=== PATIENT | male | born 1935 | race Caucasian/White ===

== ENCOUNTER 2017-07-22 20:31 | Inpatient (IN) | payer MEDICARE ==
[2017-07-22 21:13] LABS: ADD MAN DIFF? NO
[2017-07-22 21:24] LABS: ANION GAP 7 (6-14); BLOOD UREA NITROGEN 38 mg/dL (8-26); BUN/CREATININE RATIO 24 (6-20); CALCIUM 9.2 mg/dL (8.5-10.1); CARBON DIOXIDE 30 mmol/L (21-32); CHLORIDE 94 mmol/L (98-107); CREATININE 1.6 mg/dL (0.7-1.3); GFR 41.6; GLUCOSE 131 mg/dL (70-99); POTASSIUM 4.4 mmol/L (3.5-5.1); SODIUM 131 mmol/L (136-145)
[2017-07-22] MEDS: MORPHINE SULFATE 4 MG/ML DISP.SYRIN. IV (21:27)
[2017-07-22] MEDS: IV NORMAL SALINE 500ML BAG 500 ML IV ×2 (21:27→23:24)
[2017-07-22 21:28] LABS: BASO % 0 % (0-3); EOS # 0.2 x10^3/uL (0.0-0.7); EOS % 3 % (0-3); HEMATOCRIT 30.6 % (39.0-53.0); HEMOGLOBIN 10.6 g/dL (13.0-17.5); LYMPH # 0.8 x10^3/uL (1.0-4.8); LYMPH % 10 % (24-48); MEAN CORPUSCULAR HEMOGLOBIN 31 pg (25-35); MEAN CORPUSCULAR HGB CONC 35 g/dL (31-37); MEAN CORPUSCULAR VOLUME 90 fL (79-100); MONO # 0.7 x10^3/uL (0.0-1.1); MONO % 9 % (0-9); NEUT # 6.3 x10^3uL (1.8-7.7); NEUT % 78 % (31-73); PLATELET COUNT 128 x10^3/uL (140-400); RED BLOOD COUNT 3.38 x10^6/uL (4.30-5.70); RED CELL DISTRIBUTION WIDTH 14.7 % (11.5-14.5); WHITE BLOOD COUNT 8.1 x10^3/uL (4.0-11.0)
[2017-07-22 21:30] LABS: ALBUMIN 3.7 g/dL (3.4-5.0); ALBUMIN/GLOBULIN RATIO 1.2 (1.0-1.7); ALK PHOS 76 U/L (46-116); ALT (SGPT) 18 U/L (16-63); AST (SGOT) 19 U/L (15-37); LIPASE 666 U/L (73-393); TOTAL BILIRUBIN 0.4 mg/dL (0.2-1.0); TOTAL PROTEIN 6.8 g/dL (6.4-8.2)
[2017-07-22] MEDS: ONDANSETRON PF 4 MG/2 ML VIAL. IV (21:31)
[2017-07-22] MEDS ORDERED: CONTRAST GIVEN MC (21:45)
[2017-07-22] MEDS: IOHEXOL 300 MG/ML 100ML VIAL. IV (22:00)
[2017-07-22 22:19] LABS: BILIRUBIN,URINE NEGATIVE (NEG); CLARITY,URINE CLEAR; COLOR,URINE YELLOW; GLUCOSE,URINE NEGATIVE (NEG); NITRITE,URINE NEGATIVE (NEG); PROTEIN,URINE NEGATIVE (NEG-TRACE); UROBILINOGEN,URINE 0.2 mg/dL (0.2 mg/dL)
[2017-07-22 22:26] LABS: BACTERIA,URINE 0 /HPF (0-FEW); HYALINE CASTS, URINE FEW /HPF; RBC,URINE OCC /HPF (0-2); SQUAMOUS EPITHELIAL CELL,UR OCC /LPF; WBC,URINE 0 /HPF (0-4)
[2017-07-22 23:22] LABS: LACTIC ACID 0.7 mmol/L (0.4-2.0)
[2017-07-22] MEDS ORDERED: IV NORMAL SALINE 1000ML BAG 1,000 ML IV (23:22)
[2017-07-22] MEDS: fentaNYL PF VIAL 100 MCG/2 ML VIAL IV (23:23)
[2017-07-22] MEDS ORDERED: ONDANSETRON PF 4 MG/2 ML VIAL. IV (23:30)
[2017-07-22] MEDS ORDERED: cefOXitin SODIUM 2 GM in IV DEXTROSE 5% 100 ML IV (23:30)
[2017-07-22] MEDS ORDERED: fentaNYL PF VIAL 100 MCG/2 ML VIAL IV (23:30)
[2017-07-22] MEDS ORDERED: PHENYLEPHRINE in 0.9% NACL PF 1 MG/10 ML SYRINGE. IV (23:42)
[2017-07-22] MEDS ORDERED: ePHEDrine PF IN SALINE 50 MG/5 ML DISP.SYRIN IV (23:42)
[2017-07-22] MEDS ORDERED: ONDANSETRON PF 4 MG/2 ML VIAL. (23:43)
[2017-07-22] MEDS ORDERED: SUCCINYLCHOLINE 200 MG/10 ML VIAL. (23:43)
[2017-07-22] MEDS ORDERED: LIDOCAINE 2% PF Vial for OR 5 ML VIAL. (23:43)
[2017-07-22] MEDS ORDERED: PROPOFOL 20 ML IV (23:43)
[2017-07-22] MEDS ORDERED: DEXAMETHASONE SOD PHOS 20 MG/5 ML VIAL. (23:43)
[2017-07-22] MEDS ORDERED: ROCURONIUM 50 MG/5 ML VIAL. (23:44)
[2017-07-22] MEDS ORDERED: fentaNYL PF VIAL 100 MCG/2 ML VIAL (23:45)
[2017-07-22] MEDS ORDERED: IV RINGERS,LACTATED 1000ML 1,000 ML IV (23:59)
[2017-07-23] MEDS ORDERED: MORPHINE SULFATE 2 MG/ML DISP.SYRIN. IV
[2017-07-23] MEDS ORDERED: fentaNYL PF VIAL 100 MCG/2 ML VIAL IV ×2
[2017-07-23] MEDS ORDERED: HYDROmorphone 2 MG/ML VIAL IV
[2017-07-23] MEDS ORDERED: LIDOCAINE 1% PF 2 ML VIAL. ID
[2017-07-23] MEDS ORDERED: PROCHLORPERAZINE 10 MG/2 ML VIAL. IV
[2017-07-23] MEDS ORDERED: NEOSTIGMINE METHYLSULFATE 5 MG/5 ML SYRINGE. (00:57)
[2017-07-23] MEDS ORDERED: GLYCOPYRROLATE 1 MG/5 ML VIAL. (00:57)
[2017-07-23] MEDS: BUPIVACAINE-EPI 0.25%-1:200000 50 ML VIAL. (00:57)
[2017-07-23] MEDS: IV NORMAL SALINE 1000ML BAG 1,000 ML IV (02:07)
[2017-07-23] MEDS ORDERED: ONDANSETRON PF 4 MG/2 ML VIAL. IV ×2 (02:15)
[2017-07-23] MEDS ORDERED: NALOXONE 0.4 MG/ML VIAL. IV (02:15)
[2017-07-23] MEDS ORDERED: 0.9 % SODIUM CHLORIDE 10 ML DISP.SYRIN. IV (02:15)
[2017-07-23] MEDS: IV RINGERS,LACTATED 1000ML 1,000 ML IV ×3 (02:24→23:50)
[2017-07-23 05:27] LABS: ADD MAN DIFF? NO
[2017-07-23 05:42] LABS: ANION GAP 7 (6-14); BLOOD UREA NITROGEN 32 mg/dL (8-26); CALCIUM 8.2 mg/dL (8.5-10.1); CARBON DIOXIDE 27 mmol/L (21-32); CHLORIDE 99 mmol/L (98-107); CREATININE 1.6 mg/dL (0.7-1.3); GFR 41.6; GLUCOSE 127 mg/dL (70-99); POTASSIUM 4.5 mmol/L (3.5-5.1); SODIUM 133 mmol/L (136-145)
[2017-07-23 05:52] LABS: LACTIC ACID 1.2 mmol/L (0.4-2.0)
[2017-07-23 06:19] LABS: BASO % 1 % (0-3); EOS # 0.1 x10^3/uL (0.0-0.7); EOS % 2 % (0-3); HEMATOCRIT 32.5 % (39.0-53.0); HEMOGLOBIN 10.9 g/dL (13.0-17.5); LYMPH % 14 % (24-48); MEAN CORPUSCULAR HEMOGLOBIN 31 pg (25-35); MEAN CORPUSCULAR HGB CONC 33 g/dL (31-37); MEAN CORPUSCULAR VOLUME 92 fL (79-100); MONO # 0.4 x10^3/uL (0.0-1.1); MONO % 6 % (0-9); NEUT # 5.4 x10^3uL (1.8-7.7); NEUT % 78 % (31-73); PLATELET COUNT 117 x10^3/uL (140-400); RED BLOOD COUNT 3.55 x10^6/uL (4.30-5.70); RED CELL DISTRIBUTION WIDTH 14.7 % (11.5-14.5); WHITE BLOOD COUNT 6.9 x10^3/uL (4.0-11.0)
[2017-07-23] MEDS ORDERED: INFLUENZA VAX SCREEN BY RX. MC (11:45)
[2017-07-23] MEDS ORDERED: PNEUMOCOCCAL VAX SCREEN BY RX. MC (11:45)
[2017-07-23] MEDS: ENOXAPARIN 40 MG/0.4 ML SYRINGE. SQ (14:54)
[2017-07-23] MEDS: PNEUMOC CONJ VACC 23-VALENT 0.5 ML VIAL. VAX IM (14:57)
[2017-07-23] MEDS: FLU VACC QS2017-18 (36MOS+)/PF 0.5 ML SYRINGE. VAX IM (14:58)
[2017-07-23] MEDS ORDERED: IV NORMAL SALINE 1000ML BAG 1,000 ML IV (17:30)
[2017-07-23] MEDS: IV RINGERS,LACTATED 500ML 500 ML IV (18:45)
[2017-07-23] MEDS ORDERED: IV RINGERS,LACTATED 500ML 500 ML IV (19:00)
[2017-07-23 21:13] LABS: MRSA BY PCR Negative (Negative)
[2017-07-24 06:45] LABS: ADD MAN DIFF? NO; BASO % 0 % (0-3); EOS % 0 % (0-3); HEMATOCRIT 21.8 % (39.0-53.0); LYMPH # 0.6 x10^3/uL (1.0-4.8); LYMPH % 8 % (24-48); MEAN CORPUSCULAR HEMOGLOBIN 32 pg (25-35); MEAN CORPUSCULAR HGB CONC 35 g/dL (31-37); MEAN CORPUSCULAR VOLUME 91 fL (79-100); MONO # 0.6 x10^3/uL (0.0-1.1); MONO % 8 % (0-9); NEUT # 6.7 x10^3uL (1.8-7.7); NEUT % 84 % (31-73); PLATELET COUNT 95 x10^3/uL (140-400); RED BLOOD COUNT 2.38 x10^6/uL (4.30-5.70); RED CELL DISTRIBUTION WIDTH 14.8 % (11.5-14.5); WHITE BLOOD COUNT 7.9 x10^3/uL (4.0-11.0)
[2017-07-24 07:02] LABS: ALBUMIN 2.5 g/dL (3.4-5.0); ALBUMIN/GLOBULIN RATIO 0.9 (1.0-1.7); ALK PHOS 54 U/L (46-116); ALT (SGPT) 11 U/L (16-63); ANION GAP 7 (6-14); AST (SGOT) 14 U/L (15-37); BLOOD UREA NITROGEN 31 mg/dL (8-26); BUN/CREATININE RATIO 22 (6-20); CALCIUM 8.4 mg/dL (8.5-10.1); CARBON DIOXIDE 27 mmol/L (21-32); CHLORIDE 103 mmol/L (98-107); CREATININE 1.4 mg/dL (0.7-1.3); GFR 48.5; GLUCOSE 119 mg/dL (70-99); POTASSIUM 4.5 mmol/L (3.5-5.1); SODIUM 137 mmol/L (136-145); TOTAL BILIRUBIN 0.4 mg/dL (0.2-1.0); TOTAL PROTEIN 5.2 g/dL (6.4-8.2)
[2017-07-24 07:07] LABS: HEMOGLOBIN 7.6 g/dL (13.0-17.5)
[2017-07-24] MEDS: IV RINGERS,LACTATED 1000ML 1,000 ML IV (08:21)
[2017-07-24] MEDS ORDERED: MAGNESIUM SULFATE 2GM 50 ML IV (09:15)
[2017-07-24 09:39] LABS: LIPASE 110 U/L (73-393)
[2017-07-24] MEDS: ENOXAPARIN 40 MG/0.4 ML SYRINGE. SQ (12:28)
[2017-07-25 04:53] LABS: ADD MAN DIFF? NO
[2017-07-25 05:18] LABS: BASO % 0 % (0-3); EOS % 0 % (0-3); LYMPH # 0.5 x10^3/uL (1.0-4.8); LYMPH % 8 % (24-48); MEAN CORPUSCULAR HEMOGLOBIN 31 pg (25-35); MEAN CORPUSCULAR HGB CONC 35 g/dL (31-37); MEAN CORPUSCULAR VOLUME 91 fL (79-100); MONO # 0.5 x10^3/uL (0.0-1.1); MONO % 7 % (0-9); NEUT # 5.6 x10^3uL (1.8-7.7); NEUT % 85 % (31-73); PLATELET COUNT 93 x10^3/uL (140-400); RED BLOOD COUNT 1.86 x10^6/uL (4.30-5.70); RED CELL DISTRIBUTION WIDTH 15.1 % (11.5-14.5); WHITE BLOOD COUNT 6.6 x10^3/uL (4.0-11.0)
[2017-07-25 05:25] LABS: ALBUMIN 2.3 g/dL (3.4-5.0); ALBUMIN/GLOBULIN RATIO 0.8 (1.0-1.7); ALK PHOS 49 U/L (46-116); ALT (SGPT) 12 U/L (16-63); ANION GAP 5 (6-14); AST (SGOT) 21 U/L (15-37); BLOOD UREA NITROGEN 32 mg/dL (8-26); BUN/CREATININE RATIO 23 (6-20); CALCIUM 8.5 mg/dL (8.5-10.1); CARBON DIOXIDE 30 mmol/L (21-32); CHLORIDE 106 mmol/L (98-107); CREATININE 1.4 mg/dL (0.7-1.3); GFR 48.5; GLUCOSE 132 mg/dL (70-99); POTASSIUM 3.9 mmol/L (3.5-5.1); SODIUM 141 mmol/L (136-145); TOTAL BILIRUBIN 0.4 mg/dL (0.2-1.0); TOTAL PROTEIN 5.2 g/dL (6.4-8.2)
[2017-07-25 05:28] LABS: HEMATOCRIT 16.9 % (39.0-53.0); HEMOGLOBIN 5.8 g/dL (13.0-17.5)
[2017-07-25 05:43] LABS: PHOSPHORUS 2.1 mg/dL (2.6-4.7)
[2017-07-25] MEDS: ENOXAPARIN 40 MG/0.4 ML SYRINGE. SQ (09:29)
[2017-07-25] MEDS: POTASSIUM CHLORIDE 10 MEQ TABLET.ER. PO (14:00)
[2017-07-25] MEDS: LOSARTAN POTASSIUM 50 MG TABLET. PO (14:00)
[2017-07-25] MEDS: AMINO AC 3%/ELECTROLYTE/GLYCER 1,000 ML IV (14:00)
[2017-07-25] MEDS: MELOXICAM 7.5 MG TABLET PO (14:00)
[2017-07-25] MEDS: DIGOXIN 125 MCG TABLET. PO (14:00)
[2017-07-25] MEDS: FUROSEMIDE 40 MG TABLET. PO (14:00)
[2017-07-25] MEDS: CARVEDILOL 6.25 MG TABLET. PO (14:26)
[2017-07-25 15:43] LABS: RETIC COUNT 0.5 % (0.5-2.5)
[2017-07-25 15:53] LABS: % SAT IRON 4 % (15-34); IRON,SERUM 7 ug/dL (65-175)
[2017-07-25] MEDS: TPN PER PHARMACY MC (16:19)
[2017-07-25 17:20] LABS: FERRITIN 150 ng/mL (26-388)
[2017-07-25] MEDS: POTASSIUM PHOSPHATE DIBASIC 13.6 MMOL in IV NORMAL SALINE 100ML 100 ML IV (18:36)
[2017-07-25] MEDS: IV RINGERS,LACTATED 1000ML 1,000 ML IV (18:39)
[2017-07-25] MEDS ORDERED: FAMOTIDINE 20 MG TABLET. PO (21:00)
[2017-07-25] MEDS: SIMVASTATIN 20 MG TABLET PO (21:00)
[2017-07-25] MEDS: TRIAMCINOLONE ACETONIDE 0.1% TOPICAL OINTMENT 15GM TUBE. TP (21:00)
[2017-07-25] MEDS ORDERED: FAMOTIDINE 20 MG/2 ML VIAL IVP (21:00)
[2017-07-25] MEDS: FAMOTIDINE 20 MG/2 ML VIAL IVP (21:03)
[2017-07-26] MEDS: TOTAL PARENTERAL NUTRITION 1,424.9987 ML, AMINO ACIDS 10 % 60 GM, DEXTROSE 70 % IN WATE... IV ×2 (03:19→22:14)
[2017-07-26 05:20] LABS: ADD MAN DIFF? NO
[2017-07-26 05:34] LABS: BASO % 0 % (0-3); EOS # 0.1 x10^3/uL (0.0-0.7); EOS % 3 % (0-3); LYMPH # 0.4 x10^3/uL (1.0-4.8); LYMPH % 9 % (24-48); MEAN CORPUSCULAR HEMOGLOBIN 31 pg (25-35); MEAN CORPUSCULAR HGB CONC 34 g/dL (31-37); MEAN CORPUSCULAR VOLUME 90 fL (79-100); MONO # 0.3 x10^3/uL (0.0-1.1); MONO % 6 % (0-9); NEUT # 4.2 x10^3uL (1.8-7.7); NEUT % 83 % (31-73); PLATELET COUNT 82 x10^3/uL (140-400); RED BLOOD COUNT 2.23 x10^6/uL (4.30-5.70); RED CELL DISTRIBUTION WIDTH 15.6 % (11.5-14.5); WHITE BLOOD COUNT 5.1 x10^3/uL (4.0-11.0)
[2017-07-26 05:48] LABS: HEMATOCRIT 20.1 % (39.0-53.0); HEMOGLOBIN 6.9 g/dL (13.0-17.5)
[2017-07-26 06:22] LABS: MAGNESIUM 2.2 mg/dL (1.8-2.4)
[2017-07-26 06:23] LABS: ALBUMIN 2.2 g/dL (3.4-5.0); ANION GAP 6 (6-14); BLOOD UREA NITROGEN 32 mg/dL (8-26); CALCIUM 8.4 mg/dL (8.5-10.1); CARBON DIOXIDE 30 mmol/L (21-32); CHLORIDE 109 mmol/L (98-107); CREATININE 1.2 mg/dL (0.7-1.3); GLUCOSE 138 mg/dL (70-99); PHOSPHORUS 2.7 mg/dL (2.6-4.7); POTASSIUM 3.8 mmol/L (3.5-5.1); SODIUM 145 mmol/L (136-145)
[2017-07-26 06:27] LABS: TRIGLYCERIDES 52 mg/dL (0-150)
[2017-07-26 06:41] LABS: IMMEDIATE SPIN CROSSMATCH 1 3
[2017-07-26] MEDS: CARVEDILOL 6.25 MG TABLET. PO ×4 (08:00→17:05)
[2017-07-26] MEDS: ENOXAPARIN 40 MG/0.4 ML SYRINGE. SQ (08:02)
[2017-07-26] MEDS: LOSARTAN POTASSIUM 50 MG TABLET. PO ×2 (08:03→08:48)
[2017-07-26] MEDS: POTASSIUM CHLORIDE 10 MEQ TABLET.ER. PO ×2 (08:03→08:47)
[2017-07-26] MEDS: DIGOXIN 125 MCG TABLET. PO ×2 (08:04→08:47)
[2017-07-26] MEDS: MELOXICAM 7.5 MG TABLET PO (08:05)
[2017-07-26] MEDS: FUROSEMIDE 40 MG TABLET. PO ×2 (08:05→08:47)
[2017-07-26] MEDS: TRIAMCINOLONE ACETONIDE 0.1% TOPICAL OINTMENT 15GM TUBE. TP ×2 (08:58→22:15)
[2017-07-26] MEDS: IRON SUCROSE COMPLEX 500 MG in IV NORMAL SALINE 250ML 250 ML IV (11:32)
[2017-07-26] MEDS: TPN PER PHARMACY MC (12:43)
[2017-07-26] MEDS: HALOPERIDOL LACTATE 5 MG/ML VIAL. IVP (14:04)
[2017-07-26 15:20] LABS: HEMATOCRIT 24.5 % (39.0-53.0); HEMOGLOBIN 8.2 g/dL (13.0-17.5); MEAN CORPUSCULAR HEMOGLOBIN 30 pg (25-35); MEAN CORPUSCULAR HGB CONC 34 g/dL (31-37); MEAN CORPUSCULAR VOLUME 89 fL (79-100); PLATELET COUNT 90 x10^3/uL (140-400); RED BLOOD COUNT 2.74 x10^6/uL (4.30-5.70); RED CELL DISTRIBUTION WIDTH 16.1 % (11.5-14.5); WHITE BLOOD COUNT 6.6 x10^3/uL (4.0-11.0)
[2017-07-26] MEDS: LABETALOL 20 MG/4 ML DISP.SYRIN. IVP ×2 (17:46→21:52)
[2017-07-26] MEDS ORDERED: ADENOSINE 6 MG/2 ML VIAL. IV ×2 (20:00→20:03)
[2017-07-26] MEDS: SIMVASTATIN 20 MG TABLET PO (21:00)
[2017-07-26] MEDS: FAMOTIDINE 20 MG/2 ML VIAL IVP (21:19)
[2017-07-26] MEDS: DIGOXIN IV 500 MCG/2 ML AMPUL. IV (22:25)
[2017-07-26] MEDS: ACETAMINOPHEN 650 MG SUPP.RECT. RC (22:32)
[2017-07-26] MEDS: METOPROLOL TARTRATE 5 MG/5 ML VIAL. IVP (23:55)
[2017-07-27] MEDS: IV RINGERS,LACTATED 1000ML 1,000 ML IV (03:30)
[2017-07-27] MEDS: LABETALOL 20 MG/4 ML DISP.SYRIN. IVP ×4 (03:32→21:09)
[2017-07-27] MEDS: METOPROLOL TARTRATE 5 MG/5 ML VIAL. IVP ×3 (05:54→17:28)
[2017-07-27 06:27] LABS: MAGNESIUM 2.3 mg/dL (1.8-2.4)
[2017-07-27 07:36] LABS: ALBUMIN 2.5 g/dL (3.4-5.0); ANION GAP 9 (6-14); BLOOD UREA NITROGEN 30 mg/dL (8-26); CALCIUM 8.4 mg/dL (8.5-10.1); CARBON DIOXIDE 29 mmol/L (21-32); CHLORIDE 109 mmol/L (98-107); CREATININE 1.5 mg/dL (0.7-1.3); GFR 44.8; GLUCOSE 175 mg/dL (70-99); PHOSPHORUS 2.9 mg/dL (2.6-4.7); POTASSIUM 3.7 mmol/L (3.5-5.1); SODIUM 147 mmol/L (136-145)
[2017-07-27] MEDS: MELOXICAM 7.5 MG TABLET PO (07:54)
[2017-07-27] MEDS: ACETAMINOPHEN 650 MG SUPP.RECT. RC (08:08)
[2017-07-27] MEDS: HALOPERIDOL LACTATE 5 MG/ML VIAL. IVP ×3 (08:16→19:25)
[2017-07-27] MEDS: DIGOXIN IV 500 MCG/2 ML AMPUL. IV ×2 (08:17→15:44)
[2017-07-27] MEDS: TRIAMCINOLONE ACETONIDE 0.1% TOPICAL OINTMENT 15GM TUBE. TP ×2 (08:18→21:08)
[2017-07-27] MEDS: POTASSIUM CHLORIDE 10 MEQ TABLET.ER. PO (09:00)
[2017-07-27] MEDS: FUROSEMIDE 40 MG TABLET. PO (09:00)
[2017-07-27 10:20] LABS: BASO % 0 % (0-3); EOS # 0.1 x10^3/uL (0.0-0.7); EOS % 1 % (0-3); HEMATOCRIT 24.8 % (39.0-53.0); HEMOGLOBIN 8.4 g/dL (13.0-17.5); LYMPH # 0.4 x10^3/uL (1.0-4.8); LYMPH % 6 % (24-48); MEAN CORPUSCULAR HEMOGLOBIN 32 pg (25-35); MEAN CORPUSCULAR HGB CONC 34 g/dL (31-37); MEAN CORPUSCULAR VOLUME 93 fL (79-100); MONO # 0.4 x10^3/uL (0.0-1.1); MONO % 6 % (0-9); NEUT # 6.6 x10^3uL (1.8-7.7); NEUT % 87 % (31-73); PLATELET COUNT 94 x10^3/uL (140-400); RED BLOOD COUNT 2.65 x10^6/uL (4.30-5.70); RED CELL DISTRIBUTION WIDTH 16.6 % (11.5-14.5); WHITE BLOOD COUNT 7.5 x10^3/uL (4.0-11.0)
[2017-07-27 10:25] LABS: ADD MAN DIFF? YES
[2017-07-27] MEDS: IV DEXTROSE 5% 1,000 ML IV (11:01)
[2017-07-27] MEDS: TPN PER PHARMACY MC (11:03)
[2017-07-27 11:29] LABS: % BANDS 5 % (0-9); % LYMPHS 4 % (24-48); % MONOS 3 % (0-10); % SEGS 88 % (35-66)
[2017-07-27 11:30] LABS: PLT ESTIMATE DECREASED (ADEQUATE)
[2017-07-27] MEDS: SIMVASTATIN 20 MG TABLET PO (21:00)
[2017-07-27] MEDS: FAMOTIDINE 20 MG/2 ML VIAL IVP (21:08)
[2017-07-27] MEDS: HYDROmorphone 2 MG/ML VIAL IV (21:20)
[2017-07-27] MEDS: [UNRECOGNIZED DRUG - OTHER] IV (22:02)
[2017-07-27] MEDS: AMINO ACIDS IV (22:02)
[2017-07-27] MEDS: TOTAL PARENTERAL NUTRITION IV (22:02)
[2017-07-27] MEDS: DEXTROSE 70% IV (22:02)
[2017-07-28] MEDS: METOPROLOL TARTRATE 5 MG/5 ML VIAL. IVP ×3 (00:17→12:00)
[2017-07-28] MEDS: HYDROmorphone 2 MG/ML VIAL IV ×2 (01:22→05:01)
[2017-07-28] MEDS: LABETALOL 20 MG/4 ML DISP.SYRIN. IVP ×2 (01:24→03:08)
[2017-07-28] MEDS: HALOPERIDOL LACTATE 5 MG/ML VIAL. IVP (03:19)
[2017-07-28] MEDS: ACETAMINOPHEN 650 MG SUPP.RECT. RC (03:39)
[2017-07-28 03:42] LABS: ADD MAN DIFF? NO
[2017-07-28 03:44] LABS: BASO % 1 % (0-3); EOS % 1 % (0-3); HEMATOCRIT 23.6 % (39.0-53.0); LYMPH # 0.5 x10^3/uL (1.0-4.8); LYMPH % 6 % (24-48); MEAN CORPUSCULAR HEMOGLOBIN 31 pg (25-35); MEAN CORPUSCULAR HGB CONC 34 g/dL (31-37); MEAN CORPUSCULAR VOLUME 90 fL (79-100); MONO # 0.5 x10^3/uL (0.0-1.1); MONO % 7 % (0-9); NEUT # 6.4 x10^3uL (1.8-7.7); NEUT % 86 % (31-73); PLATELET COUNT 87 x10^3/uL (140-400); RED BLOOD COUNT 2.61 x10^6/uL (4.30-5.70); RED CELL DISTRIBUTION WIDTH 15.8 % (11.5-14.5); WHITE BLOOD COUNT 7.5 x10^3/uL (4.0-11.0)
[2017-07-28] MEDS: IV DEXTROSE 5% 1,000 ML IV (03:55)
[2017-07-28 04:03] LABS: ALBUMIN 2.3 g/dL (3.4-5.0); ANION GAP 8 (6-14); BLOOD UREA NITROGEN 26 mg/dL (8-26); CALCIUM 8.4 mg/dL (8.5-10.1); CARBON DIOXIDE 27 mmol/L (21-32); CHLORIDE 110 mmol/L (98-107); CREATININE 1.3 mg/dL (0.7-1.3); GFR 52.9; GLUCOSE 198 mg/dL (70-99); PHOSPHORUS 3.7 mg/dL (2.6-4.7); POTASSIUM 3.6 mmol/L (3.5-5.1); SODIUM 145 mmol/L (136-145)
[2017-07-28] MEDS: TRIAMCINOLONE ACETONIDE 0.1% TOPICAL OINTMENT 15GM TUBE. TP ×2 (09:00→20:11)
[2017-07-28] MEDS: DIGOXIN IV 500 MCG/2 ML AMPUL. IV (09:55)
[2017-07-28] MEDS: FUROSEMIDE 40 MG TABLET. PO (09:56)
[2017-07-28] MEDS: POTASSIUM CHLORIDE 10 MEQ TABLET.ER. PO (09:56)
[2017-07-28] MEDS: IOHEXOL 300 MG/ML 100ML VIAL. IV (10:00)
[2017-07-28] MEDS: IOHEXOL 240 MG/ML 50ML VIAL. PO (10:00)
[2017-07-28] MEDS ORDERED: CONTRAST GIVEN MC (10:15)
[2017-07-28 11:15] LABS: BILIRUBIN,URINE NEGATIVE (NEG); CLARITY,URINE CLEAR; COLOR,URINE YELLOW; GLUCOSE,URINE NEGATIVE (NEG); NITRITE,URINE NEGATIVE (NEG); PROTEIN,URINE 100 mg/dL (NEG-TRACE)
[2017-07-28 11:27] LABS: AMORPHOUS SEDIMENT,UR PRESENT /HPF; BACTERIA,URINE 0 /HPF (0-FEW); HYALINE CASTS, URINE FEW /HPF; RBC,URINE 0 /HPF (0-2); WBC,URINE OCC /HPF (0-4)
[2017-07-28] MEDS ORDERED: DEXTROSE 50% 25 GM / 50ML DISP.SYRIN. IV (14:00)
[2017-07-28] MEDS ORDERED: PIP/TAZO PER PHARMACY MC (16:00)
[2017-07-28] MEDS: TPN PER PHARMACY MC (16:32)
[2017-07-28] MEDS: IV DEXTROSE 10% 1,000 ML IV (16:53)
[2017-07-28] MEDS: PIPERACILLIN/TAZOBACTAM 3.375 GM in IV NORMAL SALINE 50ML 50 ML IV (16:53)
[2017-07-28] MEDS: INSULIN ASPART 300 UNITS/3 ML INSULN.PEN SQ (18:00)
[2017-07-28] MEDS: SIMVASTATIN 20 MG TABLET PO (20:11)
[2017-07-28] MEDS: FAMOTIDINE 20 MG/2 ML VIAL IVP (20:11)
[2017-07-28] MEDS: AMINO ACIDS IV (22:00)
[2017-07-28] MEDS: TOTAL PARENTERAL NUTRITION IV (22:00)
[2017-07-28] MEDS: DEXTROSE 70% IV (22:00)
[2017-07-28] MEDS: [UNRECOGNIZED DRUG - OTHER] IV (22:00)
[2017-07-29] MEDS ORDERED: AMIODARONE 150 MG/3 ML VIAL ×2 (00:16→01:00)
[2017-07-29] MEDS: PIPERACILLIN/TAZOBACTAM 3.375 GM in IV NORMAL SALINE 50ML 50 ML IV ×4 (00:37→18:00)
[2017-07-29 00:44] LABS: POC GLUCOSE 141 mg/dL (70-99)
[2017-07-29 04:40] LABS: ADD MAN DIFF? NO
[2017-07-29 04:49] LABS: BASO % 0 % (0-3); EOS # 0.4 x10^3/uL (0.0-0.7); EOS % 6 % (0-3); HEMATOCRIT 23.6 % (39.0-53.0); LYMPH # 0.4 x10^3/uL (1.0-4.8); LYMPH % 7 % (24-48); MEAN CORPUSCULAR HEMOGLOBIN 31 pg (25-35); MEAN CORPUSCULAR HGB CONC 34 g/dL (31-37); MEAN CORPUSCULAR VOLUME 90 fL (79-100); MONO # 0.5 x10^3/uL (0.0-1.1); MONO % 8 % (0-9); NEUT % 79 % (31-73); PLATELET COUNT 90 x10^3/uL (140-400); RED BLOOD COUNT 2.61 x10^6/uL (4.30-5.70); RED CELL DISTRIBUTION WIDTH 15.5 % (11.5-14.5); WHITE BLOOD COUNT 6.4 x10^3/uL (4.0-11.0)
[2017-07-29 04:58] LABS: POC GLUCOSE 106 mg/dL (70-99)
[2017-07-29 05:09] LABS: ALBUMIN 2.2 g/dL (3.4-5.0); ALBUMIN/GLOBULIN RATIO 0.7 (1.0-1.7); ALK PHOS 62 U/L (46-116); ALT (SGPT) 34 U/L (16-63); ANION GAP 10 (6-14); AST (SGOT) 35 U/L (15-37); BLOOD UREA NITROGEN 22 mg/dL (8-26); BUN/CREATININE RATIO 17 (6-20); CALCIUM 8.7 mg/dL (8.5-10.1); CARBON DIOXIDE 27 mmol/L (21-32); CHLORIDE 106 mmol/L (98-107); CREATININE 1.3 mg/dL (0.7-1.3); GFR 52.9; GLUCOSE 156 mg/dL (70-99); MAGNESIUM 1.9 mg/dL (1.8-2.4); PHOSPHORUS 3.3 mg/dL (2.6-4.7); POTASSIUM 3.4 mmol/L (3.5-5.1); SODIUM 143 mmol/L (136-145); TOTAL BILIRUBIN 0.8 mg/dL (0.2-1.0); TOTAL PROTEIN 5.5 g/dL (6.4-8.2)
[2017-07-29] MEDS: AMIODARONE 150 MG in IV DEXTROSE 5% 100 ML IV (05:52)
[2017-07-29] MEDS: AMIODARONE 900 MG in IV DEXTROSE 5% 500 ML IV (05:54)
[2017-07-29] MEDS: INSULIN ASPART 300 UNITS/3 ML INSULN.PEN SQ ×5 (05:56→23:37)
[2017-07-29 06:03] LABS: POC GLUCOSE 137 mg/dL (70-99)
[2017-07-29] MEDS: POTASSIUM CHLORIDE 10 MEQ TABLET.ER. PO (09:00)
[2017-07-29] MEDS: FUROSEMIDE 40 MG TABLET. PO (09:00)
[2017-07-29] MEDS ORDERED: LIDOCAINE WITH 8.4% SOD BICARB 3 ML DISP.SYRIN. (09:22)
[2017-07-29] MEDS: IV DEXTROSE 10% 1,000 ML IV ×2 (09:29→17:15)
[2017-07-29] MEDS: LIDOCAINE WITH 8.4% SOD BICARB 3 ML DISP.SYRIN. IJ (10:02)
[2017-07-29] MEDS: TPN PER PHARMACY MC (10:16)
[2017-07-29] MEDS: TRIAMCINOLONE ACETONIDE 0.1% TOPICAL OINTMENT 15GM TUBE. TP ×2 (11:16→21:00)
[2017-07-29 11:33] LABS: POC GLUCOSE 149 mg/dL (70-99)
[2017-07-29] MEDS: BARIUM SULFATE 40% (APPLE) 148 GM PWD. PO (14:19)
[2017-07-29 17:53] LABS: POC GLUCOSE 139 mg/dL (70-99)
[2017-07-29] MEDS: SIMVASTATIN 20 MG TABLET PO (21:54)
[2017-07-29] MEDS: FAMOTIDINE 20 MG/2 ML VIAL IVP (21:54)
[2017-07-29] MEDS: DEXTROSE 70% IV (21:55)
[2017-07-29] MEDS: AMINO ACIDS IV (21:55)
[2017-07-29] MEDS: TOTAL PARENTERAL NUTRITION IV (21:55)
[2017-07-29] MEDS: [UNRECOGNIZED DRUG - OTHER] IV (21:55)
[2017-07-29 23:41] LABS: POC GLUCOSE 140 mg/dL (70-99)
[2017-07-30] MEDS: PIPERACILLIN/TAZOBACTAM 3.375 GM in IV NORMAL SALINE 50ML 50 ML IV ×4 (00:15→18:21)
[2017-07-30 05:29] LABS: POC GLUCOSE 153 mg/dL (70-99)
[2017-07-30] MEDS: INSULIN ASPART 300 UNITS/3 ML INSULN.PEN SQ ×3 (05:46→16:31)
[2017-07-30 06:24] LABS: ALBUMIN 2.1 g/dL (3.4-5.0); ANION GAP 7 (6-14); BLOOD UREA NITROGEN 23 mg/dL (8-26); CALCIUM 7.9 mg/dL (8.5-10.1); CARBON DIOXIDE 29 mmol/L (21-32); CHLORIDE 105 mmol/L (98-107); CREATININE 1.3 mg/dL (0.7-1.3); GFR 52.9; GLUCOSE 141 mg/dL (70-99); PHOSPHORUS 2.7 mg/dL (2.6-4.7); POTASSIUM 3.4 mmol/L (3.5-5.1); SODIUM 141 mmol/L (136-145)
[2017-07-30] MEDS: TRIAMCINOLONE ACETONIDE 0.1% TOPICAL OINTMENT 15GM TUBE. TP ×2 (09:00→21:00)
[2017-07-30] MEDS: FUROSEMIDE 40 MG TABLET. PO (11:43)
[2017-07-30] MEDS: POTASSIUM CHLORIDE 10 MEQ TABLET.ER. PO (11:43)
[2017-07-30] MEDS: POTASSIUM CHLORIDE 20 MEQ TABLET.ER. PO (11:44)
[2017-07-30] MEDS: AMIODARONE HCL 200 MG TABLET. PO (11:50)
[2017-07-30] MEDS: POTASSIUM CHLORIDE 20MEQ 50 ML IV (11:52)
[2017-07-30] MEDS: TPN PER PHARMACY MC (13:46)
[2017-07-30] MEDS ORDERED: HALOPERIDOL LACTATE 5 MG/ML VIAL. IVP (15:15)
[2017-07-30] MEDS: FAMOTIDINE 20 MG TABLET. PO (22:02)
[2017-07-30] MEDS: SIMVASTATIN 20 MG TABLET PO (22:02)
[2017-07-30] MEDS: LACTOBACILLUS RHAMNOSUS GG 1 CAPSULE. PO (22:02)
[2017-07-30] MEDS: AMINO ACIDS IV (22:05)
[2017-07-30] MEDS: TOTAL PARENTERAL NUTRITION IV (22:05)
[2017-07-30] MEDS: DEXTROSE 70% IV (22:05)
[2017-07-30] MEDS: [UNRECOGNIZED DRUG - OTHER] IV (22:05)
[2017-07-31] MEDS: PIPERACILLIN/TAZOBACTAM 3.375 GM in IV NORMAL SALINE 50ML 50 ML IV ×4 (00:34→17:14)
[2017-07-31 06:00] LABS: ALBUMIN 2.1 g/dL (3.4-5.0); ANION GAP 9 (6-14); BLOOD UREA NITROGEN 20 mg/dL (8-26); CALCIUM 8.1 mg/dL (8.5-10.1); CARBON DIOXIDE 27 mmol/L (21-32); CHLORIDE 108 mmol/L (98-107); CREATININE 1.4 mg/dL (0.7-1.3); GFR 48.5; GLUCOSE 154 mg/dL (70-99); PHOSPHORUS 3.1 mg/dL (2.6-4.7); POTASSIUM 3.8 mmol/L (3.5-5.1); SODIUM 144 mmol/L (136-145)
[2017-07-31] MEDS: LACTOBACILLUS RHAMNOSUS GG 1 CAPSULE. PO ×2 (08:44→20:30)
[2017-07-31] MEDS: AMIODARONE HCL 200 MG TABLET. PO (08:44)
[2017-07-31] MEDS: FUROSEMIDE 40 MG TABLET. PO (08:44)
[2017-07-31] MEDS: POTASSIUM CHLORIDE 10 MEQ TABLET.ER. PO (08:45)
[2017-07-31] MEDS: TRIAMCINOLONE ACETONIDE 0.1% TOPICAL OINTMENT 15GM TUBE. TP ×2 (09:00→20:36)
[2017-07-31] MEDS ORDERED: DEXTROSE 50% 25 GM / 50ML DISP.SYRIN. IV (10:15)
[2017-07-31] MEDS: TPN PER PHARMACY MC (10:35)
[2017-07-31] MEDS: INSULIN ASPART 300 UNITS/3 ML INSULN.PEN SQ ×2 (12:00→17:00)
[2017-07-31 12:57] LABS: POC GLUCOSE 120 mg/dL (70-99)
[2017-07-31 18:08] LABS: POC GLUCOSE 104 mg/dL (70-99)
[2017-07-31] MEDS: SIMVASTATIN 20 MG TABLET PO (20:30)
[2017-07-31] MEDS: FAMOTIDINE 20 MG TABLET. PO (20:30)
[2017-07-31] MEDS: ACETAMINOPHEN 325 MG TABLET. PO (20:31)
[2017-07-31] MEDS ORDERED: TOTAL PARENTERAL NUTRITION IV (22:00)
[2017-07-31] MEDS ORDERED: [UNRECOGNIZED DRUG - OTHER] IV (22:00)
[2017-07-31] MEDS ORDERED: AMINO ACIDS IV (22:00)
[2017-07-31] MEDS ORDERED: DEXTROSE 70% IV (22:00)
[2017-08-01] MEDS: PIPERACILLIN/TAZOBACTAM 3.375 GM in IV NORMAL SALINE 50ML 50 ML IV ×3 (00:11→12:22)
[2017-08-01] MEDS: INSULIN ASPART 300 UNITS/3 ML INSULN.PEN SQ ×2 (08:00→12:00)
[2017-08-01 08:25] LABS: POC GLUCOSE 99 mg/dL (70-99)
[2017-08-01] MEDS: TRIAMCINOLONE ACETONIDE 0.1% TOPICAL OINTMENT 15GM TUBE. TP (09:00)
[2017-08-01] MEDS: LACTOBACILLUS RHAMNOSUS GG 1 CAPSULE. PO (09:54)
[2017-08-01] MEDS: POTASSIUM CHLORIDE 10 MEQ TABLET.ER. PO (09:54)
[2017-08-01] MEDS: AMIODARONE HCL 200 MG TABLET. PO (09:54)
[2017-08-01] MEDS: FUROSEMIDE 40 MG TABLET. PO (09:55)
[2017-08-01 11:37] LABS: POC GLUCOSE 147 mg/dL (70-99)
[2017-08-01] MEDS: ACETAMINOPHEN 325 MG TABLET. PO (15:34)
== END 2017-08-01 17:20 | DRG 853 ==
LOC: 1 WEST ICU 07-23 00:10 → 2 NORTH 07-29 14:32 → 4 NORTH 07-24 16:24 → ER 20:31 → 1 WEST ICU 22:48
PROC: 0DTE0ZZ Resection of Large Intestine, Open Approach (ICD-10-PCS; principal; 2017-07-22 00:28)
PROC: 30233N1 Transfusion of Nonautologous Red Blood Cells into Peripheral Vein, Percutaneous Approach (ICD-10-PCS; 2017-07-22 00:28)
PROC: 02H633Z Insertion of Infusion Device into Right Atrium, Percutaneous Approach (ICD-10-PCS; 2017-07-22 00:28)
PROC: B2141ZZ Fluoroscopy of Right Heart using Low Osmolar Contrast (ICD-10-PCS; 2017-07-22 00:28)
DX: A41.9 Sepsis, unspecified organism (principal); K56.2 Volvulus; J69.0 Pneumonitis due to inhalation of food and vomit; N17.0 Acute kidney failure with tubular necrosis; E43 Unspecified severe protein-calorie malnutrition; G92 Toxic encephalopathy; I13.2 Hypertensive heart and chronic kidney disease with heart failure and with stage 5 chronic kidney disease, or end stage renal disease; E87.0 Hyperosmolality and hypernatremia; D62 Acute posthemorrhagic anemia; I27.29 Other secondary pulmonary hypertension; K56.7 Ileus, unspecified; I48.92 Unspecified atrial flutter; N18.5 Chronic kidney disease, stage 5; I48.0 Paroxysmal atrial fibrillation; D69.6 Thrombocytopenia, unspecified; E78.00 Pure hypercholesterolemia, unspecified; E78.5 Hyperlipidemia, unspecified; E87.6 Hypokalemia; F03.90 Unspecified dementia, unspecified severity, without behavioral disturbance, psychotic disturbance, mood disturbance, and anxiety; I25.10 Atherosclerotic heart disease of native coronary artery without angina pectoris; I35.1 Nonrheumatic aortic (valve) insufficiency; I45.4 Nonspecific intraventricular block; I50.9 Heart failure, unspecified; K21.9 Gastro-esophageal reflux disease without esophagitis; K63.89 Other specified diseases of intestine; M10.9 Gout, unspecified; K66.8 Other specified disorders of peritoneum; M25.78 Osteophyte, vertebrae; N40.0 Benign prostatic hyperplasia without lower urinary tract symptoms; Z96.659 Presence of unspecified artificial knee joint; R13.10 Dysphagia, unspecified; Z82.49 Family history of ischemic heart disease and other diseases of the circulatory system; Z87.891 Personal history of nicotine dependence; Z90.49 Acquired absence of other specified parts of digestive tract; Z68.21 Body mass index [BMI] 21.0-21.9, adult
CPT/HCPCS: 36415; 36569; 36584; 71045; 74177; 74230; 77001; 80048; 80053; 80069; 81001; 82728; 82962; 83540; 83550; 83605; 83690; 83735; 84100; 84478; 85007; 85025; 85027; 85045; 86850; 86900; 86901; 86920; 87641; 88307; 90686; 90732; 92526-GN; 92610-GN; 92611-GN; 93005; 93306; 96361; 96374; 96375; 97116-GP; 97162-GP; 97166-GO; 97530-GO; 97530-GP; 97535-GO; 99291; 99291-25; C1751; J0153; J0282; J0330; J0610; J1100; J1160; J1170; J1630; J1650; J1756; J1815; J2060; J2270; J2370; J2405; J2543; J2704; J2710; J3010; J3475; J3480; J3490; J7030; J7040; J7050; J7120; P9016; Q9966; Q9967; S0028

== ENCOUNTER 2017-08-01 22:41 | Emergency (ER) | payer MEDICARE ==
[2017-08-02] LABS: ADD MAN DIFF? NO
[2017-08-02 00:12] LABS: BASO % 1 % (0-3); EOS # 0.3 x10^3/uL (0.0-0.7); EOS % 4 % (0-3); HEMATOCRIT 27.2 % (39.0-53.0); HEMOGLOBIN 9.2 g/dL (13.0-17.5); LYMPH # 1.1 x10^3/uL (1.0-4.8); LYMPH % 12 % (24-48); MEAN CORPUSCULAR HEMOGLOBIN 31 pg (25-35); MEAN CORPUSCULAR HGB CONC 34 g/dL (31-37); MEAN CORPUSCULAR VOLUME 91 fL (79-100); MONO # 0.8 x10^3/uL (0.0-1.1); MONO % 9 % (0-9); NEUT # 6.6 x10^3uL (1.8-7.7); NEUT % 74 % (31-73); PLATELET COUNT 183 x10^3/uL (140-400); RED BLOOD COUNT 2.99 x10^6/uL (4.30-5.70); RED CELL DISTRIBUTION WIDTH 15.8 % (11.5-14.5); WHITE BLOOD COUNT 8.9 x10^3/uL (4.0-11.0)
[2017-08-02 00:25] LABS: ANION GAP 6 (6-14); BLOOD UREA NITROGEN 19 mg/dL (8-26); BUN/CREATININE RATIO 13 (6-20); CALCIUM 8.1 mg/dL (8.5-10.1); CARBON DIOXIDE 29 mmol/L (21-32); CHLORIDE 106 mmol/L (98-107); CREATININE 1.5 mg/dL (0.7-1.3); GFR 44.8; GLUCOSE 91 mg/dL (70-99); POTASSIUM 3.9 mmol/L (3.5-5.1); SODIUM 141 mmol/L (136-145)
[2017-08-02 00:32] LABS: ALBUMIN 2.5 g/dL (3.4-5.0); ALBUMIN/GLOBULIN RATIO 0.7 (1.0-1.7); ALK PHOS 72 U/L (46-116); ALT (SGPT) 47 U/L (16-63); AST (SGOT) 26 U/L (15-37); LIPASE 387 U/L (73-393); TOTAL BILIRUBIN 0.3 mg/dL (0.2-1.0); TOTAL PROTEIN 6.3 g/dL (6.4-8.2)
== END 2017-08-02 10:37 | disposition home or self-care (01) ==
LOC: ER 08-02 22:36
DX: R45.1 Restlessness and agitation (principal); E78.00 Pure hypercholesterolemia, unspecified; I11.0 Hypertensive heart disease with heart failure; I50.9 Heart failure, unspecified; K21.9 Gastro-esophageal reflux disease without esophagitis; I25.10 Atherosclerotic heart disease of native coronary artery without angina pectoris; F03.90 Unspecified dementia, unspecified severity, without behavioral disturbance, psychotic disturbance, mood disturbance, and anxiety; I48.91 Unspecified atrial fibrillation
CPT/HCPCS: 36415; 80053; 83690; 85025; 93005; 99285-25

== ENCOUNTER 2018-06-28 02:52 | Inpatient (IN) | payer MEDICARE ==
[~2018-06-28] VITALS: Ht 185.4 cm; Wt 82.6 kg
[~2018-06-28 02:52] MED LIST: ACET650S11 RC; AMIO200T4 PO; CARV6.2511 PO; CEFP200T PO; CEPH500C PO; DIGO125T PO; DIGO250T14 PO; FAMO20TA5 PO; FURO-68 PO; HYDR-3164 PO; LORA0.5T96 PO; LORA2ORA7 SL; LOSA-73 PO; LOSA100T14 PO; MELO15TA23 PO; NABU750T PO; POTA10TA12 PO; SIMV20TA3 PO; TRIA15OI TP
--- NOTE | 2018-06-28 03:07 | PHYS DOC ---
Past Medical History Past Medical History: A-Fib, CAD, CHF, Dementia, GERD, High Cholesterol, Hypertension, Other Additional Past Medical Histor: GOUT,BPH, poor historian Past Surgical History: Knee Replacement, Other Additional Past Surgical Histo: POOR HISTORIAN-- BX KNEES, R SHOULDER Alcohol Use: None Drug Use: None Adult General Chief Complaint Chief Complaint: MECHANICAL FALL HPI HPI Patient is an 83-year-old male who presents via EMS after falling and injuring his left hip at home. Patient has not been able to bear any weight on hip since fall approximately 5 minutes ago. He denies any other injuries. Patient had no loss of consciousness. He rates pain as very mild currently as long as he is remaining still but states that pain is quite severe when his left hip is moved. Review of Systems Review of Systems Constitutional: Denies fever or chills [] Respiratory: Denies cough or shortness of breath [] Cardiovascular: No additional information not addressed in HPI [] GI: Denies abdominal pain, nausea, vomiting or diarrhea [] Musculoskeletal: Positive left hip pain [] All other systems were reviewed and found to be within normal limits, except as documented in this note. Current Medications Current Medications Current Medications Medications (Trade) Dose Ordered Sig/Desmond Start Time Stop Time Status Last Admin Dose Admin Fentanyl Citrate (Fentanyl 2ml Vial) 25 mcg PRN Q15MIN PRN 06/28/18 03:15 06/29/18 03:14 06/28/18 03:34 25 MCG Ondansetron HCl (Zofran) 4 mg 1X ONCE 06/28/18 03:15 06/28/18 03:26 DC 06/28/18 03:35 4 MG Sodium Chloride 1,000 ml @ 100 mls/hr Q10H 06/28/18 03:15 06/28/18 13:14 06/28/18 03:36 100 MLS/HR Allergies Allergies Allergies Coded Allergies Type Severity Reaction Last Updated Verified No Known Drug Allergies 07/22/15 No Physical Exam Physical Exam Constitutional: Well developed, well nourished, no acute distress, non-toxic appearance. [] HENT: Normocephalic, atraumatic, bilateral external ears normal, oropharynx moist, no oral exudates, nose normal. [] Eyes: PERRLA, EOMI, conjunctiva normal, no discharge. [] Neck: Normal range of motion, no tenderness, supple, no stridor. [] Cardiovascular: Regular rate and rhythm [] Lungs & Thorax: Bilateral breath sounds clear to auscultation [] Abdomen: Bowel sounds normal, soft, no tenderness. [] Skin: Warm, dry, no erythema, no rash. [] Extremities: There are shortening and external rotation noted to the left lower extremity. Unable to assess range of motion of left hip due to pain.. [] Neurologic: Awake and alert, no focal deficits noted. [] Current Patient Data Vital Signs Vital Signs Date Time Temp Pulse Resp B/P (MAP) Pulse Ox O2 Delivery O2 Flow Rate FiO2 06/28/18 03:34 16 95 Room Air 06/28/18 02:55 98.0 70 91/63 (72) 98.0 Lab Values Laboratory Tests Test 06/28/18 03:12 White Blood Count 6.9 x10^3/uL (4.0-11.0) Red Blood Count 4.10 x10^6/uL (4.30-5.70) L Hemoglobin 11.8 g/dL (13.0-17.5) L Hematocrit 34.4 % (39.0-53.0) L Mean Corpuscular Volume 84 fL (79-100) Mean Corpuscular Hemoglobin 29 pg (25-35) Mean Corpuscular Hemoglobin Concent 34 g/dL (31-37) Red Cell Distribution Width 15.6 % (11.5-14.5) H Platelet Count 123 x10^3/uL (140-400) L Neutrophils (%) (Auto) 68 % (31-73) Lymphocytes (%) (Auto) 13 % (24-48) L Monocytes (%) (Auto) 13 % (0-9) H Eosinophils (%) (Auto) 5 % (0-3) H Basophils (%) (Auto) 1 % (0-3) Neutrophils # (Auto) 4.7 x10^3uL (1.8-7.7) Lymphocytes # (Auto) 0.9 x10^3/uL (1.0-4.8) L Monocytes # (Auto) 0.9 x10^3/uL (0.0-1.1) Eosinophils # (Auto) 0.4 x10^3/uL (0.0-0.7) Basophils # (Auto) 0.1 x10^3/uL (0.0-0.2) Sodium Level 132 mmol/L (136-145) L Potassium Level 4.0 mmol/L (3.5-5.1) Chloride Level 98 mmol/L (98-107) Carbon Dioxide Level 27 mmol/L (21-32) Anion Gap 7 (6-14) Blood Urea Nitrogen 47 mg/dL (8-26) H Creatinine 1.5 mg/dL (0.7-1.3) H Estimated GFR (Cockcroft-Gault) 44.7 BUN/Creatinine Ratio 31 (6-20) H Glucose Level 113 mg/dL (70-99) H Calcium Level 8.6 mg/dL (8.5-10.1) Total Bilirubin 0.4 mg/dL (0.2-1.0) Aspartate Amino Transferase (AST) 23 U/L (15-37) Alanine Aminotransferase (ALT) 23 U/L (16-63) Alkaline Phosphatase 96 U/L (46-116) Total Protein 7.2 g/dL (6.4-8.2) Albumin 3.4 g/dL (3.4-5.0) Albumin/Globulin Ratio 0.9 (1.0-1.7) L Laboratory Tests 06/28/18 03:12 Laboratory Tests 06/28/18 03:12 EKG EKG [] Interpretation Time: EKG demonstrates sinus rhythm with rate of 71. There is a left bundle branch block present and there are premature ventricular complexes. Radiology/Procedures Radiology/Procedures [] Impressions: X-ray of left hip demonstrates intertrochanteric fracture Course & Med Decision Making Course & Med Decision Making Pertinent Labs and Imaging studies reviewed. (See chart for details) [] Dragon Disclaimer Dragon Disclaimer This electronic medical record was generated, in whole or in part, using a voice recognition dictation system. Departure Departure Impression: Primary Impression: Closed left hip fracture Disposition: 09 ADMITTED INPATIENT Admitting Physician: Other Condition: GOOD Referrals: LEON INFANTE (PCP) Problem Qualifiers Primary Impression: Closed left hip fracture Encounter type: initial encounter Qualified Codes: S72.002A - Fracture of unspecified part of neck of left femur, initial encounter for closed fracture JAVIER ROSS Jr. DO Jun 28, 2018 03:07
[2018-06-28] MEDS ORDERED: IV NORMAL SALINE 1000ML BAG 1,000 ML IV SCH (03:15)
[2018-06-28] MEDS ORDERED: ONDANSETRON PF 4 MG/2 ML VIAL. IV ONE (03:15)
[2018-06-28 03:26] LABS: BASO # 0.1 x10^3/uL (0.0-0.2); BASO % 1 % (0-3); EOS # 0.4 x10^3/uL (0.0-0.7); EOS % 5 % (0-3); HEMATOCRIT 34.4 % (39.0-53.0); HEMOGLOBIN 11.8 g/dL (13.0-17.5); LYMPH # 0.9 x10^3/uL (1.0-4.8); LYMPH % 13 % (24-48); MEAN CORPUSCULAR HEMOGLOBIN 29 pg (25-35); MEAN CORPUSCULAR HGB CONC 34 g/dL (31-37); MEAN CORPUSCULAR VOLUME 84 fL (79-100); MONO # 0.9 x10^3/uL (0.0-1.1); MONO % 13 % (0-9); NEUT # 4.7 x10^3uL (1.8-7.7); NEUT % 68 % (31-73); PLATELET COUNT 123 x10^3/uL (140-400); RED CELL DISTRIBUTION WIDTH 15.6 % (11.5-14.5); WHITE BLOOD COUNT 6.9 x10^3/uL (4.0-11.0)
[2018-06-28 03:32] LABS: CALCIUM 8.6 mg/dL (8.5-10.1); CREATININE 1.5 mg/dL (0.7-1.3); GFR 44.7
[2018-06-28] MEDS: fentaNYL PF VIAL 100 MCG/2 ML VIAL IV PRN ×6 (03:34→18:03)
[2018-06-28 03:37] LABS: ALBUMIN 3.4 g/dL (3.4-5.0); ALBUMIN/GLOBULIN RATIO 0.9 (1.0-1.7); TOTAL BILIRUBIN 0.4 mg/dL (0.2-1.0); TOTAL PROTEIN 7.2 g/dL (6.4-8.2)
[2018-06-28 04:20] LABS: PROTHROMBIN TIME PATIENT 14.5 SEC (11.7-14.0)
[2018-06-28] MEDS ORDERED: ONDANSETRON PF 4 MG/2 ML VIAL. IV PRN ×2 (04:30→08:15)
[2018-06-28 05:20] VITALS: BP 128/79
--- NOTE | 2018-06-28 05:30 | NUR ---
The patient, MARK CUBA, 83 y/o, M admitted by JIMI VILLARREAL MD, was given written information regarding hospital policies, unit procedures and contact persons. Pt admission assessment complete, admit packet reviewed, and VSS. Valuables were checked and left in room with pt, pt orientated to room, call light within reach and will continue to monitor.
[2018-06-28] MEDS: IV NORMAL SALINE 1000ML BAG 1,000 ML IV SCH ×3 (06:44→18:03)
[2018-06-28 07:00] VITALS: BP 103/53
--- NOTE | 2018-06-28 07:29 | EKG ---
[facility] [address] [place] [address] Test Date: 2018-06-28 Test Time: 03:10:44 Pat Name: MARK CUBA Department: Room: 438 1 Gender: M Battery Technician: : 1935 Requested By: JAVIER ROSS Order Number: [id number] Reading MD: Chong Robb Measurements Intervals Plummer Rate: 71 P: 100 RI: 196 QRS: -42 QRSD: 120 T: 121 QT: 458 QTc: 503 Interpretive Statements SINUS RHYTHM VENTRICULAR PREMATURE COMPLEX(ES) ATRIAL PREMATURE COMPLEX(ES) LEFT BUNDLE BRANCH BLOCK ABNORMAL ECG Electronically Signed On 06-30-2018 9:46:31 BUSINESS IMPROVEMENT MANAGER by Chong Robb
[2018-06-28] MEDS ORDERED: CARV6.253 PO (07:44)
[2018-06-28] MEDS ORDERED: PROP150T2 PO (07:44)
[2018-06-28] MEDS ORDERED: DONE10TA7 PO (07:44)
[2018-06-28] MEDS ORDERED: TRAZ-85 PO (07:44)
[2018-06-28] MEDS ORDERED: SERT100T8 PO (07:44)
[2018-06-28] MEDS ORDERED: MELO7.5T29 PO (07:44)
[2018-06-28] MEDS ORDERED: MEMA10TA20 PO (07:44)
--- NOTE | 2018-06-28 07:58 | RAD ---
HIP LEFT 2V WITH PELVIS Clinical Indication: FALL Comparison: None. Findings: Degenerative arthropathy of the hips. Right hip joint is intact. No acute pelvic fracture. Degenerative spondylosis of L5/S1. Sacroiliac joints are symmetric. Arterial calcifications are noted. There is acute traumatic comminuted intertrochanteric left femur fracture. Portion of the greater trochanter fracture fragment is medially displaced. Lesser trochanter fracture fragment is medially displaced. There is no dislocation of the left hip. IMPRESSION: Acute traumatic comminuted intertrochanteric left femur fracture. Electronically signed by: Justin Montemayor MD (06/28/2018 7:54 AM) [facility]
--- NOTE | 2018-06-28 08:01 | RAD ---
PORTABLE CHEST 1V Clinical Indication: FALL Comparison: AP chest July 28, 2017. Findings: Atherosclerotic thoracic aorta. The cardiomediastinal silhouette is normal. Lungs are clear. There is no pneumothorax. No pleural effusion is appreciated. Advanced degenerative arthropathy of the bilateral shoulders. Evidence of prior surgeries. IMPRESSION: No acute cardiopulmonary process. Electronically signed by: Justin Montemayor MD (06/28/2018 7:56 AM) [facility]
[2018-06-28] MEDS ORDERED: fentaNYL PF VIAL 100 MCG/2 ML VIAL IV PRN ×3 (08:15→09:30)
[2018-06-28] MEDS ORDERED: MORPHINE SULFATE 4 MG/ML VIAL. IV PRN (08:15)
[2018-06-28] MEDS ORDERED: [UNRECOGNIZED DRUG - REMARK] MC PRN (08:15)
[2018-06-28] MEDS ORDERED: MAGNESIUM HYDROXIDE 2,400 MG/30 ML ORAL.SUSP. PO PRN (08:15)
[2018-06-28] MEDS ORDERED: 0.9 % SODIUM CHLORIDE 10 ML DISP.SYRIN. IV PRN (08:15)
[2018-06-28] MEDS ORDERED: MORPHINE SULFATE 2 MG/ML VIAL. IV PRN (08:15)
[2018-06-28] MEDS ORDERED: BISACODYL 10 MG SUPP.RECT. PR PRN (08:15)
[2018-06-28] MEDS ORDERED: DEXTROSE 50% 25 GM / 50ML DISP.SYRIN. IV PRN (08:15)
--- NOTE | 2018-06-28 08:15 | PDOC ---
Provider Note Provider Note consult received, chart, lab and x-rays reviewed. Patient is hyponatremic, and likely dehydrated with elevated BUN and creatinine. Will plan rehydration and IVF for hyponatremia today and surgery possibly tomorrow. RIN GUIDRY MD Jun 28, 2018 08:15
[2018-06-28] MEDS ORDERED: INFLUENZA VAX SCREEN BY RX. MC ONE (08:30)
[2018-06-28 08:57] LABS: CALCIUM 8.5 mg/dL (8.5-10.1); CREATININE 1.4 mg/dL (0.7-1.3); GFR 48.4; POTASSIUM 4.9 mmol/L (3.5-5.1)
[2018-06-28] MEDS: ACETAMINOPHEN 500 MG TABLET PO SCH ×3 (09:00→21:24)
[2018-06-28] MEDS: DOCUSATE SODIUM 100 MG CAPSULE. PO SCH ×2 (09:26→21:25)
[2018-06-28] MEDS: traMADol 50 MG TABLET PO PRN (09:27)
[2018-06-28] MEDS ORDERED: ACETAMINOPHEN 650 MG SUPP.RECT. RC PRN (09:30)
[2018-06-28] MEDS: FUROSEMIDE 40 MG TABLET. PO SCH (10:00)
[2018-06-28] MEDS: CARVEDILOL 6.25 MG TABLET. PO SCH (10:00)
[2018-06-28 11:00] VITALS: BP 108/55
--- NOTE | 2018-06-28 11:12 | PDOC2 ---
CONSULT Date of Consult Date of Consult DATE: 06/28/18 TIME: 11:08 Reason for Consult Reason for Consult: Left hip fracture Identification/Chief Complaint Chief Complaint Left hip pain after a fall Source Source: Caregiver, Chart review, Patient History of Present Illness Reason for Visit: This 83-year-old man was admitted with a hip fracture. He tells me that he fell yesterday, "where I live", and his sons live with him. He said he "messed up" his hip. I was also able to speak today 06/29, to his son, Sterling, the DPOA. Past Medical History Cardiovascular: AFIB, CAD, CHF, HTN, Valve insufficiency, Pulmonary hypertension CENTRAL NERVOUS SYSTEM: Dementia GI: GERD Renal/: Chronic renal insuff Past Surgical History Past Surgical History: Total knee replacement, Other Family History Family History: High Cholestrol, Hypertension Social History Lives: Alone Current Problem List Problem List Problems Medical Problems: (1) Closed left hip fracture Status: Acute Current Medications Current Medications Current Medications Fentanyl Citrate (Fentanyl 2ml Vial) 25 mcg PRN Q15MIN PRN IV PAIN GREATER THAN 3/10 Last administered on 06/28/18at 05:03; Start 06/28/18 at 03:15; Stop at 03:14 Sodium Chloride 1,000 ml @ 100 mls/hr Q10H IV Last administered on 06/28/18at 03:36; Start 06/28/18 at 03:15; Stop 06/28/18 at 13:14 Ondansetron HCl (Zofran) 4 mg 1X ONCE IV Last administered on 06/28/18at 03:35 ; Start 06/28/18 at 03:15; Stop 06/28/18 at 03:26; Status DC Ondansetron HCl (Zofran) 4 mg PRN Q8HRS PRN IV NAUSEA/VOMITING; Start 06/28/18 at 04:30; Stop 06/29/18 at 04:29 Fentanyl Citrate (Fentanyl 2ml Vial) 50 mcg PRN Q1HR PRN IV PAIN Last administered on 06/28/18at 06:43; Start 06/28/18 at 04:30; Stop 06/29/18 at 04:29 Sodium Chloride 1,000 ml @ 75 mls/hr [id number] IV Last administered on at 06:44; Start 06/28/18 at 04:30; Stop 06/29/18 at 04:29 Morphine Sulfate (Morphine Sulfate) 2 mg PRN Q1HR PRN IV PAIN MILD 2ND CHOICE; Start 06/28/18 at 08:15 Morphine Sulfate (Morphine Sulfate) 2 mg PRN Q1HR PRN IV PAIN; Start 06/28/18 at 08:15; Status UNV Fentanyl Citrate (Fentanyl 2ml Vial) 50 mcg PRN Q1HR PRN IV PAIN MOD TO SEV 1ST CHOICE; Start 06/28/18 at 08:15 Ondansetron HCl (Zofran) 4 mg PRN Q6HRS PRN IV NAUSEA/VOMITING; Start 06/28/18 at 08:15 Lorazepam (Ativan) 0.5 mg PRN Q4HRS PRN IV ANXIETY / AGITATION; Start 06/28/18 at 08:15 Info (Ortho Message -- Hold Meds) 1 ea CONT PRN PRN MC SEE COMMENTS; Start at 08:15; Stop 06/30/18 at 08:14 Tramadol HCl (Ultram) 50 mg PRN QID PRN PO PAIN MILD Last administered on at 09:27; Start 06/28/18 at 08:15 Oxycodone HCl (Roxicodone) 5 mg PRN Q4HRS PRN PO PAIN MOD TO SEV; Start at 08:15 Fentanyl Citrate (Fentanyl 2ml Vial) 25 mcg PRN Q1HR PRN IV PAIN MILD 1ST CHOICE; Start 06/28/18 at 08:15 Acetaminophen (Tylenol) 1,000 mg TID PO ; Start 06/28/18 at 09:00 Docusate Sodium (Colace) 100 mg BID PO Last administered on 06/28/18at 09:26; Start 06/28/18 at 09:00 Magnesium Hydroxide (Milk Of Magnesia) 2,400 mg PRN DAILY PRN PO CONSTIPATION; Start 06/28/18 at 08:15 Bisacodyl (Dulcolax Supp) 10 mg PRN DAILY PRN OR CONSTIPATION; Start 06/28/18 at 08:15 Zolpidem Tartrate (Ambien) 5 mg PRN QHS PRN PO INSOMNIA; Start 06/28/18 at 08: 15 Sodium Chloride (Normal Saline Flush) 3 ml QSHIFT PRN IV AFTER MEDS AND BLOOD DRAWS; Start 06/28/18 at 08:15 Dextrose (Dextrose 50%-Water Syringe) 12.5 gm PRN Q15MIN PRN IV SEE COMMENTS; Start 06/28/18 at 08:15 Info (FLU VACCINE SCREEN per RX) 1 each 1X ONCE MC ; Start 06/28/18 at 08:30; Stop 06/28/18 at 08:31; Status UNV Influenza Virus Vaccine (Afluria Trivalent 7540-0018 Syringe) 0.5 ml ONCE ONCE VAX IM ; Start 06/28/18 at 16:00; Stop 06/28/18 at 16:01 Fentanyl Citrate (Fentanyl 2ml Vial) 50 mcg PRN Q2HR PRN IV PAIN; Start at 09:30; Stop 06/28/18 at 09:36; Status DC Acetaminophen (Tylenol Supp) 650 mg PRN Q6HRS PRN RC FEVER > 102; Start at 09:30 Amiodarone HCl (Cordarone) 200 mg DAILY PO ; Start 06/28/18 at 10:00 Carvedilol (Coreg) 6.25 mg DAILY08 PO ; Start 06/28/18 at 10:00 Famotidine (Pepcid) 20 mg QHS PO ; Start 06/28/18 at 21:00 Furosemide (Lasix) 40 mg DAILY PO ; Start 06/28/18 at 10:00 Potassium Chloride (Klor-Con) 10 meq DAILY PO ; Start 06/28/18 at 10:00 Trazodone HCl (Desyrel) 50 mg HS PO ; Start 06/28/18 at 21:00 Triamcinolone Acetonide (Kenalog) 1 harika PRN BID PRN TP ITCHING; Start 06/28/18 at 21:00 Donepezil HCl (Aricept) 10 mg DAILY PO ; Start 06/28/18 at 10:00 Memantine (Namenda) 10 mg DAILY PO ; Start 06/28/18 at 10:00 Meloxicam (Mobic) 15 mg DAILY PO ; Start 06/28/18 at 10:00 Propafenone HCl (Rythmol) 150 mg DAILY PO ; Start 06/28/18 at 10:00 Sertraline HCl (Zoloft) 100 mg DAILY PO ; Start 06/28/18 at 10:00 Simvastatin (Zocor) 20 mg HS PO ; Start 06/28/18 at 21:00 Active Scripts Active Amiodarone Hcl 200 Mg Tablet 200 Mg PO DAILY 30 Days Reported Meloxicam 7.5 Mg Tablet 1 Tab PO DAILY Propafenone Hcl 150 Mg Tablet 1 Tab PO DAILY Memantine HCl 10 Mg Tablet 1 Tab PO DAILY Trazodone Hcl 50 Mg Tablet 1 Tab PO HS Sertraline Hcl 100 Mg Tablet 1 Tab PO DAILY Donepezil Hcl 10 Mg Tablet 1 Tab PO DAILY Carvedilol 6.25 Mg Tablet 1 Tab PO DAILY Potassium Chloride 10 Meq Capsule.er 10 Meq PO DAILY Lasix (Furosemide) 40 Mg Tablet 40 Mg PO DAILY Acetaminophen Supp (Acetaminophen) 650 Mg Supp.rect 650 Mg RC Q6HRS PRN Triamcinolone Acetonide 0.1% Oint (Triamcinolone Acetonide) 15 Gm Oint...g. 1 Harika TP BID MIX WITH EUCERIN DIRECTED BY PHYSICIAN Simvastatin 20 Mg Tablet 1 Tab PO QHS Nabumetone 750 Mg Tablet 1 Tab PO BID Famotidine 20 Mg Tablet 1 Tab PO BID Allergies Allergies: Coded Allergies: No Known Drug Allergies (Unverified , 07/22/15) ROS Review of System poor historian, unable to obtain. Will discuss with POA General: No: Chills, Night Sweats PSYCHOLOGICAL ROS: No: Anxiety Eyes: No Decreased vision HEENT: No: Heacaches Respiratory: No: Cough, Shortness of breath, SOB with excertion Cardiovascular: No Chest Pain Gastrointestinal: No Nausea, No Vomiting, No Diarrhea, No Constipation Musculoskeletal: Yes Joint Pain Neurological: Yes Behavorial Changes, Yes Memory Loss Physical Exam General: Alert, mild distress HEENT: Atraumatic Lungs: Normal air movement Heart: Regular rate Abdomen: Soft Extremities: Other (left lower extremity has shortening. There was pain with inadvertent motion. Sensation is intact at the foot. He can dorsiflex and plantarflex the toes. The pulses palpable in the capillary refill is normal.) Skin: No breakdown, No significant lesion, Other (skin intact over the fracture ) Neuro: Normal speech, Normal tone Psych/Mental Status: Mood NL, Other (he seems to be a poor historian. He has a left total knee scar but denied having total knee replacement.) MUSCULOSKELETAL: Abnormal exam of left (hip as above with shortening, rotation , and pain with motion.) Vitals VITALS Vital Signs Date Time Temp Pulse Resp B/P (MAP) Pulse Ox O2 Delivery O2 Flow Rate FiO2 06/28/18 09:27 98 Room Air 06/28/18 07:15 16 06/28/18 07:00 98.0 63 103/53 (70) 98.0 Labs Labs Laboratory Tests Test 06/28/18 03:12 06/28/18 08:25 White Blood Count 6.9 x10^3/uL (4.0-11.0) Red Blood Count 4.10 x10^6/uL (4.30-5.70) Hemoglobin 11.8 g/dL (13.0-17.5) Hematocrit 34.4 % (39.0-53.0) Mean Corpuscular Volume 84 fL (79-100) Mean Corpuscular Hemoglobin 29 pg (25-35) Mean Corpuscular Hemoglobin Concent 34 g/dL (31-37) Red Cell Distribution Width 15.6 % (11.5-14.5) Platelet Count 123 x10^3/uL (140-400) Neutrophils (%) (Auto) 68 % (31-73) Lymphocytes (%) (Auto) 13 % (24-48) Monocytes (%) (Auto) 13 % (0-9) Eosinophils (%) (Auto) 5 % (0-3) Basophils (%) (Auto) 1 % (0-3) Neutrophils # (Auto) 4.7 x10^3uL (1.8-7.7) Lymphocytes # (Auto) 0.9 x10^3/uL (1.0-4.8) Monocytes # (Auto) 0.9 x10^3/uL (0.0-1.1) Eosinophils # (Auto) 0.4 x10^3/uL (0.0-0.7) Basophils # (Auto) 0.1 x10^3/uL (0.0-0.2) Prothrombin Time 14.5 SEC (11.7-14.0) Prothromb Time International Ratio 1.2 (0.8-1.1) Activated Partial Thromboplast Time 28 SEC (24-38) Sodium Level 132 mmol/L (136-145) 135 mmol/L (136-145) Potassium Level 4.0 mmol/L (3.5-5.1) 4.9 mmol/L (3.5-5.1) Chloride Level 98 mmol/L (98-107) 100 mmol/L (98-107) Carbon Dioxide Level 27 mmol/L (21-32) 27 mmol/L (21-32) Anion Gap 7 (6-14) 8 (6-14) Blood Urea Nitrogen 47 mg/dL (8-26) 41 mg/dL (8-26) Creatinine 1.5 mg/dL (0.7-1.3) 1.4 mg/dL (0.7-1.3) Estimated GFR (Cockcroft-Gault) 44.7 48.4 BUN/Creatinine Ratio 31 (6-20) Glucose Level 113 mg/dL (70-99) 129 mg/dL (70-99) Calcium Level 8.6 mg/dL (8.5-10.1) 8.5 mg/dL (8.5-10.1) Total Bilirubin 0.4 mg/dL (0.2-1.0) Aspartate Amino Transf (AST/SGOT) 23 U/L (15-37) Alanine Aminotransferase (ALT/SGPT) 23 U/L (16-63) Alkaline Phosphatase 96 U/L (46-116) Total Protein 7.2 g/dL (6.4-8.2) Albumin 3.4 g/dL (3.4-5.0) Albumin/Globulin Ratio 0.9 (1.0-1.7) Thyroid Stimulating Hormone (TSH) 1.614 uIU/mL (0.358-3.74) Laboratory Tests Test 06/28/18 03:12 06/28/18 08:25 White Blood Count 6.9 x10^3/uL (4.0-11.0) Red Blood Count 4.10 x10^6/uL (4.30-5.70) Hemoglobin 11.8 g/dL (13.0-17.5) Hematocrit 34.4 % (39.0-53.0) Mean Corpuscular Volume 84 fL (79-100) Mean Corpuscular Hemoglobin 29 pg (25-35) Mean Corpuscular Hemoglobin Concent 34 g/dL (31-37) Red Cell Distribution Width 15.6 % (11.5-14.5) Platelet Count 123 x10^3/uL (140-400) Neutrophils (%) (Auto) 68 % (31-73) Lymphocytes (%) (Auto) 13 % (24-48) Monocytes (%) (Auto) 13 % (0-9) Eosinophils (%) (Auto) 5 % (0-3) Basophils (%) (Auto) 1 % (0-3) Neutrophils # (Auto) 4.7 x10^3uL (1.8-7.7) Lymphocytes # (Auto) 0.9 x10^3/uL (1.0-4.8) Monocytes # (Auto) 0.9 x10^3/uL (0.0-1.1) Eosinophils # (Auto) 0.4 x10^3/uL (0.0-0.7) Basophils # (Auto) 0.1 x10^3/uL (0.0-0.2) Prothrombin Time 14.5 SEC (11.7-14.0) Prothromb Time International Ratio 1.2 (0.8-1.1) Activated Partial Thromboplast Time 28 SEC (24-38) Sodium Level 132 mmol/L (136-145) 135 mmol/L (136-145) Potassium Level 4.0 mmol/L (3.5-5.1) 4.9 mmol/L (3.5-5.1) Chloride Level 98 mmol/L (98-107) 100 mmol/L (98-107) Carbon Dioxide Level 27 mmol/L (21-32) 27 mmol/L (21-32) Anion Gap 7 (6-14) 8 (6-14) Blood Urea Nitrogen 47 mg/dL (8-26) 41 mg/dL (8-26) Creatinine 1.5 mg/dL (0.7-1.3) 1.4 mg/dL (0.7-1.3) Estimated GFR (Cockcroft-Gault) 44.7 48.4 BUN/Creatinine Ratio 31 (6-20) Glucose Level 113 mg/dL (70-99) 129 mg/dL (70-99) Calcium Level 8.6 mg/dL (8.5-10.1) 8.5 mg/dL (8.5-10.1) Total Bilirubin 0.4 mg/dL (0.2-1.0) Aspartate Amino Transf (AST/SGOT) 23 U/L (15-37) Alanine Aminotransferase (ALT/SGPT) 23 U/L (16-63) Alkaline Phosphatase 96 U/L (46-116) Total Protein 7.2 g/dL (6.4-8.2) Albumin 3.4 g/dL (3.4-5.0) Albumin/Globulin Ratio 0.9 (1.0-1.7) Thyroid Stimulating Hormone (TSH) 1.614 uIU/mL (0.358-3.74) Images Images Reports reviewed, images independently reviewed. Comminuted left hip intertrochanteric fracture, unstable fracture pattern but without reverse obliquity. Lesser trochanter is fractured. Poor bone quality. Chest x-ray showed no acute process. [facility] [address] [place] [address] IMAGING REPORT Signed PATIENT: MARK ENGLISH ACCOUNT: [id number] : 1935 LOCATION: [address] [place] [address] AGE: 83 SEX: M EXAM STATUS: ADM IN ORD. PHYSICIAN: JAVIER ROSS Jr., DO REASON: fall PROCEDURE: HIP LEFT 2V WITH PELVIS HIP LEFT 2V WITH PELVIS Clinical Indication: FALL Comparison: None. Findings: Degenerative arthropathy of the hips. Right hip joint is intact. No acute pelvic fracture. Degenerative spondylosis of L5/S1. Sacroiliac joints are symmetric. Arterial calcifications are noted. There is acute traumatic comminuted intertrochanteric left femur fracture. Portion of the greater trochanter fracture fragment is medially displaced. Lesser trochanter fracture fragment is medially displaced. There is no dislocation of the left hip. IMPRESSION: Acute traumatic comminuted intertrochanteric left femur fracture. Electronically signed by: Justin Montemayor MD (06/28/2018 7:54 AM) [facility] [address] [place] [address] IMAGING REPORT Signed PATIENT: MARK ENGLISH ACCOUNT: [id number] : 1935 LOCATION: [address] [place] [address] AGE: 83 SEX: M EXAM STATUS: ADM IN ORD. PHYSICIAN: JAVIER ROSS Jr., DO REASON: fall PROCEDURE: PORTABLE CHEST 1V PORTABLE CHEST 1V Clinical Indication: FALL Comparison: AP chest July 28, 2017. Findings: Atherosclerotic thoracic aorta. The cardiomediastinal silhouette is normal. Lungs are clear. There is no pneumothorax. No pleural effusion is appreciated. Advanced degenerative arthropathy of the bilateral shoulders. Evidence of prior surgeries. IMPRESSION: No acute cardiopulmonary process. Electronically signed by: Justin Montemayor MD (06/28/2018 7:56 AM) [facility] Assessment/Plan Assessment/Plan Displaced intertrochanteric fracture of left femur, initial encounter for closed fracture S72.142A History of CHF. Appears dehydrated currently, try gentle hydration today, and overnight. Recheck labs in a.m. The POA didn't answer the phone. I spoke to Douglas English, (son but not POA) by phone and discussed plan of IM nail surgery tomorrow. I will obtain x-ray of the left knee, the patient tells me he did not have a total knee replacement but the son tells me he did. This may affect the fixation as I had planned a long intramedullary nail which extends to the left knee. I was able to speak to the DPOA Sterling, and person, prior to surgery. We discussed the potential risks of hardware failure, infection, blood clots, need for additional surgery, or other potential surgical or anesthetic competitions. The consent was signed by the DPOA. The surgical site was marked by me. The knee x-rays were reviewed and show total knee arthroplasty, unremarkable with no fracture or loosening, and the knee implant does not appear that it will interfere with long intramedullary nail fixation. This consult was begun on , and completed on 06/29/18 when I was able to speak to the son, the DP awake, and was able to review the x-rays RIN GUIDRY MD Jun 28, 2018 11:12
[2018-06-28 11:29] LABS: BILIRUBIN,URINE NEGATIVE (NEG); CLARITY,URINE CLEAR; COLOR,URINE YELLOW; NITRITE,URINE NEGATIVE (NEG); PH,URINE 5.5; PROTEIN,URINE NEGATIVE (NEG-TRACE); UROBILINOGEN,URINE 0.2 mg/dL (0.2 mg/dL)
[2018-06-28 11:41] LABS: HYALINE CASTS, URINE OCCASIONAL /HPF; SQUAMOUS EPITHELIAL CELL,UR OCC /LPF
[2018-06-28 11:42] LABS: BACTERIA,URINE 0 /HPF (0-FEW); RBC,URINE 0 /HPF (0-2)
--- NOTE | 2018-06-28 11:49 | PDOC1 ---
History and Physical Date of Admission Date of Admission DATE: 06/28/18 TIME: 11:43 Identification/Chief Complaint Chief Complaint Fall at home Source Source: Caregiver, Chart review, Patient History of Present Illness History of Present Illness Patient is an 83-year-old male with a traumatic fall at home and now has a left hip fracture. He has significant cardiac history including A. fib CHF on CHF meds at home. Creatinine 1.4 with low sodium in the background of diuretic therapy. Spoke with orthopedics-they've recommend cards consult before proceeding with OR tomorrow Friday late afternoon around 5 PM Patient is okay as long as not moving, tenderness on left hip on palpation VIt D pending, labs otherwise ok Past Medical History Cardiovascular: AFIB, CAD, CHF, HTN, Valve insufficiency, Pulmonary hypertension CENTRAL NERVOUS SYSTEM: Dementia GI: GERD Renal/: Chronic renal insuff Past Surgical History Past Surgical History: Total knee replacement, Other Family History Family History: High Cholestrol, Hypertension Social History Smoke: No ALCOHOL: none Drugs: None Current Problem List Problem List Problems Medical Problems: (1) Closed left hip fracture Status: Acute Current Medications Current Medications Current Medications Fentanyl Citrate (Fentanyl 2ml Vial) 25 mcg PRN Q15MIN PRN IV PAIN GREATER THAN 3/10 Last administered on 06/28/18at 05:03; Start 06/28/18 at 03:15; Stop at 03:14 Sodium Chloride 1,000 ml @ 100 mls/hr Q10H IV Last administered on 06/28/18at 03:36; Start 06/28/18 at 03:15; Stop 06/28/18 at 13:14 Ondansetron HCl (Zofran) 4 mg 1X ONCE IV Last administered on 06/28/18at 03:35 ; Start 06/28/18 at 03:15; Stop 06/28/18 at 03:26; Status DC Ondansetron HCl (Zofran) 4 mg PRN Q8HRS PRN IV NAUSEA/VOMITING; Start 06/28/18 at 04:30; Stop 06/29/18 at 04:29 Fentanyl Citrate (Fentanyl 2ml Vial) 50 mcg PRN Q1HR PRN IV PAIN Last administered on 06/28/18at 11:39; Start 06/28/18 at 04:30; Stop 06/29/18 at 04:29 Sodium Chloride 1,000 ml @ 75 mls/hr [id number] IV Last administered on at 06:44; Start 06/28/18 at 04:30; Stop 06/29/18 at 04:29 Morphine Sulfate (Morphine Sulfate) 2 mg PRN Q1HR PRN IV PAIN MILD 2ND CHOICE; Start 06/28/18 at 08:15 Morphine Sulfate (Morphine Sulfate) 2 mg PRN Q1HR PRN IV PAIN; Start 06/28/18 at 08:15; Status UNV Fentanyl Citrate (Fentanyl 2ml Vial) 50 mcg PRN Q1HR PRN IV PAIN MOD TO SEV 1ST CHOICE; Start 06/28/18 at 08:15 Ondansetron HCl (Zofran) 4 mg PRN Q6HRS PRN IV NAUSEA/VOMITING; Start 06/28/18 at 08:15 Lorazepam (Ativan) 0.5 mg PRN Q4HRS PRN IV ANXIETY / AGITATION; Start 06/28/18 at 08:15 Info (Ortho Message -- Hold Meds) 1 ea CONT PRN PRN MC SEE COMMENTS; Start at 08:15; Stop 06/30/18 at 08:14 Tramadol HCl (Ultram) 50 mg PRN QID PRN PO PAIN MILD Last administered on at 09:27; Start 06/28/18 at 08:15 Oxycodone HCl (Roxicodone) 5 mg PRN Q4HRS PRN PO PAIN MOD TO SEV; Start at 08:15 Fentanyl Citrate (Fentanyl 2ml Vial) 25 mcg PRN Q1HR PRN IV PAIN MILD 1ST CHOICE; Start 06/28/18 at 08:15 Acetaminophen (Tylenol) 1,000 mg TID PO ; Start 06/28/18 at 09:00 Docusate Sodium (Colace) 100 mg BID PO Last administered on 06/28/18at 09:26; Start 06/28/18 at 09:00 Magnesium Hydroxide (Milk Of Magnesia) 2,400 mg PRN DAILY PRN PO CONSTIPATION; Start 06/28/18 at 08:15 Bisacodyl (Dulcolax Supp) 10 mg PRN DAILY PRN [place] CONSTIPATION; Start 06/28/18 at 08:15 Zolpidem Tartrate (Ambien) 5 mg PRN QHS PRN PO INSOMNIA; Start 06/28/18 at 08: 15 Sodium Chloride (Normal Saline Flush) 3 ml QSHIFT PRN IV AFTER MEDS AND BLOOD DRAWS; Start 06/28/18 at 08:15 Dextrose (Dextrose 50%-Water Syringe) 12.5 gm PRN Q15MIN PRN IV SEE COMMENTS; Start 06/28/18 at 08:15 Info (FLU VACCINE SCREEN per RX) 1 each 1X ONCE MC ; Start 06/28/18 at 08:30; Stop 06/28/18 at 08:31; Status UNV Influenza Virus Vaccine (Afluria Trivalent [id number] Syringe) 0.5 ml ONCE ONCE VAX IM ; Start 06/28/18 at 16:00; Stop 06/28/18 at 16:01 Fentanyl Citrate (Fentanyl 2ml Vial) 50 mcg PRN Q2HR PRN IV PAIN; Start at 09:30; Stop 06/28/18 at 09:36; Status DC Acetaminophen (Tylenol Supp) 650 mg PRN Q6HRS PRN RC FEVER > 102; Start at 09:30 Amiodarone HCl (Cordarone) 200 mg DAILY PO ; Start 06/28/18 at 10:00 Carvedilol (Coreg) 6.25 mg DAILY08 PO ; Start 06/28/18 at 10:00 Famotidine (Pepcid) 20 mg QHS PO ; Start 06/28/18 at 21:00 Furosemide (Lasix) 40 mg DAILY PO ; Start 06/28/18 at 10:00 Potassium Chloride (Klor-Con) 10 meq DAILY PO ; Start 06/28/18 at 10:00 Trazodone HCl (Desyrel) 50 mg HS PO ; Start 06/28/18 at 21:00 Triamcinolone Acetonide (Kenalog) 1 harika PRN BID PRN TP ITCHING; Start 06/28/18 at 21:00 Donepezil HCl (Aricept) 10 mg DAILY PO ; Start 06/28/18 at 10:00 Memantine (Namenda) 10 mg DAILY PO ; Start 06/28/18 at 10:00 Meloxicam (Mobic) 15 mg DAILY PO ; Start 06/28/18 at 10:00 Propafenone HCl (Rythmol) 150 mg DAILY PO ; Start 06/28/18 at 10:00 Sertraline HCl (Zoloft) 100 mg DAILY PO ; Start 06/28/18 at 10:00 Simvastatin (Zocor) 20 mg HS PO ; Start 06/28/18 at 21:00 Ropivacaine 53.3 ml/Epinephrine HCl 0.6 mg/ Morphine Sulfate 5 mg/Sodium Chloride 100 ml @ 100 mls/hr 1X ONCE INT ART ; Start 06/29/18 at 06:00; Stop 06/29/18 at 06:59; Status UNV Cefazolin Sodium/ Dextrose 50 ml @ 100 mls/hr 1X PREOP PRN IV SEE COMMENTS; Start 06/29/18 at 16:00; Status UNV Active Scripts Active Amiodarone Hcl 200 Mg Tablet 200 Mg PO DAILY 30 Days Reported Meloxicam 7.5 Mg Tablet 1 Tab PO DAILY Propafenone Hcl 150 Mg Tablet 1 Tab PO DAILY Memantine HCl 10 Mg Tablet 1 Tab PO DAILY Trazodone Hcl 50 Mg Tablet 1 Tab PO HS Sertraline Hcl 100 Mg Tablet 1 Tab PO DAILY Donepezil Hcl 10 Mg Tablet 1 Tab PO DAILY Carvedilol 6.25 Mg Tablet 1 Tab PO DAILY Potassium Chloride 10 Meq Capsule.er 10 Meq PO DAILY Lasix (Furosemide) 40 Mg Tablet 40 Mg PO DAILY Acetaminophen Supp (Acetaminophen) 650 Mg Supp.rect 650 Mg RC Q6HRS PRN Triamcinolone Acetonide 0.1% Oint (Triamcinolone Acetonide) 15 Gm Oint...g. 1 Harika TP BID MIX WITH EUCERIN DIRECTED BY PHYSICIAN Simvastatin 20 Mg Tablet 1 Tab PO QHS Nabumetone 750 Mg Tablet 1 Tab PO BID Famotidine 20 Mg Tablet 1 Tab PO BID Allergies Allergies: Coded Allergies: No Known Drug Allergies (Unverified , 07/22/15) ROS Review of System Left hip pain otherwise the rest of ROS 14 point negative Physical Exam General: Alert, Oriented X3, Cooperative, No acute distress HEENT: Atraumatic, PERRLA Lungs: Normal air movement, Other (no crackles or wheezing, diminished on bases ) Heart: S1S2, no thrills, no rubs, no gallops, no murmurs Cardiovascular: S1, S2 Male Genitals Exam: normal genitalia Rectal Exam: not examined PELVIC: Nml ext genitalia Extremities: No clubbing Skin: No rashes Neuro: Normal gait Psych/Mental Status: Mental status NL, Mood NL Vitals Vitals Vital Signs Date Time Temp Pulse Resp B/P (MAP) Pulse Ox O2 Delivery O2 Flow Rate FiO2 06/28/18 11:39 Room Air 06/28/18 09:27 98 06/28/18 07:15 16 06/28/18 07:00 98.0 63 103/53 (70) 98.0 Labs Labs Laboratory Tests Test 06/28/18 03:12 06/28/18 08:25 06/28/18 11:00 White Blood Count 6.9 x10^3/uL (4.0-11.0) Red Blood Count 4.10 x10^6/uL (4.30-5.70) Hemoglobin 11.8 g/dL (13.0-17.5) Hematocrit 34.4 % (39.0-53.0) Mean Corpuscular Volume 84 fL (79-100) Mean Corpuscular Hemoglobin 29 pg (25-35) Mean Corpuscular Hemoglobin Concent 34 g/dL (31-37) Red Cell Distribution Width 15.6 % (11.5-14.5) Platelet Count 123 x10^3/uL (140-400) Neutrophils (%) (Auto) 68 % (31-73) Lymphocytes (%) (Auto) 13 % (24-48) Monocytes (%) (Auto) 13 % (0-9) Eosinophils (%) (Auto) 5 % (0-3) Basophils (%) (Auto) 1 % (0-3) Neutrophils # (Auto) 4.7 x10^3uL (1.8-7.7) Lymphocytes # (Auto) 0.9 x10^3/uL (1.0-4.8) Monocytes # (Auto) 0.9 x10^3/uL (0.0-1.1) Eosinophils # (Auto) 0.4 x10^3/uL (0.0-0.7) Basophils # (Auto) 0.1 x10^3/uL (0.0-0.2) Prothrombin Time 14.5 SEC (11.7-14.0) Prothromb Time International Ratio 1.2 (0.8-1.1) Activated Partial Thromboplast Time 28 SEC (24-38) Sodium Level 132 mmol/L (136-145) 135 mmol/L (136-145) Potassium Level 4.0 mmol/L (3.5-5.1) 4.9 mmol/L (3.5-5.1) Chloride Level 98 mmol/L (98-107) 100 mmol/L (98-107) Carbon Dioxide Level 27 mmol/L (21-32) 27 mmol/L (21-32) Anion Gap 7 (6-14) 8 (6-14) Blood Urea Nitrogen 47 mg/dL (8-26) 41 mg/dL (8-26) Creatinine 1.5 mg/dL (0.7-1.3) 1.4 mg/dL (0.7-1.3) Estimated GFR (Cockcroft-Gault) 44.7 48.4 BUN/Creatinine Ratio 31 (6-20) Glucose Level 113 mg/dL (70-99) 129 mg/dL (70-99) Calcium Level 8.6 mg/dL (8.5-10.1) 8.5 mg/dL (8.5-10.1) Total Bilirubin 0.4 mg/dL (0.2-1.0) Aspartate Amino Transf (AST/SGOT) 23 U/L (15-37) Alanine Aminotransferase (ALT/SGPT) 23 U/L (16-63) Alkaline Phosphatase 96 U/L (46-116) Total Protein 7.2 g/dL (6.4-8.2) Albumin 3.4 g/dL (3.4-5.0) Albumin/Globulin Ratio 0.9 (1.0-1.7) Thyroid Stimulating Hormone (TSH) 1.614 uIU/mL (0.358-3.74) Urine Collection Type Unknown Urine Color Yellow Urine Clarity Clear Urine pH 5.5 Urine Specific [place] 1.020 Urine Protein Negative mg/dL (NEG-TRACE) Urine Glucose (UA) 250 mg/dL (NEG) Urine Ketones (Stick) Negative mg/dL (NEG) Urine Blood Negative (NEG) Urine Nitrite Negative (NEG) Urine Bilirubin Negative (NEG) Urine Urobilinogen Dipstick 0.2 mg/dL (0.2 mg/dL) Urine Leukocyte Esterase Negative (NEG) Urine RBC 0 /HPF (0-2) Urine WBC 1-4 /HPF (0-4) Urine Squamous Epithelial Cells Occ /LPF Urine Bacteria 0 /HPF (0-FEW) Urine Hyaline Casts Occasional /HPF Laboratory Tests Test 06/28/18 03:12 06/28/18 08:25 06/28/18 11:00 White Blood Count 6.9 x10^3/uL (4.0-11.0) Red Blood Count 4.10 x10^6/uL (4.30-5.70) Hemoglobin 11.8 g/dL (13.0-17.5) Hematocrit 34.4 % (39.0-53.0) Mean Corpuscular Volume 84 fL (79-100) Mean Corpuscular Hemoglobin 29 pg (25-35) Mean Corpuscular Hemoglobin Concent 34 g/dL (31-37) Red Cell Distribution Width 15.6 % (11.5-14.5) Platelet Count 123 x10^3/uL (140-400) Neutrophils (%) (Auto) 68 % (31-73) Lymphocytes (%) (Auto) 13 % (24-48) Monocytes (%) (Auto) 13 % (0-9) Eosinophils (%) (Auto) 5 % (0-3) Basophils (%) (Auto) 1 % (0-3) Neutrophils # (Auto) 4.7 x10^3uL (1.8-7.7) Lymphocytes # (Auto) 0.9 x10^3/uL (1.0-4.8) Monocytes # (Auto) 0.9 x10^3/uL (0.0-1.1) Eosinophils # (Auto) 0.4 x10^3/uL (0.0-0.7) Basophils # (Auto) 0.1 x10^3/uL (0.0-0.2) Prothrombin Time 14.5 SEC (11.7-14.0) Prothromb Time International Ratio 1.2 (0.8-1.1) Activated Partial Thromboplast Time 28 SEC (24-38) Sodium Level 132 mmol/L (136-145) 135 mmol/L (136-145) Potassium Level 4.0 mmol/L (3.5-5.1) 4.9 mmol/L (3.5-5.1) Chloride Level 98 mmol/L (98-107) 100 mmol/L (98-107) Carbon Dioxide Level 27 mmol/L (21-32) 27 mmol/L (21-32) Anion Gap 7 (6-14) 8 (6-14) Blood Urea Nitrogen 47 mg/dL (8-26) 41 mg/dL (8-26) Creatinine 1.5 mg/dL (0.7-1.3) 1.4 mg/dL (0.7-1.3) Estimated GFR (Cockcroft-Gault) 44.7 48.4 BUN/Creatinine Ratio 31 (6-20) Glucose Level 113 mg/dL (70-99) 129 mg/dL (70-99) Calcium Level 8.6 mg/dL (8.5-10.1) 8.5 mg/dL (8.5-10.1) Total Bilirubin 0.4 mg/dL (0.2-1.0) Aspartate Amino Transf (AST/SGOT) 23 U/L (15-37) Alanine Aminotransferase (ALT/SGPT) 23 U/L (16-63) Alkaline Phosphatase 96 U/L (46-116) Total Protein 7.2 g/dL (6.4-8.2) Albumin 3.4 g/dL (3.4-5.0) Albumin/Globulin Ratio 0.9 (1.0-1.7) Thyroid Stimulating Hormone (TSH) 1.614 uIU/mL (0.358-3.74) Urine Collection Type Unknown Urine Color Yellow Urine Clarity Clear Urine pH 5.5 Urine Specific [place] 1.020 Urine Protein Negative mg/dL (NEG-TRACE) Urine Glucose (UA) 250 mg/dL (NEG) Urine Ketones (Stick) Negative mg/dL (NEG) Urine Blood Negative (NEG) Urine Nitrite Negative (NEG) Urine Bilirubin Negative (NEG) Urine Urobilinogen Dipstick 0.2 mg/dL (0.2 mg/dL) Urine Leukocyte Esterase Negative (NEG) Urine RBC 0 /HPF (0-2) Urine WBC 1-4 /HPF (0-4) Urine Squamous Epithelial Cells Occ /LPF Urine Bacteria 0 /HPF (0-FEW) Urine Hyaline Casts Occasional /HPF VTE Prophylaxis Ordered VTE Prophylaxis Devices: Yes VTE Pharmacological Prophylaxi: Yes Assessment/Plan Assessment/Plan Left hip fracture, traumatic, closed Fall from home AK I on possibly CK D in the background of diuretic use Hyponatremia in the background of diuretic at home CHF, A. fib, CAD, hypertension-all history, seems to be chronic stable PLAN: 2 mN admit CArds consult per ortho recs HOld PT till OR NPO post MN, plans OR 5 PM friday Check BNP, CXR if not yet done VIt D pending Pain control Dw Dr Sanders and RN TIGRE ROMERO MD Jun 28, 2018 11:49
[2018-06-28] MEDS: DONEPEZIL HCL 10 MG TABLET. PO SCH (12:15)
[2018-06-28] MEDS: AMIODARONE HCL 200 MG TABLET. PO SCH (12:16)
[2018-06-28] MEDS: POTASSIUM CHLORIDE 10 MEQ TABLET.ER. PO SCH (12:16)
[2018-06-28] MEDS: MEMANTINE 10 MG TABLET. PO SCH (12:18)
[2018-06-28] MEDS: MELOXICAM 7.5 MG TABLET PO SCH (12:18)
[2018-06-28] MEDS: SERTRALINE 50 MG TABLET. PO SCH (12:19)
[2018-06-28] MEDS: PROPAFENONE 150 MG TABLET. PO SCH (12:19)
--- NOTE | 2018-06-28 12:52 | RAD ---
KNEE LEFT 2V Clinical Indication: LEFT TOTAL KNEE EVAL Comparison: None. Findings: AP and lateral views. There is knee arthroplasty. Alignment is anatomic. No acute fracture. Resurfacing of the patella. No obvious joint effusion. Arterial calcifications. IMPRESSION: Knee arthroplasty. Anatomic alignment. Electronically signed by: Justin Montemayor MD (06/28/2018 12:47 PM) [facility]
--- NOTE | 2018-06-28 14:48 | NUR ---
Pt coughed quiet a bit when he was eating lunch today.
[2018-06-28 15:00] VITALS: BP 111/52
[2018-06-28 19:00] VITALS: BP 123/57
[2018-06-28] MEDS: FAMOTIDINE 20 MG TABLET. PO SCH (21:25)
[2018-06-28] MEDS: traZODone 50 MG TABLET. PO SCH (21:25)
[2018-06-28] MEDS: ZOLPIDEM 5 MG TABLET. PO PRN (21:25)
[2018-06-28] MEDS: SIMVASTATIN 20 MG TABLET PO SCH (21:26)
[2018-06-28 23:00] VITALS: BP 100/52
[2018-06-29] VITALS (13 sets, daily range): BP systolic 94–157; BP diastolic 40–81
[2018-06-29] MEDS: oxyCODONE IR 5 MG TABLET PO PRN (03:54)
[2018-06-29 04:41] LABS: CALCIUM 8.1 mg/dL (8.5-10.1); CREATININE 1.6 mg/dL (0.7-1.3); GFR 41.5; POTASSIUM 4.1 mmol/L (3.5-5.1)
[2018-06-29] MEDS ORDERED: ROPIVacaine 0.75% PF 53.3 ML, EPINEPHrine 0.6 MG, MORPHINE PF 5 MG in IV NORMAL SALINE ... INT ART ONE (06:00)
[2018-06-29] MEDS: ACETAMINOPHEN 500 MG TABLET PO SCH ×3 (08:40→21:26)
[2018-06-29] MEDS: AMIODARONE HCL 200 MG TABLET. PO SCH (08:43)
[2018-06-29] MEDS: PROPAFENONE 150 MG TABLET. PO SCH (08:48)
[2018-06-29] MEDS: MEMANTINE 10 MG TABLET. PO SCH (08:48)
[2018-06-29] MEDS: SERTRALINE 50 MG TABLET. PO SCH (08:49)
[2018-06-29] MEDS: MELOXICAM 7.5 MG TABLET PO SCH (08:49)
[2018-06-29] MEDS: DONEPEZIL HCL 10 MG TABLET. PO SCH (08:49)
[2018-06-29] MEDS: DOCUSATE SODIUM 100 MG CAPSULE. PO SCH ×2 (08:49→21:26)
[2018-06-29] MEDS: FUROSEMIDE 40 MG TABLET. PO SCH (08:49)
[2018-06-29] MEDS: POTASSIUM CHLORIDE 10 MEQ TABLET.ER. PO SCH (08:49)
[2018-06-29] MEDS: CARVEDILOL 6.25 MG TABLET. PO SCH (08:50)
--- NOTE | 2018-06-29 11:19 | PDOC2 ---
NOE AJ [employer] [facility] 06/29/18 1119: CARDIAC CONSULT DATE OF CONSULT Date of Consult DATE: 06/29/18 TIME: 11:12 REASON FOR CONSULT Reason for Consult: CHF AFIB HTN CAD REFERRING PHYSICIAN Referring Physician: Dr. Sanders SOURCE Source: Chart review, Patient HISTORY OF PRESENT ILLNESS HISTORY OF PRESENT ILLNESS This is an 83 yo male, with a history of AFIB, CAD, HTN, and CHF, who presented secondary to fall at home. HPI limited due to dementia. Patient reports that he tripped and fell at home. Imaging notable for acute left femur fracture. Surgical repair is planned. Given medical history, cardiology consult was obtained. PAST MEDICAL HISTORY Cardiovascular: AFIB, CAD, CHF, HTN, Hyperlipidemia Pulmonary: No pertinent hx CENTRAL NERVOUS SYSTEM: Dementia GI: GERD Heme/Onc: No pertinent hx Hepatobiliary: No pertinent hx Psych: Depression Musculoskeletal: Osteoarthritis Rheumatologic: Gout Infectious disease: No pertinent hx ENT: No pertinent hx Renal/: Benign prostatic enlarg. Endocrine: No pertinent hx Dermatology: No pertinent hx PAST SURGICAL HISTORY Past Surgical History: Total knee replacement (bilateral ) FAMILY HISTORY Family History: Family History Unknown SOCIAL HISTORY Smoke: Quit ALCOHOL: none Drugs: None Lives: with Family CURRENT MEDICATIONS CURRENT MEDICATIONS Current Medications Medications (Trade) Dose Ordered Sig/Desmond Route PRN Reason Start Time Stop Time Status Last Admin Dose Admin Famotidine (Pepcid) 20 mg QHS PO 06/28/18 21:00 06/28/18 21:25 Trazodone HCl (Desyrel) 50 mg HS PO 06/28/18 21:00 06/28/18 21:25 Simvastatin (Zocor) 20 mg HS PO 06/28/18 21:00 06/28/18 21:26 Fentanyl Citrate (Fentanyl 2ml Vial) 50 mcg PRN Q2HR PRN IV PAIN, 1ST CHOICE 06/28/18 12:00 06/28/18 18:03 ALLERGIES ALLERGIES: Coded Allergies: No Known Drug Allergies (Unverified , 07/22/15) ROS Review of System 14 point ROS conducted with pertinent positives noted above in HPI, although limited due to dementia. PHYSICAL EXAM General: Alert, Oriented X3 (person and place), No acute distress HEENT: Atraumatic, Mucous membr. moist/pink Lungs: Clear to auscultation Heart: Regular rate, Other (tele SR, 2/6 systolic murmur ) Abdomen: Soft, No tenderness Extremities: Other (left hip pain) Skin: No significant lesion Neuro: Normal speech, Sensation intact Psych/Mental Status: Mood NL MUSCULOSKELETAL: Osteoarthritic changes both hands VITALS VITALS Vital Signs Date Time Temp Pulse Resp B/P (MAP) Pulse Ox O2 Delivery O2 Flow Rate FiO2 06/29/18 08:50 70 118/60 06/29/18 08:00 Room Air 06/29/18 07:00 97.8 18 97 97.8 LABS Lab: Laboratory Tests Test 06/29/18 03:55 Sodium Level 137 mmol/L (136-145) Potassium Level 4.1 mmol/L (3.5-5.1) Chloride Level 103 mmol/L (98-107) Carbon Dioxide Level 27 mmol/L (21-32) Anion Gap 7 (6-14) Blood Urea Nitrogen 38 mg/dL (8-26) Creatinine 1.6 mg/dL (0.7-1.3) Estimated GFR (Cockcroft-Gault) 41.5 Glucose Level 117 mg/dL (70-99) Calcium Level 8.1 mg/dL (8.5-10.1) ECHOCARDIOGRAM ECHOCARDIOGRAM <Conclusion> The left ventricular systolic function is normal and the ejection fraction is within normal range. The Ejection Fraction is 55%. Transmitral Doppler flow pattern is Grade I-abnormal relaxation pattern. The left atrium is mildly dilated. The right atrium size is normal. The aortic valve is not well visualized Doppler and Color Flow revealed mild aortic regurgitation. The mitral valve is calcified but opens well. Doppler and Color Flow revealed physiological tricuspid regurgitation. There is mild pulmonary hypertension. The PA pressure was estimated at 31 mmHg. The pulmonic valve is not well visualized. There is no evidence of significant pericardial effusion. DATE: 07/23/171853 ASSESSMENT/PLAN ASSESSMENT/PLAN 1. Left femur fracture; surgical repair planned later today. As per ortho 2. CAD; details unknown 3. H/o systolic HF with CMP; LVEF 15% per echo in 2017. Most recent echo with LV recovery at 55% as noted above 4. PAFIB; presently maintaining SR 5. Hypertension; controlled 6. Hyperlipidemia; statin 7. WAYLON on CKD; Cr trending upward 8. Dementia Recommendations Hold lasix Amiodarone for rhythm maintenance Add ASA when okay with ortho Check echo to assess LV function Given age and comorbidities, would be at moderate risk for non-cardiac surgery. Supportive care GREG MILTON MD 06/30/18 0746: CARDIAC CONSULT ASSESSMENT/PLAN ASSESSMENT/PLAN Patient seen and examined 06/29/18. Agree with COMMERCIAL [employer]ES ACCOUNT ASSISTANT's assessment and plan. PAF maintaining sinus rhythm with amiodarone. CAD status clinically stable. Recent 2-D echo showed normal LV systolic function. Agree the patient is moderate risk for noncardiac surgery. Thank you for your consultation. NOE AJ APRN Jun 29, 2018 11:19 GREG MILTON MD Jun 30, 2018 07:46
[2018-06-29] MEDS ORDERED: IV RINGERS,LACTATED 1000ML 1,000 ML IV SCH (12:55)
[2018-06-29] MEDS ORDERED: fentaNYL PF VIAL 100 MCG/2 ML VIAL IV PRN ×2 (13:00)
[2018-06-29] MEDS ORDERED: PROCHLORPERAZINE 10 MG/2 ML VIAL. IV PRN (13:00)
[2018-06-29] MEDS ORDERED: MORPHINE SULFATE 4 MG/ML VIAL. IV PRN (13:00)
[2018-06-29] MEDS ORDERED: LIDOCAINE 1% PF 2 ML VIAL. ID PRN (13:00)
[2018-06-29] MEDS ORDERED: HYDROmorphone 2 MG/ML VIAL IV PRN (13:00)
--- NOTE | 2018-06-29 14:00 | PDOC ---
PROGRESS NOTES Chief Complaint Chief Complaint acute Left hip fracture, traumatic, closed, initial encounter Fall from home CK D 3 in the background of diuretic use Hyponatremia w/ diuretic use - improved CHF, A. fib, CAD, hypertension chronic stable Hx of severe systolic CHF that has improvd with medcines and time cognitive decline or early dementia, poorly oriented, Dr. Sanders has discussed with DPANSON History of Present Illness History of Present Illness NPO for surgery, today at 5 VIt D pending Pain control, better Dw RN Vitals Vitals Vital Signs Date Time Temp Pulse Resp B/P (MAP) Pulse Ox O2 Delivery O2 Flow Rate FiO2 06/29/18 11:00 97.7 67 18 94/48 (63) 95 Room Air 97.7 Physical Exam General: Alert, Cooperative, No acute distress Heart: Regular rate Lungs: Clear, Crackles Abdomen: Soft Extremities: No clubbing Skin: No rashes Labs LABS Laboratory Tests Test 06/29/18 03:55 Sodium Level 137 mmol/L (136-145) Potassium Level 4.1 mmol/L (3.5-5.1) Chloride Level 103 mmol/L (98-107) Carbon Dioxide Level 27 mmol/L (21-32) Anion Gap 7 (6-14) Blood Urea Nitrogen 38 mg/dL (8-26) Creatinine 1.6 mg/dL (0.7-1.3) Estimated GFR (Cockcroft-Gault) 41.5 Glucose Level 117 mg/dL (70-99) Calcium Level 8.1 mg/dL (8.5-10.1) Review of Systems Review of Systems no n.v.d Assessment and Plan Assessmemt and Plan Problems Medical Problems: (1) Closed left hip fracture Status: Acute Comment Review of Relevant I have reviewed the following items idalmis (where applicable) has been applied. Labs Laboratory Tests Test 06/28/18 03:12 06/28/18 08:25 06/28/18 11:00 06/29/18 03:55 White Blood Count 6.9 x10^3/uL (4.0-11.0) Red Blood Count 4.10 x10^6/uL (4.30-5.70) Hemoglobin 11.8 g/dL (13.0-17.5) Hematocrit 34.4 % (39.0-53.0) Mean Corpuscular Volume 84 fL (79-100) Mean Corpuscular Hemoglobin 29 pg (25-35) Mean Corpuscular Hemoglobin Concent 34 g/dL (31-37) Red Cell Distribution Width 15.6 % (11.5-14.5) Platelet Count 123 x10^3/uL (140-400) Neutrophils (%) (Auto) 68 % (31-73) Lymphocytes (%) (Auto) 13 % (24-48) Monocytes (%) (Auto) 13 % (0-9) Eosinophils (%) (Auto) 5 % (0-3) Basophils (%) (Auto) 1 % (0-3) Neutrophils # (Auto) 4.7 x10^3uL (1.8-7.7) Lymphocytes # (Auto) 0.9 x10^3/uL (1.0-4.8) Monocytes # (Auto) 0.9 x10^3/uL (0.0-1.1) Eosinophils # (Auto) 0.4 x10^3/uL (0.0-0.7) Basophils # (Auto) 0.1 x10^3/uL (0.0-0.2) Prothrombin Time 14.5 SEC (11.7-14.0) Prothromb Time International Ratio 1.2 (0.8-1.1) Activated Partial Thromboplast Time 28 SEC (24-38) Sodium Level 132 mmol/L (136-145) 135 mmol/L (136-145) 137 mmol/L (136-145) Potassium Level 4.0 mmol/L (3.5-5.1) 4.9 mmol/L (3.5-5.1) 4.1 mmol/L (3.5-5.1) Chloride Level 98 mmol/L (98-107) 100 mmol/L (98-107) 103 mmol/L (98-107) Carbon Dioxide Level 27 mmol/L (21-32) 27 mmol/L (21-32) 27 mmol/L (21-32) Anion Gap 7 (6-14) 8 (6-14) 7 (6-14) Blood Urea Nitrogen 47 mg/dL (8-26) 41 mg/dL (8-26) 38 mg/dL (8-26) Creatinine 1.5 mg/dL (0.7-1.3) 1.4 mg/dL (0.7-1.3) 1.6 mg/dL (0.7-1.3) Estimated GFR (Cockcroft-Gault) 44.7 48.4 41.5 BUN/Creatinine Ratio 31 (6-20) Glucose Level 113 mg/dL (70-99) 129 mg/dL (70-99) 117 mg/dL (70-99) Calcium Level 8.6 mg/dL (8.5-10.1) 8.5 mg/dL (8.5-10.1) 8.1 mg/dL (8.5-10.1) Total Bilirubin 0.4 mg/dL (0.2-1.0) Aspartate Amino Transf (AST/SGOT) 23 U/L (15-37) Alanine Aminotransferase (ALT/SGPT) 23 U/L (16-63) Alkaline Phosphatase 96 U/L (46-116) Total Protein 7.2 g/dL (6.4-8.2) Albumin 3.4 g/dL (3.4-5.0) Albumin/Globulin Ratio 0.9 (1.0-1.7) 25-Hydroxy Vitamin D Total 30.1 ng/mL (30-100) Thyroid Stimulating Hormone (TSH) 1.614 uIU/mL (0.358-3.74) Urine Collection Type Unknown Urine Color Yellow Urine Clarity Clear Urine pH 5.5 Urine Specific [place] 1.020 Urine Protein Negative mg/dL (NEG-TRACE) Urine Glucose (UA) 250 mg/dL (NEG) Urine Ketones (Stick) Negative mg/dL (NEG) Urine Blood Negative (NEG) Urine Nitrite Negative (NEG) Urine Bilirubin Negative (NEG) Urine Urobilinogen Dipstick 0.2 mg/dL (0.2 mg/dL) Urine Leukocyte Esterase Negative (NEG) Urine RBC 0 /HPF (0-2) Urine WBC 1-4 /HPF (0-4) Urine Squamous Epithelial Cells Occ /LPF Urine Bacteria 0 /HPF (0-FEW) Urine Hyaline Casts Occasional /HPF Laboratory Tests Test 06/29/18 03:55 Sodium Level 137 mmol/L (136-145) Potassium Level 4.1 mmol/L (3.5-5.1) Chloride Level 103 mmol/L (98-107) Carbon Dioxide Level 27 mmol/L (21-32) Anion Gap 7 (6-14) Blood Urea Nitrogen 38 mg/dL (8-26) Creatinine 1.6 mg/dL (0.7-1.3) Estimated GFR (Cockcroft-Gault) 41.5 Glucose Level 117 mg/dL (70-99) Calcium Level 8.1 mg/dL (8.5-10.1) Medications Current Medications Fentanyl Citrate (Fentanyl 2ml Vial) 25 mcg PRN Q15MIN PRN IV PAIN GREATER THAN 3/10 Last administered on 06/28/18at 05:03; Start 06/28/18 at 03:15; Stop at 03:14; Status DC Sodium Chloride 1,000 ml @ 100 mls/hr Q10H IV Last administered on 06/28/18at 03:36; Start 06/28/18 at 03:15; Stop 06/28/18 at 13:14; Status DC Ondansetron HCl (Zofran) 4 mg 1X ONCE IV Last administered on 06/28/18at 03:35 ; Start 06/28/18 at 03:15; Stop 06/28/18 at 03:26; Status DC Ondansetron HCl (Zofran) 4 mg PRN Q8HRS PRN IV NAUSEA/VOMITING; Start 06/28/18 at 04:30; Stop 06/29/18 at 04:29; Status DC Fentanyl Citrate (Fentanyl 2ml Vial) 50 mcg PRN Q1HR PRN IV PAIN Last administered on 06/28/18at 11:39; Start 06/28/18 at 04:30; Stop 06/28/18 at 11:50 ; Status DC Sodium Chloride 1,000 ml @ 75 mls/hr [id number] IV Last administered on at 18:03; Start 06/28/18 at 04:30; Stop 06/29/18 at 04:29; Status DC Morphine Sulfate (Morphine Sulfate) 2 mg PRN Q1HR PRN IV PAIN MILD 2ND CHOICE; Start 06/28/18 at 08:15 Morphine Sulfate (Morphine Sulfate) 2 mg PRN Q1HR PRN IV PAIN; Start 06/28/18 at 08:15; Status UNV Fentanyl Citrate (Fentanyl 2ml Vial) 50 mcg PRN Q1HR PRN IV PAIN MOD TO SEV 1ST CHOICE; Start 06/28/18 at 08:15; Stop 06/28/18 at 11:55; Status DC Ondansetron HCl (Zofran) 4 mg PRN Q6HRS PRN IV NAUSEA/VOMITING; Start 06/28/18 at 08:15 Lorazepam (Ativan) 0.5 mg PRN Q4HRS PRN IV ANXIETY / AGITATION; Start 06/28/18 at 08:15 Info (Ortho Message -- Hold Meds) 1 ea CONT PRN PRN MC SEE COMMENTS; Start at 08:15; Stop 06/30/18 at 08:14 Tramadol HCl (Ultram) 50 mg PRN QID PRN PO PAIN MILD Last administered on at 09:27; Start 06/28/18 at 08:15 Oxycodone HCl (Roxicodone) 5 mg PRN Q4HRS PRN PO PAIN MOD TO SEV Last administered on 06/29/18at 03:54; Start 06/28/18 at 08:15 Fentanyl Citrate (Fentanyl 2ml Vial) 25 mcg PRN Q1HR PRN IV PAIN MILD 1ST CHOICE; Start 06/28/18 at 08:15; Stop 06/28/18 at 11:55; Status DC Acetaminophen (Tylenol) 1,000 mg TID PO Last administered on 06/29/18at 08:40; Start 06/28/18 at 09:00 Docusate Sodium (Colace) 100 mg BID PO Last administered on 06/29/18at 08:49; Start 06/28/18 at 09:00 Magnesium Hydroxide (Milk Of Magnesia) 2,400 mg PRN DAILY PRN PO CONSTIPATION; Start 06/28/18 at 08:15 Bisacodyl (Dulcolax Supp) 10 mg PRN DAILY PRN TX CONSTIPATION; Start 06/28/18 at 08:15 Zolpidem Tartrate (Ambien) 5 mg PRN QHS PRN PO INSOMNIA Last administered on at 21:25; Start 06/28/18 at 08:15 Sodium Chloride (Normal Saline Flush) 3 ml QSHIFT PRN IV AFTER MEDS AND BLOOD DRAWS; Start 06/28/18 at 08:15 Dextrose (Dextrose 50%-Water Syringe) 12.5 gm PRN Q15MIN PRN IV SEE COMMENTS; Start 06/28/18 at 08:15 Info (FLU VACCINE SCREEN per RX) 1 each 1X ONCE MC ; Start 06/28/18 at 08:30; Stop 06/28/18 at 08:31; Status UNV Influenza Virus Vaccine (Afluria Trivalent [id number] Syringe) 0.5 ml ONCE ONCE VAX IM ; Start 06/28/18 at 16:00; Stop 06/28/18 at 16:01; Status DC Fentanyl Citrate (Fentanyl 2ml Vial) 50 mcg PRN Q2HR PRN IV PAIN; Start at 09:30; Stop 06/28/18 at 09:36; Status DC Acetaminophen (Tylenol Supp) 650 mg PRN Q6HRS PRN RC FEVER > 102; Start at 09:30 Amiodarone HCl (Cordarone) 200 mg DAILY PO Last administered on 06/29/18at 08:43 ; Start 06/28/18 at 10:00 Carvedilol (Coreg) 6.25 mg DAILY08 PO Last administered on 06/29/18 08:50; Start 06/28/18 at 10:00 Famotidine (Pepcid) 20 mg QHS PO Last administered on 06/28/18 21:25; Start at 21:00 Furosemide (Lasix) 40 mg DAILY PO Last administered on 06/29/18 08:49; Start 06/28/18 at 10:00 Potassium Chloride (Klor-Con) 10 meq DAILY PO Last administered on 06/29/18 08 :49; Start 06/28/18 at 10:00 Trazodone HCl (Desyrel) 50 mg HS PO Last administered on 06/28/18 21:25; Start 06/28/18 at 21:00 Triamcinolone Acetonide (Kenalog) 1 harika PRN BID PRN TP ITCHING; Start 06/28/18 at 21:00 Donepezil HCl (Aricept) 10 mg DAILY PO Last administered on 06/29/18 08:49; Start 06/28/18 at 10:00 Memantine (Namenda) 10 mg DAILY PO Last administered on 06/29/18 08:48; Start 06/28/18 at 10:00 Meloxicam (Mobic) 15 mg DAILY PO Last administered on 06/29/18 08:49; Start at 10:00 Propafenone HCl (Rythmol) 150 mg DAILY PO Last administered on 06/29/18at 08:48 ; Start 06/28/18 at 10:00 Sertraline HCl (Zoloft) 100 mg DAILY PO Last administered on 06/29/18at 08:49; Start 06/28/18 at 10:00 Simvastatin (Zocor) 20 mg HS PO Last administered on 06/28/18at 21:26; Start at 21:00 Ropivacaine 53.3 ml/Epinephrine HCl 0.6 mg/ Morphine Sulfate 5 mg/Sodium Chloride 100 ml @ 100 mls/hr 1X ONCE INT ART ; Start 06/29/18 at 06:00; Stop 06/29/18 at 06:59; Status DC Cefazolin Sodium/ Dextrose 50 ml @ 100 mls/hr 1X PREOP PRN IV SEE COMMENTS; Start 06/29/18 at 16:00 Fentanyl Citrate (Fentanyl 2ml Vial) 50 mcg PRN Q2HR PRN IV PAIN, 1ST CHOICE Last administered on 06/28/18at 18:03; Start 06/28/18 at 12:00 Fentanyl Citrate (Fentanyl 2ml Vial) 25 mcg PRN Q5MIN PRN IV MILD PAIN; Start 06/29/18 at 13:00; Stop 06/30/18 at 12:59 Fentanyl Citrate (Fentanyl 2ml Vial) 50 mcg PRN Q5MIN PRN IV MODERATE TO SEVERE PAIN; Start 06/29/18 at 13:00; Stop 06/30/18 at 12:59 Morphine Sulfate (Morphine Sulfate) 1 mg PRN Q10MIN PRN IV SEVERE PAIN; Start 06/29/18 at 13:00; Stop 06/30/18 at 12:59 Ringer's Solution 1,000 ml @ 30 mls/hr Q24H IV ; Start 06/29/18 at 12:55; Stop 06/30/18 at 00:54 Lidocaine HCl (Xylocaine-Mpf 1% 2ml Vial) 2 ml PRN 1X PRN ID PRIOR TO IV START ; Start 06/29/18 at 13:00; Stop 06/30/18 at 12:59 Hydromorphone HCl (Dilaudid) 0.5 mg PRN Q10MIN PRN IV SEV PAIN, Second choice; Start 06/29/18 at 13:00; Stop 06/30/18 at 12:59 Prochlorperazine Edisylate (Compazine) 5 mg PACU PRN PRN IV NAUSEA, MRX1; Start 06/29/18 at 13:00; Stop 06/30/18 at 12:59 Active Scripts Active Amiodarone Hcl 200 Mg Tablet 200 Mg PO DAILY 30 Days Reported Meloxicam 7.5 Mg Tablet 1 Tab PO DAILY Propafenone Hcl 150 Mg Tablet 1 Tab PO DAILY Memantine HCl 10 Mg Tablet 1 Tab PO DAILY Trazodone Hcl 50 Mg Tablet 1 Tab PO HS Sertraline Hcl 100 Mg Tablet 1 Tab PO DAILY Donepezil Hcl 10 Mg Tablet 1 Tab PO DAILY Carvedilol 6.25 Mg Tablet 1 Tab PO DAILY Potassium Chloride 10 Meq Capsule.er 10 Meq PO DAILY Lasix (Furosemide) 40 Mg Tablet 40 Mg PO DAILY Acetaminophen Supp (Acetaminophen) 650 Mg Supp.rect 650 Mg RC Q6HRS PRN Triamcinolone Acetonide 0.1% Oint (Triamcinolone Acetonide) 15 Gm Oint...g. 1 Harika TP BID MIX WITH EUCERIN DIRECTED BY PHYSICIAN Simvastatin 20 Mg Tablet 1 Tab PO QHS Nabumetone 750 Mg Tablet 1 Tab PO BID Famotidine 20 Mg Tablet 1 Tab PO BID Vitals/I & O Vital Sign - Last 24 Hours 06/28/18 06/28/18 06/28/18 06/28/18 15:00 15:37 18:03 18:33 Temp 98.5 98.5 Pulse 70 Resp 16 B/P (MAP) 111/52 (71) Pulse Ox 95 O2 Delivery Room Air Room Air Room Air Room Air 06/28/18 06/28/18 06/28/18 06/29/18 19:00 19:30 23:00 03:00 Temp 98.2 97.9 98.2 98.2 97.9 98.2 Pulse 83 55 80 Resp 16 16 16 B/P (MAP) 123/57 (79) 100/52 (68) 157/81 (106) Pulse Ox 94 91 97 O2 Delivery Room Air Room Air Room Air Room Air 06/29/18 06/29/18 06/29/18 06/29/18 03:54 05:00 07:00 08:00 Temp 97.8 97.8 Pulse 70 Resp 16 18 18 B/P (MAP) 118/60 (79) Pulse Ox 97 O2 Delivery Room Air Room Air Room Air Room Air 06/29/18 06/29/18 06/29/18 06/29/18 08:43 08:48 08:50 11:00 Temp 97.7 97.7 Pulse 70 70 70 67 Resp 18 B/P (MAP) 118/60 118/60 118/60 94/48 (63) Pulse Ox 95 O2 Delivery Room Air Intake and Output 06/28/18 06/28/18 06/29/18 15:01 23:01 07:01 Intake Total 360 ml 240 ml Output Total 150 ml 650 ml 200 ml Balance 210 ml -410 ml -200 ml MYKE BRUSH MD Jun 29, 2018 13:59
[2018-06-29] MEDS ORDERED: ePHEDrine PF IN SALINE 50 MG/5 ML DISP.SYRIN IV ONE (14:41)
[2018-06-29] MEDS ORDERED: LIDOCAINE 2% PF Vial for OR 5 ML VIAL. ONE (14:41)
[2018-06-29] MEDS ORDERED: PROPOFOL 20 ML IV ONE (14:41)
[2018-06-29] MEDS ORDERED: PHENYLEPHRINE in 0.9% NACL PF 1 MG/10 ML SYRINGE. IV ONE (14:41)
--- NOTE | 2018-06-29 15:10 | NUR ---
SW following for discharge planning. Chart reviewed, discussed with RN. RN advised pt is having surgery today at 1700. Pt lives at home with his son. SW will continue to follow for SNU eval and any other discharge planning needs.
--- NOTE | 2018-06-29 18:44 | PDOC4 ---
Operative Note Operative Note Date of Procedure: June 29, 2018 Pre-Op Diagnosis: Displaced intertrochanteric fracture of left femur, initial encounter for closed fracture, S72.142A Post-Op Diagnosis: same Procedure: left hip treatment of intertrochanteric femoral fracture with intramedullary implant, with interlocking screws, CPT 97372 Surgeon: Rin Sanders MD Anesthesia Type: General EBL: 500 mL Specimens Obtained: none Complications: None Implant Company: [employer] Implants: Gamma 3 system long nail kit 13 mm x 400 mm x 125; Gamma 3 system lag screw titanium, 10.5 mm x 100 mm; locking screw fully threaded 5 mm x 47.5 mm INDICATION FOR PROCEDURE: The patient is an 83 year-old, who fell, sustaining a left hip fracture. X-rays show an unstable intertrochanteric hip fracture. The patient and I, and the patient's DPOA discussed the risks, benefits and alternatives of treatment. The alternative for treatment is bedrest, which I generally do not recommend. I recommended intramedullary nailing, and I talked to them about the potential risks of this, including bleeding, infection, blood clots, malunion, nonunion or other potential surgical or anesthetic complications. All of their questions were answered about surgery and they desired to proceed. A written consent was obtained. PROCEDURE IN DETAIL: The patient was identified in the preoperative holding area. The correct left hip was marked by me. The patient was taken to the operating room, where general anesthetic was used. Preoperative antibiotics were given intravenously. The HANA table was used and the well leg was placed in a padded lithotomy leg sparrow while the foot of the left leg was placed in a traction foot boot. A time-out procedure was performed. The image intensifier was used, and a preliminary reduction performed. The hip area was prepped sterilely with ChloraPrep solution and a sterile barrier I[place]an hip drape was used. An incision was made over the superior aspect of the greater trochanter. A guide pin was placed through the cannulated awl at the tip of the greater trochanter, and an entry reamer was used. A long guide pin was placed down the intramedullary canal and the length was measured. The canal was sequentially reamed for a long nail until intramedullary chatter occurred. The nail diameter was chosen based on the intramedullary chatter. The nail was placed down the canal, and the guide wire was removed. A second incision was now used over the lower part of the greater trochanter, to place a guide pin through the guide, in the center-center position of the femoral head, and measured. The tunnel for the lag screw was reamed. The lag screw was placed through the nail using the guide. The compression wheel was used, and traction was released from the table to compress the major portions of the fracture. The lesser trochanter remains without fixation. A proximal locking screw was now placed to lock the lag screw. Finally, a cross lock screw was placed distally near the total knee, using a freehand technique and the image intensifier. Satisfactory reduction and fixation was obtained using image intensifier views in multiple planes. Copious irrigation was used and the fascia was closed with #2 Vicryl. Bovie electrocautery was used for hemostasis. I completed the closure with 2-0 Vicryl and anand. I used an injection for hemostasis and pain relief which includes ropivacaine, epinephrine, and morphine. A bulky sterile dressing was applied. The patient was gently transferred from the fracture table back to a hospital bed. There were no apparent complications. RIN SANDERS MD Jun 29, 2018 18:44
[2018-06-29] MEDS: SIMVASTATIN 20 MG TABLET PO SCH (21:26)
[2018-06-29] MEDS: traZODone 50 MG TABLET. PO SCH (21:26)
[2018-06-29] MEDS: FAMOTIDINE 20 MG TABLET. PO SCH (21:26)
[2018-06-29] MEDS: ZOLPIDEM 5 MG TABLET. PO PRN (21:26)
[2018-06-29] MEDS: traMADol 50 MG TABLET PO PRN (21:27)
[2018-06-30] VITALS (7 sets, daily range): BP systolic 85–103; BP diastolic 40–55
--- NOTE | 2018-06-30 01:59 | NUR ---
notified re: changes in blood pressure from readmit to the floor from 109/52 to most recent check of 86/40. No new orders rcvd, pt A&O in bed, watching TV, call light within reach and will continue to monitor.
--- NOTE | 2018-06-30 07:57 | NUR ---
geoffrey chang at this time and he confirmed it was okay for pt to have aspirin.
[2018-06-30] MEDS: DONEPEZIL HCL 10 MG TABLET. PO SCH (10:36)
[2018-06-30] MEDS: DOCUSATE SODIUM 100 MG CAPSULE. PO SCH ×2 (10:36→20:54)
[2018-06-30] MEDS: MEMANTINE 10 MG TABLET. PO SCH (10:36)
[2018-06-30] MEDS: ACETAMINOPHEN 500 MG TABLET PO SCH ×3 (10:37→20:53)
[2018-06-30] MEDS: POTASSIUM CHLORIDE 10 MEQ TABLET.ER. PO SCH (10:37)
[2018-06-30] MEDS: PROPAFENONE 150 MG TABLET. PO SCH (10:37)
[2018-06-30] MEDS: ASPIRIN ENTERIC COATED 81 MG TABLET.DR. PO SCH (10:37)
[2018-06-30] MEDS: CARVEDILOL 6.25 MG TABLET. PO SCH (10:38)
[2018-06-30] MEDS: SERTRALINE 50 MG TABLET. PO SCH (10:38)
[2018-06-30] MEDS: MELOXICAM 7.5 MG TABLET PO SCH (10:38)
[2018-06-30] MEDS: AMIODARONE HCL 200 MG TABLET. PO SCH (10:38)
--- NOTE | 2018-06-30 10:59 | PDOC ---
PROGRESS NOTES Chief Complaint Chief Complaint acute Left hip fracture, traumatic, closed, Acute traumatic comminuted intertrochanteric left femur fracture. Fall AT home CK D 3 in the background of diuretic use Hyponatremia w/ diuretic use - improved CHF, A. fib, CAD, hypertension chronic stable Hx of severe systolic CHF Hx of cardiomyopathy: with EF as low as 15% in 2017 now at 55% PAFIB; presently maintaining SR with LBBB cognitive decline or early dementia, poorly oriented, History of Present Illness History of Present Illness NPO for surgery, today at 5 VIt D pending Pain control, better Dw RN Vitals Vitals Vital Signs Date Time Temp Pulse Resp B/P (MAP) Pulse Ox O2 Delivery O2 Flow Rate FiO2 06/30/18 10:38 79 103/41 06/30/18 07:00 97.1 16 98 Room Air 97.1 06/29/18 18:42 10 Physical Exam General: Alert, Oriented X3 (person and place), No acute distress Heart: Regular rate, Other (tele SR, 2/6 systolic murmur ) Lungs: Clear, Crackles Abdomen: Normal bowel sounds, Soft, No tenderness Extremities: No cyanosis, Other (left hip pain) Skin: No significant lesion Labs LABS REASON: fall PROCEDURE: HIP LEFT 2V WITH PELVIS HIP LEFT 2V WITH PELVIS Clinical Indication: FALL Comparison: None. Findings: Degenerative arthropathy of the hips. Right hip joint is intact. No acute pelvic fracture. Degenerative spondylosis of L5/S1. Sacroiliac joints are symmetric. Arterial calcifications are noted. There is acute traumatic comminuted intertrochanteric left femur fracture. Portion of the greater trochanter fracture fragment is medially displaced. Lesser trochanter fracture fragment is medially displaced. There is no dislocation of the left hip. IMPRESSION: Acute traumatic comminuted intertrochanteric left femur fracture. Electronically signed by: Justin Lemus MD (06/28/2018 7:54 AM) [facility] DICTATED and SIGNED BY: JUSTIN LEMUS MD DATE: 06/28/18 0751 Assessment and Plan Assessmemt and Plan Problems Medical Problems: (1) Closed left hip fracture Status: Acute Comment Review of Relevant I have reviewed the following items idalmis (where applicable) has been applied. Labs Laboratory Tests Test 06/28/18 11:00 06/29/18 03:55 Urine Collection Type Unknown Urine Color Yellow Urine Clarity Clear Urine pH 5.5 Urine Specific [place] 1.020 Urine Protein Negative mg/dL (NEG-TRACE) Urine Glucose (UA) 250 mg/dL (NEG) Urine Ketones (Stick) Negative mg/dL (NEG) Urine Blood Negative (NEG) Urine Nitrite Negative (NEG) Urine Bilirubin Negative (NEG) Urine Urobilinogen Dipstick 0.2 mg/dL (0.2 mg/dL) Urine Leukocyte Esterase Negative (NEG) Urine RBC 0 /HPF (0-2) Urine WBC 1-4 /HPF (0-4) Urine Squamous Epithelial Cells Occ /LPF Urine Bacteria 0 /HPF (0-FEW) Urine Hyaline Casts Occasional /HPF Sodium Level 137 mmol/L (136-145) Potassium Level 4.1 mmol/L (3.5-5.1) Chloride Level 103 mmol/L (98-107) Carbon Dioxide Level 27 mmol/L (21-32) Anion Gap 7 (6-14) Blood Urea Nitrogen 38 mg/dL (8-26) Creatinine 1.6 mg/dL (0.7-1.3) Estimated GFR (Cockcroft-Gault) 41.5 Glucose Level 117 mg/dL (70-99) Calcium Level 8.1 mg/dL (8.5-10.1) Medications Current Medications Fentanyl Citrate (Fentanyl 2ml Vial) 25 mcg PRN Q15MIN PRN IV PAIN GREATER THAN 3/10 Last administered on 06/28/18at 05:03; Start 06/28/18 at 03:15; Stop at 03:14; Status DC Sodium Chloride 1,000 ml @ 100 mls/hr Q10H IV Last administered on 06/28/18at 03:36; Start 06/28/18 at 03:15; Stop 06/28/18 at 13:14; Status DC Ondansetron HCl (Zofran) 4 mg 1X ONCE IV Last administered on 06/28/18at 03:35 ; Start 06/28/18 at 03:15; Stop 06/28/18 at 03:26; Status DC Ondansetron HCl (Zofran) 4 mg PRN Q8HRS PRN IV NAUSEA/VOMITING; Start 06/28/18 at 04:30; Stop 06/29/18 at 04:29; Status DC Fentanyl Citrate (Fentanyl 2ml Vial) 50 mcg PRN Q1HR PRN IV PAIN Last administered on 06/28/18at 11:39; Start 06/28/18 at 04:30; Stop 06/28/18 at 11:50 ; Status DC Sodium Chloride 1,000 ml @ 75 mls/hr [id number] IV Last administered on at 18:03; Start 06/28/18 at 04:30; Stop 06/29/18 at 04:29; Status DC Morphine Sulfate (Morphine Sulfate) 2 mg PRN Q1HR PRN IV PAIN MILD 2ND CHOICE; Start 06/28/18 at 08:15 Morphine Sulfate (Morphine Sulfate) 2 mg PRN Q1HR PRN IV PAIN; Start 06/28/18 at 08:15; Status UNV Fentanyl Citrate (Fentanyl 2ml Vial) 50 mcg PRN Q1HR PRN IV PAIN MOD TO SEV 1ST CHOICE; Start 06/28/18 at 08:15; Stop 06/28/18 at 11:55; Status DC Ondansetron HCl (Zofran) 4 mg PRN Q6HRS PRN IV NAUSEA/VOMITING; Start 06/28/18 at 08:15 Lorazepam (Ativan) 0.5 mg PRN Q4HRS PRN IV ANXIETY / AGITATION; Start 06/28/18 at 08:15 Info (Ortho Message -- Consult[employer]place) 1 ea CONT PRN PRN MC SEE COMMENTS; Start at 08:15; Stop 06/30/18 at 08:14; Status DC Tramadol HCl (Ultram) 50 mg PRN QID PRN PO PAIN MILD Last administered on at 21:27; Start 06/28/18 at 08:15 Oxycodone HCl (Roxicodone) 5 mg PRN Q4HRS PRN PO PAIN MOD TO SEV Last administered on 06/29/18at 03:54; Start 06/28/18 at 08:15 Fentanyl Citrate (Fentanyl 2ml Vial) 25 mcg PRN Q1HR PRN IV PAIN MILD 1ST CHOICE; Start 06/28/18 at 08:15; Stop 06/28/18 at 11:55; Status DC Acetaminophen (Tylenol) 1,000 mg TID PO Last administered on 06/30/18at 10:37; Start 06/28/18 at 09:00 Docusate Sodium (Colace) 100 mg BID PO Last administered on 06/30/18at 10:36; Start 06/28/18 at 09:00 Magnesium Hydroxide (Milk Of Magnesia) 2,400 mg PRN DAILY PRN PO CONSTIPATION; Start 06/28/18 at 08:15 Bisacodyl (Dulcolax Supp) 10 mg PRN DAILY PRN [place] CONSTIPATION; Start 06/28/18 at 08:15 Zolpidem Tartrate (Ambien) 5 mg PRN QHS PRN PO INSOMNIA Last administered on at 21:26; Start 06/28/18 at 08:15 Sodium Chloride (Normal Saline Flush) 3 ml QSHIFT PRN IV AFTER MEDS AND BLOOD DRAWS; Start 06/28/18 at 08:15 Dextrose (Dextrose 50%-Water Syringe) 12.5 gm PRN Q15MIN PRN IV SEE COMMENTS; Start 06/28/18 at 08:15 Info (FLU VACCINE SCREEN per RX) 1 each 1X ONCE MC ; Start 06/28/18 at 08:30; Stop 06/28/18 at 08:31; Status UNV Influenza Virus Vaccine (Afluria Trivalent [id number] Syringe) 0.5 ml ONCE ONCE VAX IM ; Start 06/28/18 at 16:00; Stop 06/28/18 at 16:01; Status DC Fentanyl Citrate (Fentanyl 2ml Vial) 50 mcg PRN Q2HR PRN IV PAIN; Start at 09:30; Stop 06/28/18 at 09:36; Status DC Acetaminophen (Tylenol Supp) 650 mg PRN Q6HRS PRN RC FEVER > 102; Start at 09:30 Amiodarone HCl (Cordarone) 200 mg DAILY PO Last administered on 06/30/18at 10:38 ; Start 06/28/18 at 10:00 Carvedilol (Coreg) 6.25 mg DAILY08 PO Last administered on 06/30/18at 10:38; Start 06/28/18 at 10:00 Famotidine (Pepcid) 20 mg QHS PO Last administered on 06/29/18at 21:26; Start at 21:00 Furosemide (Lasix) 40 mg DAILY PO Last administered on 06/29/18at 08:49; Start 06/28/18 at 10:00; Stop 06/29/18 at 16:34; Status DC Potassium Chloride (Klor-Con) 10 meq DAILY PO Last administered on 06/30/18 10 :37; Start 06/28/18 at 10:00 Trazodone HCl (Desyrel) 50 mg HS PO Last administered on 06/29/18 21:26; Start 06/28/18 at 21:00 Triamcinolone Acetonide (Kenalog) 1 harika PRN BID PRN TP ITCHING; Start 06/28/18 at 21:00 Donepezil HCl (Aricept) 10 mg DAILY PO Last administered on 06/30/18 10:36; Start 06/28/18 at 10:00 Memantine (Namenda) 10 mg DAILY PO Last administered on 06/30/18 10:36; Start 06/28/18 at 10:00 Meloxicam (Mobic) 15 mg DAILY PO Last administered on 06/30/18 10:38; Start at 10:00 Propafenone HCl (Rythmol) 150 mg DAILY PO Last administered on 06/30/18 10:37 ; Start 06/28/18 at 10:00 Sertraline HCl (Zoloft) 100 mg DAILY PO Last administered on 06/30/18 10:38; Start 06/28/18 at 10:00 Simvastatin (Zocor) 20 mg HS PO Last administered on 06/29/18 21:26; Start at 21:00 Ropivacaine 53.3 ml/Epinephrine HCl 0.6 mg/ Morphine Sulfate 5 mg/Sodium Chloride 100 ml @ 100 mls/hr 1X ONCE INT ART Last administered on 06/29/18 17:41; Start 06/29/18 at 06:00; Stop 06/29/18 at 06:59; Status DC Cefazolin Sodium/ Dextrose 50 ml @ 100 mls/hr 1X PREOP PRN IV SEE COMMENTS Last administered on 06/29/18 16:55; Start 06/29/18 at 16:00 Fentanyl Citrate (Fentanyl 2ml Vial) 50 mcg PRN Q2HR PRN IV PAIN, 1ST CHOICE Last administered on 06/28/18 18:03; Start 06/28/18 at 12:00 Fentanyl Citrate (Fentanyl 2ml Vial) 25 mcg PRN Q5MIN PRN IV MILD PAIN; Start 06/29/18 at 13:00; Stop 06/30/18 at 12:59 Fentanyl Citrate (Fentanyl 2ml Vial) 50 mcg PRN Q5MIN PRN IV MODERATE TO SEVERE PAIN; Start 06/29/18 at 13:00; Stop 06/30/18 at 12:59 Morphine Sulfate (Morphine Sulfate) 1 mg PRN Q10MIN PRN IV SEVERE PAIN; Start 06/29/18 at 13:00; Stop 06/30/18 at 12:59 Ringer's Solution 1,000 ml @ 30 mls/hr Q24H IV ; Start 06/29/18 at 12:55; Stop 06/30/18 at 00:54; Status DC Lidocaine HCl (Xylocaine-Mpf 1% 2ml Vial) 2 ml PRN 1X PRN ID PRIOR TO IV START ; Start 06/29/18 at 13:00; Stop 06/30/18 at 12:59 Hydromorphone HCl (Dilaudid) 0.5 mg PRN Q10MIN PRN IV SEV PAIN, Second choice; Start 06/29/18 at 13:00; Stop 06/30/18 at 12:59 Prochlorperazine Edisylate (Compazine) 5 mg PACU PRN PRN IV NAUSEA, MRX1; Start 06/29/18 at 13:00; Stop 06/30/18 at 12:59 Phenylephrine HCl (PHENYLEPHRINE in 0.9% NACL PF) 1 mg STK-MED ONCE IV ; Start 06/29/18 at 14:41; Stop 06/29/18 at 14:43; Status DC Ephedrine Sulfate (ePHEDrine PF IN SALINE SYRINGE) 50 mg STK-MED ONCE IV ; Start 06/29/18 at 14:41; Stop 06/29/18 at 14:43; Status DC Lidocaine HCl (Lidocaine Pf 2% Vial) 5 ml STK-MED ONCE .ROUTE ; Start 06/29/18 at 14:41; Stop 06/29/18 at 14:43; Status DC Propofol 20 ml @ As Directed STK-MED ONCE IV ; Start 06/29/18 at 14:41; Stop at 14:43; Status DC Aspirin (Ecotrin) 81 mg DAILYWBKFT PO Last administered on 06/30/18at 10:37; Start 06/30/18 at 08:00 Active Scripts Active Amiodarone Hcl 200 Mg Tablet 200 Mg PO DAILY 30 Days Reported Meloxicam 7.5 Mg Tablet 1 Tab PO DAILY Propafenone Hcl 150 Mg Tablet 1 Tab PO DAILY Memantine HCl 10 Mg Tablet 1 Tab PO DAILY Trazodone Hcl 50 Mg Tablet 1 Tab PO HS Sertraline Hcl 100 Mg Tablet 1 Tab PO DAILY Donepezil Hcl 10 Mg Tablet 1 Tab PO DAILY Carvedilol 6.25 Mg Tablet 1 Tab PO DAILY Potassium Chloride 10 Meq Capsule.er 10 Meq PO DAILY Lasix (Furosemide) 40 Mg Tablet 40 Mg PO DAILY Acetaminophen Supp (Acetaminophen) 650 Mg Supp.rect 650 Mg RC Q6HRS PRN Triamcinolone Acetonide 0.1% Oint (Triamcinolone Acetonide) 15 Gm Oint...g. 1 Harika TP BID MIX WITH EUCERIN DIRECTED BY PHYSICIAN Simvastatin 20 Mg Tablet 1 Tab PO QHS Nabumetone 750 Mg Tablet 1 Tab PO BID Famotidine 20 Mg Tablet 1 Tab PO BID Vitals/I & O Vital Sign - Last 24 Hours 06/29/18 06/29/18 06/29/18 06/29/18 11:00 15:00 16:07 18:42 Temp 97.7 97.8 99.3 98.5 97.7 97.8 99.3 98.5 Pulse 67 68 72 70 Resp 18 18 17 16 B/P (MAP) 94/48 (63) 119/54 (75) 131/56 97/59 Pulse Ox 95 95 98 100 O2 Delivery Room Air Room Air Room Air Simple Mask O2 Flow Rate 10 06/29/18 06/29/18 06/29/18 06/29/18 18:42 18:57 19:00 19:05 Temp 98.5 98.3 98.5 98.3 Pulse 69 83 Resp 16 17 B/P (MAP) 114/50 114/46 (68) Pulse Ox 96 94 O2 Delivery Mask Room Air Room Air Room Air O2 Flow Rate 10 06/29/18 06/29/18 06/29/18 06/29/18 19:15 19:30 19:45 20:00 Pulse 84 67 74 68 Resp 18 B/P (MAP) 119/53 (75) 109/52 (71) 115/45 (68) 110/80 (90) Pulse Ox 94 O2 Delivery Room Air 1/14/19 1/14/19 1/14/19 1/14/19 20:00 20:30 21:00 21:27 Pulse 67 65 Resp 16 18 18 B/P (MAP) 115/45 (68) 110/80 (90) Pulse Ox 95 96 O2 Delivery Room Air Room Air Room Air Room Air 06/29/18 06/29/18 06/29/18 06/30/18 22:00 22:45 23:00 01:00 Temp 97.7 97.7 Pulse 69 69 71 Resp 16 18 18 18 B/P (MAP) 109/45 (66) 100/40 (60) 86/40 (55) Pulse Ox 95 96 97 O2 Delivery Room Air Room Air Room Air Room Air 06/30/18 06/30/18 06/30/18 06/30/18 03:00 07:00 10:37 10:38 Temp 98.5 97.1 98.5 97.1 Pulse 64 79 79 79 Resp 18 16 B/P (MAP) 103/55 (71) 103/41 (61) 103/41 103/41 Pulse Ox 98 98 O2 Delivery Room Air Room Air 06/30/18 10:38 Pulse 79 B/P (MAP) 103/41 Intake and Output 06/29/18 06/29/18 06/30/18 15:01 23:01 07:01 Intake Total 325 ml 650 ml 1040 ml Output Total 950 ml Balance 325 ml -300 ml 1040 ml KARLENE YEPEZ MD Jun 30, 2018 10:59
--- NOTE | 2018-06-30 11:54 | CARD ---
MR#: [id number] Date of Study: 06/30/2018 Ordering Physician: NOE AJ, Referring Physician: JIMI VILLARREAL, Tech: Donna Lynch APPROVED REPORT EXAM: Two-dimensional and M-mode echocardiogram with Doppler and color Doppler. Other Information Quality : FairHR: 78bpm INDICATION Congestive Heart Failure 2D DIMENSIONS Left Atrium(2D)4.2 (1.6-4.0cm)IVSd0.9 (0.7-1.1cm) Aortic Root(2D)2.5 (2.0-3.7cm)LVDd5.1 (3.9-5.9cm) LVOT Diameter2.1 (1.8-2.4cm)PWd0.9 (0.7-1.1cm) LVDs2.8 (2.5-4.0cm)FS (%) 45.1 % SV96.0 mlLVEF(%)76.1 (>50%) Aortic Valve AoV Peak Sukhdev.297.5cm/sAoV VTI71.5cm AO Peak GR.35.4mmHgLVOT VTI 16.15cm AO Mean GR.26mmHg Mitral Valve MV E Nqrasxsj73.6cm/sMV DECEL ORSN175fk MV A Faywwtqn49.8cm/sE/A Ratio0.9 TDI Lateral E' P. V9.07cm/sMedial E' P. V7.40cm/s E/Lateral E'8.1E/Medial E'9.9 Tricuspid Valve TR P. Egomeszc070rv/sRAP TAUHBLYO2egTz TR Peak Gr.05meVnHTWH91owNb Pulmonary Vein S1 Lkhatcig66.9cm/sS2 Jllknoko28.70cm/s D2 Tlwitdms71.7cm/sPVa jqzwoqxb847wwzv LEFT VENTRICLE The left ventricle is normal size. There is borderline concentric left ventricular hypertrophy. The l eft ventricular systolic function is normal and the ejection fraction is within normal range. EF 55% Septal motion suggestive of conduction defect. Otherwise, grossly normal wall motion. Technically rodríguez ited images. Transmitral Doppler flow pattern is Grade I-abnormal relaxation pattern. RIGHT VENTRICLE The right ventricle is borderline dilated. There is normal right ventricular wall thickness. The righ t ventricular systolic function is normal. ATRIA The left atrium is mildly dilated. The right atrium is borderline dilated. The interatrial septum is intact with no evidence for an atrial septal defect or patent foramen ovale as noted on 2-D or Dopple r imaging. AORTIC VALVE The aortic valve is heavily calcified. Doppler and Color Flow revealed trace aortic regurgitation. Th ere is moderate valvular aortic stenosis. Calculated aortic valve area is .81-.92 cm2 with maximum pr essure gradient of 35 mmHg and mean pressure gradient of 26 mmHg. MITRAL VALVE The mitral valve is thickened but opens well. There is no evidence of mitral valve prolapse. There is no mitral valve stenosis. Doppler and Color-flow revealed trace mitral regurgitation. TRICUSPID VALVE The tricuspid valve is normal in structure and function. Doppler and Color Flow revealed trace tricus pid regurgitation. There is no tricuspid valve stenosis. PULMONIC VALVE The pulmonic valve is not well visualized. Doppler and Color Flow revealed trace pulmonic valvular re gurgitation. GREAT VESSELS The aortic root is normal in size. The IVC was not visualized. PERICARDIAL EFFUSION There is a trace pericardial effusion. Critical Notification Critical Value: No <Conclusion> Septal motion suggestive of conduction defect. Otherwise, grossly normal wall motion. Technically rodríguez ited images. The left ventricular systolic function is normal and the ejection fraction is within normal range. EF 55% There is moderate valvular aortic stenosis. Maximum pressure gradient of 35 mmHg and mean pressure gr adient of 26 mmHg. Consider CHELLE for further evaluation of . Signed by : Johnathon Bob, Electronically Approved : 06/30/2018 11:53:04
--- NOTE | 2018-06-30 14:07 | PDOC ---
MIGUEL BINGHAM PER DIEM CLERK 06/30/18 1407: CARDIO Progress Notes Date and Time Date of Service 06/30/2018 Time of Evaluation 1350 Subjective Subjective: No Chest Pain, No shortness of breath Vitals Vitals Vital Signs Date Time Temp Pulse Resp B/P (MAP) Pulse Ox O2 Delivery O2 Flow Rate FiO2 06/30/18 11:00 98.4 75 16 103/40 (61) 90 Room Air 98.4 06/29/18 18:42 10 Weight Weight [ ] Input and Output Intake and Output Intake and Output 06/30/18 07:01 Intake Total 2015 ml Output Total 950 ml Balance 1065 ml Intake Oral 1615 ml IV Total 400 ml Output Urine Total 450 ml Estimated Blood Loss 500 ml # Voids 8 Physical Exam HEENT: Neck Supple W Full Motion Chest: Symmetric LUNGS: Clear to Auscultation Heart: S1S2, RRR (SR), murmurs (systolic murmur to AZUCENA 3/6 ) Abdomen: Soft N/T Extremities: No Calf Tenderness, Other (left hip dressing D/I) Neurology: alert, oriented, follow commands Assessment Assessment 1. Left femur fracture; S/P ORIF to left hip., tolerated procedure well. POD#1 2. CAD; clinically stable. EF and WM nml 3. Hx of cardiomyopathy: with EF as low as 15% in 2017 now at 55% 4. PAFIB; presently maintaining SR with LBBB 5. Hypertension; controlled 6. Hyperlipidemia; statin 7. WAYLON on CKD; per PCP 8. Dementia 9. Moderate Recommendations Hold lasix for now, maintain hydration adequacy Amiodarone for rhythm maintenance, ASA for stroke prevention. Continue coreg. DC propafenone Possibly not a good candidate for anticoagulation with age and dementia and high risk for falls. GREG MILTON MD 07/01/18 0928: CARDIO Progress Notes Assessment Assessment Patient seen and examined 06/30/18. Agree with MOLECULAR BIOLOGY SCIENTIST's assessment and plan. Tolerated ORIF for femur fracture very well. Continue postop care per orthopedics team Maintaining sinus rhythm CAD status clinically stable Continue current medical regimen MIGUEL BINGHAM PER DIEM CLERK Jun 30, 2018 14:07 GREG MILTON MD Jul 01, 2018 09:28
--- NOTE | 2018-06-30 14:20 | NUR ---
Wound Care: Consult to eval and treat multiple skin tears (see detailed assessment). ST previously documented to L lateral calf is scabbed over. Both LUE skin tears cleansed and covered with xeroform and foam dressings. No other open areas noted on head to toe assessment, with the exception of 2 surgical incisions to L lateral hip/thigh, POD1 from arthroplasty. Pt on P500 mattress, assisted with turn to R side, with wedge in place for positioning. Pt is alert to self only, but nursing staff aware to turn Q2H. Plan to follow up 07/08/18
--- NOTE | 2018-06-30 14:32 | EKG ---
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
--- NOTE | 2018-06-30 14:49 | NUR ---
SW following for discharge planning. Pt had surgery today, await PT/OT recommendations for skilled needs upon discharge. SW will continue to follow.
[2018-06-30 15:01] LABS: CHOLESTEROL/HDL RATIO 3.4
--- NOTE | 2018-06-30 15:23 | NUR ---
SW following for discharge planning. Chart reviewed, discussed with RN. JANINA met with pt to discuss discharge planning, pt could not recall if he had been to a half-way facility recently and gave SW permission to contact his sons. JANINA contacted Douglas English ([phone]), Douglas reported pt had been to a facility in [place]. JANINA contacted pt's DPOA Sterling Lucas ([phone]) and left a voicemail requesting a call back. JANINA will continue to follow.
[2018-06-30] MEDS: TRIAMCINOLONE ACETONIDE 0.1% TOPICAL OINTMENT 15GM TUBE. TP PRN (15:50)
[2018-06-30] MEDS: FAMOTIDINE 20 MG TABLET. PO SCH (20:51)
[2018-06-30] MEDS: SIMVASTATIN 20 MG TABLET PO SCH (20:52)
[2018-06-30] MEDS: traZODone 50 MG TABLET. PO SCH (20:52)
[2018-07-01] VITALS (15 sets, daily range): BP systolic 83–138; BP diastolic 30–54
--- NOTE | 2018-07-01 07:15 | NUR ---
Pt. has been taking tele monitor off all night. He's been running SR with BBB. Day shift nurse was informed of this.
[2018-07-01 07:59] LABS: BASO % 0 % (0-3); EOS # 0.2 x10^3/uL (0.0-0.7); EOS % 5 % (0-3); LYMPH # 0.7 x10^3/uL (1.0-4.8); LYMPH % 17 % (24-48); MEAN CORPUSCULAR HEMOGLOBIN 30 pg (25-35); MEAN CORPUSCULAR HGB CONC 35 g/dL (31-37); MEAN CORPUSCULAR VOLUME 85 fL (79-100); MONO # 0.5 x10^3/uL (0.0-1.1); MONO % 12 % (0-9); NEUT # 2.7 x10^3uL (1.8-7.7); NEUT % 66 % (31-73); PLATELET COUNT 88 x10^3/uL (140-400); RED BLOOD COUNT 1.96 x10^6/uL (4.30-5.70); RED CELL DISTRIBUTION WIDTH 15.9 % (11.5-14.5); WHITE BLOOD COUNT 4.1 x10^3/uL (4.0-11.0)
[2018-07-01] MEDS: CARVEDILOL 6.25 MG TABLET. PO SCH (08:00)
[2018-07-01 08:02] LABS: HEMATOCRIT 16.7 % (39.0-53.0); HEMOGLOBIN 5.8 g/dL (13.0-17.5)
--- NOTE | 2018-07-01 08:04 | NUR ---
This nurse assisted with getting orders for 2 units of PRBC, after paging for a critical lab. This nurse report to FIONA Albright.
[2018-07-01 08:36] LABS: ALBUMIN 2.2 g/dL (3.4-5.0); ALBUMIN/GLOBULIN RATIO 0.7 (1.0-1.7); CALCIUM 7.8 mg/dL (8.5-10.1); CREATININE 1.7 mg/dL (0.7-1.3); GFR 38.7; POTASSIUM 4.2 mmol/L (3.5-5.1); TOTAL BILIRUBIN 0.2 mg/dL (0.2-1.0); TOTAL PROTEIN 5.2 g/dL (6.4-8.2)
--- NOTE | 2018-07-01 08:56 | NUR ---
IP: Pt is mrsa screen + requiring contact precautions.
[2018-07-01] MEDS: AMIODARONE HCL 200 MG TABLET. PO SCH (09:00)
--- NOTE | 2018-07-01 09:40 | NUR ---
JANINA following for discharge planning. Discussed with RN, pt is receiving blood today so is unlikely pt can discharge. JANINA spoke with pt's son/DPOA Sterling Lucas about discharge planning. Sterling would like for pt to go to a SNF nearby to [place] as that is where he lives. JANINA phoned and faxed referral to [place] [facility] ([phone], fax: [phone]). JANINA will continue to follow.
[2018-07-01] MEDS: ASPIRIN ENTERIC COATED 81 MG TABLET.DR. PO SCH (10:20)
[2018-07-01] MEDS: ACETAMINOPHEN 500 MG TABLET PO SCH ×3 (10:20→21:24)
[2018-07-01] MEDS: MEMANTINE 10 MG TABLET. PO SCH (10:20)
[2018-07-01] MEDS: DOCUSATE SODIUM 100 MG CAPSULE. PO SCH ×2 (10:20→21:24)
[2018-07-01] MEDS: POTASSIUM CHLORIDE 10 MEQ TABLET.ER. PO SCH (10:20)
[2018-07-01] MEDS: MELOXICAM 7.5 MG TABLET PO SCH (10:20)
[2018-07-01] MEDS: SERTRALINE 50 MG TABLET. PO SCH (10:20)
[2018-07-01] MEDS: DONEPEZIL HCL 10 MG TABLET. PO SCH (10:20)
--- NOTE | 2018-07-01 10:33 | PDOC ---
PROGRESS NOTES Chief Complaint Chief Complaint acute Left hip fracture, traumatic, closed, POD # 2 Acute traumatic comminuted intertrochanteric left femur fracture. Fall AT home CK D 3 in the background of diuretic use Hyponatremia w/ diuretic use - improved CHF, A. fib, CAD, hypertension chronic stable Hx of severe systolic CHF Hx of cardiomyopathy: with EF as low as 15% in 2017 now at 55% PAFIB; presently maintaining SR with LBBB cognitive decline or early dementia, poorly oriented, MODERATE AORTIC STENOSIS History of Present Illness History of Present Illness VIt D pending Pain control, better Dw RN Vitals Vitals Vital Signs Date Time Temp Pulse Resp B/P (MAP) Pulse Ox O2 Delivery O2 Flow Rate FiO2 07/01/18 07:00 98.6 60 18 92/30 (50) 96 Room Air 98.6 Physical Exam General: Alert, Cooperative, No acute distress Heart: Regular rate, No murmurs, Other (tele SR, 2/6 systolic murmur ) Lungs: Clear, Crackles Abdomen: Normal bowel sounds, Soft, No tenderness Extremities: No cyanosis, Other (left hip pain) Skin: No significant lesion Labs LABS Laboratory Tests Test 07/01/18 07:16 White Blood Count 4.1 x10^3/uL (4.0-11.0) Red Blood Count 1.96 x10^6/uL (4.30-5.70) Hemoglobin 5.8 g/dL (13.0-17.5) Hematocrit 16.7 % (39.0-53.0) Mean Corpuscular Volume 85 fL (79-100) Mean Corpuscular Hemoglobin 30 pg (25-35) Mean Corpuscular Hemoglobin Concent 35 g/dL (31-37) Red Cell Distribution Width 15.9 % (11.5-14.5) Platelet Count 88 x10^3/uL (140-400) Neutrophils (%) (Auto) 66 % (31-73) Lymphocytes (%) (Auto) 17 % (24-48) Monocytes (%) (Auto) 12 % (0-9) Eosinophils (%) (Auto) 5 % (0-3) Basophils (%) (Auto) 0 % (0-3) Neutrophils # (Auto) 2.7 x10^3uL (1.8-7.7) Lymphocytes # (Auto) 0.7 x10^3/uL (1.0-4.8) Monocytes # (Auto) 0.5 x10^3/uL (0.0-1.1) Eosinophils # (Auto) 0.2 x10^3/uL (0.0-0.7) Basophils # (Auto) 0.0 x10^3/uL (0.0-0.2) Sodium Level 137 mmol/L (136-145) Potassium Level 4.2 mmol/L (3.5-5.1) Chloride Level 104 mmol/L (98-107) Carbon Dioxide Level 25 mmol/L (21-32) Anion Gap 8 (6-14) Blood Urea Nitrogen 35 mg/dL (8-26) Creatinine 1.7 mg/dL (0.7-1.3) Estimated GFR (Cockcroft-Gault) 38.7 BUN/Creatinine Ratio 21 (6-20) Glucose Level 117 mg/dL (70-99) Calcium Level 7.8 mg/dL (8.5-10.1) Total Bilirubin 0.2 mg/dL (0.2-1.0) Aspartate Amino Transf (AST/SGOT) 27 U/L (15-37) Alanine Aminotransferase (ALT/SGPT) 18 U/L (16-63) Alkaline Phosphatase 58 U/L (46-116) Total Protein 5.2 g/dL (6.4-8.2) Albumin 2.2 g/dL (3.4-5.0) Albumin/Globulin Ratio 0.7 (1.0-1.7) Assessment and Plan Assessmemt and Plan Problems Medical Problems: (1) Closed left hip fracture Status: Acute Comment Review of Relevant I have reviewed the following items idalmis (where applicable) has been applied. Labs Laboratory Tests Test 07/01/18 07:16 White Blood Count 4.1 x10^3/uL (4.0-11.0) Red Blood Count 1.96 x10^6/uL (4.30-5.70) Hemoglobin 5.8 g/dL (13.0-17.5) Hematocrit 16.7 % (39.0-53.0) Mean Corpuscular Volume 85 fL (79-100) Mean Corpuscular Hemoglobin 30 pg (25-35) Mean Corpuscular Hemoglobin Concent 35 g/dL (31-37) Red Cell Distribution Width 15.9 % (11.5-14.5) Platelet Count 88 x10^3/uL (140-400) Neutrophils (%) (Auto) 66 % (31-73) Lymphocytes (%) (Auto) 17 % (24-48) Monocytes (%) (Auto) 12 % (0-9) Eosinophils (%) (Auto) 5 % (0-3) Basophils (%) (Auto) 0 % (0-3) Neutrophils # (Auto) 2.7 x10^3uL (1.8-7.7) Lymphocytes # (Auto) 0.7 x10^3/uL (1.0-4.8) Monocytes # (Auto) 0.5 x10^3/uL (0.0-1.1) Eosinophils # (Auto) 0.2 x10^3/uL (0.0-0.7) Basophils # (Auto) 0.0 x10^3/uL (0.0-0.2) Sodium Level 137 mmol/L (136-145) Potassium Level 4.2 mmol/L (3.5-5.1) Chloride Level 104 mmol/L (98-107) Carbon Dioxide Level 25 mmol/L (21-32) Anion Gap 8 (6-14) Blood Urea Nitrogen 35 mg/dL (8-26) Creatinine 1.7 mg/dL (0.7-1.3) Estimated GFR (Cockcroft-Gault) 38.7 BUN/Creatinine Ratio 21 (6-20) Glucose Level 117 mg/dL (70-99) Calcium Level 7.8 mg/dL (8.5-10.1) Total Bilirubin 0.2 mg/dL (0.2-1.0) Aspartate Amino Transf (AST/SGOT) 27 U/L (15-37) Alanine Aminotransferase (ALT/SGPT) 18 U/L (16-63) Alkaline Phosphatase 58 U/L (46-116) Total Protein 5.2 g/dL (6.4-8.2) Albumin 2.2 g/dL (3.4-5.0) Albumin/Globulin Ratio 0.7 (1.0-1.7) Laboratory Tests Test 07/01/18 07:16 White Blood Count 4.1 x10^3/uL (4.0-11.0) Red Blood Count 1.96 x10^6/uL (4.30-5.70) Hemoglobin 5.8 g/dL (13.0-17.5) Hematocrit 16.7 % (39.0-53.0) Mean Corpuscular Volume 85 fL (79-100) Mean Corpuscular Hemoglobin 30 pg (25-35) Mean Corpuscular Hemoglobin Concent 35 g/dL (31-37) Red Cell Distribution Width 15.9 % (11.5-14.5) Platelet Count 88 x10^3/uL (140-400) Neutrophils (%) (Auto) 66 % (31-73) Lymphocytes (%) (Auto) 17 % (24-48) Monocytes (%) (Auto) 12 % (0-9) Eosinophils (%) (Auto) 5 % (0-3) Basophils (%) (Auto) 0 % (0-3) Neutrophils # (Auto) 2.7 x10^3uL (1.8-7.7) Lymphocytes # (Auto) 0.7 x10^3/uL (1.0-4.8) Monocytes # (Auto) 0.5 x10^3/uL (0.0-1.1) Eosinophils # (Auto) 0.2 x10^3/uL (0.0-0.7) Basophils # (Auto) 0.0 x10^3/uL (0.0-0.2) Sodium Level 137 mmol/L (136-145) Potassium Level 4.2 mmol/L (3.5-5.1) Chloride Level 104 mmol/L (98-107) Carbon Dioxide Level 25 mmol/L (21-32) Anion Gap 8 (6-14) Blood Urea Nitrogen 35 mg/dL (8-26) Creatinine 1.7 mg/dL (0.7-1.3) Estimated GFR (Cockcroft-Gault) 38.7 BUN/Creatinine Ratio 21 (6-20) Glucose Level 117 mg/dL (70-99) Calcium Level 7.8 mg/dL (8.5-10.1) Total Bilirubin 0.2 mg/dL (0.2-1.0) Aspartate Amino Transf (AST/SGOT) 27 U/L (15-37) Alanine Aminotransferase (ALT/SGPT) 18 U/L (16-63) Alkaline Phosphatase 58 U/L (46-116) Total Protein 5.2 g/dL (6.4-8.2) Albumin 2.2 g/dL (3.4-5.0) Albumin/Globulin Ratio 0.7 (1.0-1.7) Medications Current Medications Fentanyl Citrate (Fentanyl 2ml Vial) 25 mcg PRN Q15MIN PRN IV PAIN GREATER THAN 3/10 Last administered on 06/28/18at 05:03; Start 06/28/18 at 03:15; Stop at 03:14; Status DC Sodium Chloride 1,000 ml @ 100 mls/hr Q10H IV Last administered on 06/28/18at 03:36; Start 06/28/18 at 03:15; Stop 06/28/18 at 13:14; Status DC Ondansetron HCl (Zofran) 4 mg 1X ONCE IV Last administered on 06/28/18at 03:35 ; Start 06/28/18 at 03:15; Stop 06/28/18 at 03:26; Status DC Ondansetron HCl (Zofran) 4 mg PRN Q8HRS PRN IV NAUSEA/VOMITING; Start 06/28/18 at 04:30; Stop 06/29/18 at 04:29; Status DC Fentanyl Citrate (Fentanyl 2ml Vial) 50 mcg PRN Q1HR PRN IV PAIN Last administered on 06/28/18at 11:39; Start 06/28/18 at 04:30; Stop 06/28/18 at 11:50 ; Status DC Sodium Chloride 1,000 ml @ 75 mls/hr [id number] IV Last administered on at 18:03; Start 06/28/18 at 04:30; Stop 06/29/18 at 04:29; Status DC Morphine Sulfate (Morphine Sulfate) 2 mg PRN Q1HR PRN IV PAIN MILD 2ND CHOICE; Start 06/28/18 at 08:15 Morphine Sulfate (Morphine Sulfate) 2 mg PRN Q1HR PRN IV PAIN; Start 06/28/18 at 08:15; Status UNV Fentanyl Citrate (Fentanyl 2ml Vial) 50 mcg PRN Q1HR PRN IV PAIN MOD TO SEV 1ST CHOICE; Start 06/28/18 at 08:15; Stop 06/28/18 at 11:55; Status DC Ondansetron HCl (Zofran) 4 mg PRN Q6HRS PRN IV NAUSEA/VOMITING; Start 06/28/18 at 08:15 Lorazepam (Ativan) 0.5 mg PRN Q4HRS PRN IV ANXIETY / AGITATION; Start 06/28/18 at 08:15 Info (Ortho Message -- Hold Meds) 1 ea CONT PRN PRN MC SEE COMMENTS; Start at 08:15; Stop 06/30/18 at 08:14; Status DC Tramadol HCl (Ultram) 50 mg PRN QID PRN PO PAIN MILD Last administered on at 21:27; Start 06/28/18 at 08:15 Oxycodone HCl (Roxicodone) 5 mg PRN Q4HRS PRN PO PAIN MOD TO SEV Last administered on 06/29/18at 03:54; Start 06/28/18 at 08:15 Fentanyl Citrate (Fentanyl 2ml Vial) 25 mcg PRN Q1HR PRN IV PAIN MILD 1ST CHOICE; Start 06/28/18 at 08:15; Stop 06/28/18 at 11:55; Status DC Acetaminophen (Tylenol) 1,000 mg TID PO Last administered on 07/01/18at 10:20; Start 06/28/18 at 09:00 Docusate Sodium (Colace) 100 mg BID PO Last administered on 07/01/18at 10:20; Start 06/28/18 at 09:00 Magnesium Hydroxide (Milk Of Magnesia) 2,400 mg PRN DAILY PRN PO CONSTIPATION; Start 06/28/18 at 08:15 Bisacodyl (Dulcolax Supp) 10 mg PRN DAILY PRN IA CONSTIPATION; Start 06/28/18 at 08:15 Zolpidem Tartrate (Ambien) 5 mg PRN QHS PRN PO INSOMNIA Last administered on at 21:26; Start 06/28/18 at 08:15 Sodium Chloride (Normal Saline Flush) 3 ml QSHIFT PRN IV AFTER MEDS AND BLOOD DRAWS; Start 06/28/18 at 08:15 Dextrose (Dextrose 50%-Water Syringe) 12.5 gm PRN Q15MIN PRN IV SEE COMMENTS; Start 06/28/18 at 08:15 Info (FLU VACCINE SCREEN per RX) 1 each 1X ONCE MC ; Start 06/28/18 at 08:30; Stop 06/28/18 at 08:31; Status UNV Influenza Virus Vaccine (Afluria Trivalent [id number] Syringe) 0.5 ml ONCE ONCE VAX IM ; Start 06/28/18 at 16:00; Stop 06/28/18 at 16:01; Status DC Fentanyl Citrate (Fentanyl 2ml Vial) 50 mcg PRN Q2HR PRN IV PAIN; Start at 09:30; Stop 06/28/18 at 09:36; Status DC Acetaminophen (Tylenol Supp) 650 mg PRN Q6HRS PRN RC FEVER > 102; Start at 09:30 Amiodarone HCl (Cordarone) 200 mg DAILY PO Last administered on 06/30/18 10:38 ; Start 06/28/18 at 10:00 Carvedilol (Coreg) 6.25 mg DAILY08 PO Last administered on 06/30/18at 10:38; Start 06/28/18 at 10:00 Famotidine (Pepcid) 20 mg QHS PO Last administered on 06/30/18at 20:51; Start at 21:00 Furosemide (Lasix) 40 mg DAILY PO Last administered on 06/29/18 08:49; Start 06/28/18 at 10:00; Stop 06/29/18 at 16:34; Status DC Potassium Chloride (Klor-Con) 10 meq DAILY PO Last administered on 07/01/18 10 :20; Start 06/28/18 at 10:00 Trazodone HCl (Desyrel) 50 mg HS PO Last administered on 06/30/18at 20:52; Start 06/28/18 at 21:00 Triamcinolone Acetonide (Kenalog) 1 harika PRN BID PRN TP ITCHING Last administered on 06/30/18 15:50; Start 06/28/18 at 21:00 Donepezil HCl (Aricept) 10 mg DAILY PO Last administered on 07/01/18 10:20; Start 06/28/18 at 10:00 Memantine (Namenda) 10 mg DAILY PO Last administered on 07/01/18at 10:20; Start 06/28/18 at 10:00 Meloxicam (Mobic) 15 mg DAILY PO Last administered on 1/16/19at 10:20; Start at 10:00 Propafenone HCl (Rythmol) 150 mg DAILY PO Last administered on 06/30/18at 10:37 ; Start 06/28/18 at 10:00; Stop 06/30/18 at 14:04; Status DC Sertraline HCl (Zoloft) 100 mg DAILY PO Last administered on 07/01/18at 10:20; Start 06/28/18 at 10:00 Simvastatin (Zocor) 20 mg HS PO Last administered on 06/30/18at 20:52; Start at 21:00 Ropivacaine 53.3 ml/Epinephrine HCl 0.6 mg/ Morphine Sulfate 5 mg/Sodium Chloride 100 ml @ 100 mls/hr 1X ONCE INT ART Last administered on 06/29/18at 17:41; Start 06/29/18 at 06:00; Stop 06/29/18 at 06:59; Status DC Cefazolin Sodium/ Dextrose 50 ml @ 100 mls/hr 1X PREOP PRN IV SEE COMMENTS Last administered on 06/29/18at 16:55; Start 06/29/18 at 16:00; Stop 06/30/18 at 15:29; Status DC Fentanyl Citrate (Fentanyl 2ml Vial) 50 mcg PRN Q2HR PRN IV PAIN, 1ST CHOICE Last administered on 06/28/18at 18:03; Start 06/28/18 at 12:00 Fentanyl Citrate (Fentanyl 2ml Vial) 25 mcg PRN Q5MIN PRN IV MILD PAIN; Start 06/29/18 at 13:00; Stop 06/30/18 at 12:59; Status DC Fentanyl Citrate (Fentanyl 2ml Vial) 50 mcg PRN Q5MIN PRN IV MODERATE TO SEVERE PAIN; Start 06/29/18 at 13:00; Stop 06/30/18 at 12:59; Status DC Morphine Sulfate (Morphine Sulfate) 1 mg PRN Q10MIN PRN IV SEVERE PAIN; Start 06/29/18 at 13:00; Stop 06/30/18 at 12:59; Status DC Ringer's Solution 1,000 ml @ 30 mls/hr Q24H IV ; Start 06/29/18 at 12:55; Stop 06/30/18 at 00:54; Status DC Lidocaine HCl (Xylocaine-Mpf 1% 2ml Vial) 2 ml PRN 1X PRN ID PRIOR TO IV START ; Start 06/29/18 at 13:00; Stop 06/30/18 at 12:59; Status DC Hydromorphone HCl (Dilaudid) 0.5 mg PRN Q10MIN PRN IV SEV PAIN, Second choice; Start 06/29/18 at 13:00; Stop 06/30/18 at 12:59; Status DC Prochlorperazine Edisylate (Compazine) 5 mg PACU PRN PRN IV NAUSEA, MRX1; Start 06/29/18 at 13:00; Stop 06/30/18 at 12:59; Status DC Phenylephrine HCl (PHENYLEPHRINE in 0.9% NACL PF) 1 mg STK-MED ONCE IV ; Start 06/29/18 at 14:41; Stop 06/29/18 at 14:43; Status DC Ephedrine Sulfate (ePHEDrine PF IN SALINE SYRINGE) 50 mg STK-MED ONCE IV ; Start 06/29/18 at 14:41; Stop 06/29/18 at 14:43; Status DC Lidocaine HCl (Lidocaine Pf 2% Vial) 5 ml STK-MED ONCE .ROUTE ; Start 06/29/18 at 14:41; Stop 06/29/18 at 14:43; Status DC Propofol 20 ml @ As Directed STK-MED ONCE IV ; Start 06/29/18 at 14:41; Stop at 14:43; Status DC Aspirin (Ecotrin) 81 mg [id number] PO Last administered on 07/01/18at 10:20; Start 06/30/18 at 08:00 Active Scripts Active Amiodarone Hcl 200 Mg Tablet 200 Mg PO DAILY 30 Days Reported Meloxicam 7.5 Mg Tablet 1 Tab PO DAILY Propafenone Hcl 150 Mg Tablet 1 Tab PO DAILY Memantine HCl 10 Mg Tablet 1 Tab PO DAILY Trazodone Hcl 50 Mg Tablet 1 Tab PO HS Sertraline Hcl 100 Mg Tablet 1 Tab PO DAILY Donepezil Hcl 10 Mg Tablet 1 Tab PO DAILY Carvedilol 6.25 Mg Tablet 1 Tab PO DAILY Potassium Chloride 10 Meq Capsule.er 10 Meq PO DAILY Lasix (Furosemide) 40 Mg Tablet 40 Mg PO DAILY Acetaminophen Supp (Acetaminophen) 650 Mg Supp.rect 650 Mg RC Q6HRS PRN Triamcinolone Acetonide 0.1% Oint (Triamcinolone Acetonide) 15 Gm Oint...g. 1 Harika TP BID MIX WITH EUCERIN DIRECTED BY PHYSICIAN Simvastatin 20 Mg Tablet 1 Tab PO QHS Nabumetone 750 Mg Tablet 1 Tab PO BID Famotidine 20 Mg Tablet 1 Tab PO BID Vitals/I & O Vital Sign - Last 24 Hours 06/30/18 06/30/18 06/30/18 06/30/18 10:37 10:38 10:38 11:00 Temp 98.4 98.4 Pulse 79 79 79 75 Resp 16 B/P (MAP) 103/41 103/41 103/41 103/40 (61) Pulse Ox 90 O2 Delivery Room Air 06/30/18 06/30/18 06/30/18 06/30/18 15:00 19:00 20:30 23:00 Temp 98.5 98.4 98.4 98.5 98.4 98.4 Pulse 90 60 90 Resp 16 18 18 B/P (MAP) 85/41 (56) 96/48 (64) 96/43 (60) Pulse Ox 95 98 95 O2 Delivery Room Air Room Air Room Air Room Air 07/01/18 07/01/18 03:00 07:00 Temp 98.4 98.6 98.4 98.6 Pulse 79 60 Resp 18 18 B/P (MAP) 90/36 (54) 92/30 (50) Pulse Ox 91 96 O2 Delivery Room Air Room Air Intake and Output 06/30/18 06/30/18 07/01/18 15:01 23:01 07:01 Intake Total 400 ml 180 ml Output Total 300 ml 600 ml Balance 100 ml -420 ml KARLENE YEPEZ MD Jul 01, 2018 10:33
[2018-07-01] MEDS: TRIAMCINOLONE ACETONIDE 0.1% TOPICAL OINTMENT 15GM TUBE. TP PRN (11:20)
--- NOTE | 2018-07-01 16:18 | NUR ---
SW following. Pharmacy contacted [facility] in to request a friend of pt go to pt's home to collect a medication "Imbruvica" and bring to the hospital as this medication is very expensive. JANINA spoke with pt's friend Bird ([phone]) who reported he can probably get the medication although he needs to collect the keys from pt here at [facility]. Bird requested pt to call him at the above number. RN notified. JANINA will continue to follow. Addendum: 07/02/18 at 0811 by GIRISH ROA Disregard above note - chart opened on wrong patient.
[2018-07-01] MEDS ORDERED: IV NORMAL SALINE 1000ML BAG 1,000 ML IV ONE (16:30)
--- NOTE | 2018-07-01 16:31 | PDOC ---
CARDIO Progress Notes Date and Time Date of Service 07/01/2018 Time of Evaluation 1610 Subjective Subjective: No Chest Pain, No shortness of breath, No Palpitations Vitals Vitals Vital Signs Date Time Temp Pulse Resp B/P (MAP) Pulse Ox O2 Delivery O2 Flow Rate FiO2 07/01/18 14:35 98.2 71 18 104/54 98.2 07/01/18 10:57 97 Room Air Weight Weight [ ] Input and Output Intake and Output Intake and Output 07/01/18 07:01 Intake Total 580 ml Output Total 900 ml Balance -320 ml Intake Oral 580 ml Output Urine Total 900 ml # Voids 4 Laboratory Labs Laboratory Tests Test 07/01/18 07:16 White Blood Count 4.1 x10^3/uL (4.0-11.0) Red Blood Count 1.96 x10^6/uL (4.30-5.70) Hemoglobin 5.8 g/dL (13.0-17.5) Hematocrit 16.7 % (39.0-53.0) Mean Corpuscular Volume 85 fL (79-100) Mean Corpuscular Hemoglobin 30 pg (25-35) Mean Corpuscular Hemoglobin Concent 35 g/dL (31-37) Red Cell Distribution Width 15.9 % (11.5-14.5) Platelet Count 88 x10^3/uL (140-400) Neutrophils (%) (Auto) 66 % (31-73) Lymphocytes (%) (Auto) 17 % (24-48) Monocytes (%) (Auto) 12 % (0-9) Eosinophils (%) (Auto) 5 % (0-3) Basophils (%) (Auto) 0 % (0-3) Neutrophils # (Auto) 2.7 x10^3uL (1.8-7.7) Lymphocytes # (Auto) 0.7 x10^3/uL (1.0-4.8) Monocytes # (Auto) 0.5 x10^3/uL (0.0-1.1) Eosinophils # (Auto) 0.2 x10^3/uL (0.0-0.7) Basophils # (Auto) 0.0 x10^3/uL (0.0-0.2) Sodium Level 137 mmol/L (136-145) Potassium Level 4.2 mmol/L (3.5-5.1) Chloride Level 104 mmol/L (98-107) Carbon Dioxide Level 25 mmol/L (21-32) Anion Gap 8 (6-14) Blood Urea Nitrogen 35 mg/dL (8-26) Creatinine 1.7 mg/dL (0.7-1.3) Estimated GFR (Cockcroft-Gault) 38.7 BUN/Creatinine Ratio 21 (6-20) Glucose Level 117 mg/dL (70-99) Calcium Level 7.8 mg/dL (8.5-10.1) Total Bilirubin 0.2 mg/dL (0.2-1.0) Aspartate Amino Transf (AST/SGOT) 27 U/L (15-37) Alanine Aminotransferase (ALT/SGPT) 18 U/L (16-63) Alkaline Phosphatase 58 U/L (46-116) Total Protein 5.2 g/dL (6.4-8.2) Albumin 2.2 g/dL (3.4-5.0) Albumin/Globulin Ratio 0.7 (1.0-1.7) Physical Exam HEENT: Neck Supple W Full Motion Chest: Symmetric LUNGS: Clear to Auscultation, Other (diminished) Heart: S1S2, RRR (SR), murmurs (systolic murmur to AZUCENA 3/6 ) Abdomen: Soft N/T Extremities: No Calf Tenderness, Other (left hip dressing D/I no obvious large hematoma) Neurology: alert, follow commands Assessment Assessment Staff notified me due to low BP. This is associated to severe anemia. BP marginally low but pt is stable. Pain is controlled and is not in any distress. Presently finishing up on his 2nd unit of PRBC. 1. Left femur fracture; S/P ORIF to left hip., tolerated procedure well. POD#2 2. CAD; clinically stable. EF and WM nml 3. Hx of cardiomyopathy: with EF as low as 15% in 2017 now at 55% 4. PAFIB; presently maintaining SR with LBBB 5. Hypertension; marginally low 6. Hyperlipidemia; statin 7. WAYLON on CKD; per PCP 8. Dementia 9. Moderate 10. Postoperative anemia: Hgb from 11.8 to 5.8 Recommendations Hold lasix.May hold amiodarone and resume tomorrow. also may hold BB and will change to toprol. Low maintenance IVF NS tonight Amiodarone for rhythm maintenance, ASA for stroke prevention. Possibly not a good candidate for anticoagulation with age and dementia and high risk for falls. Follow up with outpt foam tank laminator in 4 weeks. MIGUEL BINGHAM APRN Jul 01, 2018 16:31
[2018-07-01 19:08] LABS: HEMOGLOBIN 7.4 g/dL (13.0-17.5)
--- NOTE | 2018-07-01 19:33 | NUR ---
Critical lab results were called in to Dr. Randle who was adon for Dr. Moreland. gave order not to call back about critical results and ordered 1 unit RBC transfusion if pt. has low hemoglobin in the morning. Addendum: 07/01/18 at 1940 by HENRIQUE ISNGH RN Hgb 7.4 (not critical) hct 21.0 (critical)
[2018-07-01] MEDS: ZOLPIDEM 5 MG TABLET. PO PRN (21:24)
[2018-07-01] MEDS: FAMOTIDINE 20 MG TABLET. PO SCH (21:24)
[2018-07-01] MEDS: SIMVASTATIN 20 MG TABLET PO SCH (21:24)
[2018-07-01] MEDS: traZODone 50 MG TABLET. PO SCH (21:25)
[2018-07-02] VITALS (11 sets, daily range): BP systolic 80–153; BP diastolic 49–77
--- NOTE | 2018-07-02 01:10 | EKG ---
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
[2018-07-02] MEDS: IV NORMAL SALINE 1000ML BAG 1,000 ML IV SCH ×2 (02:00→14:11)
--- NOTE | 2018-07-02 02:19 | NUR ---
Called to a rapid response for HR 170's. Pt is alert and asymptomatic now. VS are otherwise stable. Temp 98.6 orally, B/P 105/64, RR 22, Sat 94% on RA. Patient denies pain or discomfort of any kind. Had a hip repair on 04/30 and received 2uPRBC's on day shift of 07/01. Dr. Carson was called and patient is being transferred to [facility]. IVF's are to be started at 100cc/hr and no other orders were given at this time. Addendum: 07/02/18 at 0225 by EVELIO MANTILLA RN Amended: Links added.
--- NOTE | 2018-07-02 03:29 | NUR ---
2200: Pt. pulled out IV site. New IV placed on L inside forearm with NS running at 50 ml/hr. Pt. kept pulling off heart monitor. 0100: Rapid response called for abnormal rhythm and heart rate at 180's. EKG done once team arrived on unit. Pt.'s heart rate went down on its own after [address] Carson called and orders were given to increase IVF to 100 ml/hr and transfer to . Report was given to FIONA Wolfe. Pt. was transferred to [facility] at 0220.
[2018-07-02] MEDS: traMADol 50 MG TABLET PO PRN ×2 (03:34→20:47)
[2018-07-02 06:15] LABS: BASO % 0 % (0-3); EOS # 0.2 x10^3/uL (0.0-0.7); EOS % 4 % (0-3); LYMPH # 0.5 x10^3/uL (1.0-4.8); LYMPH % 10 % (24-48); MEAN CORPUSCULAR HEMOGLOBIN 29 pg (25-35); MEAN CORPUSCULAR HGB CONC 34 g/dL (31-37); MEAN CORPUSCULAR VOLUME 85 fL (79-100); MONO # 0.5 x10^3/uL (0.0-1.1); MONO % 10 % (0-9); NEUT % 75 % (31-73); PLATELET COUNT 91 x10^3/uL (140-400); RED BLOOD COUNT 2.37 x10^6/uL (4.30-5.70); RED CELL DISTRIBUTION WIDTH 15.9 % (11.5-14.5); WHITE BLOOD COUNT 5.3 x10^3/uL (4.0-11.0)
[2018-07-02 06:26] LABS: HEMATOCRIT 20.2 % (39.0-53.0); HEMOGLOBIN 6.9 g/dL (13.0-17.5)
[2018-07-02 06:30] LABS: CREATININE 1.4 mg/dL (0.7-1.3); GFR 48.4; POTASSIUM 4.6 mmol/L (3.5-5.1)
--- NOTE | 2018-07-02 07:32 | NUR ---
Called Sterling (son) and Douglas (son) this morning to let him know about transfer. Gave him 2 north phone # and room #.
--- NOTE | 2018-07-02 08:13 | NUR ---
Late note- referral sent to [facility] also as pt's sons would like for pt to go back there. JANINA contacted [facility] at [facility], they do not currently have a bed. JANINA will continue to follow.
[2018-07-02] MEDS: SERTRALINE 50 MG TABLET. PO SCH (08:58)
[2018-07-02] MEDS: MELOXICAM 7.5 MG TABLET PO SCH (08:58)
[2018-07-02] MEDS: DONEPEZIL HCL 10 MG TABLET. PO SCH (08:59)
[2018-07-02] MEDS: POTASSIUM CHLORIDE 10 MEQ TABLET.ER. PO SCH (08:59)
[2018-07-02] MEDS: MEMANTINE 10 MG TABLET. PO SCH (08:59)
[2018-07-02] MEDS: METOPROLOL SUCC 24HR ER 25 MG TAB.ER.24H. PO SCH (08:59)
[2018-07-02] MEDS: AMIODARONE HCL 200 MG TABLET. PO SCH (09:03)
[2018-07-02] MEDS: ACETAMINOPHEN 500 MG TABLET PO SCH ×3 (09:04→20:45)
[2018-07-02] MEDS: ASPIRIN ENTERIC COATED 81 MG TABLET.DR. PO SCH (09:04)
[2018-07-02] MEDS: DOCUSATE SODIUM 100 MG CAPSULE. PO SCH ×2 (09:05→20:44)
--- NOTE | 2018-07-02 09:07 | PDOC ---
CARDIO Progress Notes Date and Time Date of Service 07/02/2018 Time of Evaluation 0850 Subjective Subjective: No Chest Pain, No shortness of breath, No Palpitations Vitals Vitals Vital Signs Date Time Temp Pulse Resp B/P (MAP) Pulse Ox O2 Delivery O2 Flow Rate FiO2 07/02/18 07:40 98.5 91 23 135/64 (87) 95 Room Air 98.5 Weight Weight [ ] Input and Output Intake and Output Intake and Output 07/02/18 07:01 Intake Total 1175 ml Output Total 1725 ml Balance -550 ml Intake Oral 100 ml Blood Product 675 ml Blood Product IV Normal Saline Flush 400 ml Output Urine Total 1725 ml # Voids 3 Laboratory Labs Laboratory Tests Test 07/01/18 19:00 07/02/18 01:22 07/02/18 05:55 Hemoglobin 7.4 g/dL (13.0-17.5) 6.9 g/dL (13.0-17.5) Hematocrit 21.0 % (39.0-53.0) 20.2 % (39.0-53.0) Mean Corpuscular Hemoglobin Concent 35 g/dL (31-37) 34 g/dL (31-37) Troponin I Quantitative 0.033 ng/mL (0.000-0.055) 0.189 ng/mL (0.000-0.055) White Blood Count 5.3 x10^3/uL (4.0-11.0) Red Blood Count 2.37 x10^6/uL (4.30-5.70) Mean Corpuscular Volume 85 fL (79-100) Mean Corpuscular Hemoglobin 29 pg (25-35) Red Cell Distribution Width 15.9 % (11.5-14.5) Platelet Count 91 x10^3/uL (140-400) Neutrophils (%) (Auto) 75 % (31-73) Lymphocytes (%) (Auto) 10 % (24-48) Monocytes (%) (Auto) 10 % (0-9) Eosinophils (%) (Auto) 4 % (0-3) Basophils (%) (Auto) 0 % (0-3) Neutrophils # (Auto) 4.0 x10^3uL (1.8-7.7) Lymphocytes # (Auto) 0.5 x10^3/uL (1.0-4.8) Monocytes # (Auto) 0.5 x10^3/uL (0.0-1.1) Eosinophils # (Auto) 0.2 x10^3/uL (0.0-0.7) Basophils # (Auto) 0.0 x10^3/uL (0.0-0.2) Sodium Level 139 mmol/L (136-145) Potassium Level 4.6 mmol/L (3.5-5.1) Chloride Level 107 mmol/L (98-107) Carbon Dioxide Level 25 mmol/L (21-32) Anion Gap 7 (6-14) Blood Urea Nitrogen 31 mg/dL (8-26) Creatinine 1.4 mg/dL (0.7-1.3) Estimated GFR (Cockcroft-Gault) 48.4 Glucose Level 122 mg/dL (70-99) Calcium Level 8.0 mg/dL (8.5-10.1) Physical Exam HEENT: Neck Supple W Full Motion Chest: Symmetric LUNGS: Other (basilar crackles) Heart: S1S2, RRR (SR), murmurs (systolic murmur to AZUCENA 3/6 ) Abdomen: Soft N/T Extremities: No Edema, No Calf Tenderness, Other (left hip dressing D/I no obvious large hematoma) Neurology: alert, follow commands, confused Assessment Assessment Transferred to CVC due to tachycardia in the 170s which was reported as sinus tach. 1. Left femur fracture; S/P ORIF to left hip., tolerated procedure well. POD#2 2. CAD; clinically stable. EF and WM nml 3. Hx of cardiomyopathy: with EF as low as 15% in 2017 now at 55% 4. PAFIB; presently maintaining SR with LBBB 5. Hypertension; controlled 6. Hyperlipidemia; statin 7. WAYLON on CKD; per PCP 8. Dementia 9. Moderate 10. Postoperative anemia: Hgb from 11.8 to 5.8. Post 2U transfusion 7.4 and trending down to 6.9. defer to ortho 11. Arrhythmia: Reactive sinus tachycardia as described by staff. today noted with bursts of aberrant afib RVR mainly: due to severe anemia and blood loss. Recommendations Continue to Hold lasix. 1U PRBC infusing now. BP much more adequate post IVF infusion. OK to restart amiodarone and toprol. ASA for stroke prevention. Possibly not a good candidate for anticoagulation with age and dementia and high risk for falls. PCXR today and if developing infiltrates are noted then will provide low dose lasix. Follow up with outpt sales agent [employer] in 4 weeks. MIGUEL BINGHAM APRN Jul 02, 2018 09:07
--- NOTE | 2018-07-02 09:20 | NUR ---
call placed to Dr. Sanders's office regarding Hbg of 6.9. 1 unit RBC already ordered.
--- NOTE | 2018-07-02 10:55 | RAD ---
EXAM: CHEST 1 VIEW History: Congestive heart failure COMPARISON: 06/28/2018 TECHNIQUE: Single portable radiograph of the chest FINDINGS: Low lung volumes and technique accentuate heart size and pulmonary vasculature. Mild cardiomegaly. There is minimal prominent appearing bilateral interstitial lung markings. Severe degenerative changes bilateral shoulder joints. Impression: 1. Mild prominent bilateral interstitial lung markings likely chronic interstitial changes or mild congestive changes. Electronically signed by: Black Zee MD (07/02/2018 10:51 AM) [id number]
[2018-07-02] MEDS ORDERED: FUROSEMIDE 20 MG/2 ML VIAL. IVP ONE (11:30)
--- NOTE | 2018-07-02 11:33 | NUR ---
SS following up with discharge planning. SS contacted [facility] for update on acceptance decision. [facility] reported that they have no beds available at this time and could not take pt. SS contacted [facility] for update on acceptance decision. [facility] reported that they have received referral and would notify SS with acceptance decision and insurance determination.
--- NOTE | 2018-07-02 12:48 | PDOC ---
PROGRESS NOTES Chief Complaint Chief Complaint acute Acute traumatic comminuted intertrochanteric left femur fracture, traumatic, closed, s/p sx 06/29 Fall AT home v tach, 2/2 anemia likely CK D 3 in the background of diuretic use Hyponatremia w/ diuretic use - improved A. fib, CAD, hypertension chronic stable Hx of severe systolic CHF Hx of cardiomyopathy: with EF as low as 15% in 2017 now at 55% dementia, poorly oriented, MODERATE AORTIC STENOSIS anemia post sx plan: fu with card, on amiodarone, metoprolol got 3 uPRBC transfusion labs tmr PTOT DVT PPX sw for rehab on NS 100cc/h as per card. watch chf History of Present Illness History of Present Illness 07/02: transferred from 4th floor with [facility] last night. now back to sinus, HR 80s. got 3u PRBC totally, today hb 6.9. lasix 20mg x1. demented. Vitals Vitals Vital Signs Date Time Temp Pulse Resp B/P (MAP) Pulse Ox O2 Delivery O2 Flow Rate FiO2 07/02/18 11:54 98.8 75 21 121/60 98.8 07/02/18 08:00 Room Air 10.0 07/02/18 07:40 95 Physical Exam Physical Exam to person and place, aaox2 General: Alert, Cooperative, No acute distress Heart: Regular rate, Normal S1, Normal S2, No murmurs, Other (tele SR, 2/6 systolic murmur ) Lungs: Clear, Crackles Abdomen: Normal bowel sounds, Soft, No tenderness Extremities: No cyanosis, Other (left hip pain, left thigh swollen ) Skin: No significant lesion Labs LABS Laboratory Tests Test 07/01/18 19:00 07/02/18 01:22 07/02/18 05:55 07/02/18 12:15 Hemoglobin 7.4 g/dL (13.0-17.5) 6.9 g/dL (13.0-17.5) Hematocrit 21.0 % (39.0-53.0) 20.2 % (39.0-53.0) Mean Corpuscular Hemoglobin Concent 35 g/dL (31-37) 34 g/dL (31-37) Troponin I Quantitative 0.033 ng/mL (0.000-0.055) 0.189 ng/mL (0.000-0.055) 0.296 ng/mL (0.000-0.055) White Blood Count 5.3 x10^3/uL (4.0-11.0) Red Blood Count 2.37 x10^6/uL (4.30-5.70) Mean Corpuscular Volume 85 fL (79-100) Mean Corpuscular Hemoglobin 29 pg (25-35) Red Cell Distribution Width 15.9 % (11.5-14.5) Platelet Count 91 x10^3/uL (140-400) Neutrophils (%) (Auto) 75 % (31-73) Lymphocytes (%) (Auto) 10 % (24-48) Monocytes (%) (Auto) 10 % (0-9) Eosinophils (%) (Auto) 4 % (0-3) Basophils (%) (Auto) 0 % (0-3) Neutrophils # (Auto) 4.0 x10^3uL (1.8-7.7) Lymphocytes # (Auto) 0.5 x10^3/uL (1.0-4.8) Monocytes # (Auto) 0.5 x10^3/uL (0.0-1.1) Eosinophils # (Auto) 0.2 x10^3/uL (0.0-0.7) Basophils # (Auto) 0.0 x10^3/uL (0.0-0.2) Sodium Level 139 mmol/L (136-145) Potassium Level 4.6 mmol/L (3.5-5.1) Chloride Level 107 mmol/L (98-107) Carbon Dioxide Level 25 mmol/L (21-32) Anion Gap 7 (6-14) Blood Urea Nitrogen 31 mg/dL (8-26) Creatinine 1.4 mg/dL (0.7-1.3) Estimated GFR (Cockcroft-Gault) 48.4 Glucose Level 122 mg/dL (70-99) Calcium Level 8.0 mg/dL (8.5-10.1) Assessment and Plan Assessmemt and Plan Problems Medical Problems: (1) Closed left hip fracture Status: Acute Comment Review of Relevant I have reviewed the following items idalmis (where applicable) has been applied. Labs Laboratory Tests Test 07/01/18 07:16 07/01/18 19:00 07/02/18 01:22 07/02/18 05:55 White Blood Count 4.1 x10^3/uL (4.0-11.0) 5.3 x10^3/uL (4.0-11.0) Red Blood Count 1.96 x10^6/uL (4.30-5.70) 2.37 x10^6/uL (4.30-5.70) Hemoglobin 5.8 g/dL (13.0-17.5) 7.4 g/dL (13.0-17.5) 6.9 g/dL (13.0-17.5) Hematocrit 16.7 % (39.0-53.0) 21.0 % (39.0-53.0) 20.2 % (39.0-53.0) Mean Corpuscular Volume 85 fL (79-100) 85 fL (79-100) Mean Corpuscular Hemoglobin 30 pg (25-35) 29 pg (25-35) Mean Corpuscular Hemoglobin Concent 35 g/dL (31-37) 35 g/dL (31-37) 34 g/dL (31-37) Red Cell Distribution Width 15.9 % (11.5-14.5) 15.9 % (11.5-14.5) Platelet Count 88 x10^3/uL (140-400) 91 x10^3/uL (140-400) Neutrophils (%) (Auto) 66 % (31-73) 75 % (31-73) Lymphocytes (%) (Auto) 17 % (24-48) 10 % (24-48) Monocytes (%) (Auto) 12 % (0-9) 10 % (0-9) Eosinophils (%) (Auto) 5 % (0-3) 4 % (0-3) Basophils (%) (Auto) 0 % (0-3) 0 % (0-3) Neutrophils # (Auto) 2.7 x10^3uL (1.8-7.7) 4.0 x10^3uL (1.8-7.7) Lymphocytes # (Auto) 0.7 x10^3/uL (1.0-4.8) 0.5 x10^3/uL (1.0-4.8) Monocytes # (Auto) 0.5 x10^3/uL (0.0-1.1) 0.5 x10^3/uL (0.0-1.1) Eosinophils # (Auto) 0.2 x10^3/uL (0.0-0.7) 0.2 x10^3/uL (0.0-0.7) Basophils # (Auto) 0.0 x10^3/uL (0.0-0.2) 0.0 x10^3/uL (0.0-0.2) Sodium Level 137 mmol/L (136-145) 139 mmol/L (136-145) Potassium Level 4.2 mmol/L (3.5-5.1) 4.6 mmol/L (3.5-5.1) Chloride Level 104 mmol/L (98-107) 107 mmol/L (98-107) Carbon Dioxide Level 25 mmol/L (21-32) 25 mmol/L (21-32) Anion Gap 8 (6-14) 7 (6-14) Blood Urea Nitrogen 35 mg/dL (8-26) 31 mg/dL (8-26) Creatinine 1.7 mg/dL (0.7-1.3) 1.4 mg/dL (0.7-1.3) Estimated GFR (Cockcroft-Gault) 38.7 48.4 BUN/Creatinine Ratio 21 (6-20) Glucose Level 117 mg/dL (70-99) 122 mg/dL (70-99) Calcium Level 7.8 mg/dL (8.5-10.1) 8.0 mg/dL (8.5-10.1) Total Bilirubin 0.2 mg/dL (0.2-1.0) Aspartate Amino Transf (AST/SGOT) 27 U/L (15-37) Alanine Aminotransferase (ALT/SGPT) 18 U/L (16-63) Alkaline Phosphatase 58 U/L (46-116) Total Protein 5.2 g/dL (6.4-8.2) Albumin 2.2 g/dL (3.4-5.0) Albumin/Globulin Ratio 0.7 (1.0-1.7) Troponin I Quantitative 0.033 ng/mL (0.000-0.055) 0.189 ng/mL (0.000-0.055) Test 07/02/18 12:15 Troponin I Quantitative 0.296 ng/mL (0.000-0.055) Laboratory Tests Test 07/01/18 19:00 07/02/18 01:22 07/02/18 05:55 07/02/18 12:15 Hemoglobin 7.4 g/dL (13.0-17.5) 6.9 g/dL (13.0-17.5) Hematocrit 21.0 % (39.0-53.0) 20.2 % (39.0-53.0) Mean Corpuscular Hemoglobin Concent 35 g/dL (31-37) 34 g/dL (31-37) Troponin I Quantitative 0.033 ng/mL (0.000-0.055) 0.189 ng/mL (0.000-0.055) 0.296 ng/mL (0.000-0.055) White Blood Count 5.3 x10^3/uL (4.0-11.0) Red Blood Count 2.37 x10^6/uL (4.30-5.70) Mean Corpuscular Volume 85 fL (79-100) Mean Corpuscular Hemoglobin 29 pg (25-35) Red Cell Distribution Width 15.9 % (11.5-14.5) Platelet Count 91 x10^3/uL (140-400) Neutrophils (%) (Auto) 75 % (31-73) Lymphocytes (%) (Auto) 10 % (24-48) Monocytes (%) (Auto) 10 % (0-9) Eosinophils (%) (Auto) 4 % (0-3) Basophils (%) (Auto) 0 % (0-3) Neutrophils # (Auto) 4.0 x10^3uL (1.8-7.7) Lymphocytes # (Auto) 0.5 x10^3/uL (1.0-4.8) Monocytes # (Auto) 0.5 x10^3/uL (0.0-1.1) Eosinophils # (Auto) 0.2 x10^3/uL (0.0-0.7) Basophils # (Auto) 0.0 x10^3/uL (0.0-0.2) Sodium Level 139 mmol/L (136-145) Potassium Level 4.6 mmol/L (3.5-5.1) Chloride Level 107 mmol/L (98-107) Carbon Dioxide Level 25 mmol/L (21-32) Anion Gap 7 (6-14) Blood Urea Nitrogen 31 mg/dL (8-26) Creatinine 1.4 mg/dL (0.7-1.3) Estimated GFR (Cockcroft-Gault) 48.4 Glucose Level 122 mg/dL (70-99) Calcium Level 8.0 mg/dL (8.5-10.1) Medications Current Medications Fentanyl Citrate (Fentanyl 2ml Vial) 25 mcg PRN Q15MIN PRN IV PAIN GREATER THAN 3/10 Last administered on 06/28/18at 05:03; Start 06/28/18 at 03:15; Stop at 03:14; Status DC Sodium Chloride 1,000 ml @ 100 mls/hr Q10H IV Last administered on 06/28/18at 03:36; Start 06/28/18 at 03:15; Stop 06/28/18 at 13:14; Status DC Ondansetron HCl (Zofran) 4 mg 1X ONCE IV Last administered on 06/28/18at 03:35 ; Start 06/28/18 at 03:15; Stop 06/28/18 at 03:26; Status DC Ondansetron HCl (Zofran) 4 mg PRN Q8HRS PRN IV NAUSEA/VOMITING; Start 06/28/18 at 04:30; Stop 06/29/18 at 04:29; Status DC Fentanyl Citrate (Fentanyl 2ml Vial) 50 mcg PRN Q1HR PRN IV PAIN Last administered on 06/28/18at 11:39; Start 06/28/18 at 04:30; Stop 06/28/18 at 11:50 ; Status DC Sodium Chloride 1,000 ml @ 75 mls/hr [id number] IV Last administered on at 18:03; Start 06/28/18 at 04:30; Stop 06/29/18 at 04:29; Status DC Morphine Sulfate (Morphine Sulfate) 2 mg PRN Q1HR PRN IV PAIN MILD 2ND CHOICE; Start 06/28/18 at 08:15 Morphine Sulfate (Morphine Sulfate) 2 mg PRN Q1HR PRN IV PAIN; Start 06/28/18 at 08:15; Status UNV Fentanyl Citrate (Fentanyl 2ml Vial) 50 mcg PRN Q1HR PRN IV PAIN MOD TO SEV 1ST CHOICE; Start 06/28/18 at 08:15; Stop 06/28/18 at 11:55; Status DC Ondansetron HCl (Zofran) 4 mg PRN Q6HRS PRN IV NAUSEA/VOMITING; Start 06/28/18 at 08:15 Lorazepam (Ativan) 0.5 mg PRN Q4HRS PRN IV ANXIETY / AGITATION Last administered on 07/02/18at 03:34; Start 06/28/18 at 08:15 Info (Ortho Message -- Hold Meds) 1 ea CONT PRN PRN MC SEE COMMENTS; Start at 08:15; Stop 06/30/18 at 08:14; Status DC Tramadol HCl (Ultram) 50 mg PRN QID PRN PO PAIN MILD Last administered on at 03:34; Start 06/28/18 at 08:15 Oxycodone HCl (Roxicodone) 5 mg PRN Q4HRS PRN PO PAIN MOD TO SEV Last administered on 06/29/18at 03:54; Start 06/28/18 at 08:15 Fentanyl Citrate (Fentanyl 2ml Vial) 25 mcg PRN Q1HR PRN IV PAIN MILD 1ST CHOICE; Start 06/28/18 at 08:15; Stop 06/28/18 at 11:55; Status DC Acetaminophen (Tylenol) 1,000 mg TID PO Last administered on 07/02/18at 09:04; Start 06/28/18 at 09:00 Docusate Sodium (Colace) 100 mg BID PO Last administered on 07/02/18at 09:05; Start 06/28/18 at 09:00 Magnesium Hydroxide (Milk Of Magnesia) 2,400 mg PRN DAILY PRN PO CONSTIPATION; Start 06/28/18 at 08:15 Bisacodyl (Dulcolax Supp) 10 mg PRN DAILY PRN [place] CONSTIPATION; Start 06/28/18 at 08:15 Zolpidem Tartrate (Ambien) 5 mg PRN QHS PRN PO INSOMNIA Last administered on at 21:24; Start 06/28/18 at 08:15 Sodium Chloride (Normal Saline Flush) 3 ml QSHIFT PRN IV AFTER MEDS AND BLOOD DRAWS; Start 06/28/18 at 08:15 Dextrose (Dextrose 50%-Water Syringe) 12.5 gm PRN Q15MIN PRN IV SEE COMMENTS; Start 06/28/18 at 08:15 Info (FLU VACCINE SCREEN per RX) 1 each 1X ONCE MC ; Start 06/28/18 at 08:30; Stop 06/28/18 at 08:31; Status UNV Influenza Virus Vaccine (Afluria Trivalent [id number] Syringe) 0.5 ml ONCE ONCE VAX IM ; Start 06/28/18 at 16:00; Stop 06/28/18 at 16:01; Status DC Fentanyl Citrate (Fentanyl 2ml Vial) 50 mcg PRN Q2HR PRN IV PAIN; Start at 09:30; Stop 06/28/18 at 09:36; Status DC Acetaminophen (Tylenol Supp) 650 mg PRN Q6HRS PRN RC FEVER > 102; Start at 09:30 Amiodarone HCl (Cordarone) 200 mg DAILY PO Last administered on 07/02/18at 09:03 ; Start 06/28/18 at 10:00 Carvedilol (Coreg) 6.25 mg DAILY08 PO Last administered on 06/30/18at 10:38; Start 06/28/18 at 10:00; Stop 07/01/18 at 16:30; Status DC Famotidine (Pepcid) 20 mg QHS PO Last administered on 07/01/18at 21:24; Start at 21:00 Furosemide (Lasix) 40 mg DAILY PO Last administered on 06/29/18at 08:49; Start 06/28/18 at 10:00; Stop 06/29/18 at 16:34; Status DC Potassium Chloride (Klor-Con) 10 meq DAILY PO Last administered on 07/02/18at 08 :59; Start 06/28/18 at 10:00 Trazodone HCl (Desyrel) 50 mg HS PO Last administered on 07/01/18at 21:25; Start 06/28/18 at 21:00 Triamcinolone Acetonide (Kenalog) 1 harika PRN BID PRN TP ITCHING Last administered on 07/01/18at 11:20; Start 06/28/18 at 21:00 Donepezil HCl (Aricept) 10 mg DAILY PO Last administered on 07/02/18at 08:59; Start 06/28/18 at 10:00 Memantine (Namenda) 10 mg DAILY PO Last administered on 07/02/18at 08:59; Start 06/28/18 at 10:00 Meloxicam (Mobic) 15 mg DAILY PO Last administered on 07/02/18at 08:58; Start at 10:00 Propafenone HCl (Rythmol) 150 mg DAILY PO Last administered on 06/30/18at 10:37 ; Start 06/28/18 at 10:00; Stop 06/30/18 at 14:04; Status DC Sertraline HCl (Zoloft) 100 mg DAILY PO Last administered on 07/02/18at 08:58; Start 06/28/18 at 10:00 Simvastatin (Zocor) 20 mg HS PO Last administered on 07/01/18at 21:24; Start at 21:00 Ropivacaine 53.3 ml/Epinephrine HCl 0.6 mg/ Morphine Sulfate 5 mg/Sodium Chloride 100 ml @ 100 mls/hr 1X ONCE INT ART Last administered on 06/29/18at 17:41; Start 06/29/18 at 06:00; Stop 06/29/18 at 06:59; Status DC Cefazolin Sodium/ Dextrose 50 ml @ 100 mls/hr 1X PREOP PRN IV SEE COMMENTS Last administered on 06/29/18at 16:55; Start 06/29/18 at 16:00; Stop 06/30/18 at 15:29; Status DC Fentanyl Citrate (Fentanyl 2ml Vial) 50 mcg PRN Q2HR PRN IV PAIN, 1ST CHOICE Last administered on 06/28/18at 18:03; Start 06/28/18 at 12:00 Fentanyl Citrate (Fentanyl 2ml Vial) 25 mcg PRN Q5MIN PRN IV MILD PAIN; Start 06/29/18 at 13:00; Stop 06/30/18 at 12:59; Status DC Fentanyl Citrate (Fentanyl 2ml Vial) 50 mcg PRN Q5MIN PRN IV MODERATE TO SEVERE PAIN; Start 06/29/18 at 13:00; Stop 06/30/18 at 12:59; Status DC Morphine Sulfate (Morphine Sulfate) 1 mg PRN Q10MIN PRN IV SEVERE PAIN; Start 06/29/18 at 13:00; Stop 06/30/18 at 12:59; Status DC Ringer's Solution 1,000 ml @ 30 mls/hr Q24H IV ; Start 06/29/18 at 12:55; Stop 06/30/18 at 00:54; Status DC Lidocaine HCl (Xylocaine-Mpf 1% 2ml Vial) 2 ml PRN 1X PRN ID PRIOR TO IV START ; Start 06/29/18 at 13:00; Stop 06/30/18 at 12:59; Status DC Hydromorphone HCl (Dilaudid) 0.5 mg PRN Q10MIN PRN IV SEV PAIN, Second choice; Start 06/29/18 at 13:00; Stop 06/30/18 at 12:59; Status DC Prochlorperazine Edisylate (Compazine) 5 mg PACU PRN PRN IV NAUSEA, MRX1; Start 06/29/18 at 13:00; Stop 06/30/18 at 12:59; Status DC Phenylephrine HCl (PHENYLEPHRINE in 0.9% NACL PF) 1 mg STK-MED ONCE IV ; Start 06/29/18 at 14:41; Stop 06/29/18 at 14:43; Status DC Ephedrine Sulfate (ePHEDrine PF IN SALINE SYRINGE) 50 mg STK-MED ONCE IV ; Start 06/29/18 at 14:41; Stop 06/29/18 at 14:43; Status DC Lidocaine HCl (Lidocaine Pf 2% Vial) 5 ml STK-MED ONCE .ROUTE ; Start 06/29/18 at 14:41; Stop 06/29/18 at 14:43; Status DC Propofol 20 ml @ As Directed STK-MED ONCE IV ; Start 06/29/18 at 14:41; Stop at 14:43; Status DC Aspirin (Ecotrin) 81 mg [id number] PO Last administered on 07/02/18at 09:04; Start 06/30/18 at 08:00 Sodium Chloride 1,000 ml @ 50 mls/hr 1X ONCE IV Last administered on at 16:30; Start 07/01/18 at 16:30; Stop 07/02/18 at 12:29; Status DC Metoprolol Succinate (Toprol Xl) 25 mg DAILY PO Last administered on 07/02/18at 08:59; Start 07/02/18 at 09:00 Sodium Chloride 1,000 ml @ 100 mls/hr Q10H IV Last administered on 07/02/18at 02:00; Start 07/02/18 at 02:00 Furosemide (Lasix) 20 mg 1X ONCE IVP Last administered on 07/02/18at 12:18; Start 07/02/18 at 11:30; Stop 07/02/18 at 11:31; Status DC Active Scripts Active Amiodarone Hcl 200 Mg Tablet 200 Mg PO DAILY 30 Days Reported Meloxicam 7.5 Mg Tablet 1 Tab PO DAILY Propafenone Hcl 150 Mg Tablet 1 Tab PO DAILY Memantine HCl 10 Mg Tablet 1 Tab PO DAILY Trazodone Hcl 50 Mg Tablet 1 Tab PO HS Sertraline Hcl 100 Mg Tablet 1 Tab PO DAILY Donepezil Hcl 10 Mg Tablet 1 Tab PO DAILY Carvedilol 6.25 Mg Tablet 1 Tab PO DAILY Potassium Chloride 10 Meq Capsule.er 10 Meq PO DAILY Lasix (Furosemide) 40 Mg Tablet 40 Mg PO DAILY Acetaminophen Supp (Acetaminophen) 650 Mg Supp.rect 650 Mg RC Q6HRS PRN Triamcinolone Acetonide 0.1% Oint (Triamcinolone Acetonide) 15 Gm Oint...g. 1 Harika TP BID MIX WITH EUCERIN DIRECTED BY PHYSICIAN Simvastatin 20 Mg Tablet 1 Tab PO QHS Nabumetone 750 Mg Tablet 1 Tab PO BID Famotidine 20 Mg Tablet 1 Tab PO BID Vitals/I & O Vital Sign - Last 24 Hours 07/01/18 07/01/18 07/01/18 07/01/18 12:55 13:35 14:35 15:00 Temp 98.7 98.0 98.2 98.6 98.7 98.0 98.2 98.6 Pulse 73 74 71 77 Resp 18 20 18 18 B/P (MAP) 101/47 100/35 104/54 127/31 (63) Pulse Ox 97 O2 Delivery Room Air 07/01/18 07/01/18 07/01/18 07/01/18 15:35 16:20 17:20 19:00 Temp 97.8 97.9 97.9 98.7 97.8 97.9 97.9 98.7 Pulse 76 78 68 83 Resp 20 18 22 22 B/P (MAP) 120/39 103/42 138/40 (72) 102/54 (70) Pulse Ox 97 96 O2 Delivery Room Air Room Air 07/01/18 07/01/18 07/02/18 07/02/18 20:00 23:00 02:00 02:25 Temp 98.9 98.3 98.9 98.3 Pulse 98 94 Resp 18 20 B/P (MAP) 138/53 (81) 102/55 (71) Pulse Ox 96 95 O2 Delivery Room Air Room Air Room Air Room Air 07/02/18 07/02/18 07/02/18 07/02/18 03:34 04:34 07:40 08:00 Temp 98.5 98.5 Pulse 91 Resp 23 B/P (MAP) 135/64 (87) Pulse Ox 95 O2 Delivery Room Air Room Air Room Air Room Air O2 Flow Rate 10.0 07/02/18 07/02/18 07/02/18 07/02/18 08:59 09:03 10:39 10:54 Temp 98.4 99.0 98.4 99.0 Pulse 91 91 107 87 Resp 23 23 B/P (MAP) 135/64 135/64 131/73 137/72 07/02/18 11:54 Temp 98.8 98.8 Pulse 75 Resp 21 B/P (MAP) 121/60 Intake and Output 07/01/18 07/01/18 07/02/18 15:01 23:01 07:01 Intake Total 550 ml 525 ml 100 ml Output Total 550 ml 1025 ml 150 ml Balance 0 ml -500 ml -50 ml HAILEE LU MD Jul 02, 2018 12:48
--- NOTE | 2018-07-02 12:58 | NUR ---
SS following up with discharge planning. Darlene Pineda came and met with pt in pt's room for assessment. Darlene Pineda reported that they could accept pt pending insurance authorization but pt would need to be off mitts for 48 hours prior to admission. Pt's RN notified.
--- NOTE | 2018-07-02 13:08 | NUR ---
RBC transfusion complete. pt mitts removed. pt reminded to leave IV and tele pack along. Pt v/u. will monitor
--- NOTE | 2018-07-02 18:26 | NUR ---
entered pt room when bed alarm was going off. pt had removed gown, monitor, and IV. pt cleaned up, linens changed, IV restarted, mitts replaced.
[2018-07-02] MEDS: SIMVASTATIN 20 MG TABLET PO SCH (20:45)
[2018-07-02] MEDS: FAMOTIDINE 20 MG TABLET. PO SCH (20:45)
[2018-07-02] MEDS: traZODone 50 MG TABLET. PO SCH (21:00)
--- NOTE | 2018-07-02 21:00 | NUR ---
turned iv fluids off. called a rapid. already spoke with dr phillips. port chest x ray, ekg, abg,s . temp 99.8. coarse lungs. waiting for results before calling pulmonary. lcrn
--- NOTE | 2018-07-02 21:06 | NUR ---
wow.s not working. did not scan meds. lcrn
[2018-07-02] MEDS ORDERED: IPRATRPIUM/ALBUTEROL 0.5/2.5MG 3 ML NEBU. NEB ONE (21:30)
--- NOTE | 2018-07-02 21:33 | EKG ---
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
[2018-07-02 21:41] LABS: BASE EXCESS ABG -8 mmol/L (-3-3); HCO3 ABG 16 mmol/L (21-28); PCO2 ABG 28 mmHg (35-46); PO2 ABG 57 mmHg (65-108); SAT O2 ABG 88 % (92-99)
--- NOTE | 2018-07-02 21:42 | NUR ---
called dr morris, received order for 40mg of iv lasix. and turned off iv fluids. lcrn
--- NOTE | 2018-07-02 21:57 | NUR ---
completed, iv lasix, dcd iv fluids, ekg, abg,s, rt treatments. rr 35-40. calling pulomonology now. lcrn
[2018-07-02] MEDS ORDERED: FUROSEMIDE 40 MG/4 ML VIAL. IVP ONE (22:00)
--- NOTE | 2018-07-02 22:10 | RAD ---
CHEST AP ONLY History: rr 36 coarse lungs rapid on set. Comparison: July 02 at 10:24 AM Cardiomediastinal silhouette: Slightly larger than on the earlier study. Lungs: Diffuse infiltrates are identified throughout both lungs, mixed interstitial and airspace. Greater on the right. Pulmonary vascularity is congested. Pleura: No evidence of pleural effusion. Pneumothorax: None visualized Support Devices: None. Findings of left shoulder rotator cuff tear. Impression: Pulmonary vascular congestion. Extensive infiltrate and/or edema in both lungs. Electronically signed by: Arturo Chun MD (07/02/2018 10:05 PM) [facility]
[2018-07-03] VITALS (21 sets, daily range): BP systolic 78–119; BP diastolic 45–77
--- NOTE | 2018-07-03 | NUR ---
Called to a rapid response due to patients respiratory distress. Breathing is labored and RT is on second breathing treatment. CXR, ABG, and EKG had already been done. Floor nurse talked with Dr. Robb and has paged Dr. Parnell. Lasix 40mg was given IVP and a #16 fr man was inserted. IVFs were stopped. Patients VSS except HR which is in the 120-130s. 2NO RN called patients family to let them know that he was being transferred to the ICU. Addendum: 07/03/18 at 0216 by EVELIO MANTILLA RN Amended: Links added.
[2018-07-03] MEDS: IPRATRPIUM/ALBUTEROL 0.5/2.5MG 3 ML NEBU. NEB SCH ×7 (04:00→23:38)
[2018-07-03 05:21] LABS: BASO % 0 % (0-3); EOS % 0 % (0-3); HEMATOCRIT 24.7 % (39.0-53.0); HEMOGLOBIN 8.4 g/dL (13.0-17.5); LYMPH # 0.7 x10^3/uL (1.0-4.8); LYMPH % 7 % (24-48); MEAN CORPUSCULAR HEMOGLOBIN 29 pg (25-35); MEAN CORPUSCULAR HGB CONC 34 g/dL (31-37); MEAN CORPUSCULAR VOLUME 86 fL (79-100); MONO # 0.9 x10^3/uL (0.0-1.1); MONO % 9 % (0-9); NEUT # 8.1 x10^3uL (1.8-7.7); NEUT % 84 % (31-73); PLATELET COUNT 107 x10^3/uL (140-400); RED BLOOD COUNT 2.88 x10^6/uL (4.30-5.70); RED CELL DISTRIBUTION WIDTH 15.9 % (11.5-14.5); WHITE BLOOD COUNT 9.7 x10^3/uL (4.0-11.0)
[2018-07-03 05:28] LABS: CALCIUM 7.9 mg/dL (8.5-10.1); CREATININE 1.9 mg/dL (0.7-1.3); POTASSIUM 4.4 mmol/L (3.5-5.1)
--- NOTE | 2018-07-03 07:46 | RAD ---
Portable chest, 07/03/2018: HISTORY: Congestive heart failure Comparison is made to yesterday's study. The heart is mildly enlarged. There is persistent loss of vascular margination, although the bilateral perihilar infiltrates have improved. No pleural fluid is seen. No new abnormality is detected. IMPRESSION: Improving moderate bilateral pulmonary infiltrates most compatible with pulmonary edema due to congestive heart failure. Electronically signed by: Sterling Lopez MD (07/03/2018 7:41 AM) [facility]
--- NOTE | 2018-07-03 09:11 | PDOC ---
MIGUEL BINGHAM SURGICAL RESIDENT 07/03/18 0911: CARDIO Progress Notes Date and Time Date of Service 07/03/2018 Time of Evaluation 0900 Subjective Subjective: No Chest Pain, No shortness of breath, No Palpitations Vitals Vitals Vital Signs Date Time Temp Pulse Resp B/P (MAP) Pulse Ox O2 Delivery O2 Flow Rate FiO2 07/03/18 08:36 Nasal Cannula 3.0 07/03/18 06:00 98.2 95 18 103/63 (76) 99 98.2 Weight Weight [ ] Input and Output Intake and Output Intake and Output 07/03/18 07:01 Intake Total 1529 ml Output Total 1000 ml Balance 529 ml Intake Oral 1240 ml Blood Product IV Normal Saline Flush 289 ml Output Urine Total 1000 ml # Voids 1 # Bowel Movements 5 Laboratory Labs Laboratory Tests Test 07/02/18 12:15 07/02/18 21:13 07/03/18 04:40 Troponin I Quantitative 0.296 ng/mL (0.000-0.055) O2 Saturation 88 % (92-99) Arterial Blood pH 7.37 (7.35-7.45) Arterial Blood pCO2 at Patient Temp 28 mmHg (35-46) Arterial Blood pO2 at Patient Temp 57 mmHg (65-108) Arterial Blood HCO3 16 mmol/L (21-28) Arterial Blood Base Excess -8 mmol/L (-3-3) White Blood Count 9.7 x10^3/uL (4.0-11.0) Red Blood Count 2.88 x10^6/uL (4.30-5.70) Hemoglobin 8.4 g/dL (13.0-17.5) Hematocrit 24.7 % (39.0-53.0) Mean Corpuscular Volume 86 fL (79-100) Mean Corpuscular Hemoglobin 29 pg (25-35) Mean Corpuscular Hemoglobin Concent 34 g/dL (31-37) Red Cell Distribution Width 15.9 % (11.5-14.5) Platelet Count 107 x10^3/uL (140-400) Neutrophils (%) (Auto) 84 % (31-73) Lymphocytes (%) (Auto) 7 % (24-48) Monocytes (%) (Auto) 9 % (0-9) Eosinophils (%) (Auto) 0 % (0-3) Basophils (%) (Auto) 0 % (0-3) Neutrophils # (Auto) 8.1 x10^3uL (1.8-7.7) Lymphocytes # (Auto) 0.7 x10^3/uL (1.0-4.8) Monocytes # (Auto) 0.9 x10^3/uL (0.0-1.1) Eosinophils # (Auto) 0.0 x10^3/uL (0.0-0.7) Basophils # (Auto) 0.0 x10^3/uL (0.0-0.2) Sodium Level 139 mmol/L (136-145) Potassium Level 4.4 mmol/L (3.5-5.1) Chloride Level 107 mmol/L (98-107) Carbon Dioxide Level 26 mmol/L (21-32) Anion Gap 6 (6-14) Blood Urea Nitrogen 38 mg/dL (8-26) Creatinine 1.9 mg/dL (0.7-1.3) Estimated GFR (Cockcroft-Gault) 34.0 Glucose Level 180 mg/dL (70-99) Calcium Level 7.9 mg/dL (8.5-10.1) Physical Exam HEENT: Neck Supple W Full Motion Chest: Symmetric LUNGS: Other (diminished bases) Heart: S1S2, RRR (SR), murmurs (systolic murmur to AZUCENA 3/6 ) Abdomen: Soft N/T Extremities: No Edema, No Calf Tenderness, Other Neurology: alert, follow commands, confused Assessment Assessment 1. Left femur fracture; S/P ORIF to left hip., tolerated procedure well. POD#4 2. CAD; clinically stable. EF and WM nml 3. Hx of cardiomyopathy: with EF as low as 15% in 2017 now at 55% 4. PAFIB; presently on AFIB at 110 5. Hypertension; controlled 6. Hyperlipidemia; statin 7. WAYLON on CKD; per PCP 8. Dementia 9. Moderate 10. Postoperative anemia: Hgb better after total of 3U PRBC 11. Diastolic/systolic CHF: fluid overload in combination of IVF and multiple blood transfusion. improved after lasix. Recommendations Continue amiodarone and toprol. Continue with lasix. dig x1. ASA for stroke prevention. Possibly not a good candidate for anticoagulation with age and dementia and high risk for falls. Follow up with outpt nuclear operator in 4 weeks. GREG MILTON MD 07/03/18 1514: CARDIO Progress Notes Assessment Assessment Patient seen and examined. Agree with SOIL CONSERVATION TECHNICIAN's assessment and plan. Acute on chronic diastolic heart failure better compensated with Lasix Tele showed episodes of atrial fibrillation with RVR with aberrant conduction Continue amiodarone and add digoxin for better rate control MIGUEL BINGHAM APRN Jul 03, 2018 09:11 GREG MILTON MD Jul 03, 2018 15:14
[2018-07-03] MEDS ORDERED: FUROSEMIDE 20 MG/2 ML VIAL. IVP ONE (09:30)
[2018-07-03] MEDS: MELOXICAM 7.5 MG TABLET PO SCH (09:52)
[2018-07-03] MEDS: POTASSIUM CHLORIDE 10 MEQ TABLET.ER. PO SCH (09:52)
[2018-07-03] MEDS: SERTRALINE 50 MG TABLET. PO SCH (09:52)
[2018-07-03] MEDS: MEMANTINE 10 MG TABLET. PO SCH (09:52)
[2018-07-03] MEDS: ACETAMINOPHEN 500 MG TABLET PO SCH ×3 (09:57→21:09)
[2018-07-03] MEDS: ASPIRIN ENTERIC COATED 81 MG TABLET.DR. PO SCH (09:57)
[2018-07-03] MEDS: DOCUSATE SODIUM 100 MG CAPSULE. PO SCH ×2 (09:58→21:09)
[2018-07-03] MEDS: DONEPEZIL HCL 10 MG TABLET. PO SCH (09:58)
[2018-07-03] MEDS: METOPROLOL SUCC 24HR ER 25 MG TAB.ER.24H. PO SCH (09:58)
[2018-07-03] MEDS: AMIODARONE HCL 200 MG TABLET. PO SCH (09:58)
--- NOTE | 2018-07-03 11:26 | CONS ---
DATE OF CONSULTATION: 07/03/2018 ATTENDING PHYSICIAN: Dr. Pedraza. REASON FOR CONSULTATION: The patient seen in pulmonary consultation at the request of Dr. Marion for acute respiratory distress. HISTORY OF PRESENT ILLNESS: The patient is an 83-year-old with a history of AFib, CAD, hypertension, chronic heart failure, fell at home suffering a fractured femur. He underwent surgical intervention on the . He had a left hip intertrochanteric femoral fracture with intramedullary implant with interlocking screws. The patient yesterday became more short of breath. Chest x-ray was obtained revealing bilateral pulmonary infiltrates, which had worsened. He was transferred to the intensive care unit. I gave him Lasix p.r.n. BiPAP was ordered. He never did require the BiPAP. This morning, he is awake, alert, following commands. He is eating breakfast. He states that he smokes, but wears no oxygen at home. He quit tobacco many years ago. PAST MEDICAL HISTORY: Chronic heart failure, CAD, AFib, hypertension, hyperlipidemia, COPD, mild dementia, tobacco dependence in remission, gastroesophageal reflux, osteoarthritis, gout, benign prostatic hypertrophy. PAST SURGICAL HISTORY: As above. REVIEW OF SYSTEMS: As indicated above, otherwise other systems were reviewed and negative. CURRENT MEDICATIONS: List was reviewed. ALLERGIES: No known drug allergies. HOME MEDICATIONS: List was reviewed. PHYSICAL EXAMINATION: GENERAL: The patient was in the intensive care unit. VITAL SIGNS: He is currently on oxygen at 3 liters, his O2 saturation is greater than 92%. Yesterday, he had a T-max of 100.4. HEENT: Eyes, the sclerae were nonicteric. NECK: Jugular venous distention was not elevated. No lymphadenopathy. CHEST: Full expansion. LUNGS: Crackles throughout both lung lott. CARDIOVASCULAR: Regular rate and rhythm with S1, S2, no S3. ABDOMEN: Soft, nontender. EXTREMITIES: No clubbing, cyanosis. Minimal edema. NEUROLOGIC: The patient was awake, alert, following commands. A detailed neuro exam was not performed. LABORATORY DATA: Reviewed. Arterial blood gas revealed a pH of 7.37, PaCO2 of 28, pO2 of 57. White count was normal. Hemoglobin yesterday was 5.8. The patient was transfused, this morning is 8.4. BUN and creatinine are elevated. INR was 1.2. UA was noted. Chest x-ray revealed bilateral pulmonary infiltrates compatible with CHF. IMPRESSION: 1. Acute respiratory failure. 2. Acute bilateral pulmonary infiltrates compatible with riqii-ye-gvoxxap respiratory failure. 3. Expected drop in hemoglobin, status post transfusion. 4. Yiscm-gy-miusdfd kidney disease. 5. Tobacco dependence, in remission. 6. Chronic obstructive pulmonary disease. 7. Mild dementia. 8. Elevated troponin. PLAN: 1. BiPAP p.r.n. 2. Diurese. 3. Monitor labs. 4. Monitor hemoglobin and hematocrit. 5. Follow Cardiology input. I do appreciate the privilege in sharing in the patient's care. JANNETTE RAMIREZ MD DR: SHAREE/bar JOB#: [id number] / [id number]
--- NOTE | 2018-07-03 12:15 | PDOC ---
PROGRESS NOTES Chief Complaint Chief Complaint acute Acute traumatic comminuted intertrochanteric left femur fracture, traumatic, closed, s/p sx 06/29 Fall AT home rapid afib, 2/2 anemia likely acute sob with pulmonary edema post transfusion CK D 3 in the background of diuretic use Hyponatremia w/ diuretic use - improved A. fib, CAD, hypertension chronic stable Hx of severe systolic CHF Hx of cardiomyopathy: with EF as low as 15% in 2017 now at 55% dementia, poorly oriented, MODERATE AORTIC STENOSIS anemia post sx plan: fu with card, on amiodarone, metoprolol got 3 uPRBC transfusion lasix 20mg x1 labs tmr PTOT DVT PPX sw for rehab IVF DCED ok transfer out of ICU History of Present Illness History of Present Illness 07/02: transferred from 4th floor with vtach last night. now back to sinus, HR 80s. got 3u PRBC totally, today hb 6.9. lasix 20mg x1. demented. 07/03: transfered to ICU last night for sob with acute pulmanory edema, cxr better with lasix 40mg iv x1, but cr slightly higher. hb stable after transfusion. Vitals Vitals Vital Signs Date Time Temp Pulse Resp B/P (MAP) Pulse Ox O2 Delivery O2 Flow Rate FiO2 07/03/18 11:55 94 Nasal Cannula 3.0 07/03/18 11:00 111 18 91/60 (70) 07/03/18 08:00 98.7 98.7 Physical Exam Physical Exam to person and place, aaox2 General: Alert, Cooperative, No acute distress Heart: Regular rate, Normal S1, Normal S2, No murmurs, Other (tele SR, 2/6 systolic murmur ) Lungs: Crackles (bl mild crackles) Abdomen: Normal bowel sounds, Soft, No tenderness Extremities: No cyanosis, Other (left hip pain, left thigh swollen ) Skin: No significant lesion Labs LABS Laboratory Tests Test 07/02/18 12:15 07/02/18 21:13 07/03/18 04:40 Troponin I Quantitative 0.296 ng/mL (0.000-0.055) O2 Saturation 88 % (92-99) Arterial Blood pH 7.37 (7.35-7.45) Arterial Blood pCO2 at Patient Temp 28 mmHg (35-46) Arterial Blood pO2 at Patient Temp 57 mmHg (65-108) Arterial Blood HCO3 16 mmol/L (21-28) Arterial Blood Base Excess -8 mmol/L (-3-3) White Blood Count 9.7 x10^3/uL (4.0-11.0) Red Blood Count 2.88 x10^6/uL (4.30-5.70) Hemoglobin 8.4 g/dL (13.0-17.5) Hematocrit 24.7 % (39.0-53.0) Mean Corpuscular Volume 86 fL (79-100) Mean Corpuscular Hemoglobin 29 pg (25-35) Mean Corpuscular Hemoglobin Concent 34 g/dL (31-37) Red Cell Distribution Width 15.9 % (11.5-14.5) Platelet Count 107 x10^3/uL (140-400) Neutrophils (%) (Auto) 84 % (31-73) Lymphocytes (%) (Auto) 7 % (24-48) Monocytes (%) (Auto) 9 % (0-9) Eosinophils (%) (Auto) 0 % (0-3) Basophils (%) (Auto) 0 % (0-3) Neutrophils # (Auto) 8.1 x10^3uL (1.8-7.7) Lymphocytes # (Auto) 0.7 x10^3/uL (1.0-4.8) Monocytes # (Auto) 0.9 x10^3/uL (0.0-1.1) Eosinophils # (Auto) 0.0 x10^3/uL (0.0-0.7) Basophils # (Auto) 0.0 x10^3/uL (0.0-0.2) Sodium Level 139 mmol/L (136-145) Potassium Level 4.4 mmol/L (3.5-5.1) Chloride Level 107 mmol/L (98-107) Carbon Dioxide Level 26 mmol/L (21-32) Anion Gap 6 (6-14) Blood Urea Nitrogen 38 mg/dL (8-26) Creatinine 1.9 mg/dL (0.7-1.3) Estimated GFR (Cockcroft-Gault) 34.0 Glucose Level 180 mg/dL (70-99) Calcium Level 7.9 mg/dL (8.5-10.1) Assessment and Plan Assessmemt and Plan Problems Medical Problems: (1) Closed left hip fracture Status: Acute Comment Review of Relevant I have reviewed the following items idalmis (where applicable) has been applied. Labs Laboratory Tests Test 07/01/18 19:00 07/02/18 01:22 07/02/18 05:55 07/02/18 12:15 Hemoglobin 7.4 g/dL (13.0-17.5) 6.9 g/dL (13.0-17.5) Hematocrit 21.0 % (39.0-53.0) 20.2 % (39.0-53.0) Mean Corpuscular Hemoglobin Concent 35 g/dL (31-37) 34 g/dL (31-37) Troponin I Quantitative 0.033 ng/mL (0.000-0.055) 0.189 ng/mL (0.000-0.055) 0.296 ng/mL (0.000-0.055) White Blood Count 5.3 x10^3/uL (4.0-11.0) Red Blood Count 2.37 x10^6/uL (4.30-5.70) Mean Corpuscular Volume 85 fL (79-100) Mean Corpuscular Hemoglobin 29 pg (25-35) Red Cell Distribution Width 15.9 % (11.5-14.5) Platelet Count 91 x10^3/uL (140-400) Neutrophils (%) (Auto) 75 % (31-73) Lymphocytes (%) (Auto) 10 % (24-48) Monocytes (%) (Auto) 10 % (0-9) Eosinophils (%) (Auto) 4 % (0-3) Basophils (%) (Auto) 0 % (0-3) Neutrophils # (Auto) 4.0 x10^3uL (1.8-7.7) Lymphocytes # (Auto) 0.5 x10^3/uL (1.0-4.8) Monocytes # (Auto) 0.5 x10^3/uL (0.0-1.1) Eosinophils # (Auto) 0.2 x10^3/uL (0.0-0.7) Basophils # (Auto) 0.0 x10^3/uL (0.0-0.2) Sodium Level 139 mmol/L (136-145) Potassium Level 4.6 mmol/L (3.5-5.1) Chloride Level 107 mmol/L (98-107) Carbon Dioxide Level 25 mmol/L (21-32) Anion Gap 7 (6-14) Blood Urea Nitrogen 31 mg/dL (8-26) Creatinine 1.4 mg/dL (0.7-1.3) Estimated GFR (Cockcroft-Gault) 48.4 Glucose Level 122 mg/dL (70-99) Calcium Level 8.0 mg/dL (8.5-10.1) Test 07/02/18 21:13 07/03/18 04:40 O2 Saturation 88 % (92-99) Arterial Blood pH 7.37 (7.35-7.45) Arterial Blood pCO2 at Patient Temp 28 mmHg (35-46) Arterial Blood pO2 at Patient Temp 57 mmHg (65-108) Arterial Blood HCO3 16 mmol/L (21-28) Arterial Blood Base Excess -8 mmol/L (-3-3) White Blood Count 9.7 x10^3/uL (4.0-11.0) Red Blood Count 2.88 x10^6/uL (4.30-5.70) Hemoglobin 8.4 g/dL (13.0-17.5) Hematocrit 24.7 % (39.0-53.0) Mean Corpuscular Volume 86 fL (79-100) Mean Corpuscular Hemoglobin 29 pg (25-35) Mean Corpuscular Hemoglobin Concent 34 g/dL (31-37) Red Cell Distribution Width 15.9 % (11.5-14.5) Platelet Count 107 x10^3/uL (140-400) Neutrophils (%) (Auto) 84 % (31-73) Lymphocytes (%) (Auto) 7 % (24-48) Monocytes (%) (Auto) 9 % (0-9) Eosinophils (%) (Auto) 0 % (0-3) Basophils (%) (Auto) 0 % (0-3) Neutrophils # (Auto) 8.1 x10^3uL (1.8-7.7) Lymphocytes # (Auto) 0.7 x10^3/uL (1.0-4.8) Monocytes # (Auto) 0.9 x10^3/uL (0.0-1.1) Eosinophils # (Auto) 0.0 x10^3/uL (0.0-0.7) Basophils # (Auto) 0.0 x10^3/uL (0.0-0.2) Sodium Level 139 mmol/L (136-145) Potassium Level 4.4 mmol/L (3.5-5.1) Chloride Level 107 mmol/L (98-107) Carbon Dioxide Level 26 mmol/L (21-32) Anion Gap 6 (6-14) Blood Urea Nitrogen 38 mg/dL (8-26) Creatinine 1.9 mg/dL (0.7-1.3) Estimated GFR (Cockcroft-Gault) 34.0 Glucose Level 180 mg/dL (70-99) Calcium Level 7.9 mg/dL (8.5-10.1) Laboratory Tests Test 07/02/18 12:15 07/02/18 21:13 07/03/18 04:40 Troponin I Quantitative 0.296 ng/mL (0.000-0.055) O2 Saturation 88 % (92-99) Arterial Blood pH 7.37 (7.35-7.45) Arterial Blood pCO2 at Patient Temp 28 mmHg (35-46) Arterial Blood pO2 at Patient Temp 57 mmHg (65-108) Arterial Blood HCO3 16 mmol/L (21-28) Arterial Blood Base Excess -8 mmol/L (-3-3) White Blood Count 9.7 x10^3/uL (4.0-11.0) Red Blood Count 2.88 x10^6/uL (4.30-5.70) Hemoglobin 8.4 g/dL (13.0-17.5) Hematocrit 24.7 % (39.0-53.0) Mean Corpuscular Volume 86 fL (79-100) Mean Corpuscular Hemoglobin 29 pg (25-35) Mean Corpuscular Hemoglobin Concent 34 g/dL (31-37) Red Cell Distribution Width 15.9 % (11.5-14.5) Platelet Count 107 x10^3/uL (140-400) Neutrophils (%) (Auto) 84 % (31-73) Lymphocytes (%) (Auto) 7 % (24-48) Monocytes (%) (Auto) 9 % (0-9) Eosinophils (%) (Auto) 0 % (0-3) Basophils (%) (Auto) 0 % (0-3) Neutrophils # (Auto) 8.1 x10^3uL (1.8-7.7) Lymphocytes # (Auto) 0.7 x10^3/uL (1.0-4.8) Monocytes # (Auto) 0.9 x10^3/uL (0.0-1.1) Eosinophils # (Auto) 0.0 x10^3/uL (0.0-0.7) Basophils # (Auto) 0.0 x10^3/uL (0.0-0.2) Sodium Level 139 mmol/L (136-145) Potassium Level 4.4 mmol/L (3.5-5.1) Chloride Level 107 mmol/L (98-107) Carbon Dioxide Level 26 mmol/L (21-32) Anion Gap 6 (6-14) Blood Urea Nitrogen 38 mg/dL (8-26) Creatinine 1.9 mg/dL (0.7-1.3) Estimated GFR (Cockcroft-Gault) 34.0 Glucose Level 180 mg/dL (70-99) Calcium Level 7.9 mg/dL (8.5-10.1) Medications Current Medications Fentanyl Citrate (Fentanyl 2ml Vial) 25 mcg PRN Q15MIN PRN IV PAIN GREATER THAN 3/10 Last administered on 06/28/18at 05:03; Start 06/28/18 at 03:15; Stop at 03:14; Status DC Sodium Chloride 1,000 ml @ 100 mls/hr Q10H IV Last administered on 06/28/18at 03:36; Start 06/28/18 at 03:15; Stop 06/28/18 at 13:14; Status DC Ondansetron HCl (Zofran) 4 mg 1X ONCE IV Last administered on 06/28/18at 03:35 ; Start 06/28/18 at 03:15; Stop 06/28/18 at 03:26; Status DC Ondansetron HCl (Zofran) 4 mg PRN Q8HRS PRN IV NAUSEA/VOMITING; Start 06/28/18 at 04:30; Stop 06/29/18 at 04:29; Status DC Fentanyl Citrate (Fentanyl 2ml Vial) 50 mcg PRN Q1HR PRN IV PAIN Last administered on 06/28/18at 11:39; Start 06/28/18 at 04:30; Stop 06/28/18 at 11:50 ; Status DC Sodium Chloride 1,000 ml @ 75 mls/hr [id number] IV Last administered on at 18:03; Start 06/28/18 at 04:30; Stop 06/29/18 at 04:29; Status DC Morphine Sulfate (Morphine Sulfate) 2 mg PRN Q1HR PRN IV PAIN MILD 2ND CHOICE; Start 06/28/18 at 08:15 Morphine Sulfate (Morphine Sulfate) 2 mg PRN Q1HR PRN IV PAIN; Start 06/28/18 at 08:15; Status UNV Fentanyl Citrate (Fentanyl 2ml Vial) 50 mcg PRN Q1HR PRN IV PAIN MOD TO SEV 1ST CHOICE; Start 06/28/18 at 08:15; Stop 06/28/18 at 11:55; Status DC Ondansetron HCl (Zofran) 4 mg PRN Q6HRS PRN IV NAUSEA/VOMITING; Start 06/28/18 at 08:15 Lorazepam (Ativan) 0.5 mg PRN Q4HRS PRN IV ANXIETY / AGITATION Last administered on 07/02/18at 20:45; Start 06/28/18 at 08:15 Info (Ortho Message -- Hold Meds) 1 ea CONT PRN PRN MC SEE COMMENTS; Start at 08:15; Stop 06/30/18 at 08:14; Status DC Tramadol HCl (Ultram) 50 mg PRN QID PRN PO PAIN MILD Last administered on at 20:47; Start 06/28/18 at 08:15 Oxycodone HCl (Roxicodone) 5 mg PRN Q4HRS PRN PO PAIN MOD TO SEV Last administered on 06/29/18at 03:54; Start 06/28/18 at 08:15 Fentanyl Citrate (Fentanyl 2ml Vial) 25 mcg PRN Q1HR PRN IV PAIN MILD 1ST CHOICE; Start 06/28/18 at 08:15; Stop 06/28/18 at 11:55; Status DC Acetaminophen (Tylenol) 1,000 mg TID PO Last administered on 07/03/18at 09:57; Start 06/28/18 at 09:00 Docusate Sodium (Colace) 100 mg BID PO Last administered on 07/03/18at 09:58; Start 06/28/18 at 09:00 Magnesium Hydroxide (Milk Of Magnesia) 2,400 mg PRN DAILY PRN PO CONSTIPATION; Start 06/28/18 at 08:15 Bisacodyl (Dulcolax Supp) 10 mg PRN DAILY PRN MS CONSTIPATION; Start 06/28/18 at 08:15 Zolpidem Tartrate (Ambien) 5 mg PRN QHS PRN PO INSOMNIA Last administered on at 21:24; Start 06/28/18 at 08:15 Sodium Chloride (Normal Saline Flush) 3 ml QSHIFT PRN IV AFTER MEDS AND BLOOD DRAWS; Start 06/28/18 at 08:15 Dextrose (Dextrose 50%-Water Syringe) 12.5 gm PRN Q15MIN PRN IV SEE COMMENTS; Start 06/28/18 at 08:15 Info (FLU VACCINE SCREEN per RX) 1 each 1X ONCE MC ; Start 06/28/18 at 08:30; Stop 06/28/18 at 08:31; Status UNV Influenza Virus Vaccine (Afluria Trivalent [id number] Syringe) 0.5 ml ONCE ONCE VAX IM ; Start 06/28/18 at 16:00; Stop 06/28/18 at 16:01; Status DC Fentanyl Citrate (Fentanyl 2ml Vial) 50 mcg PRN Q2HR PRN IV PAIN; Start at 09:30; Stop 06/28/18 at 09:36; Status DC Acetaminophen (Tylenol Supp) 650 mg PRN Q6HRS PRN RC FEVER > 102; Start at 09:30 Amiodarone HCl (Cordarone) 200 mg DAILY PO Last administered on 07/03/18at 09:58 ; Start 06/28/18 at 10:00 Carvedilol (Coreg) 6.25 mg DAILY08 PO Last administered on 06/30/18at 10:38; Start 06/28/18 at 10:00; Stop 07/01/18 at 16:30; Status DC Famotidine (Pepcid) 20 mg QHS PO Last administered on 07/02/18at 20:45; Start at 21:00 Furosemide (Lasix) 40 mg DAILY PO Last administered on 06/29/18at 08:49; Start 06/28/18 at 10:00; Stop 06/29/18 at 16:34; Status DC Potassium Chloride (Klor-Con) 10 meq DAILY PO Last administered on 07/03/18 09 :52; Start 06/28/18 at 10:00 Trazodone HCl (Desyrel) 50 mg HS PO Last administered on 07/01/18at 21:25; Start 06/28/18 at 21:00 Triamcinolone Acetonide (Kenalog) 1 harika PRN BID PRN TP ITCHING Last administered on 07/01/18 11:20; Start 06/28/18 at 21:00 Donepezil HCl (Aricept) 10 mg DAILY PO Last administered on 07/03/18 09:58; Start 06/28/18 at 10:00 Memantine (Namenda) 10 mg DAILY PO Last administered on 07/03/18 09:52; Start 06/28/18 at 10:00 Meloxicam (Mobic) 15 mg DAILY PO Last administered on 07/03/18 09:52; Start at 10:00 Propafenone HCl (Rythmol) 150 mg DAILY PO Last administered on 06/30/18at 10:37 ; Start 06/28/18 at 10:00; Stop 06/30/18 at 14:04; Status DC Sertraline HCl (Zoloft) 100 mg DAILY PO Last administered on 07/03/18 09:52; Start 06/28/18 at 10:00 Simvastatin (Zocor) 20 mg HS PO Last administered on 07/02/18at 20:45; Start at 21:00 Ropivacaine 53.3 ml/Epinephrine HCl 0.6 mg/ Morphine Sulfate 5 mg/Sodium Chloride 100 ml @ 100 mls/hr 1X ONCE INT ART Last administered on 06/29/18 17:41; Start 06/29/18 at 06:00; Stop 06/29/18 at 06:59; Status DC Cefazolin Sodium/ Dextrose 50 ml @ 100 mls/hr 1X PREOP PRN IV SEE COMMENTS Last administered on 06/29/18 16:55; Start 06/29/18 at 16:00; Stop 06/30/18 at 15:29; Status DC Fentanyl Citrate (Fentanyl 2ml Vial) 50 mcg PRN Q2HR PRN IV PAIN, 1ST CHOICE Last administered on 06/28/18at 18:03; Start 06/28/18 at 12:00 Fentanyl Citrate (Fentanyl 2ml Vial) 25 mcg PRN Q5MIN PRN IV MILD PAIN; Start 06/29/18 at 13:00; Stop 06/30/18 at 12:59; Status DC Fentanyl Citrate (Fentanyl 2ml Vial) 50 mcg PRN Q5MIN PRN IV MODERATE TO SEVERE PAIN; Start 06/29/18 at 13:00; Stop 06/30/18 at 12:59; Status DC Morphine Sulfate (Morphine Sulfate) 1 mg PRN Q10MIN PRN IV SEVERE PAIN; Start 06/29/18 at 13:00; Stop 06/30/18 at 12:59; Status DC Ringer's Solution 1,000 ml @ 30 mls/hr Q24H IV ; Start 06/29/18 at 12:55; Stop 06/30/18 at 00:54; Status DC Lidocaine HCl (Xylocaine-Mpf 1% 2ml Vial) 2 ml PRN 1X PRN ID PRIOR TO IV START ; Start 06/29/18 at 13:00; Stop 06/30/18 at 12:59; Status DC Hydromorphone HCl (Dilaudid) 0.5 mg PRN Q10MIN PRN IV SEV PAIN, Second choice; Start 06/29/18 at 13:00; Stop 06/30/18 at 12:59; Status DC Prochlorperazine Edisylate (Compazine) 5 mg PACU PRN PRN IV NAUSEA, MRX1; Start 06/29/18 at 13:00; Stop 06/30/18 at 12:59; Status DC Phenylephrine HCl (PHENYLEPHRINE in 0.9% NACL PF) 1 mg STK-MED ONCE IV ; Start 06/29/18 at 14:41; Stop 06/29/18 at 14:43; Status DC Ephedrine Sulfate (ePHEDrine PF IN SALINE SYRINGE) 50 mg STK-MED ONCE IV ; Start 06/29/18 at 14:41; Stop 06/29/18 at 14:43; Status DC Lidocaine HCl (Lidocaine Pf 2% Vial) 5 ml STK-MED ONCE .ROUTE ; Start 06/29/18 at 14:41; Stop 06/29/18 at 14:43; Status DC Propofol 20 ml @ As Directed STK-MED ONCE IV ; Start 06/29/18 at 14:41; Stop at 14:43; Status DC Aspirin (Ecotrin) 81 mg [id number] PO Last administered on 07/03/18at 09:57; Start 06/30/18 at 08:00 Sodium Chloride 1,000 ml @ 50 mls/hr 1X ONCE IV Last administered on at 16:30; Start 07/01/18 at 16:30; Stop 07/02/18 at 12:29; Status DC Metoprolol Succinate (Toprol Xl) 25 mg DAILY PO Last administered on 07/03/18at 09:58; Start 07/02/18 at 09:00 Sodium Chloride 1,000 ml @ 100 mls/hr Q10H IV Last administered on 07/02/18at 14:11; Start 07/02/18 at 02:00; Stop 07/02/18 at 21:57; Status DC Furosemide (Lasix) 20 mg 1X ONCE IVP Last administered on 07/02/18at 12:18; Start 07/02/18 at 11:30; Stop 07/02/18 at 11:31; Status DC Albuterol/ Ipratropium (Duoneb) 3 ml 1X ONCE NEB Last administered on at 21:30; Start 07/02/18 at 21:30; Stop 07/02/18 at 21:31; Status DC Albuterol/ Ipratropium (Duoneb) 3 ml Q4HRS NEB Last administered on 07/03/18at 11:53; Start 07/03/18 at 00:00 Furosemide (Lasix) 40 mg 1X ONCE IVP Last administered on 07/02/18at 21:53; Start 07/02/18 at 22:00; Stop 07/02/18 at 22:01; Status DC Furosemide (Lasix) 20 mg 1X ONCE IVP Last administered on 07/03/18at 09:59; Start 07/03/18 at 09:30; Stop 07/03/18 at 09:31; Status DC Active Scripts Active Amiodarone Hcl 200 Mg Tablet 200 Mg PO DAILY 30 Days Reported Meloxicam 7.5 Mg Tablet 1 Tab PO DAILY Propafenone Hcl 150 Mg Tablet 1 Tab PO DAILY Memantine HCl 10 Mg Tablet 1 Tab PO DAILY Trazodone Hcl 50 Mg Tablet 1 Tab PO HS Sertraline Hcl 100 Mg Tablet 1 Tab PO DAILY Donepezil Hcl 10 Mg Tablet 1 Tab PO DAILY Carvedilol 6.25 Mg Tablet 1 Tab PO DAILY Potassium Chloride 10 Meq Capsule.er 10 Meq PO DAILY Lasix (Furosemide) 40 Mg Tablet 40 Mg PO DAILY Acetaminophen Supp (Acetaminophen) 650 Mg Supp.rect 650 Mg RC Q6HRS PRN Triamcinolone Acetonide 0.1% Oint (Triamcinolone Acetonide) 15 Gm Oint...g. 1 Harika TP BID MIX WITH EUCERIN DIRECTED BY PHYSICIAN Simvastatin 20 Mg Tablet 1 Tab PO QHS Nabumetone 750 Mg Tablet 1 Tab PO BID Famotidine 20 Mg Tablet 1 Tab PO BID Vitals/I & O Vital Sign - Last 24 Hours 07/02/18 07/02/18 07/02/18 07/02/18 12:50 15:45 19:47 20:00 Temp 98.8 98.7 98.2 98.8 98.7 98.2 Pulse 85 74 111 Resp 23 B/P (MAP) 131/65 105/58 (74) 153/77 (102) Pulse Ox 94 96 O2 Delivery Room Air Room Air Room Air O2 Flow Rate 3.0 07/02/18 07/02/18 07/02/18 07/02/18 20:01 21:35 23:22 23:45 Temp 100.4 100.4 Pulse 110 108 Resp 23 B/P (MAP) 153/77 (102) 80/49 (59) Pulse Ox 88 100 100 O2 Delivery Non-Rebreather Nasal Cannula NonRebreather Mask NonRebreather Mask O2 Flow Rate 5.0 07/03/18 07/03/18 07/03/18 07/03/18 00:00 00:15 01:00 02:00 Temp 98.8 98.8 Pulse 104 98 97 Resp 18 B/P (MAP) 99/65 (76) 101/67 (78) 97/67 (77) Pulse Ox 100 100 100 O2 Delivery Non-Rebreather Room Air NonRebreather Mask NonRebreather Mask 07/03/18 07/03/18 07/03/18 07/03/18 03:00 03:40 04:00 04:00 Pulse 92 84 Resp 18 18 B/P (MAP) 94/67 (76) 99/59 (72) Pulse Ox 100 100 100 O2 Delivery NonRebreather Mask NonRebreather Mask NonRebreather Mask Non- Rebreather O2 Flow Rate 15.0 07/03/18 07/03/18 07/03/18 07/03/18 05:00 06:00 07:00 08:00 Temp 98.2 98.2 Pulse 85 95 85 Resp 18 18 18 B/P (MAP) 118/73 (88) 103/63 (76) 110/70 (83) Pulse Ox 100 99 100 O2 Delivery Nasal Cannula Nasal Cannula Nasal Cannula Room Air O2 Flow Rate 3.0 3.0 2.0 07/03/18 07/03/18 07/03/18 07/03/18 08:00 08:36 09:00 09:58 Temp 98.7 98.7 Pulse 80 89 95 Resp 18 18 B/P (MAP) 119/64 (82) 99/77 (84) 117/63 Pulse Ox 100 97 O2 Delivery Nasal Cannula Nasal Cannula Room Air O2 Flow Rate 2.0 3.0 07/03/18 07/03/18 07/03/18 07/03/18 09:58 10:00 11:00 11:55 Pulse 95 106 111 Resp 18 18 B/P (MAP) 103/63 111/73 (86) 91/60 (70) Pulse Ox 97 97 94 O2 Delivery Room Air Room Air Nasal Cannula O2 Flow Rate 3.0 Intake and Output 07/02/18 07/02/18 07/03/18 15:01 23:01 07:01 Intake Total 779 ml 750 ml 0 ml Output Total 1000 ml Balance 779 ml 750 ml -1000 ml HAILEE LU MD Jul 03, 2018 12:15
--- NOTE | 2018-07-03 12:41 | PDOC ---
PROGRESS NOTES Subjective Subjective No complaints. Awake. RN is shaving him currently. Had rapid HR after blood transfusion but asymptomatic. Objective Vital Signs Vital Signs Date Time Temp Pulse Resp B/P (MAP) Pulse Ox O2 Delivery O2 Flow Rate FiO2 07/03/18 11:55 94 Nasal Cannula 3.0 07/03/18 11:00 111 18 91/60 (70) 07/03/18 08:00 98.7 98.7 Physical Exam Hip dressing dry. Calves soft NT. Labs Laboratory Tests Test 07/01/18 19:00 07/02/18 01:22 07/02/18 05:55 07/02/18 12:15 Hemoglobin 7.4 g/dL (13.0-17.5) 6.9 g/dL (13.0-17.5) Hematocrit 21.0 % (39.0-53.0) 20.2 % (39.0-53.0) Mean Corpuscular Hemoglobin Concent 35 g/dL (31-37) 34 g/dL (31-37) Troponin I Quantitative 0.033 ng/mL (0.000-0.055) 0.189 ng/mL (0.000-0.055) 0.296 ng/mL (0.000-0.055) White Blood Count 5.3 x10^3/uL (4.0-11.0) Red Blood Count 2.37 x10^6/uL (4.30-5.70) Mean Corpuscular Volume 85 fL (79-100) Mean Corpuscular Hemoglobin 29 pg (25-35) Red Cell Distribution Width 15.9 % (11.5-14.5) Platelet Count 91 x10^3/uL (140-400) Neutrophils (%) (Auto) 75 % (31-73) Lymphocytes (%) (Auto) 10 % (24-48) Monocytes (%) (Auto) 10 % (0-9) Eosinophils (%) (Auto) 4 % (0-3) Basophils (%) (Auto) 0 % (0-3) Neutrophils # (Auto) 4.0 x10^3uL (1.8-7.7) Lymphocytes # (Auto) 0.5 x10^3/uL (1.0-4.8) Monocytes # (Auto) 0.5 x10^3/uL (0.0-1.1) Eosinophils # (Auto) 0.2 x10^3/uL (0.0-0.7) Basophils # (Auto) 0.0 x10^3/uL (0.0-0.2) Sodium Level 139 mmol/L (136-145) Potassium Level 4.6 mmol/L (3.5-5.1) Chloride Level 107 mmol/L (98-107) Carbon Dioxide Level 25 mmol/L (21-32) Anion Gap 7 (6-14) Blood Urea Nitrogen 31 mg/dL (8-26) Creatinine 1.4 mg/dL (0.7-1.3) Estimated GFR (Cockcroft-Gault) 48.4 Glucose Level 122 mg/dL (70-99) Calcium Level 8.0 mg/dL (8.5-10.1) Test 07/02/18 21:13 07/03/18 04:40 O2 Saturation 88 % (92-99) Arterial Blood pH 7.37 (7.35-7.45) Arterial Blood pCO2 at Patient Temp 28 mmHg (35-46) Arterial Blood pO2 at Patient Temp 57 mmHg (65-108) Arterial Blood HCO3 16 mmol/L (21-28) Arterial Blood Base Excess -8 mmol/L (-3-3) White Blood Count 9.7 x10^3/uL (4.0-11.0) Red Blood Count 2.88 x10^6/uL (4.30-5.70) Hemoglobin 8.4 g/dL (13.0-17.5) Hematocrit 24.7 % (39.0-53.0) Mean Corpuscular Volume 86 fL (79-100) Mean Corpuscular Hemoglobin 29 pg (25-35) Mean Corpuscular Hemoglobin Concent 34 g/dL (31-37) Red Cell Distribution Width 15.9 % (11.5-14.5) Platelet Count 107 x10^3/uL (140-400) Neutrophils (%) (Auto) 84 % (31-73) Lymphocytes (%) (Auto) 7 % (24-48) Monocytes (%) (Auto) 9 % (0-9) Eosinophils (%) (Auto) 0 % (0-3) Basophils (%) (Auto) 0 % (0-3) Neutrophils # (Auto) 8.1 x10^3uL (1.8-7.7) Lymphocytes # (Auto) 0.7 x10^3/uL (1.0-4.8) Monocytes # (Auto) 0.9 x10^3/uL (0.0-1.1) Eosinophils # (Auto) 0.0 x10^3/uL (0.0-0.7) Basophils # (Auto) 0.0 x10^3/uL (0.0-0.2) Sodium Level 139 mmol/L (136-145) Potassium Level 4.4 mmol/L (3.5-5.1) Chloride Level 107 mmol/L (98-107) Carbon Dioxide Level 26 mmol/L (21-32) Anion Gap 6 (6-14) Blood Urea Nitrogen 38 mg/dL (8-26) Creatinine 1.9 mg/dL (0.7-1.3) Estimated GFR (Cockcroft-Gault) 34.0 Glucose Level 180 mg/dL (70-99) Calcium Level 7.9 mg/dL (8.5-10.1) Laboratory Tests Test 07/02/18 21:13 07/03/18 04:40 O2 Saturation 88 % (92-99) Arterial Blood pH 7.37 (7.35-7.45) Arterial Blood pCO2 at Patient Temp 28 mmHg (35-46) Arterial Blood pO2 at Patient Temp 57 mmHg (65-108) Arterial Blood HCO3 16 mmol/L (21-28) Arterial Blood Base Excess -8 mmol/L (-3-3) White Blood Count 9.7 x10^3/uL (4.0-11.0) Red Blood Count 2.88 x10^6/uL (4.30-5.70) Hemoglobin 8.4 g/dL (13.0-17.5) Hematocrit 24.7 % (39.0-53.0) Mean Corpuscular Volume 86 fL (79-100) Mean Corpuscular Hemoglobin 29 pg (25-35) Mean Corpuscular Hemoglobin Concent 34 g/dL (31-37) Red Cell Distribution Width 15.9 % (11.5-14.5) Platelet Count 107 x10^3/uL (140-400) Neutrophils (%) (Auto) 84 % (31-73) Lymphocytes (%) (Auto) 7 % (24-48) Monocytes (%) (Auto) 9 % (0-9) Eosinophils (%) (Auto) 0 % (0-3) Basophils (%) (Auto) 0 % (0-3) Neutrophils # (Auto) 8.1 x10^3uL (1.8-7.7) Lymphocytes # (Auto) 0.7 x10^3/uL (1.0-4.8) Monocytes # (Auto) 0.9 x10^3/uL (0.0-1.1) Eosinophils # (Auto) 0.0 x10^3/uL (0.0-0.7) Basophils # (Auto) 0.0 x10^3/uL (0.0-0.2) Sodium Level 139 mmol/L (136-145) Potassium Level 4.4 mmol/L (3.5-5.1) Chloride Level 107 mmol/L (98-107) Carbon Dioxide Level 26 mmol/L (21-32) Anion Gap 6 (6-14) Blood Urea Nitrogen 38 mg/dL (8-26) Creatinine 1.9 mg/dL (0.7-1.3) Estimated GFR (Cockcroft-Gault) 34.0 Glucose Level 180 mg/dL (70-99) Calcium Level 7.9 mg/dL (8.5-10.1) Assessment Assessment POD #4 after hip nail for intertrochanteric fracture. Acute blood loss anemia. Creatinine up to 1.9, acute on chronic kidney dysfunction. CKD. Plan Plan of Care I will DC NSAIDs (except low dose ASA) due to elevated creatinine. I stopped Meloxicam. Continue DVT prophylaxis for at least 4 weeks postoperative -- from my standpoint ASA po plus mechanical devices and mobilization are satisfactory. Dressing change when needed. PT/OT, october WBAT with boni. RIN GUIDRY MD Jul 03, 2018 12:40
[2018-07-03] MEDS ORDERED: DIGOXIN IV 500 MCG/2 ML AMPUL. IV ONE ×2 (12:45→18:00)
--- NOTE | 2018-07-03 15:35 | NUR ---
Nursing Note Cardiology aware patient goes in and out of afib rvr- patient did not receive his amiodarone PO for a few days d/t surgery/NPO status. Dig given, PO medication given. Patient is not symptomatic. VSS (even when HR rises) Jose WELSH RN Addendum: 07/03/18 at 1538 by JEY WELSH RN MDs ok with downgrade to CVC Addendum: 07/03/18 at 1816 by JEY WELSH RN Patient ICU status Page out to cardiology- patient now staying mostly in afib rvr; second dose of dig given. Patient is unaware of heart racing; wants to get OOB and walk the unit Paulino called back; will try 150mg amio bolus and then 5mg metoprolol IVP if amio doesn't work. Patient currently eating supper. Jose WELSH RN
[2018-07-03] MEDS ORDERED: AMIODARONE 150 MG in IV DEXTROSE 5% 100ML 100 ML IV ONE (18:30)
[2018-07-03] MEDS: traZODone 50 MG TABLET. PO SCH (21:09)
[2018-07-03] MEDS: FAMOTIDINE 20 MG TABLET. PO SCH (21:09)
[2018-07-03] MEDS: ZOLPIDEM 5 MG TABLET. PO PRN (21:09)
[2018-07-03] MEDS: SIMVASTATIN 20 MG TABLET PO SCH (21:09)
[2018-07-04] VITALS (16 sets, daily range): BP systolic 84–129; BP diastolic 47–70
[2018-07-04] MEDS: IPRATRPIUM/ALBUTEROL 0.5/2.5MG 3 ML NEBU. NEB SCH ×6 (03:01→23:14)
[2018-07-04 04:51] LABS: BASO % 0 % (0-3); EOS # 0.2 x10^3/uL (0.0-0.7); EOS % 4 % (0-3); HEMATOCRIT 22.6 % (39.0-53.0); LYMPH % 17 % (24-48); MEAN CORPUSCULAR HEMOGLOBIN 30 pg (25-35); MEAN CORPUSCULAR HGB CONC 35 g/dL (31-37); MEAN CORPUSCULAR VOLUME 86 fL (79-100); MONO # 0.7 x10^3/uL (0.0-1.1); MONO % 12 % (0-9); NEUT # 4.1 x10^3uL (1.8-7.7); NEUT % 68 % (31-73); PLATELET COUNT 109 x10^3/uL (140-400); RED BLOOD COUNT 2.62 x10^6/uL (4.30-5.70); RED CELL DISTRIBUTION WIDTH 16.2 % (11.5-14.5)
[2018-07-04 05:23] LABS: CALCIUM 8.3 mg/dL (8.5-10.1); CREATININE 1.7 mg/dL (0.7-1.3); GFR 38.7
--- NOTE | 2018-07-04 07:20 | PDOC ---
PULMONARY PROGRESS NOTES Subjective sob better, has occ cough, no sputum, no pain Vitals Vital Signs Date Time Temp Pulse Resp B/P (MAP) Pulse Ox O2 Delivery O2 Flow Rate FiO2 07/04/18 05:00 110 22 107/59 (75) 97 Room Air 07/04/18 04:00 97.9 97.9 07/03/18 20:12 3.0 ROS: No Nausea General: Alert HEENT: Other (nc at perrl nose throat clear) Lungs: Crackles (bl mild crackles) Cardiovascular: Other (irreg irreg) Abdomen: Soft, Non-tender Neuro Exam: Alert Extremities: No Edema Skin: Warm Labs Laboratory Tests Test 07/02/18 12:15 07/02/18 17:25 07/02/18 21:13 07/03/18 04:40 Troponin I Quantitative 0.296 ng/mL (0.000-0.055) Clostridium difficile Toxin B Gene Negative (Negative) O2 Saturation 88 % (92-99) Arterial Blood pH 7.37 (7.35-7.45) Arterial Blood pCO2 at Patient Temp 28 mmHg (35-46) Arterial Blood pO2 at Patient Temp 57 mmHg (65-108) Arterial Blood HCO3 16 mmol/L (21-28) Arterial Blood Base Excess -8 mmol/L (-3-3) White Blood Count 9.7 x10^3/uL (4.0-11.0) Red Blood Count 2.88 x10^6/uL (4.30-5.70) Hemoglobin 8.4 g/dL (13.0-17.5) Hematocrit 24.7 % (39.0-53.0) Mean Corpuscular Volume 86 fL (79-100) Mean Corpuscular Hemoglobin 29 pg (25-35) Mean Corpuscular Hemoglobin Concent 34 g/dL (31-37) Red Cell Distribution Width 15.9 % (11.5-14.5) Platelet Count 107 x10^3/uL (140-400) Neutrophils (%) (Auto) 84 % (31-73) Lymphocytes (%) (Auto) 7 % (24-48) Monocytes (%) (Auto) 9 % (0-9) Eosinophils (%) (Auto) 0 % (0-3) Basophils (%) (Auto) 0 % (0-3) Neutrophils # (Auto) 8.1 x10^3uL (1.8-7.7) Lymphocytes # (Auto) 0.7 x10^3/uL (1.0-4.8) Monocytes # (Auto) 0.9 x10^3/uL (0.0-1.1) Eosinophils # (Auto) 0.0 x10^3/uL (0.0-0.7) Basophils # (Auto) 0.0 x10^3/uL (0.0-0.2) Sodium Level 139 mmol/L (136-145) Potassium Level 4.4 mmol/L (3.5-5.1) Chloride Level 107 mmol/L (98-107) Carbon Dioxide Level 26 mmol/L (21-32) Anion Gap 6 (6-14) Blood Urea Nitrogen 38 mg/dL (8-26) Creatinine 1.9 mg/dL (0.7-1.3) Estimated GFR (Cockcroft-Gault) 34.0 Glucose Level 180 mg/dL (70-99) Calcium Level 7.9 mg/dL (8.5-10.1) Test 07/04/18 04:00 White Blood Count 6.0 x10^3/uL (4.0-11.0) Red Blood Count 2.62 x10^6/uL (4.30-5.70) Hemoglobin 8.0 g/dL (13.0-17.5) Hematocrit 22.6 % (39.0-53.0) Mean Corpuscular Volume 86 fL (79-100) Mean Corpuscular Hemoglobin 30 pg (25-35) Mean Corpuscular Hemoglobin Concent 35 g/dL (31-37) Red Cell Distribution Width 16.2 % (11.5-14.5) Platelet Count 109 x10^3/uL (140-400) Neutrophils (%) (Auto) 68 % (31-73) Lymphocytes (%) (Auto) 17 % (24-48) Monocytes (%) (Auto) 12 % (0-9) Eosinophils (%) (Auto) 4 % (0-3) Basophils (%) (Auto) 0 % (0-3) Neutrophils # (Auto) 4.1 x10^3uL (1.8-7.7) Lymphocytes # (Auto) 1.0 x10^3/uL (1.0-4.8) Monocytes # (Auto) 0.7 x10^3/uL (0.0-1.1) Eosinophils # (Auto) 0.2 x10^3/uL (0.0-0.7) Basophils # (Auto) 0.0 x10^3/uL (0.0-0.2) Sodium Level 141 mmol/L (136-145) Potassium Level 4.0 mmol/L (3.5-5.1) Chloride Level 106 mmol/L (98-107) Carbon Dioxide Level 27 mmol/L (21-32) Anion Gap 8 (6-14) Blood Urea Nitrogen 43 mg/dL (8-26) Creatinine 1.7 mg/dL (0.7-1.3) Estimated GFR (Cockcroft-Gault) 38.7 Glucose Level 121 mg/dL (70-99) Calcium Level 8.3 mg/dL (8.5-10.1) Laboratory Tests Test 07/04/18 04:00 White Blood Count 6.0 x10^3/uL (4.0-11.0) Red Blood Count 2.62 x10^6/uL (4.30-5.70) Hemoglobin 8.0 g/dL (13.0-17.5) Hematocrit 22.6 % (39.0-53.0) Mean Corpuscular Volume 86 fL (79-100) Mean Corpuscular Hemoglobin 30 pg (25-35) Mean Corpuscular Hemoglobin Concent 35 g/dL (31-37) Red Cell Distribution Width 16.2 % (11.5-14.5) Platelet Count 109 x10^3/uL (140-400) Neutrophils (%) (Auto) 68 % (31-73) Lymphocytes (%) (Auto) 17 % (24-48) Monocytes (%) (Auto) 12 % (0-9) Eosinophils (%) (Auto) 4 % (0-3) Basophils (%) (Auto) 0 % (0-3) Neutrophils # (Auto) 4.1 x10^3uL (1.8-7.7) Lymphocytes # (Auto) 1.0 x10^3/uL (1.0-4.8) Monocytes # (Auto) 0.7 x10^3/uL (0.0-1.1) Eosinophils # (Auto) 0.2 x10^3/uL (0.0-0.7) Basophils # (Auto) 0.0 x10^3/uL (0.0-0.2) Sodium Level 141 mmol/L (136-145) Potassium Level 4.0 mmol/L (3.5-5.1) Chloride Level 106 mmol/L (98-107) Carbon Dioxide Level 27 mmol/L (21-32) Anion Gap 8 (6-14) Blood Urea Nitrogen 43 mg/dL (8-26) Creatinine 1.7 mg/dL (0.7-1.3) Estimated GFR (Cockcroft-Gault) 38.7 Glucose Level 121 mg/dL (70-99) Calcium Level 8.3 mg/dL (8.5-10.1) Medications Active Scripts Medications Dose Route/Sig Max Daily Dose Days Date Category Dose Instructions Meloxicam 7.5 Mg Tablet 1 Tab PO DAILY 06/28/18 Reported Propafenone Hcl 150 Mg Tablet 1 Tab PO DAILY 06/28/18 Reported Memantine HCl 10 Mg Tablet 1 Tab PO DAILY 06/28/18 Reported Trazodone Hcl 50 Mg Tablet 1 Tab PO HS 06/28/18 Reported Sertraline Hcl 100 Mg Tablet 1 Tab PO DAILY 06/28/18 Reported Donepezil Hcl 10 Mg Tablet 1 Tab PO DAILY 06/28/18 Reported Carvedilol 6.25 Mg Tablet 1 Tab PO DAILY 06/28/18 Reported Amiodarone Hcl 200 Mg Tablet 200 Mg PO DAILY 30 08/01/17 Rx Potassium Chloride 10 Meq Capsule.er 10 Meq PO DAILY 07/22/16 Reported Lasix (Furosemide) 40 Mg Tablet 40 Mg PO DAILY 07/22/16 Reported Acetaminophen Supp (Acetaminophen) 650 Mg Supp.rect 650 Mg RC Q6HRS PRN 07/31/15 Reported Triamcinolone Acetonide 0.1% Oint (Triamcinolone Acetonide) 15 Gm Oint...g. 1 Harika TP BID 07/23/15 Reported MIX WITH EUCERIN DIRECTED BY PHYSICIAN Simvastatin 20 Mg Tablet 1 Tab PO QHS 07/23/15 Reported Nabumetone 750 Mg Tablet 1 Tab PO BID 07/23/15 Reported Famotidine 20 Mg Tablet 1 Tab PO BID 07/23/15 Reported Impression . IMPRESSION: 1. Acute respiratory failure. 2. Acute bilateral pulmonary infiltrates compatible with [id number] respiratory failure. 3. Expected drop in hemoglobin, status post transfusion. 4. Fncwq-[id number] kidney disease. 5. Tobacco dependence, in remission. 6. Chronic obstructive pulmonary disease. 7. Mild dementia. 8. Elevated troponin. 9. afib w rvr Plan . PLAN: 1. BiPAP p.r.n. 02 titration, BD 2. Diurese, keep I<O, monitor k, cr. 3. Monitor labs. 4. Monitor hemoglobin and hematocrit. 5. Follow Cardiology input. 6. baldev reed rn, pt JOHN JALLOH MD Jul 04, 2018 07:20
[2018-07-04] MEDS: DONEPEZIL HCL 10 MG TABLET. PO SCH (08:24)
[2018-07-04] MEDS: SERTRALINE 50 MG TABLET. PO SCH (08:25)
[2018-07-04] MEDS: METOPROLOL SUCC 24HR ER 25 MG TAB.ER.24H. PO SCH (08:25)
[2018-07-04] MEDS: ACETAMINOPHEN 500 MG TABLET PO SCH ×3 (08:25→21:51)
[2018-07-04] MEDS: MEMANTINE 10 MG TABLET. PO SCH (08:25)
[2018-07-04] MEDS: ASPIRIN ENTERIC COATED 81 MG TABLET.DR. PO SCH (08:26)
[2018-07-04] MEDS: AMIODARONE HCL 200 MG TABLET. PO SCH (08:26)
[2018-07-04] MEDS: FUROSEMIDE 40 MG TABLET. PO SCH (08:26)
[2018-07-04] MEDS: POTASSIUM CHLORIDE 10 MEQ TABLET.ER. PO SCH (08:26)
[2018-07-04] MEDS: DOCUSATE SODIUM 100 MG CAPSULE. PO SCH ×2 (08:26→21:50)
--- NOTE | 2018-07-04 10:09 | PDOC ---
CARDIOLOGY PROGRESS NOTE SUBJECTIVE: Continues to have labile HR's. No chest pain. Critically anemia improved. OBJECTIVE: Vital SIgns: Vital Signs Date Time Temp Pulse Resp B/P (MAP) Pulse Ox O2 Delivery O2 Flow Rate FiO2 07/04/18 08:26 106 114/67 07/04/18 08:14 98 Room Air 07/04/18 08:00 98.1 20 98.1 07/03/18 20:12 3.0 I & O Intake and Output 07/04/18 07:01 Intake Total 1580 ml Output Total 1725 ml Balance -145 ml Intake Oral 1480 ml IV Total 100 ml Output Urine Total 1725 ml # Bowel Movements 4 Objective: GEN.: No apparent distress. Alert and oriented to place and person but not tmie. HEENT: Head is normocephalic, atraumatic NECK: Supple. LUNGS: Clear to auscultation anteriorly HEART: Irr irr. ABDOMEN: Soft, nontender. Positive bowel sounds. EXTREMITIES: Without any cyanosis. NEUROLOGIC: Normal speech, normal tone PSYCHIATRIC: ?dementia. SKIN: No ulcerations CURRENT MEDICATIONS: Amiodarone Toprol XL DIAGNOSTIC TESTING: Labs reviewed. Notable for anemia ASSESSMENT: 1. AF with RVR PLAN: 1. Increase Toprol XL to 50mg daily 2. Continue amiodarone 3. Hold anticoagulation. Supportive care. DERRELL AJ MD Jul 04, 2018 10:09
[2018-07-04] MEDS ORDERED: METOPROLOL SUCC 24HR ER 25 MG TAB.ER.24H. PO ONE (10:15)
[2018-07-04] MEDS: oxyCODONE IR 5 MG TABLET PO PRN (10:51)
--- NOTE | 2018-07-04 12:33 | PDOC ---
PROGRESS NOTES Chief Complaint Chief Complaint acute Acute traumatic comminuted intertrochanteric left femur fracture, traumatic, closed, s/p sx 06/29 Fall AT home rapid afib, 2/2 anemia likely acute sob with pulmonary edema post transfusion CK D 3 in the background of diuretic use Hyponatremia w/ diuretic use - improved A. fib, CAD, hypertension chronic stable Hx of severe systolic CHF Hx of cardiomyopathy: with EF as low as 15% in 2017 now at 55% dementia, poorly oriented, MODERATE AORTIC STENOSIS anemia post sx, got 3u PRBC plan: fu with card, on amiodarone, metoprolol increased to 50mg daily as per card got 3 uPRBC transfusion lasix 40mg po daily on ASA 81mg , no AC. add dvt ppx with heparin labs tmr PTOT sw for rehab WBAT as per ortho, NSAIDS dced. ok transfer out of ICU History of Present Illness History of Present Illness 07/02: transferred from 4th floor with vtach last night. now back to sinus, HR 80s. got 3u PRBC totally, today hb 6.9. lasix 20mg x1. demented. 07/03: transfered to ICU last night for sob with acute pulmanory edema, cxr better with lasix 40mg iv x1, but cr slightly higher. hb stable after transfusion. 07/04: HR sinus and afib, liable. bp lower side. Cr 1.7. sob ok. on lasix po daily 40mg. hb 8 Vitals Vitals Vital Signs Date Time Temp Pulse Resp B/P (MAP) Pulse Ox O2 Delivery O2 Flow Rate FiO2 07/04/18 11:38 98 Room Air 07/04/18 11:00 95 24 95/54 (68) 07/04/18 08:00 98.1 98.1 07/03/18 20:12 3.0 Physical Exam Physical Exam to person and place, aaox2 General: Alert, Cooperative, No acute distress Heart: Regular rate, Normal S1, Normal S2, No murmurs, Other (tele SR, 2/6 systolic murmur ) Lungs: Crackles (bl mild crackles) Abdomen: Normal bowel sounds, Soft, No tenderness Extremities: No cyanosis, Other (left hip pain, left thigh swollen ) Skin: No significant lesion Labs LABS Laboratory Tests Test 07/04/18 04:00 White Blood Count 6.0 x10^3/uL (4.0-11.0) Red Blood Count 2.62 x10^6/uL (4.30-5.70) Hemoglobin 8.0 g/dL (13.0-17.5) Hematocrit 22.6 % (39.0-53.0) Mean Corpuscular Volume 86 fL (79-100) Mean Corpuscular Hemoglobin 30 pg (25-35) Mean Corpuscular Hemoglobin Concent 35 g/dL (31-37) Red Cell Distribution Width 16.2 % (11.5-14.5) Platelet Count 109 x10^3/uL (140-400) Neutrophils (%) (Auto) 68 % (31-73) Lymphocytes (%) (Auto) 17 % (24-48) Monocytes (%) (Auto) 12 % (0-9) Eosinophils (%) (Auto) 4 % (0-3) Basophils (%) (Auto) 0 % (0-3) Neutrophils # (Auto) 4.1 x10^3uL (1.8-7.7) Lymphocytes # (Auto) 1.0 x10^3/uL (1.0-4.8) Monocytes # (Auto) 0.7 x10^3/uL (0.0-1.1) Eosinophils # (Auto) 0.2 x10^3/uL (0.0-0.7) Basophils # (Auto) 0.0 x10^3/uL (0.0-0.2) Sodium Level 141 mmol/L (136-145) Potassium Level 4.0 mmol/L (3.5-5.1) Chloride Level 106 mmol/L (98-107) Carbon Dioxide Level 27 mmol/L (21-32) Anion Gap 8 (6-14) Blood Urea Nitrogen 43 mg/dL (8-26) Creatinine 1.7 mg/dL (0.7-1.3) Estimated GFR (Cockcroft-Gault) 38.7 Glucose Level 121 mg/dL (70-99) Calcium Level 8.3 mg/dL (8.5-10.1) Assessment and Plan Assessmemt and Plan Problems Medical Problems: (1) Closed left hip fracture Status: Acute Comment Review of Relevant I have reviewed the following items idalmis (where applicable) has been applied. Labs Laboratory Tests Test 07/02/18 17:25 07/02/18 21:13 07/03/18 04:40 07/04/18 04:00 Clostridium difficile Toxin B Gene Negative (Negative) O2 Saturation 88 % (92-99) Arterial Blood pH 7.37 (7.35-7.45) Arterial Blood pCO2 at Patient Temp 28 mmHg (35-46) Arterial Blood pO2 at Patient Temp 57 mmHg (65-108) Arterial Blood HCO3 16 mmol/L (21-28) Arterial Blood Base Excess -8 mmol/L (-3-3) White Blood Count 9.7 x10^3/uL (4.0-11.0) 6.0 x10^3/uL (4.0-11.0) Red Blood Count 2.88 x10^6/uL (4.30-5.70) 2.62 x10^6/uL (4.30-5.70) Hemoglobin 8.4 g/dL (13.0-17.5) 8.0 g/dL (13.0-17.5) Hematocrit 24.7 % (39.0-53.0) 22.6 % (39.0-53.0) Mean Corpuscular Volume 86 fL (79-100) 86 fL (79-100) Mean Corpuscular Hemoglobin 29 pg (25-35) 30 pg (25-35) Mean Corpuscular Hemoglobin Concent 34 g/dL (31-37) 35 g/dL (31-37) Red Cell Distribution Width 15.9 % (11.5-14.5) 16.2 % (11.5-14.5) Platelet Count 107 x10^3/uL (140-400) 109 x10^3/uL (140-400) Neutrophils (%) (Auto) 84 % (31-73) 68 % (31-73) Lymphocytes (%) (Auto) 7 % (24-48) 17 % (24-48) Monocytes (%) (Auto) 9 % (0-9) 12 % (0-9) Eosinophils (%) (Auto) 0 % (0-3) 4 % (0-3) Basophils (%) (Auto) 0 % (0-3) 0 % (0-3) Neutrophils # (Auto) 8.1 x10^3uL (1.8-7.7) 4.1 x10^3uL (1.8-7.7) Lymphocytes # (Auto) 0.7 x10^3/uL (1.0-4.8) 1.0 x10^3/uL (1.0-4.8) Monocytes # (Auto) 0.9 x10^3/uL (0.0-1.1) 0.7 x10^3/uL (0.0-1.1) Eosinophils # (Auto) 0.0 x10^3/uL (0.0-0.7) 0.2 x10^3/uL (0.0-0.7) Basophils # (Auto) 0.0 x10^3/uL (0.0-0.2) 0.0 x10^3/uL (0.0-0.2) Sodium Level 139 mmol/L (136-145) 141 mmol/L (136-145) Potassium Level 4.4 mmol/L (3.5-5.1) 4.0 mmol/L (3.5-5.1) Chloride Level 107 mmol/L (98-107) 106 mmol/L (98-107) Carbon Dioxide Level 26 mmol/L (21-32) 27 mmol/L (21-32) Anion Gap 6 (6-14) 8 (6-14) Blood Urea Nitrogen 38 mg/dL (8-26) 43 mg/dL (8-26) Creatinine 1.9 mg/dL (0.7-1.3) 1.7 mg/dL (0.7-1.3) Estimated GFR (Cockcroft-Gault) 34.0 38.7 Glucose Level 180 mg/dL (70-99) 121 mg/dL (70-99) Calcium Level 7.9 mg/dL (8.5-10.1) 8.3 mg/dL (8.5-10.1) Laboratory Tests Test 07/04/18 04:00 White Blood Count 6.0 x10^3/uL (4.0-11.0) Red Blood Count 2.62 x10^6/uL (4.30-5.70) Hemoglobin 8.0 g/dL (13.0-17.5) Hematocrit 22.6 % (39.0-53.0) Mean Corpuscular Volume 86 fL (79-100) Mean Corpuscular Hemoglobin 30 pg (25-35) Mean Corpuscular Hemoglobin Concent 35 g/dL (31-37) Red Cell Distribution Width 16.2 % (11.5-14.5) Platelet Count 109 x10^3/uL (140-400) Neutrophils (%) (Auto) 68 % (31-73) Lymphocytes (%) (Auto) 17 % (24-48) Monocytes (%) (Auto) 12 % (0-9) Eosinophils (%) (Auto) 4 % (0-3) Basophils (%) (Auto) 0 % (0-3) Neutrophils # (Auto) 4.1 x10^3uL (1.8-7.7) Lymphocytes # (Auto) 1.0 x10^3/uL (1.0-4.8) Monocytes # (Auto) 0.7 x10^3/uL (0.0-1.1) Eosinophils # (Auto) 0.2 x10^3/uL (0.0-0.7) Basophils # (Auto) 0.0 x10^3/uL (0.0-0.2) Sodium Level 141 mmol/L (136-145) Potassium Level 4.0 mmol/L (3.5-5.1) Chloride Level 106 mmol/L (98-107) Carbon Dioxide Level 27 mmol/L (21-32) Anion Gap 8 (6-14) Blood Urea Nitrogen 43 mg/dL (8-26) Creatinine 1.7 mg/dL (0.7-1.3) Estimated GFR (Cockcroft-Gault) 38.7 Glucose Level 121 mg/dL (70-99) Calcium Level 8.3 mg/dL (8.5-10.1) Medications Current Medications Fentanyl Citrate (Fentanyl 2ml Vial) 25 mcg PRN Q15MIN PRN IV PAIN GREATER THAN 3/10 Last administered on 06/28/18at 05:03; Start 06/28/18 at 03:15; Stop at 03:14; Status DC Sodium Chloride 1,000 ml @ 100 mls/hr Q10H IV Last administered on 06/28/18at 03:36; Start 06/28/18 at 03:15; Stop 06/28/18 at 13:14; Status DC Ondansetron HCl (Zofran) 4 mg 1X ONCE IV Last administered on 06/28/18at 03:35 ; Start 06/28/18 at 03:15; Stop 06/28/18 at 03:26; Status DC Ondansetron HCl (Zofran) 4 mg PRN Q8HRS PRN IV NAUSEA/VOMITING; Start 06/28/18 at 04:30; Stop 06/29/18 at 04:29; Status DC Fentanyl Citrate (Fentanyl 2ml Vial) 50 mcg PRN Q1HR PRN IV PAIN Last administered on 06/28/18at 11:39; Start 06/28/18 at 04:30; Stop 06/28/18 at 11:50 ; Status DC Sodium Chloride 1,000 ml @ 75 mls/hr [id number] IV Last administered on at 18:03; Start 06/28/18 at 04:30; Stop 06/29/18 at 04:29; Status DC Morphine Sulfate (Morphine Sulfate) 2 mg PRN Q1HR PRN IV PAIN MILD 2ND CHOICE; Start 06/28/18 at 08:15 Morphine Sulfate (Morphine Sulfate) 2 mg PRN Q1HR PRN IV PAIN; Start 06/28/18 at 08:15; Status UNV Fentanyl Citrate (Fentanyl 2ml Vial) 50 mcg PRN Q1HR PRN IV PAIN MOD TO SEV 1ST CHOICE; Start 06/28/18 at 08:15; Stop 06/28/18 at 11:55; Status DC Ondansetron HCl (Zofran) 4 mg PRN Q6HRS PRN IV NAUSEA/VOMITING; Start 06/28/18 at 08:15 Lorazepam (Ativan) 0.5 mg PRN Q4HRS PRN IV ANXIETY / AGITATION Last administered on 07/02/18at 20:45; Start 06/28/18 at 08:15 Info (Ortho Message -- Hold Meds) 1 ea CONT PRN PRN MC SEE COMMENTS; Start at 08:15; Stop 06/30/18 at 08:14; Status DC Tramadol HCl (Ultram) 50 mg PRN QID PRN PO PAIN MILD Last administered on at 20:47; Start 06/28/18 at 08:15 Oxycodone HCl (Roxicodone) 5 mg PRN Q4HRS PRN PO PAIN MOD TO SEV Last administered on 07/04/18at 10:51; Start 06/28/18 at 08:15 Fentanyl Citrate (Fentanyl 2ml Vial) 25 mcg PRN Q1HR PRN IV PAIN MILD 1ST CHOICE; Start 06/28/18 at 08:15; Stop 06/28/18 at 11:55; Status DC Acetaminophen (Tylenol) 1,000 mg TID PO Last administered on 07/04/18at 08:25; Start 06/28/18 at 09:00 Docusate Sodium (Colace) 100 mg BID PO Last administered on 07/04/18at 08:26; Start 06/28/18 at 09:00 Magnesium Hydroxide (Milk Of Magnesia) 2,400 mg PRN DAILY PRN PO CONSTIPATION; Start 06/28/18 at 08:15 Bisacodyl (Dulcolax Supp) 10 mg PRN DAILY PRN MO CONSTIPATION; Start 06/28/18 at 08:15 Zolpidem Tartrate (Ambien) 5 mg PRN QHS PRN PO INSOMNIA Last administered on at 21:09; Start 06/28/18 at 08:15 Sodium Chloride (Normal Saline Flush) 3 ml QSHIFT PRN IV AFTER MEDS AND BLOOD DRAWS; Start 06/28/18 at 08:15 Dextrose (Dextrose 50%-Water Syringe) 12.5 gm PRN Q15MIN PRN IV SEE COMMENTS; Start 06/28/18 at 08:15 Info (FLU VACCINE SCREEN per RX) 1 each 1X ONCE MC ; Start 06/28/18 at 08:30; Stop 06/28/18 at 08:31; Status UNV Influenza Virus Vaccine (Afluria Trivalent [id number] Syringe) 0.5 ml ONCE ONCE VAX IM ; Start 06/28/18 at 16:00; Stop 06/28/18 at 16:01; Status DC Fentanyl Citrate (Fentanyl 2ml Vial) 50 mcg PRN Q2HR PRN IV PAIN; Start at 09:30; Stop 06/28/18 at 09:36; Status DC Acetaminophen (Tylenol Supp) 650 mg PRN Q6HRS PRN RC FEVER > 102; Start at 09:30 Amiodarone HCl (Cordarone) 200 mg DAILY PO Last administered on 07/04/18 08:26 ; Start 06/28/18 at 10:00 Carvedilol (Coreg) 6.25 mg DAILY08 PO Last administered on 06/30/18 10:38; Start 06/28/18 at 10:00; Stop 07/01/18 at 16:30; Status DC Famotidine (Pepcid) 20 mg QHS PO Last administered on 07/03/18 21:09; Start at 21:00 Furosemide (Lasix) 40 mg DAILY PO Last administered on 06/29/18 08:49; Start 06/28/18 at 10:00; Stop 06/29/18 at 16:34; Status DC Potassium Chloride (Klor-Con) 10 meq DAILY PO Last administered on 07/04/18 08 :26; Start 06/28/18 at 10:00 Trazodone HCl (Desyrel) 50 mg HS PO Last administered on 07/03/18 21:09; Start 06/28/18 at 21:00 Triamcinolone Acetonide (Kenalog) 1 harika PRN BID PRN TP ITCHING Last administered on 07/01/18 11:20; Start 06/28/18 at 21:00 Donepezil HCl (Aricept) 10 mg DAILY PO Last administered on 07/04/18 08:24; Start 06/28/18 at 10:00 Memantine (Namenda) 10 mg DAILY PO Last administered on 07/04/18 08:25; Start 06/28/18 at 10:00 Meloxicam (Mobic) 15 mg DAILY PO Last administered on 07/03/18 09:52; Start at 10:00; Stop 07/03/18 at 12:43; Status DC Propafenone HCl (Rythmol) 150 mg DAILY PO Last administered on 06/30/18 10:37 ; Start 06/28/18 at 10:00; Stop 06/30/18 at 14:04; Status DC Sertraline HCl (Zoloft) 100 mg DAILY PO Last administered on 07/04/18 08:25; Start 06/28/18 at 10:00 Simvastatin (Zocor) 20 mg HS PO Last administered on 07/03/18 21:09; Start at 21:00 Ropivacaine 53.3 ml/Epinephrine HCl 0.6 mg/ Morphine Sulfate 5 mg/Sodium Chloride 100 ml @ 100 mls/hr 1X ONCE INT ART Last administered on 06/29/18at 17:41; Start 06/29/18 at 06:00; Stop 06/29/18 at 06:59; Status DC Cefazolin Sodium/ Dextrose 50 ml @ 100 mls/hr 1X PREOP PRN IV SEE COMMENTS Last administered on 06/29/18at 16:55; Start 06/29/18 at 16:00; Stop 06/30/18 at 15:29; Status DC Fentanyl Citrate (Fentanyl 2ml Vial) 50 mcg PRN Q2HR PRN IV PAIN, 1ST CHOICE Last administered on 06/28/18at 18:03; Start 06/28/18 at 12:00 Fentanyl Citrate (Fentanyl 2ml Vial) 25 mcg PRN Q5MIN PRN IV MILD PAIN; Start 06/29/18 at 13:00; Stop 06/30/18 at 12:59; Status DC Fentanyl Citrate (Fentanyl 2ml Vial) 50 mcg PRN Q5MIN PRN IV MODERATE TO SEVERE PAIN; Start 06/29/18 at 13:00; Stop 06/30/18 at 12:59; Status DC Morphine Sulfate (Morphine Sulfate) 1 mg PRN Q10MIN PRN IV SEVERE PAIN; Start 06/29/18 at 13:00; Stop 06/30/18 at 12:59; Status DC Ringer's Solution 1,000 ml @ 30 mls/hr Q24H IV ; Start 06/29/18 at 12:55; Stop 06/30/18 at 00:54; Status DC Lidocaine HCl (Xylocaine-Mpf 1% 2ml Vial) 2 ml PRN 1X PRN ID PRIOR TO IV START ; Start 06/29/18 at 13:00; Stop 06/30/18 at 12:59; Status DC Hydromorphone HCl (Dilaudid) 0.5 mg PRN Q10MIN PRN IV SEV PAIN, Second choice; Start 06/29/18 at 13:00; Stop 06/30/18 at 12:59; Status DC Prochlorperazine Edisylate (Compazine) 5 mg PACU PRN PRN IV NAUSEA, MRX1; Start 06/29/18 at 13:00; Stop 06/30/18 at 12:59; Status DC Phenylephrine HCl (PHENYLEPHRINE in 0.9% NACL PF) 1 mg STK-MED ONCE IV ; Start 06/29/18 at 14:41; Stop 06/29/18 at 14:43; Status DC Ephedrine Sulfate (ePHEDrine PF IN SALINE SYRINGE) 50 mg STK-MED ONCE IV ; Start 06/29/18 at 14:41; Stop 06/29/18 at 14:43; Status DC Lidocaine HCl (Lidocaine Pf 2% Vial) 5 ml STK-MED ONCE .ROUTE ; Start 06/29/18 at 14:41; Stop 06/29/18 at 14:43; Status DC Propofol 20 ml @ As Directed STK-MED ONCE IV ; Start 06/29/18 at 14:41; Stop at 14:43; Status DC Aspirin (Ecotrin) 81 mg [id number] PO Last administered on 07/04/18at 08:26; Start 06/30/18 at 08:00 Sodium Chloride 1,000 ml @ 50 mls/hr 1X ONCE IV Last administered on at 16:30; Start 07/01/18 at 16:30; Stop 07/02/18 at 12:29; Status DC Metoprolol Succinate (Toprol Xl) 25 mg DAILY PO Last administered on 07/04/18at 08:25; Start 07/02/18 at 09:00; Stop 07/04/18 at 10:08; Status DC Sodium Chloride 1,000 ml @ 100 mls/hr Q10H IV Last administered on 07/02/18at 14:11; Start 07/02/18 at 02:00; Stop 07/02/18 at 21:57; Status DC Furosemide (Lasix) 20 mg 1X ONCE IVP Last administered on 07/02/18at 12:18; Start 07/02/18 at 11:30; Stop 07/02/18 at 11:31; Status DC Albuterol/ Ipratropium (Duoneb) 3 ml 1X ONCE NEB Last administered on at 21:30; Start 07/02/18 at 21:30; Stop 07/02/18 at 21:31; Status DC Albuterol/ Ipratropium (Duoneb) 3 ml Q4HRS NEB Last administered on 07/04/18at 11:36; Start 07/03/18 at 00:00 Furosemide (Lasix) 40 mg 1X ONCE IVP Last administered on 07/02/18at 21:53; Start 07/02/18 at 22:00; Stop 07/02/18 at 22:01; Status DC Furosemide (Lasix) 20 mg 1X ONCE IVP Last administered on 07/03/18at 09:59; Start 07/03/18 at 09:30; Stop 07/03/18 at 09:31; Status DC Digoxin (Lanoxin) 250 mcg 1X ONCE IV Last administered on 07/03/18at 13:02; Start 07/03/18 at 12:45; Stop 07/03/18 at 12:46; Status DC Furosemide (Lasix) 40 mg DAILY PO Last administered on 07/04/18at 08:26; Start 07/04/18 at 09:00 Digoxin (Lanoxin) 250 mcg 1X ONCE IV Last administered on 07/03/18at 18:00; Start 07/03/18 at 18:00; Stop 07/03/18 at 18:01; Status DC Amiodarone HCl 150 mg/Dextrose 103 ml @ 618 mls/hr 1X ONCE IV Last administered on 07/03/18at 18:30; Start 07/03/18 at 18:30; Stop 07/03/18 at 18:39 ; Status DC Metoprolol Succinate (Toprol Xl) 50 mg DAILY PO ; Start 07/05/18 at 09:00 Metoprolol Succinate (Toprol Xl) 25 mg 1X ONCE PO ; Start 07/04/18 at 10:15; Stop 07/04/18 at 10:16; Status DC Active Scripts Active Amiodarone Hcl 200 Mg Tablet 200 Mg PO DAILY 30 Days Reported Meloxicam 7.5 Mg Tablet 1 Tab PO DAILY Propafenone Hcl 150 Mg Tablet 1 Tab PO DAILY Memantine HCl 10 Mg Tablet 1 Tab PO DAILY Trazodone Hcl 50 Mg Tablet 1 Tab PO HS Sertraline Hcl 100 Mg Tablet 1 Tab PO DAILY Donepezil Hcl 10 Mg Tablet 1 Tab PO DAILY Carvedilol 6.25 Mg Tablet 1 Tab PO DAILY Potassium Chloride 10 Meq Capsule.er 10 Meq PO DAILY Lasix (Furosemide) 40 Mg Tablet 40 Mg PO DAILY Acetaminophen Supp (Acetaminophen) 650 Mg Supp.rect 650 Mg RC Q6HRS PRN Triamcinolone Acetonide 0.1% Oint (Triamcinolone Acetonide) 15 Gm Oint...g. 1 Harika TP BID MIX WITH EUCERIN DIRECTED BY PHYSICIAN Simvastatin 20 Mg Tablet 1 Tab PO QHS Nabumetone 750 Mg Tablet 1 Tab PO BID Famotidine 20 Mg Tablet 1 Tab PO BID Vitals/I & O Vital Sign - Last 24 Hours 07/03/18 07/03/18 07/03/18 07/03/18 13:02 16:00 16:00 16:04 Temp 98.2 98.2 Pulse 125 120 Resp 18 B/P (MAP) 105/46 98/60 (73) Pulse Ox 97 94 O2 Delivery Room Air Room Air Room Air 07/03/18 07/03/18 07/03/18 07/03/18 17:00 18:00 18:00 18:30 Pulse 139 158 167 158 Resp 18 18 B/P (MAP) 87/54 (65) 87/54 78/50 (59) 87/54 Pulse Ox 97 97 O2 Delivery Room Air Room Air 07/03/18 07/03/18 07/03/18 07/03/18 18:46 20:00 20:12 21:00 Temp 98.7 98.7 Pulse 95 134 116 Resp 18 10 12 B/P (MAP) 90/45 (60) 92/57 (69) 98/59 (72) Pulse Ox 97 95 95 94 O2 Delivery Room Air Room Air Nasal Cannula Room Air O2 Flow Rate 3.0 07/03/18 07/03/18 07/03/18 07/04/18 22:00 23:00 23:39 00:00 Temp 98.6 98.6 Pulse 137 93 88 Resp 18 19 18 B/P (MAP) 98/53 (68) 84/48 (60) 95/47 (63) Pulse Ox 91 96 95 O2 Delivery Room Air Room Air Room Air Room Air 07/04/18 07/04/18 07/04/18 07/04/18 01:00 02:00 03:00 03:02 Pulse 93 118 94 Resp 17 20 16 B/P (MAP) 84/57 (66) 98/52 (67) 112/70 (84) Pulse Ox 97 96 100 96 O2 Delivery Room Air Room Air Room Air Room Air 1/07/04/18 07/04/18 07/04/18 04:00 05:00 07:00 08:00 Temp 97.9 98.1 97.9 98.1 Pulse 122 110 95 145 Resp 22 22 17 20 B/P (MAP) 97/56 (70) 107/59 (75) 106/56 (73) 114/67 (83) Pulse Ox 95 97 97 96 O2 Delivery Room Air Room Air Room Air Room Air 07/04/18 07/04/18 07/04/18 07/04/18 08:14 08:25 08:26 09:00 Pulse 112 106 99 Resp 21 B/P (MAP) 114/67 114/67 112/55 (74) Pulse Ox 98 97 O2 Delivery Room Air Room Air 07/04/18 07/04/18 07/04/18 07/04/18 10:00 10:51 11:00 11:38 Pulse 95 95 Resp 19 16 24 B/P (MAP) 106/59 (75) 95/54 (68) Pulse Ox 98 96 98 O2 Delivery Room Air Room Air Room Air Room Air Intake and Output 07/03/18 07/03/18 07/04/18 15:01 23:01 07:01 Intake Total 240 ml 840 ml 500 ml Output Total 900 ml 575 ml 250 ml Balance -660 ml 265 ml 250 ml Nutrition Consultation Dietary Evaluation: Recommendations by RD: Increase Calorie Intake, Protein supplementation Comments: REC Ensure pudding (all flavors) BID Expected Outcomes/Goals: PO intake to meet >75% est needs Malnutrition Findings: Body Fat Depletion (Non Severe: Mild Depletion Weight Status: Appropriate HAILEE LU MD Jul 04, 2018 12:33
[2018-07-04] MEDS: HEPARIN for SUB-Q USE 5,000 UNIT/ML VIAL. SQ SCH ×2 (13:30→21:55)
--- NOTE | 2018-07-04 17:00 | NUR ---
patient brought to room by harriet colby per wheelchair. patient two assist to bed. patient oriented to room and rn. bed alarm placed on patient. monitor applied to patient. will continue to monitor.
[2018-07-04] MEDS: traZODone 50 MG TABLET. PO SCH (21:50)
[2018-07-04] MEDS: SIMVASTATIN 20 MG TABLET PO SCH (21:50)
[2018-07-04] MEDS: FAMOTIDINE 20 MG TABLET. PO SCH (21:50)
[2018-07-05 02:55] VITALS: BP 126/68
[2018-07-05] MEDS: IPRATRPIUM/ALBUTEROL 0.5/2.5MG 3 ML NEBU. NEB SCH ×6 (04:09→23:47)
[2018-07-05 05:28] LABS: BASO % 0 % (0-3); EOS # 0.4 x10^3/uL (0.0-0.7); EOS % 8 % (0-3); HEMATOCRIT 21.8 % (39.0-53.0); HEMOGLOBIN 7.4 g/dL (13.0-17.5); LYMPH # 0.7 x10^3/uL (1.0-4.8); LYMPH % 13 % (24-48); MEAN CORPUSCULAR HEMOGLOBIN 30 pg (25-35); MEAN CORPUSCULAR HGB CONC 34 g/dL (31-37); MEAN CORPUSCULAR VOLUME 88 fL (79-100); MONO # 0.6 x10^3/uL (0.0-1.1); MONO % 11 % (0-9); NEUT # 3.3 x10^3uL (1.8-7.7); NEUT % 67 % (31-73); PLATELET COUNT 114 x10^3/uL (140-400); RED BLOOD COUNT 2.48 x10^6/uL (4.30-5.70); RED CELL DISTRIBUTION WIDTH 16.5 % (11.5-14.5); WHITE BLOOD COUNT 4.9 x10^3/uL (4.0-11.0)
[2018-07-05 05:55] LABS: CALCIUM 8.4 mg/dL (8.5-10.1); CREATININE 1.6 mg/dL (0.7-1.3); GFR 41.5
--- NOTE | 2018-07-05 05:57 | NUR ---
Upper L hip dressing saturated and pt complains of itching, although no longer evidence of his scratching at dressing, as was the case earlier in shift. Dressing changed with aseptic technique, chlorhexidine swabs, abd pad, 4x4 guaze, and medipore tape. One staple at group of four in middle thigh incision noted to be dislodged. Mostly serous, slightly sanguinous drainage noted on abd pad. Pt tolerated well.
[2018-07-05] MEDS: HEPARIN for SUB-Q USE 5,000 UNIT/ML VIAL. SQ SCH ×3 (06:25→22:22)
[2018-07-05] MEDS: traMADol 50 MG TABLET PO PRN ×2 (06:33→19:39)
--- NOTE | 2018-07-05 06:55 | PDOC ---
PULMONARY PROGRESS NOTES Subjective sob better, has occ cough, no sputum, no pain, in and out of afib, sr now Vitals Vital Signs Date Time Temp Pulse Resp B/P (MAP) Pulse Ox O2 Delivery O2 Flow Rate FiO2 07/05/18 06:33 20 93 Room Air 3.0 07/05/18 02:55 98.7 89 126/68 (87) 98.7 ROS: No Nausea General: Alert HEENT: Other (nc at perrl nose throat clear) Lungs: Crackles (bl mild crackles) Cardiovascular: S1, S2 Abdomen: Soft, Non-tender Neuro Exam: Alert Extremities: No Edema Skin: Warm Labs Laboratory Tests Test 07/04/18 04:00 07/05/18 04:45 White Blood Count 6.0 x10^3/uL (4.0-11.0) 4.9 x10^3/uL (4.0-11.0) Red Blood Count 2.62 x10^6/uL (4.30-5.70) 2.48 x10^6/uL (4.30-5.70) Hemoglobin 8.0 g/dL (13.0-17.5) 7.4 g/dL (13.0-17.5) Hematocrit 22.6 % (39.0-53.0) 21.8 % (39.0-53.0) Mean Corpuscular Volume 86 fL (79-100) 88 fL (79-100) Mean Corpuscular Hemoglobin 30 pg (25-35) 30 pg (25-35) Mean Corpuscular Hemoglobin Concent 35 g/dL (31-37) 34 g/dL (31-37) Red Cell Distribution Width 16.2 % (11.5-14.5) 16.5 % (11.5-14.5) Platelet Count 109 x10^3/uL (140-400) 114 x10^3/uL (140-400) Neutrophils (%) (Auto) 68 % (31-73) 67 % (31-73) Lymphocytes (%) (Auto) 17 % (24-48) 13 % (24-48) Monocytes (%) (Auto) 12 % (0-9) 11 % (0-9) Eosinophils (%) (Auto) 4 % (0-3) 8 % (0-3) Basophils (%) (Auto) 0 % (0-3) 0 % (0-3) Neutrophils # (Auto) 4.1 x10^3uL (1.8-7.7) 3.3 x10^3uL (1.8-7.7) Lymphocytes # (Auto) 1.0 x10^3/uL (1.0-4.8) 0.7 x10^3/uL (1.0-4.8) Monocytes # (Auto) 0.7 x10^3/uL (0.0-1.1) 0.6 x10^3/uL (0.0-1.1) Eosinophils # (Auto) 0.2 x10^3/uL (0.0-0.7) 0.4 x10^3/uL (0.0-0.7) Basophils # (Auto) 0.0 x10^3/uL (0.0-0.2) 0.0 x10^3/uL (0.0-0.2) Sodium Level 141 mmol/L (136-145) 138 mmol/L (136-145) Potassium Level 4.0 mmol/L (3.5-5.1) 4.0 mmol/L (3.5-5.1) Chloride Level 106 mmol/L (98-107) 103 mmol/L (98-107) Carbon Dioxide Level 27 mmol/L (21-32) 27 mmol/L (21-32) Anion Gap 8 (6-14) 8 (6-14) Blood Urea Nitrogen 43 mg/dL (8-26) 39 mg/dL (8-26) Creatinine 1.7 mg/dL (0.7-1.3) 1.6 mg/dL (0.7-1.3) Estimated GFR (Cockcroft-Gault) 38.7 41.5 Glucose Level 121 mg/dL (70-99) 111 mg/dL (70-99) Calcium Level 8.3 mg/dL (8.5-10.1) 8.4 mg/dL (8.5-10.1) Laboratory Tests Test 07/05/18 04:45 White Blood Count 4.9 x10^3/uL (4.0-11.0) Red Blood Count 2.48 x10^6/uL (4.30-5.70) Hemoglobin 7.4 g/dL (13.0-17.5) Hematocrit 21.8 % (39.0-53.0) Mean Corpuscular Volume 88 fL (79-100) Mean Corpuscular Hemoglobin 30 pg (25-35) Mean Corpuscular Hemoglobin Concent 34 g/dL (31-37) Red Cell Distribution Width 16.5 % (11.5-14.5) Platelet Count 114 x10^3/uL (140-400) Neutrophils (%) (Auto) 67 % (31-73) Lymphocytes (%) (Auto) 13 % (24-48) Monocytes (%) (Auto) 11 % (0-9) Eosinophils (%) (Auto) 8 % (0-3) Basophils (%) (Auto) 0 % (0-3) Neutrophils # (Auto) 3.3 x10^3uL (1.8-7.7) Lymphocytes # (Auto) 0.7 x10^3/uL (1.0-4.8) Monocytes # (Auto) 0.6 x10^3/uL (0.0-1.1) Eosinophils # (Auto) 0.4 x10^3/uL (0.0-0.7) Basophils # (Auto) 0.0 x10^3/uL (0.0-0.2) Sodium Level 138 mmol/L (136-145) Potassium Level 4.0 mmol/L (3.5-5.1) Chloride Level 103 mmol/L (98-107) Carbon Dioxide Level 27 mmol/L (21-32) Anion Gap 8 (6-14) Blood Urea Nitrogen 39 mg/dL (8-26) Creatinine 1.6 mg/dL (0.7-1.3) Estimated GFR (Cockcroft-Gault) 41.5 Glucose Level 111 mg/dL (70-99) Calcium Level 8.4 mg/dL (8.5-10.1) Medications Active Scripts Medications Dose Route/Sig Max Daily Dose Days Date Category Dose Instructions Meloxicam 7.5 Mg Tablet 1 Tab PO DAILY 06/28/18 Reported Propafenone Hcl 150 Mg Tablet 1 Tab PO DAILY 06/28/18 Reported Memantine HCl 10 Mg Tablet 1 Tab PO DAILY 06/28/18 Reported Trazodone Hcl 50 Mg Tablet 1 Tab PO HS 06/28/18 Reported Sertraline Hcl 100 Mg Tablet 1 Tab PO DAILY 06/28/18 Reported Donepezil Hcl 10 Mg Tablet 1 Tab PO DAILY 06/28/18 Reported Carvedilol 6.25 Mg Tablet 1 Tab PO DAILY 06/28/18 Reported Amiodarone Hcl 200 Mg Tablet 200 Mg PO DAILY 30 08/01/17 Rx Potassium Chloride 10 Meq Capsule.er 10 Meq PO DAILY 07/22/16 Reported Lasix (Furosemide) 40 Mg Tablet 40 Mg PO DAILY 07/22/16 Reported Acetaminophen Supp (Acetaminophen) 650 Mg Supp.rect 650 Mg RC Q6HRS PRN 07/31/15 Reported Triamcinolone Acetonide 0.1% Oint (Triamcinolone Acetonide) 15 Gm Oint...g. 1 Harika TP BID 07/23/15 Reported MIX WITH EUCERIN DIRECTED BY PHYSICIAN Simvastatin 20 Mg Tablet 1 Tab PO QHS 07/23/15 Reported Nabumetone 750 Mg Tablet 1 Tab PO BID 07/23/15 Reported Famotidine 20 Mg Tablet 1 Tab PO BID 07/23/15 Reported Impression . IMPRESSION: 1. Acute respiratory failure. 2. Acute bilateral pulmonary infiltrates compatible with [id number] chf 3. Expected drop in hemoglobin, status post transfusion. 4. Qnrvq-jy-ptmthim kidney disease. 5. Tobacco dependence, in remission. 6. Chronic obstructive pulmonary disease. 7. Mild dementia. 8. Elevated troponin. 9. paf 10. s/p hip fx, nail Plan . PLAN: 1. 02 titration, BD 2. lasix, keep I<O, monitor k, cr. 3. Monitor labs. 4. Monitor hemoglobin and hematocrit. 5. Follow Cardiology input. 6. pepcid 7. PT/OT discussed w rn, pt JOHN JALLOH MD Jul 05, 2018 06:55
[2018-07-05 07:00] VITALS: BP 145/74
[2018-07-05] MEDS: SERTRALINE 50 MG TABLET. PO SCH (08:58)
[2018-07-05] MEDS: AMIODARONE HCL 200 MG TABLET. PO SCH (08:59)
[2018-07-05] MEDS: ASPIRIN ENTERIC COATED 81 MG TABLET.DR. PO SCH (08:59)
[2018-07-05] MEDS: MEMANTINE 10 MG TABLET. PO SCH (08:59)
[2018-07-05] MEDS: DONEPEZIL HCL 10 MG TABLET. PO SCH (08:59)
[2018-07-05] MEDS: POTASSIUM CHLORIDE 10 MEQ TABLET.ER. PO SCH (08:59)
[2018-07-05] MEDS: FUROSEMIDE 40 MG TABLET. PO SCH (08:59)
[2018-07-05] MEDS: ACETAMINOPHEN 500 MG TABLET PO SCH ×3 (09:00→19:51)
[2018-07-05] MEDS ORDERED: METOPROLOL SUCC 24HR ER 50 MG TAB.ER.24H. PO SCH (09:00)
[2018-07-05] MEDS: DOCUSATE SODIUM 100 MG CAPSULE. PO SCH ×2 (09:00→19:38)
[2018-07-05 11:00] VITALS: BP 116/52
--- NOTE | 2018-07-05 12:18 | PDOC ---
PROGRESS NOTES Chief Complaint Chief Complaint acute Acute traumatic comminuted intertrochanteric left femur fracture, traumatic, closed, s/p sx 06/29 Fall AT home rapid afib, 2/2 anemia likely acute sob with pulmonary edema post transfusion CK D 3 in the background of diuretic use Hyponatremia w/ diuretic use - improved A. fib, CAD, hypertension chronic stable Hx of severe systolic CHF Hx of cardiomyopathy: with EF as low as 15% in 2017 now at 55% dementia, poorly oriented, MODERATE AORTIC STENOSIS anemia post sx, got 3u PRBC plan: fu with card, on amiodarone increase metoprolol to 50mg po bid got 3 uPRBC transfusion lasix 40mg po daily on ASA 81mg , no AC. add dvt ppx with heparin labs tmr PTOT sw for rehab WBAT as per ortho, NSAIDS dced. consider dc to rehab tmr if stable. History of Present Illness History of Present Illness 07/02: transferred from 4th floor with [facility] last night. now back to sinus, HR 80s. got 3u PRBC totally, today hb 6.9. lasix 20mg x1. demented. 07/03: transfered to ICU last night for sob with acute pulmanory edema, cxr better with lasix 40mg iv x1, but cr slightly higher. hb stable after transfusion. 07/04: HR sinus and afib, liable. bp lower side. Cr 1.7. sob ok. on lasix po daily 40mg. hb 8 07/05: still mild tachycardia. otherwise feels ok. hb 7.4. Vitals Vitals Vital Signs Date Time Temp Pulse Resp B/P (MAP) Pulse Ox O2 Delivery O2 Flow Rate FiO2 07/05/18 11:52 98 Room Air 07/05/18 11:00 98.2 79 18 116/52 (73) 98.2 07/05/18 06:33 3.0 Physical Exam Physical Exam to person and place, aaox2 General: Alert, Cooperative, No acute distress Heart: Regular rate, Normal S1, Normal S2, No murmurs, Other (tele SR, 2/6 systolic murmur ) Lungs: Crackles (bl mild crackles) Abdomen: Normal bowel sounds, Soft, No tenderness Extremities: No cyanosis, Other (left hip pain, left thigh swollen ) Skin: No significant lesion Labs LABS Laboratory Tests Test 07/05/18 04:45 White Blood Count 4.9 x10^3/uL (4.0-11.0) Red Blood Count 2.48 x10^6/uL (4.30-5.70) Hemoglobin 7.4 g/dL (13.0-17.5) Hematocrit 21.8 % (39.0-53.0) Mean Corpuscular Volume 88 fL (79-100) Mean Corpuscular Hemoglobin 30 pg (25-35) Mean Corpuscular Hemoglobin Concent 34 g/dL (31-37) Red Cell Distribution Width 16.5 % (11.5-14.5) Platelet Count 114 x10^3/uL (140-400) Neutrophils (%) (Auto) 67 % (31-73) Lymphocytes (%) (Auto) 13 % (24-48) Monocytes (%) (Auto) 11 % (0-9) Eosinophils (%) (Auto) 8 % (0-3) Basophils (%) (Auto) 0 % (0-3) Neutrophils # (Auto) 3.3 x10^3uL (1.8-7.7) Lymphocytes # (Auto) 0.7 x10^3/uL (1.0-4.8) Monocytes # (Auto) 0.6 x10^3/uL (0.0-1.1) Eosinophils # (Auto) 0.4 x10^3/uL (0.0-0.7) Basophils # (Auto) 0.0 x10^3/uL (0.0-0.2) Sodium Level 138 mmol/L (136-145) Potassium Level 4.0 mmol/L (3.5-5.1) Chloride Level 103 mmol/L (98-107) Carbon Dioxide Level 27 mmol/L (21-32) Anion Gap 8 (6-14) Blood Urea Nitrogen 39 mg/dL (8-26) Creatinine 1.6 mg/dL (0.7-1.3) Estimated GFR (Cockcroft-Gault) 41.5 Glucose Level 111 mg/dL (70-99) Calcium Level 8.4 mg/dL (8.5-10.1) Assessment and Plan Assessmemt and Plan Problems Medical Problems: (1) Closed left hip fracture Status: Acute Comment Review of Relevant I have reviewed the following items idalmis (where applicable) has been applied. Labs Laboratory Tests Test 07/04/18 04:00 07/05/18 04:45 White Blood Count 6.0 x10^3/uL (4.0-11.0) 4.9 x10^3/uL (4.0-11.0) Red Blood Count 2.62 x10^6/uL (4.30-5.70) 2.48 x10^6/uL (4.30-5.70) Hemoglobin 8.0 g/dL (13.0-17.5) 7.4 g/dL (13.0-17.5) Hematocrit 22.6 % (39.0-53.0) 21.8 % (39.0-53.0) Mean Corpuscular Volume 86 fL (79-100) 88 fL (79-100) Mean Corpuscular Hemoglobin 30 pg (25-35) 30 pg (25-35) Mean Corpuscular Hemoglobin Concent 35 g/dL (31-37) 34 g/dL (31-37) Red Cell Distribution Width 16.2 % (11.5-14.5) 16.5 % (11.5-14.5) Platelet Count 109 x10^3/uL (140-400) 114 x10^3/uL (140-400) Neutrophils (%) (Auto) 68 % (31-73) 67 % (31-73) Lymphocytes (%) (Auto) 17 % (24-48) 13 % (24-48) Monocytes (%) (Auto) 12 % (0-9) 11 % (0-9) Eosinophils (%) (Auto) 4 % (0-3) 8 % (0-3) Basophils (%) (Auto) 0 % (0-3) 0 % (0-3) Neutrophils # (Auto) 4.1 x10^3uL (1.8-7.7) 3.3 x10^3uL (1.8-7.7) Lymphocytes # (Auto) 1.0 x10^3/uL (1.0-4.8) 0.7 x10^3/uL (1.0-4.8) Monocytes # (Auto) 0.7 x10^3/uL (0.0-1.1) 0.6 x10^3/uL (0.0-1.1) Eosinophils # (Auto) 0.2 x10^3/uL (0.0-0.7) 0.4 x10^3/uL (0.0-0.7) Basophils # (Auto) 0.0 x10^3/uL (0.0-0.2) 0.0 x10^3/uL (0.0-0.2) Sodium Level 141 mmol/L (136-145) 138 mmol/L (136-145) Potassium Level 4.0 mmol/L (3.5-5.1) 4.0 mmol/L (3.5-5.1) Chloride Level 106 mmol/L (98-107) 103 mmol/L (98-107) Carbon Dioxide Level 27 mmol/L (21-32) 27 mmol/L (21-32) Anion Gap 8 (6-14) 8 (6-14) Blood Urea Nitrogen 43 mg/dL (8-26) 39 mg/dL (8-26) Creatinine 1.7 mg/dL (0.7-1.3) 1.6 mg/dL (0.7-1.3) Estimated GFR (Cockcroft-Gault) 38.7 41.5 Glucose Level 121 mg/dL (70-99) 111 mg/dL (70-99) Calcium Level 8.3 mg/dL (8.5-10.1) 8.4 mg/dL (8.5-10.1) Laboratory Tests Test 07/05/18 04:45 White Blood Count 4.9 x10^3/uL (4.0-11.0) Red Blood Count 2.48 x10^6/uL (4.30-5.70) Hemoglobin 7.4 g/dL (13.0-17.5) Hematocrit 21.8 % (39.0-53.0) Mean Corpuscular Volume 88 fL (79-100) Mean Corpuscular Hemoglobin 30 pg (25-35) Mean Corpuscular Hemoglobin Concent 34 g/dL (31-37) Red Cell Distribution Width 16.5 % (11.5-14.5) Platelet Count 114 x10^3/uL (140-400) Neutrophils (%) (Auto) 67 % (31-73) Lymphocytes (%) (Auto) 13 % (24-48) Monocytes (%) (Auto) 11 % (0-9) Eosinophils (%) (Auto) 8 % (0-3) Basophils (%) (Auto) 0 % (0-3) Neutrophils # (Auto) 3.3 x10^3uL (1.8-7.7) Lymphocytes # (Auto) 0.7 x10^3/uL (1.0-4.8) Monocytes # (Auto) 0.6 x10^3/uL (0.0-1.1) Eosinophils # (Auto) 0.4 x10^3/uL (0.0-0.7) Basophils # (Auto) 0.0 x10^3/uL (0.0-0.2) Sodium Level 138 mmol/L (136-145) Potassium Level 4.0 mmol/L (3.5-5.1) Chloride Level 103 mmol/L (98-107) Carbon Dioxide Level 27 mmol/L (21-32) Anion Gap 8 (6-14) Blood Urea Nitrogen 39 mg/dL (8-26) Creatinine 1.6 mg/dL (0.7-1.3) Estimated GFR (Cockcroft-Gault) 41.5 Glucose Level 111 mg/dL (70-99) Calcium Level 8.4 mg/dL (8.5-10.1) Medications Current Medications Fentanyl Citrate (Fentanyl 2ml Vial) 25 mcg PRN Q15MIN PRN IV PAIN GREATER THAN 3/10 Last administered on 06/28/18at 05:03; Start 06/28/18 at 03:15; Stop at 03:14; Status DC Sodium Chloride 1,000 ml @ 100 mls/hr Q10H IV Last administered on 06/28/18at 03:36; Start 06/28/18 at 03:15; Stop 06/28/18 at 13:14; Status DC Ondansetron HCl (Zofran) 4 mg 1X ONCE IV Last administered on 06/28/18at 03:35 ; Start 06/28/18 at 03:15; Stop 06/28/18 at 03:26; Status DC Ondansetron HCl (Zofran) 4 mg PRN Q8HRS PRN IV NAUSEA/VOMITING; Start 06/28/18 at 04:30; Stop 06/29/18 at 04:29; Status DC Fentanyl Citrate (Fentanyl 2ml Vial) 50 mcg PRN Q1HR PRN IV PAIN Last administered on 06/28/18at 11:39; Start 06/28/18 at 04:30; Stop 06/28/18 at 11:50 ; Status DC Sodium Chloride 1,000 ml @ 75 mls/hr [id number] IV Last administered on at 18:03; Start 06/28/18 at 04:30; Stop 06/29/18 at 04:29; Status DC Morphine Sulfate (Morphine Sulfate) 2 mg PRN Q1HR PRN IV MODERATE PAIN; Start 06/28/18 at 08:15 Morphine Sulfate (Morphine Sulfate) 2 mg PRN Q1HR PRN IV PAIN; Start 06/28/18 at 08:15; Status UNV Fentanyl Citrate (Fentanyl 2ml Vial) 50 mcg PRN Q1HR PRN IV PAIN MOD TO SEV 1ST CHOICE; Start 06/28/18 at 08:15; Stop 06/28/18 at 11:55; Status DC Ondansetron HCl (Zofran) 4 mg PRN Q6HRS PRN IV NAUSEA/VOMITING; Start 06/28/18 at 08:15 Lorazepam (Ativan) 0.5 mg PRN Q4HRS PRN IV ANXIETY / AGITATION Last administered on 07/02/18at 20:45; Start 06/28/18 at 08:15 Info (Ortho Message -- Hold Meds) 1 ea CONT PRN PRN MC SEE COMMENTS; Start at 08:15; Stop 06/30/18 at 08:14; Status DC Tramadol HCl (Ultram) 50 mg PRN QID PRN PO PAIN MILD Last administered on at 06:33; Start 06/28/18 at 08:15 Oxycodone HCl (Roxicodone) 5 mg PRN Q4HRS PRN PO PAIN MOD TO SEV Last administered on 07/04/18at 10:51; Start 06/28/18 at 08:15 Fentanyl Citrate (Fentanyl 2ml Vial) 25 mcg PRN Q1HR PRN IV PAIN MILD 1ST CHOICE; Start 06/28/18 at 08:15; Stop 06/28/18 at 11:55; Status DC Acetaminophen (Tylenol) 1,000 mg TID PO Last administered on 07/05/18at 09:00; Start 06/28/18 at 09:00 Docusate Sodium (Colace) 100 mg BID PO Last administered on 07/05/18at 09:00; Start 06/28/18 at 09:00 Magnesium Hydroxide (Milk Of Magnesia) 2,400 mg PRN DAILY PRN PO CONSTIPATION; Start 06/28/18 at 08:15 Bisacodyl (Dulcolax Supp) 10 mg PRN DAILY PRN MI CONSTIPATION; Start 06/28/18 at 08:15 Zolpidem Tartrate (Ambien) 5 mg PRN QHS PRN PO INSOMNIA Last administered on at 21:09; Start 06/28/18 at 08:15 Sodium Chloride (Normal Saline Flush) 3 ml QSHIFT PRN IV AFTER MEDS AND BLOOD DRAWS; Start 06/28/18 at 08:15 Dextrose (Dextrose 50%-Water Syringe) 12.5 gm PRN Q15MIN PRN IV SEE COMMENTS; Start 06/28/18 at 08:15 Info (FLU VACCINE SCREEN per RX) 1 each 1X ONCE MC ; Start 06/28/18 at 08:30; Stop 06/28/18 at 08:31; Status UNV Influenza Virus Vaccine (Afluria Trivalent [id number] Syringe) 0.5 ml ONCE ONCE VAX IM ; Start 06/28/18 at 16:00; Stop 06/28/18 at 16:01; Status DC Fentanyl Citrate (Fentanyl 2ml Vial) 50 mcg PRN Q2HR PRN IV PAIN; Start at 09:30; Stop 06/28/18 at 09:36; Status DC Acetaminophen (Tylenol Supp) 650 mg PRN Q6HRS PRN RC FEVER > 102; Start at 09:30 Amiodarone HCl (Cordarone) 200 mg DAILY PO Last administered on 07/05/18at 08:59 ; Start 06/28/18 at 10:00 Carvedilol (Coreg) 6.25 mg DAILY08 PO Last administered on 06/30/18at 10:38; Start 06/28/18 at 10:00; Stop 07/01/18 at 16:30; Status DC Famotidine (Pepcid) 20 mg QHS PO Last administered on 07/04/18at 21:50; Start at 21:00 Furosemide (Lasix) 40 mg DAILY PO Last administered on 06/29/18 08:49; Start 06/28/18 at 10:00; Stop 06/29/18 at 16:34; Status DC Potassium Chloride (Klor-Con) 10 meq DAILY PO Last administered on 07/05/18 08 :59; Start 06/28/18 at 10:00 Trazodone HCl (Desyrel) 50 mg HS PO Last administered on 07/04/18at 21:50; Start 06/28/18 at 21:00 Triamcinolone Acetonide (Kenalog) 1 harika PRN BID PRN TP ITCHING Last administered on 07/01/18at 11:20; Start 06/28/18 at 21:00 Donepezil HCl (Aricept) 10 mg DAILY PO Last administered on 07/05/18 08:59; Start 06/28/18 at 10:00 Memantine (Namenda) 10 mg DAILY PO Last administered on 07/05/18 08:59; Start 06/28/18 at 10:00 Meloxicam (Mobic) 15 mg DAILY PO Last administered on 07/03/18at 09:52; Start at 10:00; Stop 07/03/18 at 12:43; Status DC Propafenone HCl (Rythmol) 150 mg DAILY PO Last administered on 06/30/18at 10:37 ; Start 06/28/18 at 10:00; Stop 06/30/18 at 14:04; Status DC Sertraline HCl (Zoloft) 100 mg DAILY PO Last administered on 07/05/18 08:58; Start 06/28/18 at 10:00 Simvastatin (Zocor) 20 mg HS PO Last administered on 07/04/18 21:50; Start at 21:00 Ropivacaine 53.3 ml/Epinephrine HCl 0.6 mg/ Morphine Sulfate 5 mg/Sodium Chloride 100 ml @ 100 mls/hr 1X ONCE INT ART Last administered on 06/29/18 17:41; Start 06/29/18 at 06:00; Stop 06/29/18 at 06:59; Status DC Cefazolin Sodium/ Dextrose 50 ml @ 100 mls/hr 1X PREOP PRN IV SEE COMMENTS Last administered on 06/29/18at 16:55; Start 06/29/18 at 16:00; Stop 06/30/18 at 15:29; Status DC Fentanyl Citrate (Fentanyl 2ml Vial) 50 mcg PRN Q2HR PRN IV SEVERE PAIN Last administered on 06/28/18at 18:03; Start 06/28/18 at 12:00 Fentanyl Citrate (Fentanyl 2ml Vial) 25 mcg PRN Q5MIN PRN IV MILD PAIN; Start 06/29/18 at 13:00; Stop 06/30/18 at 12:59; Status DC Fentanyl Citrate (Fentanyl 2ml Vial) 50 mcg PRN Q5MIN PRN IV MODERATE TO SEVERE PAIN; Start 06/29/18 at 13:00; Stop 06/30/18 at 12:59; Status DC Morphine Sulfate (Morphine Sulfate) 1 mg PRN Q10MIN PRN IV SEVERE PAIN; Start 06/29/18 at 13:00; Stop 06/30/18 at 12:59; Status DC Ringer's Solution 1,000 ml @ 30 mls/hr Q24H IV ; Start 06/29/18 at 12:55; Stop 06/30/18 at 00:54; Status DC Lidocaine HCl (Xylocaine-Mpf 1% 2ml Vial) 2 ml PRN 1X PRN ID PRIOR TO IV START ; Start 06/29/18 at 13:00; Stop 06/30/18 at 12:59; Status DC Hydromorphone HCl (Dilaudid) 0.5 mg PRN Q10MIN PRN IV SEV PAIN, Second choice; Start 06/29/18 at 13:00; Stop 06/30/18 at 12:59; Status DC Prochlorperazine Edisylate (Compazine) 5 mg PACU PRN PRN IV NAUSEA, MRX1; Start 06/29/18 at 13:00; Stop 06/30/18 at 12:59; Status DC Phenylephrine HCl (PHENYLEPHRINE in 0.9% NACL PF) 1 mg STK-MED ONCE IV ; Start 06/29/18 at 14:41; Stop 06/29/18 at 14:43; Status DC Ephedrine Sulfate (ePHEDrine PF IN SALINE SYRINGE) 50 mg STK-MED ONCE IV ; Start 06/29/18 at 14:41; Stop 06/29/18 at 14:43; Status DC Lidocaine HCl (Lidocaine Pf 2% Vial) 5 ml STK-MED ONCE .ROUTE ; Start 06/29/18 at 14:41; Stop 06/29/18 at 14:43; Status DC Propofol 20 ml @ As Directed STK-MED ONCE IV ; Start 06/29/18 at 14:41; Stop at 14:43; Status DC Aspirin (Ecotrin) 81 mg DAILYWBKFT PO Last administered on 07/05/18at 08:59; Start 06/30/18 at 08:00 Sodium Chloride 1,000 ml @ 50 mls/hr 1X ONCE IV Last administered on at 16:30; Start 07/01/18 at 16:30; Stop 07/02/18 at 12:29; Status DC Metoprolol Succinate (Toprol Xl) 25 mg DAILY PO Last administered on 07/04/18at 08:25; Start 07/02/18 at 09:00; Stop 07/04/18 at 10:08; Status DC Sodium Chloride 1,000 ml @ 100 mls/hr Q10H IV Last administered on 07/02/18at 14:11; Start 07/02/18 at 02:00; Stop 07/02/18 at 21:57; Status DC Furosemide (Lasix) 20 mg 1X ONCE IVP Last administered on 07/02/18at 12:18; Start 07/02/18 at 11:30; Stop 07/02/18 at 11:31; Status DC Albuterol/ Ipratropium (Duoneb) 3 ml 1X ONCE NEB Last administered on at 21:30; Start 07/02/18 at 21:30; Stop 07/02/18 at 21:31; Status DC Albuterol/ Ipratropium (Duoneb) 3 ml Q4HRS NEB Last administered on 07/05/18at 11:52; Start 07/03/18 at 00:00 Furosemide (Lasix) 40 mg 1X ONCE IVP Last administered on 07/02/18at 21:53; Start 07/02/18 at 22:00; Stop 07/02/18 at 22:01; Status DC Furosemide (Lasix) 20 mg 1X ONCE IVP Last administered on 07/03/18at 09:59; Start 07/03/18 at 09:30; Stop 07/03/18 at 09:31; Status DC Digoxin (Lanoxin) 250 mcg 1X ONCE IV Last administered on 07/03/18at 13:02; Start 07/03/18 at 12:45; Stop 07/03/18 at 12:46; Status DC Furosemide (Lasix) 40 mg DAILY PO Last administered on 07/05/18at 08:59; Start 07/04/18 at 09:00 Digoxin (Lanoxin) 250 mcg 1X ONCE IV Last administered on 07/03/18at 18:00; Start 07/03/18 at 18:00; Stop 07/03/18 at 18:01; Status DC Amiodarone HCl 150 mg/Dextrose 103 ml @ 618 mls/hr 1X ONCE IV Last administered on 07/03/18at 18:30; Start 07/03/18 at 18:30; Stop 07/03/18 at 18:39 ; Status DC Metoprolol Succinate (Toprol Xl) 50 mg DAILY PO Last administered on 07/05/18at 08:59; Start 07/05/18 at 09:00; Stop 07/05/18 at 09:42; Status DC Metoprolol Succinate (Toprol Xl) 25 mg 1X ONCE PO Last administered on at 13:29; Start 07/04/18 at 10:15; Stop 07/04/18 at 10:16; Status DC Heparin Sodium (Porcine) (Heparin Sodium) 5,000 unit Q8HRS SQ Last administered on 07/05/18at 06:25; Start 07/04/18 at 14:00 Metoprolol Tartrate (Lopressor) 50 mg BID PO ; Start 07/05/18 at 21:00 Active Scripts Active Amiodarone Hcl 200 Mg Tablet 200 Mg PO DAILY 30 Days Reported Meloxicam 7.5 Mg Tablet 1 Tab PO DAILY Propafenone Hcl 150 Mg Tablet 1 Tab PO DAILY Memantine HCl 10 Mg Tablet 1 Tab PO DAILY Trazodone Hcl 50 Mg Tablet 1 Tab PO HS Sertraline Hcl 100 Mg Tablet 1 Tab PO DAILY Donepezil Hcl 10 Mg Tablet 1 Tab PO DAILY Carvedilol 6.25 Mg Tablet 1 Tab PO DAILY Potassium Chloride 10 Meq Capsule.er 10 Meq PO DAILY Lasix (Furosemide) 40 Mg Tablet 40 Mg PO DAILY Acetaminophen Supp (Acetaminophen) 650 Mg Supp.rect 650 Mg RC Q6HRS PRN Triamcinolone Acetonide 0.1% Oint (Triamcinolone Acetonide) 15 Gm Oint...g. 1 Harika TP BID MIX WITH EUCERIN DIRECTED BY PHYSICIAN Simvastatin 20 Mg Tablet 1 Tab PO QHS Nabumetone 750 Mg Tablet 1 Tab PO BID Famotidine 20 Mg Tablet 1 Tab PO BID Vitals/I & O Vital Sign - Last 24 Hours 07/04/18 07/04/18 07/04/18 07/04/18 13:00 13:29 15:31 16:00 Temp 98.2 98.2 Pulse 98 103 93 Resp 18 20 B/P (MAP) 115/68 (84) 122/69 114/69 (84) Pulse Ox 92 95 96 O2 Delivery Room Air Room Air Room Air 07/04/18 07/04/18 07/04/18 07/04/18 19:19 19:52 22:25 23:14 Temp 98.1 98.2 98.1 98.2 Pulse 94 98 Resp 16 16 B/P (MAP) 114/58 (76) 129/52 (77) Pulse Ox 92 97 95 95 O2 Delivery Room Air Room Air Room Air Room Air 07/05/18 07/05/18 07/05/18 07/05/18 02:55 04:10 06:33 07:00 Temp 98.7 98.2 98.7 98.2 Pulse 89 90 Resp 18 20 18 B/P (MAP) 126/68 (87) 145/74 (97) Pulse Ox 93 93 94 O2 Delivery Room Air Room Air Room Air Room Air O2 Flow Rate 3.0 07/05/18 07/05/18 07/05/18 07/05/18 07:30 07:50 08:00 08:59 Pulse 90 Resp 18 B/P (MAP) 145/74 Pulse Ox 94 94 O2 Delivery Room Air Room Air Room Air 07/05/18 07/05/18 07/05/18 08:59 11:00 11:52 Temp 98.2 98.2 Pulse 90 79 Resp 18 B/P (MAP) 145/74 116/52 (73) Pulse Ox 94 98 O2 Delivery Room Air Room Air Intake and Output 07/04/18 07/04/18 07/05/18 15:01 23:01 07:01 Intake Total 1200 ml 600 ml 500 ml Output Total 250 ml 650 ml 325 ml Balance 950 ml -50 ml 175 ml Nutrition Consultation Dietary Evaluation: Recommendations by RD: Increase Calorie Intake, Protein supplementation Comments: REC Ensure pudding (all flavors) BID Expected Outcomes/Goals: PO intake to meet >75% est needs Malnutrition Findings: Body Fat Depletion (Non Severe: Mild Depletion Weight Status: Appropriate HAILEE LU MD Jul 05, 2018 12:18
[2018-07-05 15:00] VITALS: BP 129/64
[2018-07-05 19:13] VITALS: BP 117/51
[2018-07-05] MEDS: SIMVASTATIN 20 MG TABLET PO SCH (19:38)
[2018-07-05] MEDS: FAMOTIDINE 20 MG TABLET. PO SCH (19:39)
[2018-07-05] MEDS: traZODone 50 MG TABLET. PO SCH (19:39)
[2018-07-05] MEDS: ZOLPIDEM 5 MG TABLET. PO PRN (19:39)
[2018-07-05] MEDS: METOPROLOL TART IMMED RELEASE 50 MG TABLET. PO SCH (19:51)
[2018-07-05 22:50] VITALS: BP 127/56
[2018-07-06 03:57] VITALS: BP 135/57
[2018-07-06] MEDS: IPRATRPIUM/ALBUTEROL 0.5/2.5MG 3 ML NEBU. NEB SCH ×6 (03:57→23:59)
[2018-07-06 04:18] LABS: BASO % 0 % (0-3); EOS # 0.4 x10^3/uL (0.0-0.7); EOS % 9 % (0-3); HEMATOCRIT 22.5 % (39.0-53.0); HEMOGLOBIN 7.7 g/dL (13.0-17.5); LYMPH # 0.5 x10^3/uL (1.0-4.8); LYMPH % 13 % (24-48); MEAN CORPUSCULAR HEMOGLOBIN 30 pg (25-35); MEAN CORPUSCULAR HGB CONC 34 g/dL (31-37); MEAN CORPUSCULAR VOLUME 88 fL (79-100); MONO # 0.5 x10^3/uL (0.0-1.1); MONO % 13 % (0-9); NEUT # 2.6 x10^3uL (1.8-7.7); NEUT % 65 % (31-73); PLATELET COUNT 122 x10^3/uL (140-400); RED BLOOD COUNT 2.56 x10^6/uL (4.30-5.70); RED CELL DISTRIBUTION WIDTH 16.2 % (11.5-14.5)
[2018-07-06 04:42] LABS: CALCIUM 8.5 mg/dL (8.5-10.1); CREATININE 1.5 mg/dL (0.7-1.3); GFR 44.7; POTASSIUM 4.4 mmol/L (3.5-5.1)
[2018-07-06] MEDS: HEPARIN for SUB-Q USE 5,000 UNIT/ML VIAL. SQ SCH ×3 (05:01→19:37)
[2018-07-06 07:00] VITALS: BP 145/67
--- NOTE | 2018-07-06 09:46 | PDOC ---
CARDIO Progress Notes Date and Time Date of Service 07/06/18 Time of Evaluation 0940 Subjective Subjective: No Chest Pain, No shortness of breath, No Palpitations Vitals Vitals Vital Signs Date Time Temp Pulse Resp B/P (MAP) Pulse Ox O2 Delivery O2 Flow Rate FiO2 07/06/18 07:29 96 Room Air 07/06/18 07:00 98.6 79 16 145/67 (93) 98.6 07/05/18 20:39 3.0 Weight Weight [ ] Input and Output Intake and Output Intake and Output 07/06/18 07:01 Intake Total 420 ml Output Total 3075 ml Balance -2655 ml Intake Oral 420 ml Output Urine Total 3075 ml # Bowel Movements 1 Laboratory Labs Laboratory Tests Test 07/06/18 03:30 White Blood Count 4.0 x10^3/uL (4.0-11.0) Red Blood Count 2.56 x10^6/uL (4.30-5.70) Hemoglobin 7.7 g/dL (13.0-17.5) Hematocrit 22.5 % (39.0-53.0) Mean Corpuscular Volume 88 fL (79-100) Mean Corpuscular Hemoglobin 30 pg (25-35) Mean Corpuscular Hemoglobin Concent 34 g/dL (31-37) Red Cell Distribution Width 16.2 % (11.5-14.5) Platelet Count 122 x10^3/uL (140-400) Neutrophils (%) (Auto) 65 % (31-73) Lymphocytes (%) (Auto) 13 % (24-48) Monocytes (%) (Auto) 13 % (0-9) Eosinophils (%) (Auto) 9 % (0-3) Basophils (%) (Auto) 0 % (0-3) Neutrophils # (Auto) 2.6 x10^3uL (1.8-7.7) Lymphocytes # (Auto) 0.5 x10^3/uL (1.0-4.8) Monocytes # (Auto) 0.5 x10^3/uL (0.0-1.1) Eosinophils # (Auto) 0.4 x10^3/uL (0.0-0.7) Basophils # (Auto) 0.0 x10^3/uL (0.0-0.2) Sodium Level 139 mmol/L (136-145) Potassium Level 4.4 mmol/L (3.5-5.1) Chloride Level 104 mmol/L (98-107) Carbon Dioxide Level 29 mmol/L (21-32) Anion Gap 6 (6-14) Blood Urea Nitrogen 35 mg/dL (8-26) Creatinine 1.5 mg/dL (0.7-1.3) Estimated GFR (Cockcroft-Gault) 44.7 Glucose Level 100 mg/dL (70-99) Calcium Level 8.5 mg/dL (8.5-10.1) Physical Exam HEENT: Neck Supple W Full Motion Chest: Symmetric LUNGS: Other (diminished bases) Heart: S1S2, RRR (SR), murmurs (systolic murmur to AZUCENA 3/6 ) Abdomen: Soft N/T Extremities: No Edema, No Calf Tenderness Neurology: alert, follow commands, confused Assessment Assessment 1. Left femur fracture; S/P ORIF 2. CAD; clinically stable. EF and WM nml 3. PAFIB; Rate better controlled with increase to Toprol. Now SR. Amiodarone, BB. ASA for stroke prevention 4. Diastolic/systolic CHF; compensated 5. Hypertension; controlled 6. Hyperlipidemia 7. WAYLON on CKD; improved 8. Postoperative anemia: s/p transfusion Recommendations Amiodarone, BB for rate/rhythm control ASA for stroke prevention Okay to transfer to rehab from a CV standpoint F/u in our office with Dr. Robb in 4 weeks. NOE AJ APRN Jul 06, 2018 09:46
[2018-07-06] MEDS: ACETAMINOPHEN 500 MG TABLET PO SCH ×3 (09:47→19:25)
[2018-07-06] MEDS: ASPIRIN ENTERIC COATED 81 MG TABLET.DR. PO SCH (09:48)
[2018-07-06] MEDS: METOPROLOL TART IMMED RELEASE 50 MG TABLET. PO SCH ×2 (09:48→19:25)
[2018-07-06] MEDS: AMIODARONE HCL 200 MG TABLET. PO SCH (09:49)
[2018-07-06] MEDS: DONEPEZIL HCL 10 MG TABLET. PO SCH (09:49)
[2018-07-06] MEDS: FUROSEMIDE 40 MG TABLET. PO SCH (09:49)
[2018-07-06] MEDS: SERTRALINE 50 MG TABLET. PO SCH (09:49)
[2018-07-06] MEDS: MEMANTINE 10 MG TABLET. PO SCH (09:50)
[2018-07-06] MEDS: POTASSIUM CHLORIDE 10 MEQ TABLET.ER. PO SCH (09:50)
[2018-07-06] MEDS: DOCUSATE SODIUM 100 MG CAPSULE. PO SCH ×2 (09:50→19:24)
[2018-07-06 11:06] VITALS: BP 125/53
--- NOTE | 2018-07-06 11:35 | NUR ---
SW following for discharge planning. Discussed with RN, RN awaiting doctor to advise of potential discharge timeline. SW faxed updates to [facility]. SW will continue to follow.
--- NOTE | 2018-07-06 12:55 | PDOC ---
PULMONARY PROGRESS NOTES Subjective sob better, has occ cough, no sputum, no pain, in and out of afib, sr now Vitals Vital Signs Date Time Temp Pulse Resp B/P (MAP) Pulse Ox O2 Delivery O2 Flow Rate FiO2 07/06/18 12:04 95 Room Air 07/06/18 11:06 97.6 79 16 125/53 (77) 97.6 07/05/18 20:39 3.0 ROS: No Nausea General: Alert HEENT: Other (nc at perrl nose throat clear) Lungs: Clear Cardiovascular: S1, S2 Abdomen: Soft, Non-tender Neuro Exam: Alert Extremities: No Edema Skin: Warm Labs Laboratory Tests Test 07/05/18 04:45 07/06/18 03:30 White Blood Count 4.9 x10^3/uL (4.0-11.0) 4.0 x10^3/uL (4.0-11.0) Red Blood Count 2.48 x10^6/uL (4.30-5.70) 2.56 x10^6/uL (4.30-5.70) Hemoglobin 7.4 g/dL (13.0-17.5) 7.7 g/dL (13.0-17.5) Hematocrit 21.8 % (39.0-53.0) 22.5 % (39.0-53.0) Mean Corpuscular Volume 88 fL (79-100) 88 fL (79-100) Mean Corpuscular Hemoglobin 30 pg (25-35) 30 pg (25-35) Mean Corpuscular Hemoglobin Concent 34 g/dL (31-37) 34 g/dL (31-37) Red Cell Distribution Width 16.5 % (11.5-14.5) 16.2 % (11.5-14.5) Platelet Count 114 x10^3/uL (140-400) 122 x10^3/uL (140-400) Neutrophils (%) (Auto) 67 % (31-73) 65 % (31-73) Lymphocytes (%) (Auto) 13 % (24-48) 13 % (24-48) Monocytes (%) (Auto) 11 % (0-9) 13 % (0-9) Eosinophils (%) (Auto) 8 % (0-3) 9 % (0-3) Basophils (%) (Auto) 0 % (0-3) 0 % (0-3) Neutrophils # (Auto) 3.3 x10^3uL (1.8-7.7) 2.6 x10^3uL (1.8-7.7) Lymphocytes # (Auto) 0.7 x10^3/uL (1.0-4.8) 0.5 x10^3/uL (1.0-4.8) Monocytes # (Auto) 0.6 x10^3/uL (0.0-1.1) 0.5 x10^3/uL (0.0-1.1) Eosinophils # (Auto) 0.4 x10^3/uL (0.0-0.7) 0.4 x10^3/uL (0.0-0.7) Basophils # (Auto) 0.0 x10^3/uL (0.0-0.2) 0.0 x10^3/uL (0.0-0.2) Sodium Level 138 mmol/L (136-145) 139 mmol/L (136-145) Potassium Level 4.0 mmol/L (3.5-5.1) 4.4 mmol/L (3.5-5.1) Chloride Level 103 mmol/L (98-107) 104 mmol/L (98-107) Carbon Dioxide Level 27 mmol/L (21-32) 29 mmol/L (21-32) Anion Gap 8 (6-14) 6 (6-14) Blood Urea Nitrogen 39 mg/dL (8-26) 35 mg/dL (8-26) Creatinine 1.6 mg/dL (0.7-1.3) 1.5 mg/dL (0.7-1.3) Estimated GFR (Cockcroft-Gault) 41.5 44.7 Glucose Level 111 mg/dL (70-99) 100 mg/dL (70-99) Calcium Level 8.4 mg/dL (8.5-10.1) 8.5 mg/dL (8.5-10.1) Laboratory Tests Test 07/06/18 03:30 White Blood Count 4.0 x10^3/uL (4.0-11.0) Red Blood Count 2.56 x10^6/uL (4.30-5.70) Hemoglobin 7.7 g/dL (13.0-17.5) Hematocrit 22.5 % (39.0-53.0) Mean Corpuscular Volume 88 fL (79-100) Mean Corpuscular Hemoglobin 30 pg (25-35) Mean Corpuscular Hemoglobin Concent 34 g/dL (31-37) Red Cell Distribution Width 16.2 % (11.5-14.5) Platelet Count 122 x10^3/uL (140-400) Neutrophils (%) (Auto) 65 % (31-73) Lymphocytes (%) (Auto) 13 % (24-48) Monocytes (%) (Auto) 13 % (0-9) Eosinophils (%) (Auto) 9 % (0-3) Basophils (%) (Auto) 0 % (0-3) Neutrophils # (Auto) 2.6 x10^3uL (1.8-7.7) Lymphocytes # (Auto) 0.5 x10^3/uL (1.0-4.8) Monocytes # (Auto) 0.5 x10^3/uL (0.0-1.1) Eosinophils # (Auto) 0.4 x10^3/uL (0.0-0.7) Basophils # (Auto) 0.0 x10^3/uL (0.0-0.2) Sodium Level 139 mmol/L (136-145) Potassium Level 4.4 mmol/L (3.5-5.1) Chloride Level 104 mmol/L (98-107) Carbon Dioxide Level 29 mmol/L (21-32) Anion Gap 6 (6-14) Blood Urea Nitrogen 35 mg/dL (8-26) Creatinine 1.5 mg/dL (0.7-1.3) Estimated GFR (Cockcroft-Gault) 44.7 Glucose Level 100 mg/dL (70-99) Calcium Level 8.5 mg/dL (8.5-10.1) Medications Active Scripts Medications Dose Route/Sig Max Daily Dose Days Date Category Dose Instructions Meloxicam 7.5 Mg Tablet 1 Tab PO DAILY 06/28/18 Reported Propafenone Hcl 150 Mg Tablet 1 Tab PO DAILY 06/28/18 Reported Memantine HCl 10 Mg Tablet 1 Tab PO DAILY 06/28/18 Reported Trazodone Hcl 50 Mg Tablet 1 Tab PO HS 06/28/18 Reported Sertraline Hcl 100 Mg Tablet 1 Tab PO DAILY 06/28/18 Reported Donepezil Hcl 10 Mg Tablet 1 Tab PO DAILY 06/28/18 Reported Carvedilol 6.25 Mg Tablet 1 Tab PO DAILY 06/28/18 Reported Amiodarone Hcl 200 Mg Tablet 200 Mg PO DAILY 30 08/01/17 Rx Potassium Chloride 10 Meq Capsule.er 10 Meq PO DAILY 07/22/16 Reported Lasix (Furosemide) 40 Mg Tablet 40 Mg PO DAILY 07/22/16 Reported Acetaminophen Supp (Acetaminophen) 650 Mg Supp.rect 650 Mg RC Q6HRS PRN 07/31/15 Reported Triamcinolone Acetonide 0.1% Oint (Triamcinolone Acetonide) 15 Gm Oint...g. 1 Harika TP BID 07/23/15 Reported MIX WITH EUCERIN DIRECTED BY PHYSICIAN Simvastatin 20 Mg Tablet 1 Tab PO QHS 07/23/15 Reported Nabumetone 750 Mg Tablet 1 Tab PO BID 07/23/15 Reported Famotidine 20 Mg Tablet 1 Tab PO BID 07/23/15 Reported Impression . IMPRESSION: 1. Acute respiratory failure. 2. Acute bilateral pulmonary infiltrates compatible with [id number] chf 3. Expected drop in hemoglobin, status post transfusion. 4. Nbmol-sr-elnrhmb kidney disease. 5. Tobacco dependence, in remission. 6. Chronic obstructive pulmonary disease. 7. Mild dementia. 8. Elevated troponin. 9. paf 10. s/p hip fx, nail Plan . PLAN: 1. 02 titration, BD 2. lasix, keep I<O, monitor k, cr. 3. Monitor labs. 4. Monitor hemoglobin and hematocrit. 5. Follow Cardiology input. 6. repeat cxr today 7. PT/OT discussed w rn, pt FABBY STOUT MD Jul 06, 2018 12:55
--- NOTE | 2018-07-06 13:38 | PDOC ---
PROGRESS NOTES Chief Complaint Chief Complaint acute Acute traumatic comminuted intertrochanteric left femur fracture, traumatic, closed, s/p sx 06/29 Fall AT home rapid afib, 2/2 anemia likely acute sob with pulmonary edema post transfusion CK D 3 in the background of diuretic use Hyponatremia w/ diuretic use - improved A. fib, CAD, hypertension chronic stable Hx of severe systolic CHF Hx of cardiomyopathy: with EF as low as 15% in 2017 now at 55% dementia, poorly oriented, MODERATE AORTIC STENOSIS anemia post sx, got 3u PRBC plan: fu with card, on amiodarone increase metoprolol to 50mg po bid got 3 uPRBC transfusion lasix 40mg po daily on ASA 81mg , no AC. add dvt ppx with heparin labs tmr PTOT sw for rehab WBAT as per ortho, NSAIDS dced. consider dc to rehab tmr if stable. History of Present Illness History of Present Illness Admitted for left hip fracture, had confusion and atrial fibrillation post operatively. 07/02: transferred from 4th floor with [facility], [facility] last night. now back to sinus, HR 80s. got 3u PRBC totally, today hb 6.9. lasix 20mg x1. demented. 07/03: transfered to ICU last night for sob with acute pulmonary edema, cxr better with lasix 40mg iv x1, but cr slightly higher. hb stable after transfusion. 07/04: HR sinus and afib, liable. bp lower side. Cr 1.7. sob ok. on lasix po daily 40mg. hb 8 07/05: still mild tachycardia. otherwise feels ok. hb 7.4. He still has man in place, sitting in chair, able to eat breakfast. He does not wish for his catheter to be removed. Plan: Remove man Needs placement monitor HB monitor cr improvement monitor respiratory status Telemetry Vitals Vitals Vital Signs Date Time Temp Pulse Resp B/P (MAP) Pulse Ox O2 Delivery O2 Flow Rate FiO2 07/06/18 12:04 95 Room Air 07/06/18 11:06 97.6 79 16 125/53 (77) 97.6 07/05/18 20:39 3.0 Physical Exam Physical Exam to person and place, aaox2 General: Alert, Cooperative, No acute distress Heart: Regular rate, Normal S1, Normal S2, No murmurs, Other (tele SR, 2/6 systolic murmur ) Lungs: Clear Abdomen: Normal bowel sounds, Soft, No tenderness Extremities: No cyanosis, Other (left hip pain, left thigh swollen ) Skin: No significant lesion Labs LABS Laboratory Tests Test 07/06/18 03:30 White Blood Count 4.0 x10^3/uL (4.0-11.0) Red Blood Count 2.56 x10^6/uL (4.30-5.70) Hemoglobin 7.7 g/dL (13.0-17.5) Hematocrit 22.5 % (39.0-53.0) Mean Corpuscular Volume 88 fL (79-100) Mean Corpuscular Hemoglobin 30 pg (25-35) Mean Corpuscular Hemoglobin Concent 34 g/dL (31-37) Red Cell Distribution Width 16.2 % (11.5-14.5) Platelet Count 122 x10^3/uL (140-400) Neutrophils (%) (Auto) 65 % (31-73) Lymphocytes (%) (Auto) 13 % (24-48) Monocytes (%) (Auto) 13 % (0-9) Eosinophils (%) (Auto) 9 % (0-3) Basophils (%) (Auto) 0 % (0-3) Neutrophils # (Auto) 2.6 x10^3uL (1.8-7.7) Lymphocytes # (Auto) 0.5 x10^3/uL (1.0-4.8) Monocytes # (Auto) 0.5 x10^3/uL (0.0-1.1) Eosinophils # (Auto) 0.4 x10^3/uL (0.0-0.7) Basophils # (Auto) 0.0 x10^3/uL (0.0-0.2) Sodium Level 139 mmol/L (136-145) Potassium Level 4.4 mmol/L (3.5-5.1) Chloride Level 104 mmol/L (98-107) Carbon Dioxide Level 29 mmol/L (21-32) Anion Gap 6 (6-14) Blood Urea Nitrogen 35 mg/dL (8-26) Creatinine 1.5 mg/dL (0.7-1.3) Estimated GFR (Cockcroft-Gault) 44.7 Glucose Level 100 mg/dL (70-99) Calcium Level 8.5 mg/dL (8.5-10.1) Assessment and Plan Assessmemt and Plan Problems Medical Problems: (1) Closed left hip fracture Status: Acute Comment Review of Relevant I have reviewed the following items idalmis (where applicable) has been applied. Labs Laboratory Tests Test 07/05/18 04:45 07/06/18 03:30 White Blood Count 4.9 x10^3/uL (4.0-11.0) 4.0 x10^3/uL (4.0-11.0) Red Blood Count 2.48 x10^6/uL (4.30-5.70) 2.56 x10^6/uL (4.30-5.70) Hemoglobin 7.4 g/dL (13.0-17.5) 7.7 g/dL (13.0-17.5) Hematocrit 21.8 % (39.0-53.0) 22.5 % (39.0-53.0) Mean Corpuscular Volume 88 fL (79-100) 88 fL (79-100) Mean Corpuscular Hemoglobin 30 pg (25-35) 30 pg (25-35) Mean Corpuscular Hemoglobin Concent 34 g/dL (31-37) 34 g/dL (31-37) Red Cell Distribution Width 16.5 % (11.5-14.5) 16.2 % (11.5-14.5) Platelet Count 114 x10^3/uL (140-400) 122 x10^3/uL (140-400) Neutrophils (%) (Auto) 67 % (31-73) 65 % (31-73) Lymphocytes (%) (Auto) 13 % (24-48) 13 % (24-48) Monocytes (%) (Auto) 11 % (0-9) 13 % (0-9) Eosinophils (%) (Auto) 8 % (0-3) 9 % (0-3) Basophils (%) (Auto) 0 % (0-3) 0 % (0-3) Neutrophils # (Auto) 3.3 x10^3uL (1.8-7.7) 2.6 x10^3uL (1.8-7.7) Lymphocytes # (Auto) 0.7 x10^3/uL (1.0-4.8) 0.5 x10^3/uL (1.0-4.8) Monocytes # (Auto) 0.6 x10^3/uL (0.0-1.1) 0.5 x10^3/uL (0.0-1.1) Eosinophils # (Auto) 0.4 x10^3/uL (0.0-0.7) 0.4 x10^3/uL (0.0-0.7) Basophils # (Auto) 0.0 x10^3/uL (0.0-0.2) 0.0 x10^3/uL (0.0-0.2) Sodium Level 138 mmol/L (136-145) 139 mmol/L (136-145) Potassium Level 4.0 mmol/L (3.5-5.1) 4.4 mmol/L (3.5-5.1) Chloride Level 103 mmol/L (98-107) 104 mmol/L (98-107) Carbon Dioxide Level 27 mmol/L (21-32) 29 mmol/L (21-32) Anion Gap 8 (6-14) 6 (6-14) Blood Urea Nitrogen 39 mg/dL (8-26) 35 mg/dL (8-26) Creatinine 1.6 mg/dL (0.7-1.3) 1.5 mg/dL (0.7-1.3) Estimated GFR (Cockcroft-Gault) 41.5 44.7 Glucose Level 111 mg/dL (70-99) 100 mg/dL (70-99) Calcium Level 8.4 mg/dL (8.5-10.1) 8.5 mg/dL (8.5-10.1) Laboratory Tests Test 07/06/18 03:30 White Blood Count 4.0 x10^3/uL (4.0-11.0) Red Blood Count 2.56 x10^6/uL (4.30-5.70) Hemoglobin 7.7 g/dL (13.0-17.5) Hematocrit 22.5 % (39.0-53.0) Mean Corpuscular Volume 88 fL (79-100) Mean Corpuscular Hemoglobin 30 pg (25-35) Mean Corpuscular Hemoglobin Concent 34 g/dL (31-37) Red Cell Distribution Width 16.2 % (11.5-14.5) Platelet Count 122 x10^3/uL (140-400) Neutrophils (%) (Auto) 65 % (31-73) Lymphocytes (%) (Auto) 13 % (24-48) Monocytes (%) (Auto) 13 % (0-9) Eosinophils (%) (Auto) 9 % (0-3) Basophils (%) (Auto) 0 % (0-3) Neutrophils # (Auto) 2.6 x10^3uL (1.8-7.7) Lymphocytes # (Auto) 0.5 x10^3/uL (1.0-4.8) Monocytes # (Auto) 0.5 x10^3/uL (0.0-1.1) Eosinophils # (Auto) 0.4 x10^3/uL (0.0-0.7) Basophils # (Auto) 0.0 x10^3/uL (0.0-0.2) Sodium Level 139 mmol/L (136-145) Potassium Level 4.4 mmol/L (3.5-5.1) Chloride Level 104 mmol/L (98-107) Carbon Dioxide Level 29 mmol/L (21-32) Anion Gap 6 (6-14) Blood Urea Nitrogen 35 mg/dL (8-26) Creatinine 1.5 mg/dL (0.7-1.3) Estimated GFR (Cockcroft-Gault) 44.7 Glucose Level 100 mg/dL (70-99) Calcium Level 8.5 mg/dL (8.5-10.1) Medications Current Medications Fentanyl Citrate (Fentanyl 2ml Vial) 25 mcg PRN Q15MIN PRN IV PAIN GREATER THAN 3/10 Last administered on 06/28/18at 05:03; Start 06/28/18 at 03:15; Stop at 03:14; Status DC Sodium Chloride 1,000 ml @ 100 mls/hr Q10H IV Last administered on 06/28/18at 03:36; Start 06/28/18 at 03:15; Stop 06/28/18 at 13:14; Status DC Ondansetron HCl (Zofran) 4 mg 1X ONCE IV Last administered on 06/28/18at 03:35 ; Start 06/28/18 at 03:15; Stop 06/28/18 at 03:26; Status DC Ondansetron HCl (Zofran) 4 mg PRN Q8HRS PRN IV NAUSEA/VOMITING; Start 06/28/18 at 04:30; Stop 06/29/18 at 04:29; Status DC Fentanyl Citrate (Fentanyl 2ml Vial) 50 mcg PRN Q1HR PRN IV PAIN Last administered on 06/28/18at 11:39; Start 06/28/18 at 04:30; Stop 06/28/18 at 11:50 ; Status DC Sodium Chloride 1,000 ml @ 75 mls/hr [id number] IV Last administered on at 18:03; Start 06/28/18 at 04:30; Stop 06/29/18 at 04:29; Status DC Morphine Sulfate (Morphine Sulfate) 2 mg PRN Q1HR PRN IV MODERATE PAIN; Start 06/28/18 at 08:15 Morphine Sulfate (Morphine Sulfate) 2 mg PRN Q1HR PRN IV PAIN; Start 06/28/18 at 08:15; Status UNV Fentanyl Citrate (Fentanyl 2ml Vial) 50 mcg PRN Q1HR PRN IV PAIN MOD TO SEV 1ST CHOICE; Start 06/28/18 at 08:15; Stop 06/28/18 at 11:55; Status DC Ondansetron HCl (Zofran) 4 mg PRN Q6HRS PRN IV NAUSEA/VOMITING; Start 06/28/18 at 08:15 Lorazepam (Ativan) 0.5 mg PRN Q4HRS PRN IV ANXIETY / AGITATION Last administered on 07/02/18at 20:45; Start 06/28/18 at 08:15 Info (Ortho Message -- [place]) 1 ea CONT PRN PRN MC SEE COMMENTS; Start at 08:15; Stop 06/30/18 at 08:14; Status DC Tramadol HCl (Ultram) 50 mg PRN QID PRN PO PAIN MILD Last administered on at 19:39; Start 06/28/18 at 08:15 Oxycodone HCl (Roxicodone) 5 mg PRN Q4HRS PRN PO PAIN MOD TO SEV Last administered on 07/04/18at 10:51; Start 06/28/18 at 08:15 Fentanyl Citrate (Fentanyl 2ml Vial) 25 mcg PRN Q1HR PRN IV PAIN MILD 1ST CHOICE; Start 06/28/18 at 08:15; Stop 06/28/18 at 11:55; Status DC Acetaminophen (Tylenol) 1,000 mg TID PO Last administered on 07/06/18at 09:47; Start 06/28/18 at 09:00 Docusate Sodium (Colace) 100 mg BID PO Last administered on 07/06/18at 09:50; Start 06/28/18 at 09:00 Magnesium Hydroxide (Milk Of Magnesia) 2,400 mg PRN DAILY PRN PO CONSTIPATION; Start 06/28/18 at 08:15 Bisacodyl (Dulcolax Supp) 10 mg PRN DAILY PRN MI CONSTIPATION; Start 06/28/18 at 08:15 Zolpidem Tartrate (Ambien) 5 mg PRN QHS PRN PO INSOMNIA Last administered on at 21:09; Start 06/28/18 at 08:15 Sodium Chloride (Normal Saline Flush) 3 ml QSHIFT PRN IV AFTER MEDS AND BLOOD DRAWS; Start 06/28/18 at 08:15 Dextrose (Dextrose 50%-Water Syringe) 12.5 gm PRN Q15MIN PRN IV SEE COMMENTS; Start 06/28/18 at 08:15 Info (FLU VACCINE SCREEN per RX) 1 each 1X ONCE MC ; Start 06/28/18 at 08:30; Stop 06/28/18 at 08:31; Status UNV Influenza Virus Vaccine (Afluria Trivalent [id number] Syringe) 0.5 ml ONCE ONCE VAX IM ; Start 06/28/18 at 16:00; Stop 06/28/18 at 16:01; Status DC Fentanyl Citrate (Fentanyl 2ml Vial) 50 mcg PRN Q2HR PRN IV PAIN; Start at 09:30; Stop 06/28/18 at 09:36; Status DC Acetaminophen (Tylenol Supp) 650 mg PRN Q6HRS PRN RC FEVER > 102; Start at 09:30 Amiodarone HCl (Cordarone) 200 mg DAILY PO Last administered on 07/06/18at 09:49 ; Start 06/28/18 at 10:00 Carvedilol (Coreg) 6.25 mg DAILY08 PO Last administered on 06/30/18at 10:38; Start 06/28/18 at 10:00; Stop 07/01/18 at 16:30; Status DC Famotidine (Pepcid) 20 mg QHS PO Last administered on 07/05/18 19:39; Start at 21:00 Furosemide (Lasix) 40 mg DAILY PO Last administered on 06/29/18 08:49; Start 06/28/18 at 10:00; Stop 06/29/18 at 16:34; Status DC Potassium Chloride (Klor-Con) 10 meq DAILY PO Last administered on 07/06/18 09 :50; Start 06/28/18 at 10:00 Trazodone HCl (Desyrel) 50 mg HS PO Last administered on 07/05/18 19:39; Start 06/28/18 at 21:00 Triamcinolone Acetonide (Kenalog) 1 harika PRN BID PRN TP ITCHING Last administered on 07/01/18 11:20; Start 06/28/18 at 21:00 Donepezil HCl (Aricept) 10 mg DAILY PO Last administered on 07/06/18 09:49; Start 06/28/18 at 10:00 Memantine (Namenda) 10 mg DAILY PO Last administered on 07/06/18 09:50; Start 06/28/18 at 10:00 Meloxicam (Mobic) 15 mg DAILY PO Last administered on 07/03/18 09:52; Start at 10:00; Stop 07/03/18 at 12:43; Status DC Propafenone HCl (Rythmol) 150 mg DAILY PO Last administered on 06/30/18 10:37 ; Start 06/28/18 at 10:00; Stop 06/30/18 at 14:04; Status DC Sertraline HCl (Zoloft) 100 mg DAILY PO Last administered on 07/06/18 09:49; Start 06/28/18 at 10:00 Simvastatin (Zocor) 20 mg HS PO Last administered on 07/05/18 19:38; Start at 21:00 Ropivacaine 53.3 ml/Epinephrine HCl 0.6 mg/ Morphine Sulfate 5 mg/Sodium Chloride 100 ml @ 100 mls/hr 1X ONCE INT ART Last administered on 1/14/19at 17:41; Start 06/29/18 at 06:00; Stop 06/29/18 at 06:59; Status DC Cefazolin Sodium/ Dextrose 50 ml @ 100 mls/hr 1X PREOP PRN IV SEE COMMENTS Last administered on 06/29/18at 16:55; Start 06/29/18 at 16:00; Stop 06/30/18 at 15:29; Status DC Fentanyl Citrate (Fentanyl 2ml Vial) 50 mcg PRN Q2HR PRN IV SEVERE PAIN Last administered on 06/28/18at 18:03; Start 06/28/18 at 12:00 Fentanyl Citrate (Fentanyl 2ml Vial) 25 mcg PRN Q5MIN PRN IV MILD PAIN; Start 06/29/18 at 13:00; Stop 06/30/18 at 12:59; Status DC Fentanyl Citrate (Fentanyl 2ml Vial) 50 mcg PRN Q5MIN PRN IV MODERATE TO SEVERE PAIN; Start 06/29/18 at 13:00; Stop 06/30/18 at 12:59; Status DC Morphine Sulfate (Morphine Sulfate) 1 mg PRN Q10MIN PRN IV SEVERE PAIN; Start 06/29/18 at 13:00; Stop 06/30/18 at 12:59; Status DC Ringer's Solution 1,000 ml @ 30 mls/hr Q24H IV ; Start 06/29/18 at 12:55; Stop 06/30/18 at 00:54; Status DC Lidocaine HCl (Xylocaine-Mpf 1% 2ml Vial) 2 ml PRN 1X PRN ID PRIOR TO IV START ; Start 06/29/18 at 13:00; Stop 06/30/18 at 12:59; Status DC Hydromorphone HCl (Dilaudid) 0.5 mg PRN Q10MIN PRN IV SEV PAIN, Second choice; Start 06/29/18 at 13:00; Stop 06/30/18 at 12:59; Status DC Prochlorperazine Edisylate (Compazine) 5 mg PACU PRN PRN IV NAUSEA, MRX1; Start 06/29/18 at 13:00; Stop 06/30/18 at 12:59; Status DC Phenylephrine HCl (PHENYLEPHRINE in 0.9% NACL PF) 1 mg STK-MED ONCE IV ; Start 06/29/18 at 14:41; Stop 06/29/18 at 14:43; Status DC Ephedrine Sulfate (ePHEDrine PF IN SALINE SYRINGE) 50 mg STK-MED ONCE IV ; Start 06/29/18 at 14:41; Stop 06/29/18 at 14:43; Status DC Lidocaine HCl (Lidocaine Pf 2% Vial) 5 ml STK-MED ONCE .ROUTE ; Start 06/29/18 at 14:41; Stop 06/29/18 at 14:43; Status DC Propofol 20 ml @ As Directed STK-MED ONCE IV ; Start 06/29/18 at 14:41; Stop at 14:43; Status DC Aspirin (Ecotrin) 81 mg [id number] PO Last administered on 07/06/18at 09:48; Start 06/30/18 at 08:00 Sodium Chloride 1,000 ml @ 50 mls/hr 1X ONCE IV Last administered on at 16:30; Start 07/01/18 at 16:30; Stop 07/02/18 at 12:29; Status DC Metoprolol Succinate (Toprol Xl) 25 mg DAILY PO Last administered on 07/04/18at 08:25; Start 07/02/18 at 09:00; Stop 07/04/18 at 10:08; Status DC Sodium Chloride 1,000 ml @ 100 mls/hr Q10H IV Last administered on 07/02/18at 14:11; Start 07/02/18 at 02:00; Stop 07/02/18 at 21:57; Status DC Furosemide (Lasix) 20 mg 1X ONCE IVP Last administered on 07/02/18at 12:18; Start 07/02/18 at 11:30; Stop 07/02/18 at 11:31; Status DC Albuterol/ Ipratropium (Duoneb) 3 ml 1X ONCE NEB Last administered on at 21:30; Start 07/02/18 at 21:30; Stop 07/02/18 at 21:31; Status DC Albuterol/ Ipratropium (Duoneb) 3 ml Q4HRS NEB Last administered on 07/06/18at 12:04; Start 07/03/18 at 00:00 Furosemide (Lasix) 40 mg 1X ONCE IVP Last administered on 07/02/18at 21:53; Start 07/02/18 at 22:00; Stop 07/02/18 at 22:01; Status DC Furosemide (Lasix) 20 mg 1X ONCE IVP Last administered on 07/03/18at 09:59; Start 07/03/18 at 09:30; Stop 07/03/18 at 09:31; Status DC Digoxin (Lanoxin) 250 mcg 1X ONCE IV Last administered on 07/03/18at 13:02; Start 07/03/18 at 12:45; Stop 07/03/18 at 12:46; Status DC Furosemide (Lasix) 40 mg DAILY PO Last administered on 07/06/18at 09:49; Start 07/04/18 at 09:00 Digoxin (Lanoxin) 250 mcg 1X ONCE IV Last administered on 07/03/18at 18:00; Start 07/03/18 at 18:00; Stop 07/03/18 at 18:01; Status DC Amiodarone HCl 150 mg/Dextrose 103 ml @ 618 mls/hr 1X ONCE IV Last administered on 07/03/18at 18:30; Start 07/03/18 at 18:30; Stop 07/03/18 at 18:39 ; Status DC Metoprolol Succinate (Toprol Xl) 50 mg DAILY PO Last administered on 07/05/18at 08:59; Start 07/05/18 at 09:00; Stop 07/05/18 at 09:42; Status DC Metoprolol Succinate (Toprol Xl) 25 mg 1X ONCE PO Last administered on at 13:29; Start 07/04/18 at 10:15; Stop 07/04/18 at 10:16; Status DC Heparin Sodium (Porcine) (Heparin Sodium) 5,000 unit Q8HRS SQ Last administered on 07/06/18at 05:01; Start 07/04/18 at 14:00 Metoprolol Tartrate (Lopressor) 50 mg BID PO Last administered on 07/06/18at 09: 48; Start 07/05/18 at 21:00 Active Scripts Active Amiodarone Hcl 200 Mg Tablet 200 Mg PO DAILY 30 Days Reported Meloxicam 7.5 Mg Tablet 1 Tab PO DAILY Propafenone Hcl 150 Mg Tablet 1 Tab PO DAILY Memantine HCl 10 Mg Tablet 1 Tab PO DAILY Trazodone Hcl 50 Mg Tablet 1 Tab PO HS Sertraline Hcl 100 Mg Tablet 1 Tab PO DAILY Donepezil Hcl 10 Mg Tablet 1 Tab PO DAILY Carvedilol 6.25 Mg Tablet 1 Tab PO DAILY Potassium Chloride 10 Meq Capsule.er 10 Meq PO DAILY Lasix (Furosemide) 40 Mg Tablet 40 Mg PO DAILY Acetaminophen Supp (Acetaminophen) 650 Mg Supp.rect 650 Mg RC Q6HRS PRN Triamcinolone Acetonide 0.1% Oint (Triamcinolone Acetonide) 15 Gm Oint...g. 1 Harika TP BID MIX WITH EUCERIN DIRECTED BY PHYSICIAN Simvastatin 20 Mg Tablet 1 Tab PO QHS Nabumetone 750 Mg Tablet 1 Tab PO BID Famotidine 20 Mg Tablet 1 Tab PO BID Vitals/I & O Vital Sign - Last 24 Hours 07/05/18 07/05/18 07/05/18 07/05/18 15:00 16:01 19:12 19:13 Temp 98.2 98.6 98.2 98.6 Pulse 81 87 Resp 18 16 B/P (MAP) 129/64 (85) 117/51 (73) Pulse Ox 95 96 96 96 O2 Delivery Room Air Room Air Room Air Room Air 07/05/18 07/05/18 07/05/18 07/05/18 19:39 19:51 20:39 22:50 Temp 98.5 98.5 Pulse 87 75 Resp 16 16 B/P (MAP) 117/51 127/56 (79) Pulse Ox 96 96 97 O2 Delivery Room Air Room Air Room Air O2 Flow Rate 3.0 3.0 07/05/18 07/06/18 07/06/18 07/06/18 23:47 03:57 03:57 07:00 Temp 98.4 98.6 98.4 98.6 Pulse 74 79 Resp 16 16 B/P (MAP) 135/57 (83) 145/67 (93) Pulse Ox 96 96 96 95 O2 Delivery Room Air Room Air Room Air Room Air 07/06/18 07/06/18 07/06/18 07/06/18 07:29 07:35 09:48 09:49 Pulse 79 79 B/P (MAP) 145/67 145/67 Pulse Ox 96 O2 Delivery Room Air Room Air 07/06/18 07/06/18 11:06 12:04 Temp 97.6 97.6 Pulse 79 Resp 16 B/P (MAP) 125/53 (77) Pulse Ox 98 95 O2 Delivery Room Air Room Air Intake and Output 07/05/18 07/05/18 07/06/18 15:01 23:01 07:01 Intake Total 180 ml 240 ml Output Total 1050 ml 1200 ml 825 ml Balance -870 ml -960 ml -825 ml Nutrition Consultation Dietary Evaluation: Recommendations by RD: Increase Calorie Intake, Protein supplementation Comments: REC Ensure pudding (all flavors) BID Expected Outcomes/Goals: PO intake to meet >75% est needs Malnutrition Findings: Body Fat Depletion (Non Severe: Mild Depletion Weight Status: Appropriate KAREEN ALY MD Jul 06, 2018 13:38
[2018-07-06 14:56] VITALS: BP 120/65
--- NOTE | 2018-07-06 15:59 | RAD ---
PORTABLE CHEST 1V Clinical indications: Follow-up of CHF COMPARISON: July 03, 2018. Findings: There has been resolution of the previously seen bilateral pulmonary edema. No pleural effusion or pneumothorax is seen. The heart size, pulmonary vasculature, mediastinum and both everardo are unremarkable. There is narrowing of the acromial humeral space of both shoulders with superior subluxation of the humeral head of both shoulders which may be seen with chronic rotator cuff tears. Impression: Resolution of bilateral pulmonary edema. Electronically signed by: Nadeem Sanchez MD (07/06/2018 3:55 PM) [place] [id number]
[2018-07-06 19:18] VITALS: BP 124/56
[2018-07-06] MEDS: traZODone 50 MG TABLET. PO SCH (19:24)
[2018-07-06] MEDS: SIMVASTATIN 20 MG TABLET PO SCH (19:25)
[2018-07-06] MEDS: FAMOTIDINE 20 MG TABLET. PO SCH (19:26)
[2018-07-06] MEDS: traMADol 50 MG TABLET PO PRN (19:26)
[2018-07-06 22:31] VITALS: BP 118/58
[2018-07-06] MEDS: ZOLPIDEM 5 MG TABLET. PO PRN (23:07)
[2018-07-07 02:42] VITALS: BP 121/60
[2018-07-07] MEDS: IPRATRPIUM/ALBUTEROL 0.5/2.5MG 3 ML NEBU. NEB SCH ×4 (04:06→15:07)
[2018-07-07] MEDS: HEPARIN for SUB-Q USE 5,000 UNIT/ML VIAL. SQ SCH ×2 (05:55→15:23)
[2018-07-07 07:00] VITALS: BP 148/83
--- NOTE | 2018-07-07 07:51 | PDOC ---
PROGRESS NOTES Chief Complaint Chief Complaint acute Acute traumatic comminuted intertrochanteric left femur fracture, traumatic, closed, s/p sx 06/29 Fall AT home rapid afib, 2/2 anemia likely acute sob with pulmonary edema post transfusion CK D 3 in the background of diuretic use Hyponatremia w/ diuretic use - improved A. fib, CAD, hypertension chronic stable Hx of severe systolic CHF Hx of cardiomyopathy: with EF as low as 15% in 2017 now at 55% dementia, poorly oriented, MODERATE AORTIC STENOSIS anemia post sx, got 3u PRBC plan: fu with card, on amiodarone increase metoprolol to 50mg po bid got 3 uPRBC transfusion lasix 40mg po daily on ASA 81mg , no AC. add dvt ppx with heparin labs tmr PTOT sw for rehab WBAT as per ortho, NSAIDS dced. consider dc to rehab tmr if stable. History of Present Illness History of Present Illness Admitted for left hip fracture, had confusion and atrial fibrillation post operatively. 07/02: [facility] from 4th floor [facility] last night. now back to sinus, HR 80s. got 3u PRBC totally, today hb 6.9. lasix 20mg x1. demented. 07/03: transfered to ICU last night for sob with acute pulmonary edema, cxr better with lasix 40mg iv x1, but cr slightly higher. hb stable after transfusion. 07/04: HR sinus and afib, liable. bp lower side. Cr 1.7. sob ok. on lasix po daily 40mg. hb 8 07/05: still mild tachycardia. otherwise feels ok. hb 7.4. 07/06: Worked with PT, labs stable He still has man in place, sitting in chair, able to eat breakfast. He is working with PT, ok with man removal today Plan: Remove man Needs placement at SNF monitor HB, can check every 3 days now monitor cr improvement, can check less frequently monitor respiratory status Telemetry Vitals Vitals Vital Signs Date Time Temp Pulse Resp B/P (MAP) Pulse Ox O2 Delivery O2 Flow Rate FiO2 07/07/18 07:29 95 Room Air 07/07/18 02:42 97.9 77 18 121/60 (80) 97.9 07/06/18 20:26 3.0 Physical Exam Physical Exam to person and place, aaox2 General: Alert, Cooperative, No acute distress Heart: Regular rate, Normal S1, Normal S2, No murmurs, Other (tele SR, 2/6 systolic murmur ) Lungs: Clear Abdomen: Normal bowel sounds, Soft, No tenderness Extremities: No cyanosis, Other (left hip pain, left thigh swollen ) Skin: No significant lesion Assessment and Plan Assessmemt and Plan Problems Medical Problems: (1) Closed left hip fracture Status: Acute Comment Review of Relevant I have reviewed the following items idalmis (where applicable) has been applied. Labs Laboratory Tests Test 07/06/18 03:30 White Blood Count 4.0 x10^3/uL (4.0-11.0) Red Blood Count 2.56 x10^6/uL (4.30-5.70) Hemoglobin 7.7 g/dL (13.0-17.5) Hematocrit 22.5 % (39.0-53.0) Mean Corpuscular Volume 88 fL (79-100) Mean Corpuscular Hemoglobin 30 pg (25-35) Mean Corpuscular Hemoglobin Concent 34 g/dL (31-37) Red Cell Distribution Width 16.2 % (11.5-14.5) Platelet Count 122 x10^3/uL (140-400) Neutrophils (%) (Auto) 65 % (31-73) Lymphocytes (%) (Auto) 13 % (24-48) Monocytes (%) (Auto) 13 % (0-9) Eosinophils (%) (Auto) 9 % (0-3) Basophils (%) (Auto) 0 % (0-3) Neutrophils # (Auto) 2.6 x10^3uL (1.8-7.7) Lymphocytes # (Auto) 0.5 x10^3/uL (1.0-4.8) Monocytes # (Auto) 0.5 x10^3/uL (0.0-1.1) Eosinophils # (Auto) 0.4 x10^3/uL (0.0-0.7) Basophils # (Auto) 0.0 x10^3/uL (0.0-0.2) Sodium Level 139 mmol/L (136-145) Potassium Level 4.4 mmol/L (3.5-5.1) Chloride Level 104 mmol/L (98-107) Carbon Dioxide Level 29 mmol/L (21-32) Anion Gap 6 (6-14) Blood Urea Nitrogen 35 mg/dL (8-26) Creatinine 1.5 mg/dL (0.7-1.3) Estimated GFR (Cockcroft-Gault) 44.7 Glucose Level 100 mg/dL (70-99) Calcium Level 8.5 mg/dL (8.5-10.1) Medications Current Medications Fentanyl Citrate (Fentanyl 2ml Vial) 25 mcg PRN Q15MIN PRN IV PAIN GREATER THAN 3/10 Last administered on 06/28/18at 05:03; Start 06/28/18 at 03:15; Stop at 03:14; Status DC Sodium Chloride 1,000 ml @ 100 mls/hr Q10H IV Last administered on 06/28/18at 03:36; Start 06/28/18 at 03:15; Stop 06/28/18 at 13:14; Status DC Ondansetron HCl (Zofran) 4 mg 1X ONCE IV Last administered on 06/28/18at 03:35 ; Start 06/28/18 at 03:15; Stop 06/28/18 at 03:26; Status DC Ondansetron HCl (Zofran) 4 mg PRN Q8HRS PRN IV NAUSEA/VOMITING; Start 06/28/18 at 04:30; Stop 06/29/18 at 04:29; Status DC Fentanyl Citrate (Fentanyl 2ml Vial) 50 mcg PRN Q1HR PRN IV PAIN Last administered on 06/28/18at 11:39; Start 06/28/18 at 04:30; Stop 06/28/18 at 11:50 ; Status DC Sodium Chloride 1,000 ml @ 75 mls/hr [id number] IV Last administered on at 18:03; Start 06/28/18 at 04:30; Stop 06/29/18 at 04:29; Status DC Morphine Sulfate (Morphine Sulfate) 2 mg PRN Q1HR PRN IV MODERATE PAIN; Start 06/28/18 at 08:15 Morphine Sulfate (Morphine Sulfate) 2 mg PRN Q1HR PRN IV PAIN; Start 06/28/18 at 08:15; Status UNV Fentanyl Citrate (Fentanyl 2ml Vial) 50 mcg PRN Q1HR PRN IV PAIN MOD TO SEV 1ST CHOICE; Start 06/28/18 at 08:15; Stop 06/28/18 at 11:55; Status DC Ondansetron HCl (Zofran) 4 mg PRN Q6HRS PRN IV NAUSEA/VOMITING; Start 06/28/18 at 08:15 Lorazepam (Ativan) 0.5 mg PRN Q4HRS PRN IV ANXIETY / AGITATION Last administered on 07/02/18at 20:45; Start 06/28/18 at 08:15 Info (Ortho Message -- Hold Meds) 1 ea CONT PRN PRN MC SEE COMMENTS; Start at 08:15; Stop 06/30/18 at 08:14; Status DC Tramadol HCl (Ultram) 50 mg PRN QID PRN PO PAIN MILD Last administered on at 19:26; Start 06/28/18 at 08:15 Oxycodone HCl (Roxicodone) 5 mg PRN Q4HRS PRN PO PAIN MOD TO SEV Last administered on 07/04/18at 10:51; Start 06/28/18 at 08:15 Fentanyl Citrate (Fentanyl 2ml Vial) 25 mcg PRN Q1HR PRN IV PAIN MILD 1ST CHOICE; Start 06/28/18 at 08:15; Stop 06/28/18 at 11:55; Status DC Acetaminophen (Tylenol) 1,000 mg TID PO Last administered on 07/06/18at 19:25; Start 06/28/18 at 09:00 Docusate Sodium (Colace) 100 mg BID PO Last administered on 07/06/18at 19:24; Start 06/28/18 at 09:00 Magnesium Hydroxide (Milk Of Magnesia) 2,400 mg PRN DAILY PRN PO CONSTIPATION; Start 06/28/18 at 08:15 Bisacodyl (Dulcolax Supp) 10 mg PRN DAILY PRN IA CONSTIPATION; Start 06/28/18 at 08:15 Zolpidem Tartrate (Ambien) 5 mg PRN QHS PRN PO INSOMNIA Last administered on at 23:07; Start 06/28/18 at 08:15 Sodium Chloride (Normal Saline Flush) 3 ml QSHIFT PRN IV AFTER MEDS AND BLOOD DRAWS; Start 06/28/18 at 08:15 Dextrose (Dextrose 50%-Water Syringe) 12.5 gm PRN Q15MIN PRN IV SEE COMMENTS; Start 06/28/18 at 08:15 Info (FLU VACCINE SCREEN per RX) 1 each 1X ONCE MC ; Start 06/28/18 at 08:30; Stop 06/28/18 at 08:31; Status UNV Influenza Virus Vaccine (Afluria Trivalent [id number] Syringe) 0.5 ml ONCE ONCE VAX IM ; Start 06/28/18 at 16:00; Stop 06/28/18 at 16:01; Status DC Fentanyl Citrate (Fentanyl 2ml Vial) 50 mcg PRN Q2HR PRN IV PAIN; Start at 09:30; Stop 06/28/18 at 09:36; Status DC Acetaminophen (Tylenol Supp) 650 mg PRN Q6HRS PRN RC FEVER > 102; Start at 09:30 Amiodarone HCl (Cordarone) 200 mg DAILY PO Last administered on 07/06/18at 09:49 ; Start 06/28/18 at 10:00 Carvedilol (Coreg) 6.25 mg DAILY08 PO Last administered on 06/30/18at 10:38; Start 06/28/18 at 10:00; Stop 07/01/18 at 16:30; Status DC Famotidine (Pepcid) 20 mg QHS PO Last administered on 07/06/18at 19:26; Start at 21:00 Furosemide (Lasix) 40 mg DAILY PO Last administered on 06/29/18at 08:49; Start 06/28/18 at 10:00; Stop 06/29/18 at 16:34; Status DC Potassium Chloride (Klor-Con) 10 meq DAILY PO Last administered on 07/06/18at 09 :50; Start 06/28/18 at 10:00 Trazodone HCl (Desyrel) 50 mg HS PO Last administered on 07/06/18at 19:24; Start 06/28/18 at 21:00 Triamcinolone Acetonide (Kenalog) 1 harika PRN BID PRN TP ITCHING Last administered on 07/01/18at 11:20; Start 06/28/18 at 21:00 Donepezil HCl (Aricept) 10 mg DAILY PO Last administered on 07/06/18at 09:49; Start 06/28/18 at 10:00 Memantine (Namenda) 10 mg DAILY PO Last administered on 07/06/18at 09:50; Start 06/28/18 at 10:00 Meloxicam (Mobic) 15 mg DAILY PO Last administered on 07/03/18at 09:52; Start at 10:00; Stop 07/03/18 at 12:43; Status DC Propafenone HCl (Rythmol) 150 mg DAILY PO Last administered on 06/30/18at 10:37 ; Start 06/28/18 at 10:00; Stop 06/30/18 at 14:04; Status DC Sertraline HCl (Zoloft) 100 mg DAILY PO Last administered on 07/06/18 09:49; Start 06/28/18 at 10:00 Simvastatin (Zocor) 20 mg HS PO Last administered on 07/06/18at 19:25; Start at 21:00 Ropivacaine 53.3 ml/Epinephrine HCl 0.6 mg/ Morphine Sulfate 5 mg/Sodium Chloride 100 ml @ 100 mls/hr 1X ONCE INT ART Last administered on 06/29/18at 17:41; Start 06/29/18 at 06:00; Stop 06/29/18 at 06:59; Status DC Cefazolin Sodium/ Dextrose 50 ml @ 100 mls/hr 1X PREOP PRN IV SEE COMMENTS Last administered on 06/29/18at 16:55; Start 06/29/18 at 16:00; Stop 06/30/18 at 15:29; Status DC Fentanyl Citrate (Fentanyl 2ml Vial) 50 mcg PRN Q2HR PRN IV SEVERE PAIN Last administered on 06/28/18at 18:03; Start 06/28/18 at 12:00 Fentanyl Citrate (Fentanyl 2ml Vial) 25 mcg PRN Q5MIN PRN IV MILD PAIN; Start 06/29/18 at 13:00; Stop 06/30/18 at 12:59; Status DC Fentanyl Citrate (Fentanyl 2ml Vial) 50 mcg PRN Q5MIN PRN IV MODERATE TO SEVERE PAIN; Start 06/29/18 at 13:00; Stop 06/30/18 at 12:59; Status DC Morphine Sulfate (Morphine Sulfate) 1 mg PRN Q10MIN PRN IV SEVERE PAIN; Start 06/29/18 at 13:00; Stop 06/30/18 at 12:59; Status DC Ringer's Solution 1,000 ml @ 30 mls/hr Q24H IV ; Start 06/29/18 at 12:55; Stop 06/30/18 at 00:54; Status DC Lidocaine HCl (Xylocaine-Mpf 1% 2ml Vial) 2 ml PRN 1X PRN ID PRIOR TO IV START ; Start 06/29/18 at 13:00; Stop 06/30/18 at 12:59; Status DC Hydromorphone HCl (Dilaudid) 0.5 mg PRN Q10MIN PRN IV SEV PAIN, Second choice; Start 06/29/18 at 13:00; Stop 06/30/18 at 12:59; Status DC Prochlorperazine Edisylate (Compazine) 5 mg PACU PRN PRN IV NAUSEA, MRX1; Start 06/29/18 at 13:00; Stop 06/30/18 at 12:59; Status DC Phenylephrine HCl (PHENYLEPHRINE in 0.9% NACL PF) 1 mg STK-MED ONCE IV ; Start 06/29/18 at 14:41; Stop 06/29/18 at 14:43; Status DC Ephedrine Sulfate (ePHEDrine PF IN SALINE SYRINGE) 50 mg STK-MED ONCE IV ; Start 06/29/18 at 14:41; Stop 06/29/18 at 14:43; Status DC Lidocaine HCl (Lidocaine Pf 2% Vial) 5 ml STK-MED ONCE .ROUTE ; Start 06/29/18 at 14:41; Stop 06/29/18 at 14:43; Status DC Propofol 20 ml @ As Directed STK-MED ONCE IV ; Start 06/29/18 at 14:41; Stop at 14:43; Status DC Aspirin (Ecotrin) 81 mg DAILYWBKFT PO Last administered on 07/06/18at 09:48; Start 06/30/18 at 08:00 Sodium Chloride 1,000 ml @ 50 mls/hr 1X ONCE IV Last administered on at 16:30; Start 07/01/18 at 16:30; Stop 07/02/18 at 12:29; Status DC Metoprolol Succinate (Toprol Xl) 25 mg DAILY PO Last administered on 07/04/18at 08:25; Start 07/02/18 at 09:00; Stop 07/04/18 at 10:08; Status DC Sodium Chloride 1,000 ml @ 100 mls/hr Q10H IV Last administered on 07/02/18at 14:11; Start 07/02/18 at 02:00; Stop 07/02/18 at 21:57; Status DC Furosemide (Lasix) 20 mg 1X ONCE IVP Last administered on 07/02/18at 12:18; Start 07/02/18 at 11:30; Stop 07/02/18 at 11:31; Status DC Albuterol/ Ipratropium (Duoneb) 3 ml 1X ONCE NEB Last administered on at 21:30; Start 07/02/18 at 21:30; Stop 07/02/18 at 21:31; Status DC Albuterol/ Ipratropium (Duoneb) 3 ml Q4HRS NEB Last administered on 07/07/18at 07:28; Start 07/03/18 at 00:00 Furosemide (Lasix) 40 mg 1X ONCE IVP Last administered on 07/02/18at 21:53; Start 07/02/18 at 22:00; Stop 07/02/18 at 22:01; Status DC Furosemide (Lasix) 20 mg 1X ONCE IVP Last administered on 07/03/18at 09:59; Start 07/03/18 at 09:30; Stop 07/03/18 at 09:31; Status DC Digoxin (Lanoxin) 250 mcg 1X ONCE IV Last administered on 07/03/18at 13:02; Start 07/03/18 at 12:45; Stop 07/03/18 at 12:46; Status DC Furosemide (Lasix) 40 mg DAILY PO Last administered on 07/06/18at 09:49; Start 07/04/18 at 09:00 Digoxin (Lanoxin) 250 mcg 1X ONCE IV Last administered on 07/03/18at 18:00; Start 07/03/18 at 18:00; Stop 07/03/18 at 18:01; Status DC Amiodarone HCl 150 mg/Dextrose 103 ml @ 618 mls/hr 1X ONCE IV Last administered on 07/03/18at 18:30; Start 07/03/18 at 18:30; Stop 07/03/18 at 18:39 ; Status DC Metoprolol Succinate (Toprol Xl) 50 mg DAILY PO Last administered on 07/05/18at 08:59; Start 07/05/18 at 09:00; Stop 07/05/18 at 09:42; Status DC Metoprolol Succinate (Toprol Xl) 25 mg 1X ONCE PO Last administered on at 13:29; Start 07/04/18 at 10:15; Stop 07/04/18 at 10:16; Status DC Heparin Sodium (Porcine) (Heparin Sodium) 5,000 unit Q8HRS SQ Last administered on 07/07/18at 05:55; Start 07/04/18 at 14:00 Metoprolol Tartrate (Lopressor) 50 mg BID PO Last administered on 07/06/18at 19: 25; Start 07/05/18 at 21:00 Active Scripts Active Amiodarone Hcl 200 Mg Tablet 200 Mg PO DAILY 30 Days Reported Meloxicam 7.5 Mg Tablet 1 Tab PO DAILY Propafenone Hcl 150 Mg Tablet 1 Tab PO DAILY Memantine HCl 10 Mg Tablet 1 Tab PO DAILY Trazodone Hcl 50 Mg Tablet 1 Tab PO HS Sertraline Hcl 100 Mg Tablet 1 Tab PO DAILY Donepezil Hcl 10 Mg Tablet 1 Tab PO DAILY Carvedilol 6.25 Mg Tablet 1 Tab PO DAILY Potassium Chloride 10 Meq Capsule.er 10 Meq PO DAILY Lasix (Furosemide) 40 Mg Tablet 40 Mg PO DAILY Acetaminophen Supp (Acetaminophen) 650 Mg Supp.rect 650 Mg RC Q6HRS PRN Triamcinolone Acetonide 0.1% Oint (Triamcinolone Acetonide) 15 Gm Oint...g. 1 Harika TP BID MIX WITH EUCERIN DIRECTED BY PHYSICIAN Simvastatin 20 Mg Tablet 1 Tab PO QHS Nabumetone 750 Mg Tablet 1 Tab PO BID Famotidine 20 Mg Tablet 1 Tab PO BID Vitals/I & O Vital Sign - Last 24 Hours 07/06/18 07/06/18 07/06/18 07/06/18 09:48 09:49 11:06 12:04 Temp 97.6 97.6 Pulse 79 79 79 Resp 16 B/P (MAP) 145/67 145/67 125/53 (77) Pulse Ox 98 95 O2 Delivery Room Air Room Air 07/06/18 07/06/18 07/06/18 07/06/18 14:56 15:45 19:18 19:25 Temp 97.8 98.0 97.8 98.0 Pulse 72 75 75 Resp 16 16 B/P (MAP) 120/65 (83) 124/56 (78) 124/56 Pulse Ox 97 95 98 O2 Delivery Room Air Room Air Room Air 07/06/18 07/06/18 07/06/18 07/06/18 19:26 19:43 20:26 22:31 Temp 97.6 97.6 Pulse 73 Resp 18 18 16 B/P (MAP) 118/58 (78) Pulse Ox 98 95 95 97 O2 Delivery Room Air Room Air Room Air Room Air O2 Flow Rate 3.0 3.0 07/07/18 07/07/18 07/07/18 07/07/18 00:02 02:42 04:09 07:29 Temp 97.9 97.9 Pulse 77 Resp 18 B/P (MAP) 121/60 (80) Pulse Ox 95 98 95 95 O2 Delivery Room Air Room Air Room Air Room Air Intake and Output 07/06/18 07/06/18 07/07/18 15:01 23:01 07:01 Intake Total 240 ml 720 ml Output Total 1050 ml 2350 ml 1300 ml Balance -810 ml -2350 ml -580 ml Nutrition Consultation Dietary Evaluation: Recommendations by RD: Increase Calorie Intake, Protein supplementation Comments: REC Ensure pudding (all flavors) BID Expected Outcomes/Goals: PO intake to meet >75% est needs Malnutrition Findings: Body Fat Depletion (Non Severe: Mild Depletion Weight Status: Appropriate KAREEN ALY MD Jul 07, 2018 07:51
--- NOTE | 2018-07-07 07:55 | NUR ---
Pt pushing call light repeatedly every 2-3 mins to say his back itches. This nurse has assisted pt with this several times, no rash noted to site. Pt states he is unable to itch the site himself. notified MD to ask for PRN PO benadryl.
[2018-07-07] MEDS ORDERED: CLOTRIMAZOLE/BETAMETH 1%-0.05% TOPICAL CREAM 15GM TUBE. TP SCH (09:00)
[2018-07-07] MEDS: POTASSIUM CHLORIDE 10 MEQ TABLET.ER. PO SCH (09:02)
[2018-07-07] MEDS: AMIODARONE HCL 200 MG TABLET. PO SCH (09:02)
[2018-07-07] MEDS: DOCUSATE SODIUM 100 MG CAPSULE. PO SCH (09:03)
[2018-07-07] MEDS: FUROSEMIDE 40 MG TABLET. PO SCH (09:03)
[2018-07-07] MEDS: DONEPEZIL HCL 10 MG TABLET. PO SCH (09:03)
[2018-07-07] MEDS: ASPIRIN ENTERIC COATED 81 MG TABLET.DR. PO SCH (09:03)
[2018-07-07] MEDS: ACETAMINOPHEN 500 MG TABLET PO SCH ×2 (09:03→15:20)
[2018-07-07] MEDS: MEMANTINE 10 MG TABLET. PO SCH (09:03)
[2018-07-07] MEDS: METOPROLOL TART IMMED RELEASE 50 MG TABLET. PO SCH (09:03)
[2018-07-07] MEDS: SERTRALINE 50 MG TABLET. PO SCH (09:04)
--- NOTE | 2018-07-07 10:54 | NUR ---
[place] Removed at this time, 650cc out
[2018-07-07 11:00] VITALS: BP 121/59
[2018-07-07] MEDS ORDERED: BARIUM SULFATE 40% (APPLE) 148 GM PWD. PO ONE (12:00)
--- NOTE | 2018-07-07 12:38 | NUR ---
SS following up with discharge planning. SS contacted [facility] for update. SS also phoned and faxed updated clinical to [facility], ; fax [phone]. [facility] reported that they have submitted for insurance authorization and will notify SS when insurance authorization has been received from [facility]. Physician and pt's RN notified.
--- NOTE | 2018-07-07 12:40 | PDOC ---
PULMONARY PROGRESS NOTES Subjective sob better, has occ cough, no sputum, no pain, in and out of afib, sr now Vitals Vital Signs Date Time Temp Pulse Resp B/P (MAP) Pulse Ox O2 Delivery O2 Flow Rate FiO2 07/07/18 11:14 Room Air 07/07/18 11:00 98.2 78 16 121/59 (79) 98 98.2 07/06/18 20:26 3.0 ROS: No Nausea General: Alert HEENT: Other (nc at perrl nose throat clear) Lungs: Clear Cardiovascular: S1, S2 Abdomen: Soft, Non-tender Neuro Exam: Alert Extremities: No Edema Skin: Warm Labs Laboratory Tests Test 07/06/18 03:30 White Blood Count 4.0 x10^3/uL (4.0-11.0) Red Blood Count 2.56 x10^6/uL (4.30-5.70) Hemoglobin 7.7 g/dL (13.0-17.5) Hematocrit 22.5 % (39.0-53.0) Mean Corpuscular Volume 88 fL (79-100) Mean Corpuscular Hemoglobin 30 pg (25-35) Mean Corpuscular Hemoglobin Concent 34 g/dL (31-37) Red Cell Distribution Width 16.2 % (11.5-14.5) Platelet Count 122 x10^3/uL (140-400) Neutrophils (%) (Auto) 65 % (31-73) Lymphocytes (%) (Auto) 13 % (24-48) Monocytes (%) (Auto) 13 % (0-9) Eosinophils (%) (Auto) 9 % (0-3) Basophils (%) (Auto) 0 % (0-3) Neutrophils # (Auto) 2.6 x10^3uL (1.8-7.7) Lymphocytes # (Auto) 0.5 x10^3/uL (1.0-4.8) Monocytes # (Auto) 0.5 x10^3/uL (0.0-1.1) Eosinophils # (Auto) 0.4 x10^3/uL (0.0-0.7) Basophils # (Auto) 0.0 x10^3/uL (0.0-0.2) Sodium Level 139 mmol/L (136-145) Potassium Level 4.4 mmol/L (3.5-5.1) Chloride Level 104 mmol/L (98-107) Carbon Dioxide Level 29 mmol/L (21-32) Anion Gap 6 (6-14) Blood Urea Nitrogen 35 mg/dL (8-26) Creatinine 1.5 mg/dL (0.7-1.3) Estimated GFR (Cockcroft-Gault) 44.7 Glucose Level 100 mg/dL (70-99) Calcium Level 8.5 mg/dL (8.5-10.1) Medications Active Scripts Medications Dose Route/Sig Max Daily Dose Days Date Category Dose Instructions Meloxicam 7.5 Mg Tablet 1 Tab PO DAILY 06/28/18 Reported Propafenone Hcl 150 Mg Tablet 1 Tab PO DAILY 06/28/18 Reported Memantine HCl 10 Mg Tablet 1 Tab PO DAILY 06/28/18 Reported Trazodone Hcl 50 Mg Tablet 1 Tab PO HS 06/28/18 Reported Sertraline Hcl 100 Mg Tablet 1 Tab PO DAILY 06/28/18 Reported Donepezil Hcl 10 Mg Tablet 1 Tab PO DAILY 06/28/18 Reported Carvedilol 6.25 Mg Tablet 1 Tab PO DAILY 06/28/18 Reported Amiodarone Hcl 200 Mg Tablet 200 Mg PO DAILY 30 08/01/17 Rx Potassium Chloride 10 Meq Capsule.er 10 Meq PO DAILY 07/22/16 Reported Lasix (Furosemide) 40 Mg Tablet 40 Mg PO DAILY 07/22/16 Reported Acetaminophen Supp (Acetaminophen) 650 Mg Supp.rect 650 Mg RC Q6HRS PRN 07/31/15 Reported Triamcinolone Acetonide 0.1% Oint (Triamcinolone Acetonide) 15 Gm Oint...g. 1 Harika TP BID 07/23/15 Reported MIX WITH EUCERIN DIRECTED BY PHYSICIAN Simvastatin 20 Mg Tablet 1 Tab PO QHS 07/23/15 Reported Nabumetone 750 Mg Tablet 1 Tab PO BID 07/23/15 Reported Famotidine 20 Mg Tablet 1 Tab PO BID 07/23/15 Reported Impression . IMPRESSION: 1. Acute respiratory failure. 2. Acute bilateral pulmonary infiltrates compatible with [id number] chf 3. Expected drop in hemoglobin, status post transfusion. 4. Epsxg-yn-uspawzu kidney disease. 5. Tobacco dependence, in remission. 6. Chronic obstructive pulmonary disease. 7. Mild dementia. 8. Elevated troponin. 9. paf 10. s/p hip fx, nail Plan . PLAN: 1. 02 titration, BD 2. lasix, keep I<O, monitor k, cr. 3. Monitor labs. 4. Monitor hemoglobin and hematocrit. 5. Follow Cardiology input. 6. repeat cxr 07/06 WITH RESOLVED CHF 7. PT/OT discussed w rn, pt/ NO FURTHER PULMONARY REC WILL SIGN OFF FABBY STOUT MD Jul 07, 2018 12:40
[2018-07-07 15:00] VITALS: BP 134/61
--- NOTE | 2018-07-07 15:24 | RAD ---
Swallow study 07/07/2018 INDICATION: Dysphagia. COMPARISON: None available TECHNIQUE: Fluoroscopic evaluation of swallow function was performed after the ingestion of thin, nectar and barium liquids as well as pureed and solid consistencies. FINDINGS/ IMPRESSION: 1. Deep penetration with silent aspiration identified with thin barium liquids, especially on second or third consecutive ingestion. 2. No aspiration with all other consistencies. 3. Please refer to the separate speech pathology report for further details. 4. Fluoroscopy time: 1.9 minutes, number of images: 0 Electronically signed by: Minda Reyes MD (07/07/2018 3:19 PM) [facility]
[2018-07-07] MEDS ORDERED: DOCU-109 PO (16:08)
[2018-07-07] MEDS ORDERED: TRAM50TA PO (16:08)
[2018-07-07] MEDS ORDERED: ASPI-612 PO (16:08)
[2018-07-07] MEDS ORDERED: HEPA50003 SQ (16:08)
--- NOTE | 2018-07-07 16:11 | DISCH ---
DISCHARGE DISCHARGE INFORMATION: DISCHARGE DATE: Jul 07, 2018 FINAL DIAGNOSIS Problems Medical Problems: (1) Closed left hip fracture Status: Acute CONDITION ON DISCHARGE: Stable CODE STATUS: Code Status: Full MCC: SNF STAY <30 DAYS: Yes HOSPICE: HOSPICE: No HOSPICE EVAL & TREAT: No LTAC: ADMIT TO LTAC: No POST DISCHARGE ORDERS: ACTIVITY ORDERS: No restrictions WEIGHT BEARING STATUS: No restrictions DIET AFTER DISCHARGE: Regular WOUND/INCISION CARE: Ice to area for comfort, Change dressing, Reinforce dressing PRN CHECKS AFTER DISCHARGE: CHECKS AFTER DISCHARGE: Check blood press - daily, Check your Temp as needed, Weigh Yourself Daily FOLLOW-UP: PHYSICIAN FOLLOW-UP: Dr Mikel Sanders - 30 days TREATMENT/EQUIPMENT ORDERS: ADAPTIVE EQUIPMENT NEEDED: None Physical Therapy For: Evalulation/Treatment Occupational Therapy For: Evaluation/Treatment DISCHARGE MEDICATIONS: Home Meds Active Scripts Tramadol Hcl (TRAMADOL HCL) 50 Mg Tablet, 50 MG PO PRN QID PRN for PAIN MILD for 6 Days, #18 TAB 0 Refills Prov:KAREEN ALY MD 07/07/18 Docusate Sodium (COLACE) 100 Mg Capsule, 100 MG PO BID for constipation for 30 Days, #60 CAP Prov:KAREEN ALY MD 07/07/18 Aspirin (ASPIRIN EC) 81 Mg Tablet.dr, 81 MG PO DAILYWBKFT for CAD for 30 Days, # 30 TAB.SR Prov:KAREEN ALY MD 07/07/18 Heparin Sodium,Porcine (HEPARIN SODIUM) 5,000 Unit/1 Ml Vial, 5000 UNIT SQ BID for thromboprophylaxis for 14 Days, #28 EACH Prov:KAREEN ALY MD 07/07/18 Amiodarone Hcl (AMIODARONE HCL) 200 Mg Tablet, 200 MG PO DAILY for 30 Days, #30 TAB Prov:HAILEE LU MD 08/01/17 Reported Medications Propafenone Hcl (PROPAFENONE HCL) 150 Mg Tablet, 1 TAB PO DAILY for AFIB 06/28/18 Memantine HCl (Memantine HCl) 10 Mg Tablet, 1 TAB PO DAILY for Dementia 06/28/18 Trazodone Hcl (TRAZODONE HCL) 50 Mg Tablet, 1 TAB PO HS for Insomina 06/28/18 Sertraline Hcl (SERTRALINE HCL) 100 Mg Tablet, 1 TAB PO DAILY for depression 06/28/18 Donepezil Hcl (DONEPEZIL HCL) 10 Mg Tablet, 1 TAB PO DAILY for Dementia 06/28/18 Carvedilol (Carvedilol) 6.25 Mg Tablet, 1 TAB PO DAILY for CHF 06/28/18 Potassium Chloride (POTASSIUM CHLORIDE) 10 Meq Capsule.er, 10 MEQ PO DAILY, TAB.SR 07/22/16 Furosemide (LASIX) 40 Mg Tablet, 40 MG PO DAILY, TAB 07/22/16 Acetaminophen (ACETAMINOPHEN SUPP) 650 Mg Supp.rect, 650 MG RC Q6HRS PRN for FEVER > 102, SUPP.RECT 07/31/15 Triamcinolone Acetonide (TRIAMCINOLONE ACETONIDE 0.1% OINT) 15 Gm Oint...g., 1 AMINATA TP BID for WOUND CARE, #1 TUBE MIX WITH EUCERIN DIRECTED BY PHYSICIAN 07/23/15 Simvastatin (SIMVASTATIN) 20 Mg Tablet, 1 TAB PO QHS, #30 TAB 5 Refills 07/23/15 Nabumetone (NABUMETONE) 750 Mg Tablet, 1 TAB PO BID, #60 TAB 1 Refill 07/23/15 Famotidine (FAMOTIDINE) 20 Mg Tablet, 1 TAB PO BID, #60 TAB 5 Refills 07/23/15 Discontinued Reported Medications Meloxicam (MELOXICAM) 7.5 Mg Tablet, 1 TAB PO DAILY for Arthritis 06/28/18 KAREEN ALY MD Jul 07, 2018 16:11
--- NOTE | 2018-07-07 16:19 | PDOC3 ---
Discharge Summary Visit Information Date of Admission: Jun 28, 2018 Date of Discharge: Jul 07, 2018 Admitting Diagnosis: Left hip fracture, closed Final Diagnosis Problems Medical Problems: (1) Closed left hip fracture Status: Acute Brief Hospital Course Allergies Allergies Coded Allergies Type Severity Reaction Last Updated Verified I S O L A T I O N *CONTACT* Allergy Unknown 07/01/18 Yes No Known Medication Allergies Allergy Unknown 07/01/18 Yes Vital Signs Vital Signs Date Time Temp Pulse Resp B/P (MAP) Pulse Ox O2 Delivery O2 Flow Rate FiO2 07/07/18 15:08 Room Air 07/07/18 15:00 98.3 77 16 134/61 (85) 96 98.3 07/06/18 20:26 3.0 Lab Results Laboratory Tests Test 07/06/18 03:30 White Blood Count 4.0 x10^3/uL (4.0-11.0) Red Blood Count 2.56 x10^6/uL (4.30-5.70) Hemoglobin 7.7 g/dL (13.0-17.5) Hematocrit 22.5 % (39.0-53.0) Mean Corpuscular Volume 88 fL (79-100) Mean Corpuscular Hemoglobin 30 pg (25-35) Mean Corpuscular Hemoglobin Concent 34 g/dL (31-37) Red Cell Distribution Width 16.2 % (11.5-14.5) Platelet Count 122 x10^3/uL (140-400) Neutrophils (%) (Auto) 65 % (31-73) Lymphocytes (%) (Auto) 13 % (24-48) Monocytes (%) (Auto) 13 % (0-9) Eosinophils (%) (Auto) 9 % (0-3) Basophils (%) (Auto) 0 % (0-3) Neutrophils # (Auto) 2.6 x10^3uL (1.8-7.7) Lymphocytes # (Auto) 0.5 x10^3/uL (1.0-4.8) Monocytes # (Auto) 0.5 x10^3/uL (0.0-1.1) Eosinophils # (Auto) 0.4 x10^3/uL (0.0-0.7) Basophils # (Auto) 0.0 x10^3/uL (0.0-0.2) Sodium Level 139 mmol/L (136-145) Potassium Level 4.4 mmol/L (3.5-5.1) Chloride Level 104 mmol/L (98-107) Carbon Dioxide Level 29 mmol/L (21-32) Anion Gap 6 (6-14) Blood Urea Nitrogen 35 mg/dL (8-26) Creatinine 1.5 mg/dL (0.7-1.3) Estimated GFR (Cockcroft-Gault) 44.7 Glucose Level 100 mg/dL (70-99) Calcium Level 8.5 mg/dL (8.5-10.1) Brief Hospital Course Mr. English is an 83 year old male w/ PMHx Dementia, HTN, cardiomyopathy who presented with a fall at home resulting in an acute traumatic comminuted intertrochanteric left femur fracture, traumatic, closed, s/p sx 06/[address] Sanders with some post operative delerium and rapid afib, 2/2 anemia, He got 3u PRBC for acute blood loss anemia with subsequent acute sob with pulmonary edema post transfusion. At baseline he has CKD 3 in the background of diuretic use, was noted with hyponatremia w/ diuretic use - improved with hold meds. 07/02: transferred from 4th floor with [facility] last night. now back to sinus, HR 80s. got 3u PRBC totally, today hb 6.9. lasix 20mg x1. demented. 07/03: transfered to ICU last night for sob with acute pulmonary edema, cxr better with lasix 40mg iv x1, but cr slightly higher. hb stable after transfusion. 07/04: HR sinus and afib, liable. bp lower side. Cr 1.7. sob ok. on lasix po daily 40mg. hb 8 07/05: still mild tachycardia. otherwise feels ok. hb 7.4. 07/06: Worked with PT, labs stable 07/07: [place] out, able to eat breakfast, worked well with PT/OT Plan: Needs placement at [facility] monitor HB, can check every 3 days now monitor cr improvement, can check less frequently monitor respiratory status 2 additional week thromboprophylaxis Dressing change when needed. PT/OT, may WBAT with walker. Discharge Information Condition at Discharge: Improved Follow Up: Weeks (3) Disposition/Orders: D/C to Another Facility ([facility]) Scheduled Amiodarone Hcl (Amiodarone Hcl) 200 Mg Tablet, 200 MG PO DAILY for 30 Days, #30 Prescribed by: HAILEE LU MD on 08/01/17 1505 Last Action: Continued on 06/28/18930 by TIGRE ROMERO Aspirin (Aspirin Ec) 81 Mg Tablet.dr, 81 MG PO DAILYWBKFT for CAD for 30 Days, # 30 Prescribed by: KAREEN ALY MD on 07/07/18 1608 Carvedilol (Carvedilol) 6.25 Mg Tablet, 1 TAB PO DAILY for CHF, (Reported) Entered as Reported by: EDYTA TORO on 06/28/18743 Last Action: Continued on 06/28/18930 by TIGRE ROMERO Docusate Sodium (Colace) 100 Mg Capsule, 100 MG PO BID for constipation for 30 Days, #60 Prescribed by: KAREEN ALY MD on 07/07/18 1608 Donepezil Hcl (Donepezil Hcl) 10 Mg Tablet, 1 TAB PO DAILY for Dementia, ( Reported) Entered as Reported by: EDYTA TORO on 06/28/18743 Last Action: Converted on 06/28/18930 by TIRGE ROMERO Famotidine (Famotidine) 20 Mg Tablet, 1 TAB PO BID, #60 Ref 5 (Reported) Entered as Reported by: KIMBERLI SOL on 07/23/15 0537 Last Action: Continued on 06/28/18930 by TIGRE ROMERO Furosemide (Lasix) 40 Mg Tablet, 40 MG PO DAILY, (Reported) Entered as Reported by: Zaheer Long on 07/22/16 1153 Last Action: Continued on 06/28/18930 by TIGRE ROMERO Heparin Sodium,Porcine (Heparin Sodium) 5,000 Unit/1 Ml Vial, 5,000 UNIT SQ BID for thromboprophylaxis for 14 Days, #28 Prescribed by: KAEREN ALY MD on 07/07/18 1608 Memantine HCl (Memantine HCl) 10 Mg Tablet, 1 TAB PO DAILY for Dementia, ( Reported) Entered as Reported by: EDYTA TORO on 06/28/18743 Last Action: Converted on 06/28/18930 by TIGRE ROMERO Nabumetone (Nabumetone) 750 Mg Tablet, 1 TAB PO BID, #60 Ref 1 (Reported) Entered as Reported by: KIMBERLI SOL on 07/23/15536 Last Action: Converted on 06/28/18930 by TIGRE ROMERO Potassium Chloride (Potassium Chloride) 10 Meq Capsule.er, 10 MEQ PO DAILY, ( Reported) Entered as Reported by: Zaheer Long on 07/22/16 1153 Last Action: Continued on 06/28/18930 by TIGRE ROMERO Propafenone Hcl (Propafenone Hcl) 150 Mg Tablet, 1 TAB PO DAILY for AFIB, ( Reported) Entered as Reported by: EDYTA TORO on 06/28/18743 Last Action: Converted on 06/28/18930 by TIGRE ROMERO Sertraline Hcl (Sertraline Hcl) 100 Mg Tablet, 1 TAB PO DAILY for depression, ( Reported) Entered as Reported by: EDYTA TORO on 06/28/18743 Last Action: Converted on 06/28/18930 by TIGRE ROMERO Simvastatin (Simvastatin) 20 Mg Tablet, 1 TAB PO QHS, #30 Ref 5 (Reported) Entered as Reported by: KIMBERLI SOL on 07/23/15536 Last Action: Converted on 06/28/18930 by TIGRE ROMERO Trazodone Hcl (Trazodone Hcl) 50 Mg Tablet, 1 TAB PO HS for Insomina, (Reported) Entered as Reported by: EDYTA TORO on 06/28/18743 Last Action: Continued on 06/28/18930 by TIGRE ROMERO Triamcinolone Acetonide (Triamcinolone Acetonide 0.1% Oint) 15 Gm Oint...g., 1 AMINATA TP BID for WOUND CARE, #1 (Reported) MIX WITH EUCERIN DIRECTED BY PHYSICIAN Entered as Reported by: KIMBERLI SOL on 07/23/15536 Last Action: Continued on 06/28/18930 by TIGRE ROMERO Scheduled PRN Acetaminophen (Acetaminophen Supp) 650 Mg Supp.rect, 650 MG RC Q6HRS PRN for FEVER > 102, (Reported) Entered as Reported by: PIETRO YBARRA on 07/31/15 1146 Last Action: Continued on 06/28/18930 by TIGRE ROMERO Tramadol Hcl (Tramadol Hcl) 50 Mg Tablet, 50 MG PO PRN QID PRN for PAIN MILD for 6 Days, #18 Ref 0 Prescribed by: KAREEN ALY MD on 07/07/18 1608 Discontinued Medications Meloxicam (Meloxicam) 7.5 Mg Tablet, 1 TAB PO DAILY for Arthritis, (Reported) Entered as Reported by: EDYTA TORO on 06/28/18 0744 Last Action: HELD on 06/28/18930 by KAREEN PEREZ MD Jul 07, 2018 16:19
--- NOTE | 2018-07-07 16:20 | NUR ---
SS following up with discharge planning. Insurance authorization received. SS phoned and faxed discharge orders to [facility], ; fax [phone]. Pt will discharge today and go to [facility] between 1730 and 1800. [facility] to provide transportation for pt. Pt choice and rights forms verbally consented to by pt's son, Sterling Lucas, , and placed in chart. Pt, pt's RN, and pt's son notified.
--- NOTE | 2018-07-07 18:45 | NUR ---
Discharge Note: Pt DC to [facility] per van. Left with clothing and belongings. IV DC'ed no complications. No complaints of pain. TR called to RN at [facility]S AT [facility]. Left with DC instructions, orders, medications. No concerns.
== END 2018-07-07 19:00 | DRG 480 ==
LOC: ER 02:52 → 4 NORTH 04:26 → 2 NORTH 07-02 02:15 → 1 WEST ICU 07-02 23:34 → 2 NORTH 07-04 17:14
PROVIDERS: ADMIT Hospitalist; ATTEND Hospitalist
PROC: 0QS706Z Reposition Left Upper Femur with Intramedullary Internal Fixation Device, Open Approach (ICD-10-PCS; principal; 2018-06-29 17:00)
PROC: 30233N1 Transfusion of Nonautologous Red Blood Cells into Peripheral Vein, Percutaneous Approach (ICD-10-PCS; 2018-07-01)
DX: S72.142A Displaced intertrochanteric fracture of left femur, initial encounter for closed fracture (principal); N17.0 Acute kidney failure with tubular necrosis; J96.20 Acute and chronic respiratory failure, unspecified whether with hypoxia or hypercapnia; I50.43 Acute on chronic combined systolic (congestive) and diastolic (congestive) heart failure; D62 Acute posthemorrhagic anemia; I47.2 Ventricular tachycardia; F05 Delirium due to known physiological condition; E87.1 Hypo-osmolality and hyponatremia; I42.9 Cardiomyopathy, unspecified; I13.0 Hypertensive heart and chronic kidney disease with heart failure and stage 1 through stage 4 chronic kidney disease, or unspecified chronic kidney disease; N18.3 Chronic kidney disease, stage 3 (moderate); E86.0 Dehydration; J44.9 Chronic obstructive pulmonary disease, unspecified; I44.7 Left bundle-branch block, unspecified; I35.0 Nonrheumatic aortic (valve) stenosis; F03.90 Unspecified dementia, unspecified severity, without behavioral disturbance, psychotic disturbance, mood disturbance, and anxiety; I48.0 Paroxysmal atrial fibrillation; I25.10 Atherosclerotic heart disease of native coronary artery without angina pectoris; E78.00 Pure hypercholesterolemia, unspecified; M10.9 Gout, unspecified; E78.5 Hyperlipidemia, unspecified; M19.90 Unspecified osteoarthritis, unspecified site; K21.9 Gastro-esophageal reflux disease without esophagitis; N40.0 Benign prostatic hyperplasia without lower urinary tract symptoms; F32.9 Major depressive disorder, single episode, unspecified; F17.201 Nicotine dependence, unspecified, in remission; Z96.653 Presence of artificial knee joint, bilateral; T50.2X5A Adverse effect of carbonic-anhydrase inhibitors, benzothiadiazides and other diuretics, initial encounter; W01.0XXA Fall on same level from slipping, tripping and stumbling without subsequent striking against object, initial encounter; Y93.89 Activity, other specified; Y99.8 Other external cause status; Y92.009 Unspecified place in unspecified non-institutional (private) residence as the place of occurrence of the external cause; Z79.899 Other long term (current) drug therapy; Z82.49 Family history of ischemic heart disease and other diseases of the circulatory system
CPT/HCPCS: 36415; 36600; 71045; 73502; 73560; 74230; 76000; 80048; 80053; 80061; 81001; 82306; 82805; 84443; 84484; 85014; 85018; 85025; 85610; 85730; 86850; 86900; 86901; 86920; 87493; 87641; 93005; 93306; 94640; 94760; 96361; 96374; 96375; C1713; C1887; J0171; J0282; J0696; J1160; J1644; J1940; J2001; J2060; J2270; J2370; J2405; J2704; J2795; J3010; J7030; J7620; P9016; 92526; 92610; 92611; 97110; 97116; 97530; 97535; 99285-25